=== PATIENT | female | born 1955 | race Caucasian/White ===

== ENCOUNTER 2018-11-22 10:45 | Inpatient (IN) ==
[2018-11-22] MEDS ORDERED: ZOFRAN IV ONE (11:03)
[2018-11-22] MEDS ORDERED: NS 1,000 ML IV ONE (11:03)
--- NOTE | 2018-11-22 11:22 | PROVIDER DOCUMENTATION ---
This chart was entered by Shante Damon Scribe, acting as scribe for Sam Grimm CRNP. HPI-Abdominal Pain/GI Problem - General Stated Complaint: ABD PAIN, AMS Time Seen by Provider: 11/22/18 10:47 Source: family, EMS Allergies/Adverse Reactions: Patient Allergies Allergy/AdvReac Type Severity Reaction Status Date / Time No Known Allergies Allergy Verified 01/17/14 09:11 Home Medications: Home Medication List Medication Instructions Recorded Confirmed Last Taken Type Amitriptyline [Elavil] 50 mg PO HS 01/17/14 10/01/18 10/01/18 History Duloxetine [Cymbalta] 60 mg PO DAILY 01/17/14 10/01/18 10/01/18 History Gabapentin 300 mg PO TID 01/17/14 10/01/18 10/01/18 History Hydrocodone/Acetaminophen [Lortab 7.5 each PO TID PRN 01/17/14 10/01/18 10/01/18 History 7.5-325 mg Tablet] Insulin Glargine [Lantus] 45 unit SUBQ BID 01/17/14 10/01/18 10/01/18 History Insulin Humulin 70/30 [Humulin 55 unit SUBQ QHS 01/17/14 09/30/18 09/30/18 History 70/30] Insulin Humulin 70/30 [Humulin 65 unit SUBQ QAM 01/17/14 10/01/18 10/01/18 History 70/30] Ipratropium/Albuterol INH 1 puff INH RTQ6H 01/17/14 10/01/18 10/01/18 History [Combivent Respimat Inhaler] LISINOpril [Prinivil] 10 mg PO DAILY 01/17/14 10/01/18 10/01/18 History Montelukast [Singulair] 10 mg PO DAILY 01/17/14 10/01/18 10/01/18 History Nitroglycerin [Nitroquick] 0.4 mg SL PRN PRN 01/17/14 10/01/18 10/01/18 History Pentoxifylline E.r. [Trental] 400 mg PO BID 01/17/14 10/01/18 10/01/18 History SIMVAstatin [Zocor] 80 mg PO QHS 01/17/14 09/30/18 09/30/18 History Sitagliptin Phosphate [Januvia] 100 mg PO DAILY 01/17/14 10/01/18 10/01/18 History Metformin [Glucophage] 2,000 mg PO QHS #0 01/18/14 09/30/18 09/30/18 Rx Aspirin [Adult Aspirin] 81 mg PO DAILY 08/25/18 10/01/18 10/01/18 History Furosemide 20 mg PO DAILY 08/25/18 10/01/18 10/01/18 History Lubiprostone [Amitiza] 24 mg PO BID 08/25/18 10/01/18 10/01/18 History Metoprolol Villatoro/Hydrochlorothiaz 50 mg PO DAILY 08/25/18 10/01/18 10/01/18 History [Metoprolol ER-Hctz 50-12.5 mg] - History of Present Illness-ABD Nature of Presenting Problems: 63 y/o female presents to ED with generalized abdominal pain and N/V onset 2 days ago. Family of pt is at bedside and reports she has hx of "stomach problems," but cannot specify further. Family states they spoke to her last night and she disclosed that she has been sick since the night before. Family reports a friend called this morning after checking on her, said she was minimally responsive and called EMS. EMS states she vomited coffee-ground emesis with fecal odor en route to ED. Abdominal Pain Onset Location: reports: generalized abdomen Pain Radiation: reports: no radiation Quality of Pain: reports: aching Severity in ED: reports: moderate Onset/Duration: reports: 2 days ago Timing: reports: still present Activities at Onset: reports: none Exposure to sick contacts?: No Modifying Factors: worse with: palpation Associated Symptoms: reports: nausea, vomiting, other (generalized abdominal pain; AMS; hematemesis) Last BM: unsure Dark Stools Present?: reports: none noticed Rectal Bleeding: reports: none Rectal Pain: reports: none Emesis Description: reports: coffee grounds Similar Symptoms Previously?: No Recently seen or treated by another doctor?: No Review of Systems - Adult - REVIEW OF SYSTEMS - ADULT Constitutional: reports: other (AMS). denies: chills, fever Eyes: reports: no symptoms reported Ears, Nose, Mouth & Throat: reports: no symptoms reported Cardiovascular: denies: chest pain, palpitations Respiratory: denies: cough, shortness of breath Gastrointestinal: reports: abdominal pain, hematemesis, nausea, vomiting. denies: diarrhea Genitourinary: reports: no symptoms reported Musculoskeletal: denies: back pain, joint pain Integumentary: reports: no symptoms reported Neurological: reports: other (AMS). denies: dizziness/vertigo, seizure Psychiatric: reports: no symptoms reported Endocrine: reports: no symptoms reported Hematologic/Lymphatic: reports: no symptoms reported Allergic/Immunologic: reports: no symptoms reported All Other Systems: Reviewed and Negative Past History - Adult - PAST MEDICAL HISTORY-ADULT Review of Records: reports: Old Records Reviewed, Nursing Assessment Review, Medications Reviewed Major Childhood Illnesses: reports: denies history Cardiovascular: reports: HTN, hyperlipidemia Respiratory: reports: COPD Gastrointestinal: reports: denies history Obstetrical/Gynecological: reports: uterine/ovarian cancer Genitourinary: reports: denies history Musculoskeletal: reports: denies history Neurological: reports: denies history Psychiatric: reports: anxiety Endocrine/Immune: reports: Diabetes Other Conditions: reports: denies history - PRIOR SURGERIES/PROCEDURES Surgical/Procedure History: reports: cholecystectomy, hysterectomy, , hernia repair - IMMUNIZATION STATUS Childhood Immunizations: See Nurse Assessment Flu Vaccine: See Nurse Assessment - FAMILY HISTORY Family History: reviewed, not pertinent - SOCIAL HISTORY Smoking: greater than 1 pack/day Provider spent 3-5 mins advising pt. on dangers of tobacco.: Discussed manners to quit use, and f/u contacts for add'l counseling. Substance Use: none/never Alcohol Use Frequency: never Living Situation: family Physical Exam-General - PHYSICAL EXAM-ADULT Initial Vital Signs Reviewed: Yes - CONSTITUTIONAL General Appearance: no apparent distress, other (does not answer questions or follow commands; will open eyes; responsive to sternal rub) - EYES Eyes: PERRL/EOMI, pink conjunctivae - HEAD, EARS, NOSE, MOUTH & THROAT HENMT: normocephalic/atraumatic, moist mucous membranes, normal ENT inspection - NECK Neck: non-tender, full range of motion - RESPIRATORY Respiratory: chest non-tender, rhonchi (bilateral) - CARDIOVASCULAR Cardiovascular: normal peripheral pulses, regular rate, rhythm - GASTROINTESTINAL (ABDOMEN) Abdominal Exam: soft, abnormal bowel sounds (absent), tenderness (diffuse). negative: normal bowel sounds - MUSCULOSKELETAL Back Exam: normal inspection, no CVA tenderness, no vertebral tenderness Extremity: normal range of motion, non-tender - SKIN Integumentary: normal color, warm/dry - NEUROLOGIC Neurologic: other (does not answer questions or follow commands; will open eyes; responsive to sternal rub) - PSYCHIATRIC Psych/Mental Status: other (does not answer questions or follow commands; will open eyes; responsive to sternal rub) Progress - PLAN OF CARE/RESULTS Progress/Plan/Lab Results: Vital Signs - 24 hr 11/22/18 11:10 Temperature 98.4 F Pulse Rate 98 H Respiratory Rate 22 Blood Pressure 155/75 O2 Sat by Pulse Oximetry 89 L Orders Category Date Time Status FSBS [Finger Stick Blood Sugar (ED)] DIRECTED Care 11/22/18 11:01 Completed Chance Cath Insertion ORDERED Care 11/22/18 11:05 Active Saline Loc NOW Care 11/22/18 11:01 Active Take Temperature DIRECTED Care 11/22/18 11:03 Active CHEST-PORTABLE [RAD] Stat Exams 11/22/18 11:[address] HEAD W/O CONTRAST [CT] Stat Exams 11/22/18 11:[address] THORAX/ABD/PELVIS W/O CON [CT] Stat Exams 11/22/18 12:02 Ordered ABG [RESP] Routine Lab 11/22/18 11:10 Completed BLOOD CULTURE [BLDCUL] Stat Lab 11/22/18 11:06 Ordered CBC WITH ELECTRONIC DIFF [HEME] Stat Lab 11/22/18 11:06 Completed CK PROFILE [SP CHEM] Stat Lab 11/22/18 11:06 Completed COMPREHENSIVE METABOLIC PANEL [CHEM] Stat Lab 11/22/18 11:06 Completed LACTATE, PLASMA [CHEM] Stat Lab 11/22/18 11:06 Completed OCCULT BLOOD SCREENING [STOOL] Stat Lab 11/22/18 11:20 Completed PRO B-NATRIURETIC PEPTIDE Stat Lab 11/22/18 11:06 Completed TROPONIN T Stat Lab 11/22/18 11:06 Completed TYPE & SCREEN [BBK] Stat Lab 11/22/18 12:01 Uncollected URINALYSIS W/POSS RFLX CULT [URINALYSIS] Stat Lab 11/22/18 11:20 Completed URINE DRUG SCREEN Stat Lab 11/22/18 11:20 Received 0.9% Sodium Chloride Inj [Ns] 1,000 ml Med 11/22/18 11:03 Active IV 125 mls/hr Ondansetron [Zofran] Med 11/22/18 11:03 Discontinued 4 mg IV NOW ONE EKG [EKG] Stat Ther 11/22/18 11:01 Ordered Laboratory Tests 11/22/18 11/22/18 11/22/18 11:04 11:06 11:06 WBC 11.19 H RBC 3.41 L Hgb 10.4 L Hct 31.9 L MCV 93.5 MCH 30.5 MCHC 32.6 L RDW Std Deviation 17.6 H Plt Count 86 L MPV 11.9 H Immature Gran % (Auto) 0.4 Neut % (Auto) 82.8 H Lymph % (Auto) 9.5 L [place] % (Auto) 7.2 Eos % (Auto) 0.1 Baso % (Auto) 0.0 Immature Gran # (Auto) 0.04 Neut # (Auto) 9.27 H Lymph # (Auto) 1.06 L [place] # (Auto) 0.81 H Eos # (Auto) 0.01 Baso # (Auto) 0.00 Specimen Type Sample Site pH pCO2 pO2 HCO3 Base Excess Oxyhemoglobin ABG O2 Sat (Calculated) ABG O2 Saturation ABG Carboxyhemoglobin ABG Methemoglobin Alfa Test A-a O2 Difference Total Hemoglobin Lactate Liter Flow Blood Gas Modality FiO2 % Sodium Potassium Chloride Carbon Dioxide Anion Gap BUN Creatinine Estimated GFR/1.73 m2 BUN/Creatinine Ratio Glucose POC Glucose 176 H D Calculated Osmolality Calcium Total Bilirubin AST ALT Alkaline Phosphatase Creatine Kinase Troponin T Coh-N-Yzdgwjxyaxr Pept 178 Total Protein Albumin Globulin Albumin/Globulin Ratio Plasma Lactate Urine Source Urine Color Urine Turbidity Urine pH Ur Specific Buhl Urine Protein Ur Glucose (Stick) Ur Ketones (Stick) Urine Blood Urine Nitrite Urine Bilirubin Urobilinogen Dipstick Urine Leukocytes Urine WBC (Auto) Urine RBC (Auto) U Epithel Cells (Auto) Urine Bacteria (Auto) 11/22/18 11/22/18 11/22/18 11:06 11:06 11:06 WBC RBC Hgb Hct MCV MCH MCHC RDW Std Deviation Plt Count MPV Immature Gran % (Auto) Neut % (Auto) Lymph % (Auto) [place] % (Auto) Eos % (Auto) Baso % (Auto) Immature Gran # (Auto) Neut # (Auto) Lymph # (Auto) [place] # (Auto) Eos # (Auto) Baso # (Auto) Specimen Type Sample Site pH pCO2 pO2 HCO3 Base Excess Oxyhemoglobin ABG O2 Sat (Calculated) ABG O2 Saturation ABG Carboxyhemoglobin ABG Methemoglobin Alfa Test A-a O2 Difference Total Hemoglobin Lactate Liter Flow Blood Gas Modality FiO2 % Sodium 143 Potassium 4.7 Chloride 102 Carbon Dioxide 19 L Anion Gap 22 BUN 53 H Creatinine 1.9 H Estimated GFR/1.73 m2 27 BUN/Creatinine Ratio 28 Glucose 179 H POC Glucose Calculated Osmolality 304 Calcium 9.3 Total Bilirubin 1.07 H AST 24 ALT 17 Alkaline Phosphatase 121 H Creatine Kinase 51 Troponin T < 0.010 Zjz-H-Cwzrweeurxr Pept Total Protein 7.0 Albumin 3.9 Globulin 3.1 Albumin/Globulin Ratio 1.3 Plasma Lactate 3.9 H Urine Source Urine Color Urine Turbidity Urine pH Ur Specific Buhl Urine Protein Ur Glucose (Stick) Ur Ketones (Stick) Urine Blood Urine Nitrite Urine Bilirubin Urobilinogen Dipstick Urine Leukocytes Urine WBC (Auto) Urine RBC (Auto) U Epithel Cells (Auto) Urine Bacteria (Auto) 11/22/18 11/22/18 11:10 11:20 WBC RBC Hgb Hct MCV MCH MCHC RDW Std Deviation Plt Count MPV Immature Gran % (Auto) Neut % (Auto) Lymph % (Auto) [place] % (Auto) Eos % (Auto) Baso % (Auto) Immature Gran # (Auto) Neut # (Auto) Lymph # (Auto) [place] # (Auto) Eos # (Auto) Baso # (Auto) Specimen Type ARTERIAL Sample Site R RADIAL pH 7.52 H pCO2 26 L pO2 62 HCO3 24.2 Base Excess -0.8 Oxyhemoglobin 91.8 L ABG O2 Sat (Calculated) 12.8 L ABG O2 Saturation 95.3 ABG Carboxyhemoglobin 3.60 H ABG Methemoglobin 0.1 Alfa Test YES A-a O2 Difference 105.0 Total Hemoglobin 9.9 L Lactate 3.70 H Liter Flow 2.0 Blood Gas Modality CANNULA FiO2 % 28.0 Sodium Potassium Chloride Carbon Dioxide Anion Gap BUN Creatinine Estimated GFR/1.73 m2 BUN/Creatinine Ratio Glucose POC Glucose Calculated Osmolality Calcium Total Bilirubin AST ALT Alkaline Phosphatase Creatine Kinase Troponin T Wiw-F-Tfzuhkftbps Pept Total Protein Albumin Globulin Albumin/Globulin Ratio Plasma Lactate Urine Source CATH Urine Color YELLOW Urine Turbidity CLEAR Urine pH 5.5 Ur Specific Buhl 1.020 Urine Protein TRACE A Ur Glucose (Stick) NEGATIVE Ur Ketones (Stick) TRACE A Urine Blood NEGATIVE Urine Nitrite NEGATIVE Urine Bilirubin NEGATIVE Urobilinogen Dipstick NORMAL Urine Leukocytes NEGATIVE Urine WBC (Auto) <10 Urine RBC (Auto) <10 U Epithel Cells (Auto) <10 Urine Bacteria (Auto) NEGATIVE Discussed results and plan of care with patient family. Family agrees with plan and verbalizes understanding. Result Diagrams: 11/22/18 11:06 11/22/18 11:06 - EKG 1 Time of EKG reading by physician:: 10:54 EKG Read and Signed by:: Elliott Garcia EKG Interpretation (*Must complete 3 of following elements*): Normal Rate: 97 Rhythm: NSR Plato: normal QRS: normal MD Interval: normal ST Wave: normal - XRAY 1 XRAY Study: Chest Impression: See EMR Report - CT/MRI 1 CT Study: Head Impression: See EMR Report 2 CT Study: Abdomen ([facility] - [address] [place] [address] [address], [place] [address] [facility] - [address] [place] [address] Department of Imaging Patient: YAEL ORTIZ Date: 11/22/18#: [id number] : 1955DM Status: REG ERAcct#: [id number] Age/Sex: 63/FRoom/Bed: Loc: ED Ordering Physician: Sam Grimm Family Physician: None,PCP Reason for Procedure: abd pain/SOB Signed EXAM: CT THORAX/ABD/PELVIS W/O CON INDICATION: abd pain/SOB TECHNIQUE: This exam was performed using automated exposure control, adjustment of mA or kV according to patient size, and/or use of iterative reconstruction technique. COMPARISON: None. FINDINGS: CHEST: There is a large right pleural effusion with associated near complete right lower lobe atelectasis and partial right upper lobe atelectasis. There is minimal subsegmental atelectasis at the left lung base. There are a few calcified mediastinal and hilar lymph nodes indicating prior granulomatous disease. There is no evidence of significan t mediastinal or hilar lymphadenopathy, otherwise. There is no cardiomegaly. There is no evidence of acute osseous abnormality involving the chest. ABDOMEN/PELVIS: There has been a prior cholecystectomy. The liver is grossly unremarkable. The spleen is somewhat enlarged measuring up to 15.7 cm in craniocaudal length. The pancreas and adrenal glands are unremarkable. There is trace free fluid tracking around the liver and spleen and layering in the pelvis. There are a few tiny low dense renal cortical foci bilaterally that probably represent small cysts. The kidneys are unremarkable, otherwise. There is a Chance catheter in the urinary bladder and the bladder is nondistended. There is uncomplicated diverticulosis coli. There is a lower ventral abdominal wall hernia on the left that contains a loop of small bowel proximal to this loop, the small bowel is distended and there are air-fluid levels. This indicates a high-grade obstruction. This appears to be a closed loop obstruction. There is fluid surrounding the incarcerated loop of small bowel. Distal to this, the small bowel is decompressed. The remainder of the GI tract is essentially unremarkable. There is advanced lumbar spondylosis and degenerative changes at the hips. There is no evidence of acute osseous abnormality. IMPRESSION: 1.Left lower quadrant ventral abdominal wall hernia containing an incarcerated loop of small bowel resulting in a high-grade bowel obstruction. 2.Large right pleural effusion with significant atelectasis on the right. 3.Mild splenomegaly. 4.Other incidental/nonacute findings detailed above. Electronically signed by Anatoliy Pepe 11/22/2018 1:14 PM 11/22/18 1314 Interpreting Physician: Anatoliy Pepe MD Dictated Date/Time: 11/22/18 1300 cc: Sam Grimm; None,PCP), Pelvis, Thorax Impression: See EMR Report CT Results: See note - CONSULTS/PCP/HOSPITALIST Notification #1 *Consult/PCP/Hospitalist*: Dr. Ryne Hook Discussed: 13:23 Reason/Comments: Consult Consult Disposition: Will see in ED #2 Consult: Jessika BARKLEY for Dr. Lamas Time Discussed: 13:24 Reason/Comments: Admission Consult Disposition: Will see in ED, Admit Departure - Departure Date of Disposition Decision: 11/22/18 Time of Disposition Decision: 11:22 DIAGNOSIS: Elevated serum lactate dehydrogenase, Ventral hernia with bowel obstruction Acute renal failure (ARF) Qualifiers: Acute renal failure type: unspecified Qualified Code(s): N17.9 - Acute kidney failure, unspecified GI bleed Qualifiers: GI bleed type/associated pathology: unspecified gastrointestinal hemorrhage type Qualified Code(s): K92.2 - Gastrointestinal hemorrhage, unspecified Disposition: ADMITTED INPATIENT 09 Certified Medical Emergency: Emergent Condition: Stable Referrals and Follow-Ups: None,PCP [Primary Care Provider] - Discharge Education: Steps to Quit Smoking, [id number] - Critical Care Note This patient required my direct & personal management of CC.: Yes Total Time (mins): 45 Critical Care Statement: This patient required my direct personal management to treat or rule out processes, the absence of which, could potentiallly result in sudden, clinically significant life or limb threatening deterioration. Attestation - Physician/ SKYLER Attestation Patient care was provided by Advanced Practice Provider:: Yes Advanced Practice Provider:: Sam Grimm Advanced Practice Provider documentation review:: The Mid-level provider documentation, treatment plan and medical decision making was reviewed by the physician who agrees with all treatment and medical decision making by the MLP. The physician spent face to face time with patient:: Yes Advanced Practice Provider documentation review:: Supervising physician onsite and consulted in the evaluation and care of this patient. The physician did have a face to face encounter with the patient. This chart was documented by the indicated scribe, (Shante Damon Scribe) and accurately reflects the services I performed and decisions made by me, Sam Grimm CRNP, as attested by the provider's signature.
[2018-11-22 11:23] LABS: ALLEN TEST YES; BE -0.8 mmoll (-3.0-3.0); BLOOD TYPE ARTERIAL; HCO3-(ACT) 24.2 mmoll (20.0-26.0); METHB 0.1 % (0.0-1.5); O2(CT) 12.8 mL/dL (15.0-23.0); O2HB 91.8 % (95.0-99.0); PCO2(98.6) 26 mmHg (35-45); PO2(98.6) 62 mmHg (60-100); SAMPLE BLOOD; SAO2 95.3 % (95.0-100.0); THB 9.9 g/dL (11.5-17.4); pH(98.6) 7.52 (7.35-7.45)
[2018-11-22 11:24] LABS: MODALITY CANNULA
[2018-11-22 11:30] LABS: EOS# 0.01 X1000 (0.0-0.7); EOS% 0.1 % (0.0-10.0); HEMATOCRIT 31.9 % (37.0-47.0); HEMOGLOBIN 10.4 g/dL (12.0-16.0); IMM GRAN# 0.04 X1000 (0.0-0.04); IMM GRAN% 0.4 % (0.0-0.5); LYMPH# 1.06 X1000 (1.2-3.4); LYMPH% 9.5 % (20.5-51.1); MCH 30.5 PG (27-31); MCHC 32.6 g/dL (33-37); MCV 93.5 FL (81-99); MONO# 0.81 X1000 (0.11-0.59); MONO% 7.2 % (1.7-9.3); MPV 11.9 FL (7.4-10.4); NEUT# 9.27 X1000 (1.4-6.5); NEUT% 82.8 % (42.2-75.2); PLT 86 X1000 (130-400); RBC 3.41 XMIL (4.2-5.4); RDW 17.6 % (11.5-14.5); WBC 11.19 X1000 (4.8-10.8)
[2018-11-22 11:39] LABS: URINE SOURCE CATH
[2018-11-22 11:51] LABS: BILIRUBIN URINE NEGATIVE (NEGATIVE); BLOOD URINE NEGATIVE (NEGATIVE); COLOR YELLOW; GLUCOSE URINE NEGATIVE (NEGATIVE); KETONE URINE TRACE mg/dL (NEGATIVE); LEUKOCYTES URINE NEGATIVE (NEGATIVE); NITRITE URINE NEGATIVE (NEGATIVE); PH URINE 5.5; PROTEIN URINE TRACE mg/dL (NEGATIVE); TURBIDITY URINE CLEAR (CLEAR); UROBILINOGEN URINE NORMAL (NORMAL)
[2018-11-22 11:53] LABS: UR EPITHELIAL CELLS <10 /HPF (<10); URINE BACTERIA NEGATIVE /HPF; URINE RBC <10 /HPF (<10); URINE WBC <10 /HPF (<10)
[2018-11-22 11:57] LABS: ALB/GLOB RATIO 1.3; ALBUMIN 3.9 g/dL (3.5-5.0); CALCIUM 9.3 mg/dL (8.8-10.2); CREATININE 1.9 mg/dL (0.5-0.9); POTASSIUM 4.7 mmol/L (3.5-5.1); TOTAL BILIRUBIN 1.07 mg/dL (0.20-1.00)
[2018-11-22] MEDS ORDERED: PROTONIX IV ONE (12:06)
[2018-11-22] MEDS ORDERED: SODIUM CHLORIDE 0.9% INJ ONE (12:06)
[2018-11-22 12:21] LABS: UR AMPHETAMINES QUAL NONE DETECTED (NONE DETECT); UR BARBITUATES QUAL NONE DETECTED (NONE DETECT); UR BENZODIAZEPIN QUAL NONE DETECTED (NONE DETECT); UR CANNABINOIDS QUAL NONE DETECTED (NONE DETECT); UR COCAINE QUAL NONE DETECTED (NONE DETECT); UR METHADONE QUAL NONE DETECTED (NONE DETECT); UR OPIATES QUAL NONE DETECTED (NONE DETECT); UR OXYCODONE QUAL NONE DETECTED (NONE DETECT); UR PCP QUAL NONE DETECTED (NONE DETECT)
[2018-11-22] MEDS ORDERED: NS 2,000 ML IV ONE (12:44)
--- NOTE | 2018-11-22 13:01 | Diag Imaging Result Doc PS360 ---
EXAM: CT HEAD W/O CONTRAST INDICATION: AMS TECHNIQUE: This exam was performed using automated exposure control, adjustment of mA or kV according to patient size, and/or use of iterative reconstruction technique. COMPARISON: None. FINDINGS: There is no definite acute infarct given the limited sensitivity of CT versus MRI. There is no discrete intracranial mass, mass effect, or intracranial hemorrhage. The surrounding soft tissues and bony structures are essentially unremarkable. IMPRESSION: No evidence of acute intracranial pathology. Electronically signed by Anatoliy Pepe 11/22/2018 12:59 PM
--- NOTE | 2018-11-22 13:17 | Diag Imaging Result Doc PS360 ---
EXAM: CT THORAX/ABD/PELVIS W/O CON INDICATION: abd pain/SOB TECHNIQUE: This exam was performed using automated exposure control, adjustment of mA or kV according to patient size, and/or use of iterative reconstruction technique. COMPARISON: None. FINDINGS: CHEST: There is a large right pleural effusion with associated near complete right lower lobe atelectasis and partial right upper lobe atelectasis. There is minimal subsegmental atelectasis at the left lung base. There are a few calcified mediastinal and hilar lymph nodes indicating prior granulomatous disease. There is no evidence of significant mediastinal or hilar lymphadenopathy, otherwise. There is no cardiomegaly. There is no evidence of acute osseous abnormality involving the chest. ABDOMEN/PELVIS: There has been a prior cholecystectomy. The liver is grossly unremarkable. The spleen is somewhat enlarged measuring up to 15.7 cm in craniocaudal length. The pancreas and adrenal glands are unremarkable. There is trace free fluid tracking around the liver and spleen and layering in the pelvis. There are a few tiny low dense renal cortical foci bilaterally that probably represent small cysts. The kidneys are unremarkable, otherwise. There is a Chance catheter in the urinary bladder and the bladder is nondistended. There is uncomplicated diverticulosis coli. There is a lower ventral abdominal wall hernia on the left that contains a loop of small bowel proximal to this loop, the small bowel is distended and there are air-fluid levels. This indicates a high-grade obstruction. This appears to be a closed loop obstruction. There is fluid surrounding the incarcerated loop of small bowel. Distal to this, the small bowel is decompressed. The remainder of the GI tract is essentially unremarkable. There is advanced lumbar spondylosis and degenerative changes at the hips. There is no evidence of acute osseous abnormality. IMPRESSION: 1.Left lower quadrant ventral abdominal wall hernia containing an incarcerated loop of small bowel resulting in a high-grade bowel obstruction. 2.Large right pleural effusion with significant atelectasis on the right. 3.Mild splenomegaly. 4.Other incidental/nonacute findings detailed above. Electronically signed by Anatoliy Pepe 11/22/2018 1:14 PM
[2018-11-22] MEDS ORDERED: ATIVAN IV ONE (13:27)
[2018-11-22] MEDS ORDERED: MORPHINE IV ONE (13:28)
[2018-11-22] MEDS ORDERED: FENTANYL ONE (13:48)
[2018-11-22] MEDS ORDERED: DIPRIVAN 1% ONE (13:48)
[2018-11-22] MEDS ORDERED: DUONEB (A & A) INH PRN (13:49)
[2018-11-22] MEDS ORDERED: ROBINUL ONE (13:49)
[2018-11-22] MEDS ORDERED: ZOFRAN IV PRN (13:49)
[2018-11-22] MEDS ORDERED: XYLOCAINE-MPF 2% ONE (13:49)
[2018-11-22] MEDS ORDERED: DECADRON ONE (13:49)
[2018-11-22] MEDS ORDERED: DILAUDID IV PRN ×2 (13:49→18:54)
[2018-11-22] MEDS ORDERED: QUELICIN (DOSE) ONE (13:49)
--- NOTE | 2018-11-22 13:57 | Diag Imaging Result Doc PS360 ---
EXAM: CHEST-PORTABLE INDICATION: AMS/SOB TECHNIQUE: One view COMPARISON: 07/17/2016 FINDINGS: There is a moderate to large sized pleural effusion on the right with adjacent atelectasis. The left lung is clear. There is no discrete pneumothorax. The cardiomediastinal silhouette and central vasculature are grossly unremarkable. IMPRESSION: Moderate to large size right pleural effusion with adjacent atelectasis. Electronically signed by Anatoliy Pepe 11/22/2018 1:55 PM
[2018-11-22] MEDS ORDERED: PROTONIX IV SCH (14:00)
[2018-11-22] MEDS: ZOSYN 3.375 GM in NS 50 ML IV SCH ×2 (14:15→20:39)
[2018-11-22] MEDS ORDERED: BRIDION ONE (15:49)
[2018-11-22] MEDS ORDERED: HUMALOG SUBQ SCH (16:00)
[2018-11-22] MEDS ORDERED: NEOSTIGMINE ONE (16:21)
[2018-11-22 16:52] LABS: ALLEN TEST YES; BE -3.3 mmoll (-3.0-3.0); BLOOD TYPE ARTERIAL; HCO3-(ACT) 22.3 mmoll (20.0-26.0); METHB 0.7 % (0.0-1.5); O2(CT) 11.9 mL/dL (15.0-23.0); O2HB 92.2 % (95.0-99.0); PCO2(98.6) 35 mmHg (35-45); PO2(98.6) 71 mmHg (60-100); SAMPLE BLOOD; SAO2 95.5 % (95.0-100.0); THB 9.1 g/dL (11.5-17.4); pH(98.6) 7.39 (7.35-7.45)
[2018-11-22 16:53] LABS: MODALITY COOL AEROSOL
[2018-11-22] MEDS ORDERED: NS 1,000 ML IV SCH (17:15)
[2018-11-22] MEDS: NEXIUM IV SCH (17:33)
[2018-11-22] MEDS: SODIUM CHLORIDE 0.9% INJ SCH (17:33)
--- NOTE | 2018-11-22 18:24 | HISTORY AND PHYSICAL ---
CHIEF COMPLAINT: Abdominal pain, altered mental status. HPI: This is a 63-year-old female with a history of gastroesophageal reflux disease, hypertension, diabetes mellitus, who presents to the emergency room via EMS after being called by her family. Evidently, the patient has complained of generalized abdominal pain with nausea and vomiting that started about 2 or 3 days ago. They did state that she has a history of constipation and felt that she needed to have a bowel movement over the last 2 to 3 days. The daughter stated she talked to her mom last night and that she stated that she needed to have a bowel movement but was unable. She stated that she seemed in her normal state of mind at that time. Daughter stated this morning a friend called her and said that she needed to check on her mom because she was not responding therefore EMS was called. According to the chart, on EMS arrival the patient responded only to pain and she vomited coffee-grounds emesis with a fecal odor. The daughter is at the bedside, although she is a poor historian and the patient continues to respond only to pain. She does moan and groan. PAST MEDICAL HISTORY: According to the chart, hypertension, diabetes mellitus, gastroesophageal reflux disease, maybe COPD. PAST SURGICAL HISTORY: Cholecystectomy, hysterectomy, and hernia repair. The patient does have mesh per the daughter and it was placed about 15 years ago. REVIEW OF SYSTEMS: Is unable to obtain due to the patient's mental status. ALLERGIES: No known drug allergies. HOME MEDICATIONS: A list will be obtained by the nursing staff and once verified will review and restart as appropriate. VITAL SIGNS: Blood pressure is 144/73 with a heart rate of 97, respirations are 20 to 22, temperature is 98.2 degrees with O2 saturations 94 to 96%. HEENT: Head is normocephalic, atraumatic. Mucous membranes are moist. Neck: Supple with trachea midline. Cardiovascular: Regular rate and rhythm. S1 and S2 are appreciated. Peripheral pulses are palpable x4 extremities. Pulmonary: Breath sounds with rhonchi scattered throughout. Chest rises and falls symmetric with respiration. Chest wall is nontender. Abdomen: Large with diffuse tenderness with no bowel sounds noted. She does have a firm area to her left lower quadrant that is tender to palpation. Skin: Pale and dry. Neurologic: The patient startles to a sternal rub or to pain. LABS: WBC is 11.1 with hemoglobin 10.4, hematocrit 31.9 and platelets of 86,000. Sodium 143, potassium 4.7, BUN 53, creatinine 1.9 with a glucose of 179. Lactate is 3.9. Urine drug screen reveals none detected. Blood cultures are pending. Stool for occult blood is positive. Chest x-ray reveals moderate to large size right pleural effusion with adjacent atelectasis. CT of the head reveals no evidence of acute intracranial pathology. CT of the abdomen and pelvis and chest reveals a left lower quadrant ventral abdominal wall hernia containing an incarcerated loop of small bowel resulting in a high-grade bowel obstruction, a large right pleural effusion with significant atelectasis on the right, mild splenomegaly. ASSESSMENT AND PLAN: 1. Incarcerated ventral hernia with high-grade bowel obstruction. 2. Gastrointestinal bleed, lower. 3. Acute kidney injury in the setting of chronic kidney disease. 4. Leukocytosis. 5. Hypertension. 6. Gastroesophageal reflux disease. 7. Diabetes mellitus type 2. 8. Chronic obstructive pulmonary disease. 9. Thrombocytopenia looks like chronic. 10. Right-sided pleural effusion, possible aspiration pneumonia. Will continue with antibiotic coverage of Zosyn. PLAN: 1. The patient has been evaluated by Dr. Glenroy Michele. She will go to surgery from the emergency room. NG tube has been placed. The patient does have noted fecal smelling matter returning. continue with IV hydration. CBC, CMP, mag and phosphorus in the morning. Dilaudid for pain. DuoNeb q.4 hours and q.2 hours p.r.n. pattern blood glucose with sliding scale insulin. Zosyn for antibiotic coverage and any further antibiotics will be culture driven. Dr. Mcdowell will be consulted. DVT prophylaxis will use SCDs and GI prophylaxis Nexium. Further treatments pending hospital course. Plan discussed with Dr Walker. Dictated by FILIPPO Freedman for Juan Carlos Thao MD cc: FILIPPO Freedman MD [facility]
[2018-11-22] MEDS ORDERED: DIPRIVAN 1% 1,000 MG/100 ML BOTTLE ONE (19:43)
[2018-11-22] MEDS: LEVOPHED 8 MG in D5 1/2 NS 250 ML IV SCH (19:59)
[2018-11-22] MEDS: DIPRIVAN 1% 1,000 MG/100 ML BOTTLE IV SCH ×2 (20:00→21:34)
[2018-11-22] MEDS ORDERED: SODIUM BICARBONATE 8.4% 100 MEQ in D5W 1,000 ML IV SCH (20:00)
[2018-11-22] MEDS: DUONEB (A & A) INH SCH ×2 (20:11→22:57)
--- NOTE | 2018-11-22 20:18 | Diag Imaging Result Doc PS360 ---
EXAM: CHEST-1 VIEW INDICATION: confirm ett placement TECHNIQUE: One view COMPARISON: 11/22/2018 FINDINGS: There is an ET tube in place with the tip projecting over the trachea and above the shellie at about the four level. There is also an NG tube projects below the diaphragm and is assumed to be in the lumen of the stomach in the expected position. The moderate to large size pleural effusion seen on the previous study appears to have increased somewhat in size. However, this may be due to differences in positioning with layering. No new consolidation is identified. Cardiac silhouette is stable. IMPRESSION: 1.Interval placement of ET tube and NG tube as described. 2.Likely mild increase in size of the right effusion. Electronically signed by Anatoliy Pepe 11/22/2018 8:16 PM
[2018-11-22] MEDS: SODIUM BICARBONATE 8.4% 100 MEQ in D5W 1,000 ML IV SCH (20:34)
--- NOTE | 2018-11-22 20:45 | GENERAL SURGERY CONSULTATION ---
DATE: 11/22/2018 HISTORY OF PRESENT ILLNESS: This is a 63-year-old female with multiple medical issues including diabetes, smoking, COPD, chronic pain, peripheral vascular disease, hypertension, hyperlipidemia and depression, who presents after family found her altered today from a mental status standpoint. She had some nausea, vomiting yesterday, abdominal discomfort. They thought she had a stomach virus. Today, they noted feculent emesis and she came to the ER. CT scan showed incarcerated ventral hernia left lower quadrant and she also has a right-sided effusion consistent with aspiration pneumonia. She is very altered and combative. Daughter is here with her, confirms this is not her usual state of health. She does seem to be moving all her extremities well. CT of the head did not show any acute abnormality. MEDICAL HISTORY: As noted in her HPI. SURGICAL HISTORY: She has had C-sections, hysterectomies, complications associated with this, including hernia. She had a ventral hernia repair around the umbilicus, appears to be a laparoscopic repair, but apparently no surgery on the left lower quadrant repairs. SOCIAL HISTORY: She does have a history of smoking, no alcohol. Attentive daughter is here with her. FAMILY HISTORY: Reviewed, noncontributory. REVIEW OF SYSTEMS: 10 point negative but difficult to obtain OBJECTIVE: General: She is afebrile. Pulse in the 90s. Blood pressure 137/82, oxygen 93%. She is on nasal cannula. General: She is obviously uncomfortable, thrashing in the bed. Not following commands. HEENT: No scleral icterus. No obvious cervical mass. Cardiovascular: Normal rate. Pulmonary: No increased work of breathing, but she does have some audible rhonchi, insulin, nasal cannula. Abdomen: Obese. It is distended. There is no matthew peritonitis. There is a mass in the left lower quadrant consistent with a hernia. It is lateral to her midline incision at this location. There are also scars of the periumbilical location consistent with previous umbilical hernia repair. It is nonreducible. There are no overlying skin changes and she is not especially tender at this location, either. Psychiatric: She is very agitated and delirious. Neurologic: She seems to be moving all her extremities equally with normal strength. Lymphatic: I do not feel any inguinal adenopathy on the left side. LABS: White count is 11, hematocrit 31, platelets 86,000. ABG 7.52, 26, 62, 24.2, lactate 3.7, creatinine is 1.9, glucose only in the 70s. Bilirubin is 1.07, AST, ALT and alkaline phosphatase. Alkaline phosphatase mildly elevated. Troponins normal, lactate 3.9. UDS negative. Urinalysis without leukocytes, nitrates. I reviewed her CT scan, CT of the head and chest x-ray. ASSESSMENT AND PLAN: This is a 63-year-old female with an incarcerated ventral hernia, left lower quadrant. I do not see signs of perforation. I suspect there is impending ischemia at this location given the dense incarceration. She also appears to have had an aspiration event causing most likely the right lower lobe pneumonia with a reactive effusion. We discussed risk of bleeding, prolonged intubation, cardiopulmonary complications, recurrence, the inability to use mesh in the setting, possible need of bowel resection. The daughter understands and consents. Will go to the operating room emergently for repair of this this afternoon. Ordered her Zosyn. Will place a nasogastric tube. Will place a Chance catheter. cc: Sima Michele MD MTD
[2018-11-22] MEDS: HUMALOG SUBQ SCH ×2 (20:46→23:45)
--- NOTE | 2018-11-22 21:27 | OPERATIVE NOTE ---
PROCEDURE DATE: 11/22/2018 POSTOPERATIVE DIAGNOSIS: Incarcerated left lower quadrant ventral hernia. POSTOPERATIVE DIAGNOSIS: Incarcerated left lower quadrant ventral hernia. PROCEDURE PERFORMED: Open repair of incarcerated left lower quadrant hernia. ANESTHESIA: General. ESTIMATED BLOOD LOSS: Fifty. SPECIMEN: Hernia sac. INDICATIONS: A 63-year-old female who has had a complicated surgical history including a previous ventral hernia repairs, who presents with 48 to 72 hours of nausea vomiting feculent with altered mental status and CT scan showed incarcerated loop of small bowel in the left lower quadrant that was not reducible operative. OPERATIVE FINDINGS: There was a left lower quadrant hernia at the junction of the oblique and the rectus muscles. There is an incarcerated, near strangulated, loop of small intestine that was initially dusky but pinked up with no evidence of perforation or full-thickness necrosis. OPERATIVE NOTE: Risks, benefits, and alternatives were discussed with the patient and her daughter and both consented to the procedure. She was seen preoperatively. Surgical site was confirmed. She was taken to the operating room and placed in the supine position. General anesthesia was induced. She had a nasogastric tube in place and a Chance catheter. Her abdomen is prepped widely with chlorhexidine and draped in usual fashion. After time-out, a left lower quadrant oblique incision was made over the area of the palpable hernia and the hernia was dissected out circumferentially down to the fascia. We then opened the hernia sac. There was a significant amount of edema in the soft tissues and reactive fluid within the hernia sac. The bowel was quite dusky, but there was no matthew necrosis and no perforation. We opened up the defect medially and dividing some the lateral aspect of the rectus muscle and fascia to reduce the strangulation and we noted proper pinking of the intestine. It was peristalsing and we observed this for several minutes after soaking in warm saline and it seemed to be viable. We reduced it back in the abdomen. At this point, we confirmed hemostasis from muscle edges. We did have to ligate some intramuscular arterial branches as well as a crossing vein and likely an epigastric vein with Vicryl suture. We then reapproximated the peritoneum with a running 0 Vicryl and then with interrupted #1 Prolene sutures we reapproximated the anterior fascia. There was good tension free closure here. A Jay drain was placed through a more cephalad and lateral stab incision above the muscle. This Charmaine layer was then reapproximated with a running 3-0 Vicryl suture. Skin closed surgical clips. A dressing was applied. She tolerated this well. Woken, transferred to the ICU for observation resuscitation. cc: Sima Michele MD
[2018-11-22 21:28] LABS: BLOOD TYPE ARTERIAL; SAMPLE BLOOD
[2018-11-22 21:29] LABS: ALLEN TEST YES; BE 1.5 mmoll (-3.0-3.0); HCO3-(ACT) 26.1 mmoll (20.0-26.0); METHB 0.8 % (0.0-1.5); O2(CT) 9.8 mL/dL (15.0-23.0); O2HB 96.7 % (95.0-99.0); PCO2(98.6) 29 mmHg (35-45); PO2(98.6) 114 mmHg (60-100); SAO2 100.6 % (95.0-100.0); SRATE 15 BPM; TVOL 650 mL; pH(98.6) 7.53 (7.35-7.45)
[2018-11-22 21:33] LABS: MODALITY VENTILATOR
--- NOTE | 2018-11-22 22:03 | PULMONOLOGY CONSULTATION ---
DATE: 11/22/2018 REQUESTING PHYSICIAN: Dr. Walker. REASON FOR CONSULTATION: Respiratory failure and pleural effusion. HISTORY OF PRESENT ILLNESS: Ms. Mancini is a 63-year-old white female with presumptive COPD, diabetes mellitus, hypertension, gastroesophageal reflux disease, coronary artery disease, who presented to the emergency room after family found her minimally responsive. The patient has had abdominal pain and nausea for 2 days. The patient had an episode of coffee- grounds emesis with an anaerobic smell en route to the emergency room. CT scan of the head was performed which revealed no evidence of acute intracranial pathology. CT scan of the chest, abdomen and pelvis was performed. There was a large right-sided pleural effusion with atelectasis of the right lower lobe. The patient had an enlarged spleen. She had fluid tracking around the liver. She had an incarcerated loop of small bowel and an abdominal wall hernia consistent with a high-grade obstruction. The patient was taken to the operating room by Dr. Glenroy Michele and this was reduced. She was extubated and is in the ICU. The patient does not follow commands. She responds to pain. She has moderate work of breathing using her abdominal muscles. PAST MEDICAL HISTORY: 1. Diabetes mellitus with unknown glucose control. 2. Coronary artery disease with prior stent placement. Cardiac catheterization 01/2014 revealed moderate disease in the right coronary artery with mild in-stent restenoses of the proximal circumflex. 3. Status post cholecystectomy. 4. Cellulitis of the tip of the index finger on the left hand with acute osteomyelitis involving the distal phalanx. This was noted 08/19/2018 on MRI. The patient was being followed by Dr. Victoriano Love. 5. Status post . 6. History of hernia repair with mesh. SOCIAL HISTORY: The patient has tobacco history. Current tobacco use or quantitation cannot be performed. Unknown alcohol use. FAMILY HISTORY: Not immediately available. REVIEW OF SYSTEMS: Cannot be obtained. PHYSICAL EXAMINATION: General: Reveals an obese white female who appears older than her stated age of 63 with moderate work of breathing as outlined above. She does not follow commands. She does respond to painful stimuli. Heart rate 105, respiratory rate 23 to 28, blood pressure 85/50, oxygen saturation 97%. HEENT: Pupils appear equal. Oropharynx is dry. Neck: Supple. Chest: Reveals diminished breath sounds right base. Cardiac: Regular rate, normal S1, normal S2. Abdomen: Obese and soft with surgical dressings in place. Extremities: Slightly cool to the touch. LABORATORY DATA: CT scan is as per HPI. Reintubation film performed upon my arrival, good endotracheal tube placement. Moderate veiling on the right consistent with effusion. White blood count 11.19, hemoglobin 10.4, platelet count 86,000. Arterial blood gas, pH 7.39, pCO2 of 35, PO2 of 71 with a carboxyhemoglobin of 2.7 and a lactate of 3.1. Sodium 143, potassium 4.7, chloride 102, bicarbonate 19, anion gap is elevated at 22, BUN 53, creatinine 1.9. IMPRESSION: A 63-year-old with 1. Acute hypoxemic respiratory failure with increased work of breathing. 2. Marginal blood pressure with lactic acidosis. 3. Right-sided pleural effusion. 4. Incarcerated hernia status post reduction. 5. Acute renal failure. 6. Increased anion gap acidosis related to the lactate. Cannot rule out ketones. 7. Altered mental status. RECOMMENDATIONS: 1. Reintubation. The patient needs airway control given altered mental status. She needs additional ventilatory support given increased work of breathing and lactic acidosis. 2. Additional volume resuscitation. Will initiate a bicarbonate solution given acute renal failure. 3. Agree with broad spectrum antibiotics. 4. Agree with gastric acid suppression. 5. Bronchodilators. 6. Sputum for C and S. TIME SPENT: In critical care management with intubation bundled into the procedure (I supervised respiratory therapy) 94 minutes. cc: Alexandr Mcdowell MD MTDD
[2018-11-23] MEDS: DIPRIVAN 1% 1,000 MG/100 ML BOTTLE IV SCH ×8 (00:55→21:45)
[2018-11-23] MEDS: SODIUM BICARBONATE 8.4% 100 MEQ in D5W 1,000 ML IV SCH ×6 (01:25→18:43)
[2018-11-23] MEDS: ZOSYN 3.375 GM in NS 50 ML IV SCH ×4 (02:00→20:33)
[2018-11-23] MEDS: TYLENOL PR PRN ×3 (03:00→21:27)
[2018-11-23] MEDS: DUONEB (A & A) INH SCH ×7 (03:33→22:57)
[2018-11-23] MEDS: HUMALOG SUBQ SCH ×5 (03:59→20:34)
[2018-11-23 04:32] LABS: ALLEN TEST YES; BE 0.5 mmoll (-3.0-3.0); BLOOD TYPE ARTERIAL; HCO3-(ACT) 25.3 mmoll (20.0-26.0); O2(CT) 10.7 mL/dL (15.0-23.0); O2HB 95.8 % (95.0-99.0); PCO2(98.6) 34 mmHg (35-45); PO2(98.6) 90 mmHg (60-100); SAMPLE BLOOD; SAO2 96.5 % (95.0-100.0); SRATE 10 BPM; THB 7.8 g/dL (11.5-17.4); TVOL 650 mL; pH(98.6) 7.46 (7.35-7.45)
[2018-11-23 04:33] LABS: MODALITY VENTILATOR
[2018-11-23 05:23] LABS: BASO# 0.02 X1000 (0.0-0.2); BASO% 0.1 % (0.0-0.8); EOS# 0.16 X1000 (0.0-0.7); EOS% 0.9 % (0.0-10.0); HEMATOCRIT 28.2 % (37.0-47.0); HEMOGLOBIN 9.1 g/dL (12.0-16.0); IMM GRAN# 0.08 X1000 (0.0-0.04); IMM GRAN% 0.4 % (0.0-0.5); LYMPH# 2.58 X1000 (1.2-3.4); LYMPH% 13.8 % (20.5-51.1); MCH 30.8 PG (27-31); MCHC 32.3 g/dL (33-37); MCV 95.6 FL (81-99); MONO# 1.93 X1000 (0.11-0.59); MONO% 10.3 % (1.7-9.3); MPV 11.3 FL (7.4-10.4); NEUT# 13.95 X1000 (1.4-6.5); NEUT% 74.5 % (42.2-75.2); PLT 145 X1000 (130-400); RBC 2.95 XMIL (4.2-5.4); RDW 17.9 % (11.5-14.5); WBC 18.72 X1000 (4.8-10.8)
[2018-11-23 05:43] LABS: POTASSIUM 3.7 mmol/L (3.5-5.1)
[2018-11-23 05:44] LABS: ALB/GLOB RATIO 1.2; ALBUMIN 3.1 g/dL (3.5-5.0); CALCIUM 7.3 mg/dL (8.8-10.2); CREATININE 1.9 mg/dL (0.5-0.9); PHOSPHORUS 3.6 mg/dL (2.7-4.5); TOTAL BILIRUBIN 0.85 mg/dL (0.20-1.00); TOTAL PROTEIN 5.6 g/dL (6.3-8.3)
[2018-11-23] MEDS: LEVOPHED 8 MG in D5 1/2 NS 250 ML IV SCH ×2 (06:33→15:43)
--- NOTE | 2018-11-23 07:24 | Diag Imaging Result Doc PS360 ---
EXAM: CHEST-PORTABLE 11/23/2018 HISTORY: vent TECHNIQUE: AP portable at 0531 COMMENT: There are bilateral pleural effusions. There is cardiomegaly. There is an NG tube with its tip below the diaphragm. There is an endotracheal tube with its tip at the thoracic inlet. There is some platelike atelectasis over the left lower lobe. This is worse than on the previous study of 11/22/2018. There is generalized hazy opacity over the right lung and to some extent over the left apex. IMPRESSION: Pulmonary edema plus minus pneumonia with left lower lobe atelectasis. Bilateral pleural effusions. Electronically signed by Carlos Trejo 11/23/2018 7:21 AM
--- NOTE | 2018-11-23 07:33 | PROGRESS NOTE ---
DATE: 11/23/2018 SUBJECTIVE: This patient has been reintubated after evaluation by the pulmonary department during the night due to increased work of breathing and acute hypoxemic respiratory failure. She has been placed on pressors due to low blood pressure, acute kidney injury, septic shock. Her prognosis is guarded. I discussed the case with the daughter and the son at the bedside yesterday in the afternoon. They know about her situation. They know that this patient is remarkably sick. She has been placed Full Code. OBJECTIVE: Vital Signs: Temperature at 4 a.m. was 102.1, pulse 135, respiratory rate 19, blood pressure 102/31, oxygen saturation 99 on mechanical ventilation. HEENT: Head normocephalic. No trauma. PERRLA. Neck: Supple. No JVD. No masses. Central trachea. Chest: Coarse breath sounds bilaterally, decreased mostly on the right side. Abdomen: Soft, obese. She does have a drain coming out from the left side of the abdomen with serosanguineous discharge. Extremities: There is 1+ pedal edema. No clubbing. No cyanosis. Slightly cool to touch. Neurological Examination: The patient is on mechanical ventilation and sedated. Laboratory: WBC 18.7, hemoglobin 9.1, hematocrit 28.2, and platelets 145,000. Sodium 142, potassium 3.7, chloride 104, bicarbonate 23, BUN 52, creatinine 1.9, glucose 199, calcium 7.3, albumin 3.1. ASSESSMENT AND PLAN: 1. Acute hypoxemic respiratory failure, likely secondary to aspiration pneumonia and right-sided pleural effusion. This patient has been placed on mechanical ventilation. Pulmonary department is following this patient closely. 2. Septic shock. Continue with pressors. Likely secondary to aspiration pneumonia. Also, she had an incarcerated hernia which has been repaired. 3. Right-sided pleural effusion. Probably, this has to be drained. 4. Aspiration pneumonia. Continue broad-spectrum antibiotics. 5. Acute kidney injury on chronic kidney disease. Her baseline creatinine is around 1.1 to 1.3. Today, it is 9.1. No big changes compared with yesterday. Continue with intravenous fluids. 6. Incarcerated left lower quadrant ventral hernia, status post open repair of incarcerated left lower quadrant hernia, postoperative day #1. 7. Anion gap acidosis with lactic acid elevation. Continue with the same management. Anion gap decreased from 22 to 15. 8. Type 2 diabetes. Continue with the same management, sliding scale insulin, and pattern of blood sugar. 9. Chronic obstructive pulmonary disease. Aware. I am not sure if this patient is still smoking. We will continue with breathing treatments, oxygen supplementation, mechanical ventilation. 10. Global encephalopathy. Aware. Likely due to septic shock. 11. Thrombocytopenia. This is chronic since 2018. Today, the platelet count looks better but it looks like her baseline is between 60,000s and 80,000s. 12. Resuscitation status. This patient is Full Code. 13. I had a conversation with the family yesterday. I told him that this patient is remarkably sick. They still want to continue full treatment. This patient is Full Code, but they are aware about the whole situation. CRITICAL CARE TIME: 45 minutes. cc: Juan Carlos Thao MD
--- NOTE | 2018-11-23 08:14 | EKG Report ---
Test Performed on : 11/22/2018 10:54:13 AM Test Reason : AMS Blood Pressure : / mmHG Vent. Rate : 097 BPM Atrial Rate : 097 BPM P-R Int : 172 ms QRS Dur : 076 ms QT Int : 362 ms P-R-T Axes : 036 -02 031 degrees QTc Int : 459 ms Normal sinus rhythm. Normal ECG When compared with ECG of 18-JAN-2014 08:07, No significant change was found Unconfirmed Result
[2018-11-23] MEDS ORDERED: LOPRESSOR IV ONE (09:50)
[2018-11-23] MEDS: REGLAN IV SCH ×3 (10:01→22:39)
--- NOTE | 2018-11-23 12:46 | GENERAL SURGERY PROGRESS NOTE ---
DATE: 11/23/2018 SUBJECTIVE: Was reintubated last night upon arrival to ICU, given mental status and increasing work of breathing and remained intubated overnight. She does have some fevers, tachycardia. OBJECTIVE: Blood pressures have been 127/43 this morning. She is saturating well on 50% FiO2 and PEEP of 8, I believe. General: She is sedated. Her abdomen is soft, nontender. Dressing is intact. TAWNYA drain serosanguineous. DIAGNOSTIC STUDIES: White count is 18, hematocrit is 28. ABG 7.46, 34, 90, her base excess is 0.5. Her lactate is 3.4. Creatinine is 1.9 and that is stable, glucose 190s to 200s. LFTs are normal. X-ray shows opacification of the right hemithorax. ASSESSMENT AND PLAN: 1. This is a 63-year-old female status post repair of incarcerated ventral hernia. 2. She unfortunately appears to have a worsening aspiration pneumonia on the right. She is being covered for this. She is endotracheally supported on the ventilator. 3. Very guarded prognosis at this point. 4. She is making urine. 5. She is on antibiotics to cover her pneumonia. Appreciate Dr. Mcdowell's help. We will follow along. cc: Sima Michele MD
[2018-11-23] MEDS: LOPRESSOR 10 MG in NS 50 ML IV SCH ×2 (15:31→21:27)
[2018-11-23] MEDS: SODIUM CHLORIDE 0.9% INJ SCH (15:44)
[2018-11-23] MEDS: NEXIUM IV SCH (15:44)
[2018-11-23] MEDS ORDERED: LOPRESSOR IV SCH (16:00)
--- NOTE | 2018-11-23 18:38 | PULMONOLOGY PROGRESS NOTE ---
DATE: 11/23/2018 SUBJECTIVE: The patient is receiving p.r.n. sedation. She is currently on Levophed for blood pressure support. OBJECTIVE: Vital signs: Maximum temperature in the last 24 hours 102.1 degrees. Blood pressure 114/41, heart rate 142, respiratory rate 23, oxygen saturation 99%. HEENT: Pupils are equal and reactive oropharynx appears clear. Neck: Is supple. Chest: Reveals diminished breath sounds right base. Cardiac exam: Increased rate, regular rhythm. Abdomen: Is soft. Extremities: Are slightly cool to the touch. LABORATORIES: White blood count 18.7, hemoglobin 9.1, platelet count 145,000. Arterial blood gas on 60% FiO2, pH 7.46, pCO2 of 34, PO2 of 90 with a lactate of 3.4. Sodium 142, potassium 3.7, chloride 104, bicarbonate 23, BUN 52, creatinine 1.9, glucose 190. Chest x-ray reveals endotracheal tube in good position. Significant posterior layering with availing of the right lung noted. One blood culture is growing a gram-negative chai. Sputum culture is pending. IMPRESSION: A 63-year-old with 1. Acute hypoxemic respiratory failure. 2. Chronic obstructive pulmonary disease. 3. Septic shock with lactic acidosis. 4. Right-sided pleural effusion. 5. Status post reduction of an incarcerated hernia. 6. Acute renal failure with stable renal numbers. 7. Altered mental status. DISCUSSION: This is a 63-year-old with problems outlined above. The patient has septic shock with gram-negative bacteremia. She remains hemodynamically unstable and has significant ventilatory requirements. PLAN: 1. Initiate metoprolol for tachycardia. She may be having beta rebecca withdrawal. 2. Continue fluid resuscitation. 3. Continue broad-spectrum antibiotics pending results of blood cultures and sputum cultures. 4. Overall prognosis is guarded. TIME SPENT IN CRITICAL CARE MANAGEMENT: Thirty plus minutes. cc: Alexandr Mcdowell MD
[2018-11-24] MEDS: DIPRIVAN 1% 1,000 MG/100 ML BOTTLE IV SCH ×6 (00:16→22:54)
[2018-11-24] MEDS: SODIUM BICARBONATE 8.4% 100 MEQ in D5W 1,000 ML IV SCH ×2 (00:30→06:08)
[2018-11-24] MEDS: HUMALOG SUBQ SCH ×6 (00:31→19:47)
[2018-11-24] MEDS: ZOSYN 3.375 GM in NS 50 ML IV SCH ×4 (01:26→22:28)
[2018-11-24] MEDS: DUONEB (A & A) INH SCH ×6 (03:08→23:09)
[2018-11-24] MEDS: TYLENOL PR PRN (03:45)
[2018-11-24] MEDS: LOPRESSOR 10 MG in NS 50 ML IV SCH ×4 (03:45→22:28)
[2018-11-24] MEDS: REGLAN IV SCH ×4 (03:50→22:28)
[2018-11-24] MEDS: LEVOPHED 8 MG in D5 1/2 NS 250 ML IV SCH ×2 (03:54→22:56)
[2018-11-24 04:25] LABS: ALLEN TEST YES; BE 8.5 mmoll (-3.0-3.0); BLOOD TYPE ARTERIAL; HCO3-(ACT) 31.5 mmoll (20.0-26.0); METHB 1.2 % (0.0-1.5); O2(CT) 11.6 mL/dL (15.0-23.0); O2HB 93.1 % (95.0-99.0); PCO2(98.6) 36 mmHg (35-45); PO2(98.6) 67 mmHg (60-100); SAMPLE BLOOD; SAO2 96.3 % (95.0-100.0); SRATE 10 BPM; THB 8.8 g/dL (11.5-17.4); TVOL 650 mL; pH(98.6) 7.55 (7.35-7.45)
[2018-11-24 04:26] LABS: MODALITY VENTILATOR
[2018-11-24 06:22] LABS: BASO# 0.01 X1000 (0.0-0.2); BASO% 0.1 % (0.0-0.8); EOS# 0.05 X1000 (0.0-0.7); EOS% 0.7 % (0.0-10.0); HEMATOCRIT 26.6 % (37.0-47.0); HEMOGLOBIN 8.4 g/dL (12.0-16.0); IMM GRAN# 0.03 X1000 (0.0-0.04); IMM GRAN% 0.4 % (0.0-0.5); LYMPH# 1.36 X1000 (1.2-3.4); LYMPH% 18.2 % (20.5-51.1); MCH 30.2 PG (27-31); MCHC 31.6 g/dL (33-37); MCV 95.7 FL (81-99); MONO# 0.74 X1000 (0.11-0.59); MONO% 9.9 % (1.7-9.3); NEUT# 5.29 X1000 (1.4-6.5); NEUT% 70.7 % (42.2-75.2); PLT 61 X1000 (130-400); RBC 2.78 XMIL (4.2-5.4); RDW 17.6 % (11.5-14.5); WBC 7.48 X1000 (4.8-10.8)
[2018-11-24 06:42] LABS: ALB/GLOB RATIO 1.2; ALBUMIN 2.9 g/dL (3.5-5.0); CALCIUM 7.3 mg/dL (8.8-10.2); CREATININE 1.8 mg/dL (0.5-0.9); PHOSPHORUS 3.1 mg/dL (2.7-4.5); POTASSIUM 2.8 mmol/L (3.5-5.1); TOTAL BILIRUBIN 0.59 mg/dL (0.20-1.00); TOTAL PROTEIN 5.4 g/dL (6.3-8.3)
[2018-11-24] MEDS ORDERED: NS 1,000 ML IV SCH (07:30)
--- NOTE | 2018-11-24 07:59 | Diag Imaging Result Doc PS360 ---
EXAM: CHEST-PORTABLE INDICATION: dyspnea TECHNIQUE: One view COMPARISON: 11/23/2018 FINDINGS: Support tubes and lines are in stable positions. Left basilar platelike atelectasis is stable. Bilateral effusions are again noted. There is slight decrease in opacity at the right upper lung zone as compared to previous study, possibly due to differences in exposure. No new consolidation is identified, otherwise. Cardiac silhouette is stable. IMPRESSION: Minimal decrease in groundglass opacity in the right upper lobe. Stable chest, otherwise. Electronically signed by Anatoliy Pepe 11/24/2018 7:56 AM
[2018-11-24] MEDS ORDERED: NS 250 ML ONE (08:14)
[2018-11-24 08:47] LABS: INR 1.32; PROTIME 17.5 Seconds (11.0-16.0)
[2018-11-24] MEDS: POTASSIUM CHLORIDE 20 MEQ/SWI 20 MEQ/100 ML IVPB IV SCH ×2 (08:49→10:50)
[2018-11-24] MEDS: LANTUS INSULIN SUBQ SCH (08:50)
[2018-11-24] MEDS: CLINIMIX E 4.25%-5% SOLUTION 1,000 ML IV SCH (09:56)
--- NOTE | 2018-11-24 11:22 | PROGRESS NOTE ---
DATE: 11/24/2018 SUBJECTIVE: This patient is still on mechanical ventilation and sedated. No acute events overnight. The patient is hypokalemic. I will replace the potassium. Also, I will stop the fluid with bicarbonate because the bicarbonate level increased. We will start her on Clinimix and normal saline. I will ask for a hemoglobin A1c, and I will give her 15 units of Lantus. OBJECTIVE: Vital Signs: Temperature 100 degrees, pulse 90, respiratory rate 18, blood pressure 128/57, and oxygen saturation 100% on mechanical ventilation. HEENT: Head normocephalic. No trauma. PERRLA. Neck: Supple. No JVD. No masses. Central trachea. Chest: Coarse breath sounds bilaterally, decreased mostly on the right side. Abdomen: Soft, obese. She does have a drain coming out from the left side of the abdomen. Extremities: 1+ pedal edema. No clubbing. No cyanosis. Neurological: The patient is on mechanical ventilation and sedated. LABORATORY: WBC 7.4, hemoglobin 8.4, hematocrit 26.6, and platelets 61,000. Sodium 141, potassium 2.8, chloride 99, bicarbonate 29, BUN 39, creatinine 1.8, glucose 258, calcium 7.3 and magnesium 2. ASSESSMENT AND PLAN: 1. Acute respiratory failure likely secondary to aspiration pneumonia and right-sided pleural effusion. Continue mechanical ventilation. Pulmonary Department on board. Continue with broad spectrum antibiotics and breathing treatment. 2. Septic shock due to aspiration pneumonia. Continue with pressors. Also, she has an incarcerated hernia which has been repaired. 3. Large right-sided pleural effusion, probably this has to be drained. We will continue with the same management for now. 4. Aspiration pneumonia. Continue broad-spectrum antibiotics. 5. Acute kidney injury on chronic kidney disease. Her baseline is around 1.1 to 1.3, today is 1.8. She is making good amount of urine and creatinine is a little bit better compared with yesterday as well as the BUN. 6. Incarcerated left lower quadrant ventral hernia status post repair, postoperative day #2. Continue to monitor. Surgery on board. 7. Anion gap acidosis with lactic acid elevation. Aware. She is no longer acidotic. Anion gap closed. 8. Type 2 diabetes. I will continue sliding scale insulin and pattern of blood sugar. I will give her a dose of Lantus, 15 units to see how she does, and I will monitor this patient closely. 9. COPD, aware. I am not quite sure if he is still smoking. Continue breathing treatment, oxygen supplementation, and mechanical ventilation. 10. Global encephalopathy. She is on mechanical ventilation. 11. Thrombocytopenia, chronic. We will monitor. 12. Resuscitation status. Patient is full code. CRITICAL CARE TIME: 35 minutes. cc: Juan Carlos Thao MD
[2018-11-24] MEDS: POTASSIUM CHLORIDE 20 MEQ in NS 1,000 ML IV SCH (12:09)
--- NOTE | 2018-11-24 15:25 | Diag Imaging Result Doc PS360 ---
EXAM: CT HEAD W/O CONTRAST 11/24/2018 HISTORY: AMS TECHNIQUE: This exam was performed using automated exposure control, adjustment of mA or kV according to patient size, and/or use of iterative reconstruction technique. COMMENT: There is no evidence of mass effect, bleed, or abnormal extra-axial fluid collection. There is hyperostosis of the calvarium. The visualized paranasal sinuses are clear. There is no evidence of acute bony abnormality. There is an NG tube in the right nasopharynx and apparent endotracheal tube. Compared to 11/22/2018 the appearance of the brain has not changed significantly. IMPRESSION: No evidence of acute intracranial disease. Electronically signed by Carlos Trejo 11/24/2018 3:22 PM
[2018-11-24] MEDS: NEXIUM IV SCH (16:52)
[2018-11-24] MEDS: SODIUM CHLORIDE 0.9% INJ SCH (16:52)
[2018-11-24] MEDS ORDERED: LASIX IV ONE (21:31)
--- NOTE | 2018-11-24 21:36 | GENERAL SURGERY PROGRESS NOTE ---
DATE: 11/24/2018 SUBJECTIVE: Remains on the ventilator, low-dose Levophed. She is sedated, but this is improving. She continues to have some fevers. Occasionally is tachycardic, but overall her heart rate has been downtrending. OBJECTIVE: Vital Signs: Blood pressure has been 120s to 140s but occasional dip in the 90s. General: She is sedated. Abdomen: Soft. Lower incision intact. TAWNYA drain serosanguineous. White count 10.7, hematocrit is 26. AB.55, 36, 67. Creatinine is down to 1.8, potassium is low at 3.5. Her lactate on her ABG was down to 2.7. She is growing gram-negative rods out of her sputum and her blood. ASSESSMENT AND PLAN: This is a 63-year-old female who presented with a left lower quadrant incarcerated hernia status post repair as well as an aspiration pneumonia on the right. She remains critically ill on ventilator support as well as vasopressor support intermittently. She is from a surgical standpoint I think doing okay. She has not had any return of bowel function yet. Would recommend continued NG tube decompression, peripheral nutrition. I have spoken with Nutrition about this. Appreciate avian keeper and hospitalist's help. We will continue to follow along. cc: Sima Michele MD
[2018-11-25] MEDS: HUMALOG SUBQ SCH ×7 (00:15→21:08)
[2018-11-25] MEDS: DUONEB (A & A) INH SCH ×6 (03:19→23:25)
--- NOTE | 2018-11-25 03:20 | PULMONOLOGY PROGRESS NOTE ---
DATE: 11/24/2018 SUBJECTIVE: The patient does not respond to pain. Maximum temperature in the last 24 hours is 100.6 degrees, but she is afebrile this morning. OBJECTIVE: Vital signs: Blood pressure 155/67, heart rate 104, respiratory rate 31. Oxygen saturation 98%. HEENT: Pupils are midpoint and react to light. Oropharynx appears dry but clear. Neck: Supple. Chest: Reveals effusion on the right side with generous cardiac silhouette, and increased vascular markings on the left. LABS: White blood count 7.48, hemoglobin 8.4, platelet count 61,000. Arterial blood gas reveals a pH 7.55, pCO2 of 36, PO2 of 67. Sodium 141, potassium 2.8, chloride 99, bicarbonate 29, BUN 39, creatinine 1.8. IMPRESSION: 1. A 63-year-old with acute hypoxemic respiratory failure. 2. Chronic obstructive pulmonary disease. 3. Septic shock on presentation with resolution. 4. Right-sided pleural effusion. 5. Status post reduction of an incarcerated hernia. 6. Acute renal failure. 7. Ongoing altered mental status despite sedation vacation. PLAN: 1. We will repeat CT scan of the head to ensure she has not had an infarction which was not identified on first CT scan. 2. Agree with initiation of Clinimix and discontinuing additional IV fluids. 3. Daily weaning trials. 4. Consider a EEG tomorrow with a Neurology evaluation if she does not have clinical improvement in her neurologic status. Time spent in critical care management: 30+ minutes cc: Alexandr Mcdowell MD MTDBin
[2018-11-25] MEDS: CLINIMIX E 4.25%-5% SOLUTION 1,000 ML IV SCH ×2 (03:30→15:08)
[2018-11-25] MEDS: POTASSIUM CHLORIDE 20 MEQ in NS 1,000 ML IV SCH (03:34)
[2018-11-25] MEDS: ZOSYN 3.375 GM in NS 50 ML IV SCH ×3 (03:35→15:07)
[2018-11-25] MEDS: REGLAN IV SCH ×4 (03:36→21:47)
[2018-11-25] MEDS: DIPRIVAN 1% 1,000 MG/100 ML BOTTLE IV SCH ×2 (03:36→09:11)
[2018-11-25] MEDS: TYLENOL PR PRN ×2 (03:36→15:08)
[2018-11-25] MEDS: LOPRESSOR 10 MG in NS 50 ML IV SCH ×4 (04:00→22:25)
[2018-11-25 04:46] LABS: ALLEN TEST YES; BE 7.3 mmoll (-3.0-3.0); BLOOD TYPE ARTERIAL; HCO3-(ACT) 30.6 mmoll (20.0-26.0); PCO2(98.6) 34 mmHg (35-45); PO2(98.6) 76 mmHg (60-100); SAMPLE BLOOD; SRATE 8 BPM; TVOL 650 mL; pH(98.6) 7.55 (7.35-7.45)
[2018-11-25 04:47] LABS: MODALITY VENTILATOR
[2018-11-25 05:35] LABS: BASO# 0.01 X1000 (0.0-0.2); BASO% 0.1 % (0.0-0.8); EOS# 0.28 X1000 (0.0-0.7); EOS% 2.8 % (0.0-10.0); HEMATOCRIT 28.4 % (37.0-47.0); IMM GRAN# 0.05 X1000 (0.0-0.04); IMM GRAN% 0.5 % (0.0-0.5); LYMPH# 1.52 X1000 (1.2-3.4); LYMPH% 14.9 % (20.5-51.1); MCH 30.8 PG (27-31); MCHC 31.7 g/dL (33-37); MCV 97.3 FL (81-99); MONO% 8.8 % (1.7-9.3); MPV 10.8 FL (7.4-10.4); NEUT# 7.42 X1000 (1.4-6.5); NEUT% 72.9 % (42.2-75.2); PLT 56 X1000 (130-400); RBC 2.92 XMIL (4.2-5.4); RDW 17.4 % (11.5-14.5); WBC 10.18 X1000 (4.8-10.8)
[2018-11-25] MEDS ORDERED: NS + KCL 20 MEQ 1,000 ML IV SCH (05:45)
[2018-11-25 05:59] LABS: CALCIUM 7.7 mg/dL (8.8-10.2); CREATININE 1.7 mg/dL (0.5-0.9); MAGNESIUM 1.9 mg/dL (1.5-2.7); PHOSPHORUS 3.8 mg/dL (2.7-4.5); POTASSIUM 3.5 mmol/L (3.5-5.1)
[2018-11-25 06:01] LABS: HEMOGLOBIN A1C 4.9 % (4.8-6.0)
--- NOTE | 2018-11-25 07:03 | Diag Imaging Result Doc PS360 ---
EXAM: CHEST-PORTABLE 11/25/2018 HISTORY: dyspnea TECHNIQUE: AP portable at 0526 COMMENT: There are bilateral pleural effusions. There is opacification of the left lower lobe and the entire right lung. This is not changed appreciably since 11/24/2018. The endotracheal tube and NG tube remain in place. IMPRESSION: Right-sided pneumonia, left lower lobe atelectasis versus pneumonia and bilateral pleural effusions. Electronically signed by Carlos Trejo 11/25/2018 7:01 AM
[2018-11-25] MEDS: LANTUS INSULIN SUBQ SCH (09:02)
--- NOTE | 2018-11-25 10:08 | PROGRESS NOTE ---
DATE: 11/25/2018 SUBJECTIVE: The patient is still on mechanical ventilation and sedated at this moment, but apparently yesterday after stopping sedation the patient was not responding. It looks like she was able to open her eyes just a little bit as per the nurse. A new CT scan of the head has been done and did not show any acute abnormalities. We have requested an evaluation by neurology department. This patient is bacteremic and also she has a UTI due to Escherichia coli, so I will continue with the Zosyn. OBJECTIVE: Vital Signs: Temperature 100 degrees, pulse 93, respiratory rate 17, blood pressure 135/58, oxygen saturation 100% on mechanical ventilation. HEENT: Head normocephalic, no trauma. PERRLA. Neck: Supple. No JVD. No masses. Central trachea. Chest: Coarse breath sounds bilaterally. Decreased mostly on the right with some crackles as well. Abdomen: Soft obese, decreased bowel sounds. Drain on the left side. Extremities: No edema, no clubbing, no cyanosis. Neurological: This patient is on mechanical ventilation and sedated. LABORATORY: WBC 18.1, hemoglobin 9, hematocrit 28.4, platelets 56,000. Sodium 142, potassium 3.5, chloride 101, bicarbonate 28, BUN 37, creatinine 1.7, glucose 161, calcium 7.7, magnesium 1.9, phosphorus 3.8. ASSESSMENT AND PLAN: 1. Acute respiratory failure secondary to aspiration pneumonia and right-sided pleural effusion, continue with mechanical ventilation. Pulmonary department on board. Continue with broad spectrum antibiotics and breathing treatment. 2. Septic shock due to aspiration pneumonia. She also has a positive urine culture that showed Escherichia coli and she is also bacteremic with Escherichia coli as well, sensitive to Zosyn. We will continue with the same management. She is still on pressors. 3. Escherichia coli bacteremia, as above continue with antibiotics. 4. Escherichia coli urinary tract infection as above. 5. Large right-sided pleural effusion, probably this has to be drained in the future if the patient gets better. For now we will continue with same management. I will let the recreation therapist to evaluate these. 6. Aspiration pneumonia. Continue broad-spectrum antibiotics. 7. Acute kidney injury on chronic kidney disease. It looks like her baseline is around 1.1 to 1.3, she is making good urine. Her BUN and creatinine decreasing slowly. 8. Incarcerated left lower quadrant ventral hernia status post repair, postoperative day #3. We will need to continue to monitor. Surgery on board. 9. Anion gap acidosis with lactic acid elevation, aware, resolved. 10. Type 2 diabetes continue with same management. I gave her a dose of Lantus 15 yesterday and it seems to be working fine, so I will continue with that. 11. Chronic obstructive pulmonary disease, aware. Continue breathing treatment, mechanical ventilation, oxygen supplementation. 12. Global encephalopathy, she is on mechanical ventilation, but during medication/sedation vacation, this patient was not responding well. Apparently as per the nurse, she was able to open her eyes minimally, but she was not able to focus. She was not able to see the practitioner or the nurse or move the head to look for them. 13. Thrombocytopenia this is chronic. We will monitor. She is having a little bit of pink urine. She is sequential compression devices, no anticoagulation. 14. Resuscitation status, this patient is full code. 15. Overall, this patient's prognosis is poor. She is remarkably sick. Family aware of that. We will continue to monitor. Neurology department has been consulted. CRITICAL CARE TIME: 35 minutes. cc: Juan Carlos Thao MD
[2018-11-25] MEDS: LASIX IV SCH ×2 (11:28→22:25)
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
[2018-11-25] MEDS: MORPHINE IV PRN ×3 (14:37→21:14)
--- NOTE | 2018-11-25 14:44 | PULMONOLOGY PROGRESS NOTE ---
DATE: 11/25/2018 SUBJECTIVE: The patient's sedation has been held. She has some limited movement in her lower extremities, but does not respond to painful stimuli. OBJECTIVE: Vital Signs: Maximum temperature in the last 24 hours 100 degrees, BP 119/50, heart rate 99,respiratory rate 22, oxygen saturation 100%. HEENT: Pupils are midpoint and reactive. Oropharynx appears clear. Neck: Supple. Chest: Reveals decreased breath sounds right base but otherwise clear. Abdomen: Soft with positive bowel sounds. Extremities: Reveal trace edema. LABORATORY DATA: CT scan of the brain yesterday afternoon revealed no evidence of acute disease. Chest x-ray today reveals retrocardiac opacification of the lung on the left with pleural effusions right greater than the left. Sputum culture and blood culture for growing Escherichia coli which is ESBL negative. Chemistries: Sodium 142, potassium 3.5, chloride 101 bicarbonate 28, BUN 37, creatinine 1.7. White blood count 10.18, hemoglobin 9.0 platelet count low stable at 56. IMPRESSION: A 63-year-old with: 1. Acute hypoxemic respiratory failure. 2. Chronic obstructive pulmonary disease. 3. Altered mental status. 4. Gram-negative pneumonia and pleural effusions. 5. Status post reduction of incarcerated hernia. 6. Acute renal failure with improvement. PLAN: 1. Agree with neurology evaluation to evaluate her ongoing mental status changes. 2. Continue Clinimix. We will attempt additional diuresis. 3. Continue antibiotics for bacteremia and pneumonia. 4. Delay weaning pending improvement in mental status. TIME SPENT: Critical care management 30+ minutes. cc: Alexandr Mcdowell MD
[2018-11-25] MEDS: SODIUM CHLORIDE 0.9% INJ SCH (16:43)
[2018-11-25] MEDS: NEXIUM IV SCH (16:43)
[2018-11-25] MEDS: LEVOPHED 8 MG in D5 1/2 NS 250 ML IV SCH (18:07)
--- NOTE | 2018-11-25 20:02 | EEG REPORT ---
DATE: 11/25/2018 COMMENT: This is a digitally recorded EEG on a 63-year-old patient with poor responsiveness following surgery. Propofol was discontinued prior to EEG. FINDINGS: This is a monotonous record, composed of mostly polymorphic theta and delta symmetrically across the hemispheres. No posterior dominant rhythm was identified. There was no variation to correlate with spontaneous drowsing or sleep. No epileptiform discharge was identified. INTERPRETATION: Abnormal EEG because of generalized slowing. CORRELATION: This is indicative of a diffuse encephalopathy and is nonspecific. There is nothing on this record to suggest subclinical seizure as an explanation for her poor responsiveness. cc: Omer Willett III, MD
[2018-11-25] MEDS ORDERED: HEPARIN SUBQ SCH (21:00)
--- NOTE | 2018-11-25 21:09 | GENERAL SURGERY PROGRESS NOTE ---
DATE: 11/25/2018 SUBJECTIVE: She is starting to move all of her extremities. Remains quite sedated. Still requiring some vasopressor support. She is on ventilator. Low-grade fevers. General: She is nonresponsive, sedated. Abdomen: Is soft. TAWNYA drain serosanguineous. Dressing intact. LABORATORIES: White count 10, hematocrit 28. I have reviewed her ABG. Creatinine is down to 1.7. Her chest x-ray from today showed right-sided pneumonia with atelectasis and bilateral effusion. Endotracheal tube is in place. Microbiology shows E coli in her blood and sputum. ASSESSMENT AND PLAN: This is a 62-year-old female status post repair of incarcerated ventral hernia with aspiration pneumonia. She remains on the ventilator, critically ill. May be a small bowel movement yesterday, but otherwise awaiting return of bowel function. Still on peripheral nutrition. I have looked at her medications. She is on Zosyn, Lasix, Nexium. She has got sequential compression devices, but I am going to order Lovenox for her now as well. cc: Sima Michele MD
[2018-11-26] MEDS: MORPHINE IV PRN ×5 (01:01→22:40)
[2018-11-26] MEDS: ZOSYN 3.375 GM in NS 50 ML IV SCH ×4 (01:03→18:14)
[2018-11-26] MEDS: DUONEB (A & A) INH SCH ×6 (03:05→23:15)
[2018-11-26] MEDS: HUMALOG SUBQ SCH ×6 (03:14→20:00)
[2018-11-26] MEDS: LOPRESSOR 10 MG in NS 50 ML IV SCH ×4 (03:35→22:43)
[2018-11-26] MEDS: REGLAN IV SCH ×4 (03:36→22:41)
[2018-11-26 04:37] LABS: BASO# 0.01 X1000 (0.0-0.2); BASO% 0.2 % (0.0-0.8); EOS# 0.21 X1000 (0.0-0.7); EOS% 3.3 % (0.0-10.0); HEMATOCRIT 25.2 % (37.0-47.0); HEMOGLOBIN 7.7 g/dL (12.0-16.0); IMM GRAN# 0.04 X1000 (0.0-0.04); IMM GRAN% 0.6 % (0.0-0.5); LYMPH# 1.31 X1000 (1.2-3.4); LYMPH% 20.5 % (20.5-51.1); MCH 30.2 PG (27-31); MCHC 30.6 g/dL (33-37); MCV 98.8 FL (81-99); MONO% 9.4 % (1.7-9.3); MPV 11.1 FL (7.4-10.4); NEUT# 4.22 X1000 (1.4-6.5); PLT 54 X1000 (130-400); RBC 2.55 XMIL (4.2-5.4); WBC 6.39 X1000 (4.8-10.8)
[2018-11-26 04:47] LABS: ALLEN TEST YES; BE 7.4 mmoll (-3.0-3.0); BLOOD TYPE ARTERIAL; HCO3-(ACT) 30.7 mmoll (20.0-26.0); METHB 1.1 % (0.0-1.5); O2(CT) 11.2 mL/dL (15.0-23.0); O2HB 96.4 % (95.0-99.0); PCO2(98.6) 40 mmHg (35-45); PO2(98.6) 155 mmHg (60-100); SAMPLE BLOOD; SAO2 99.7 % (95.0-100.0); SRATE 8 BPM; TVOL 650 mL
[2018-11-26 05:03] LABS: MODALITY VENTILATOR
[2018-11-26 05:14] LABS: ALB/GLOB RATIO 0.8; ALBUMIN 2.3 g/dL (3.5-5.0); CALCIUM 7.8 mg/dL (8.8-10.2); POTASSIUM 3.8 mmol/L (3.5-5.1); TOTAL BILIRUBIN 1.21 mg/dL (0.20-1.00); TOTAL PROTEIN 5.3 g/dL (6.3-8.3)
[2018-11-26] MEDS: CLINIMIX E 4.25%-5% SOLUTION 1,000 ML IV SCH (06:36)
--- NOTE | 2018-11-26 07:22 | Diag Imaging Result Doc PS360 ---
EXAM: CHEST-PORTABLE INDICATION: vent TECHNIQUE: One view COMPARISON: 11/25/2018 FINDINGS: Support tubes and lines appear to be in stable positions. There has been slight improvement of consolidation on the right. No new consolidation is identified. Cardiac silhouette is stable. IMPRESSION: Interval slight improvement. Electronically signed by Anatoliy Pepe 11/26/2018 7:20 AM
[2018-11-26] MEDS ORDERED: DULCOLAX PR ONE (07:50)
--- NOTE | 2018-11-26 08:20 | PROGRESS NOTE ---
DATE: 11/26/2018 SUBJECTIVE: This patient is still on mechanical ventilation. She is opening her eyes spontaneously and she moved her head when I talked to her but she is not localizing or following the practitioner. She is not following commands. She is moving a little bit her extremities spontaneously except the left upper arm. She is still on pressors. We had a good urine output after using Lasix. BUN and creatinine increased a little bit, likely because of that. Hemoglobin dropped to 7.7 and she is thrombocytopenic. The thrombocytopenia is not new so I will hold for now the heparin and I will continue with the SCDs. I will monitor the hemoglobin and hematocrit every 6 hours. OBJECTIVE: Vital Signs: Temperature 98.3 degrees, pulse 84, respiratory rate 11, blood pressure 114/52, oxygen saturation 100% on mechanical ventilation. HEENT: Head normocephalic. No trauma. PERRLA. Neck: Supple. No JVD. Central trachea. Chest: Coarse breath sounds bilaterally. Decreased breath sounds, mostly at the bases, with mild crackles. Abdomen: Soft, obese, distended. Decreased bowel sounds. She has a drain on the left side. Extremities: No edema, no clubbing, no cyanosis. Neurological Examination: The patient is on mechanical ventilation. She is able to open her eyes spontaneously. It looks like she tried to move her head when I talked to her but she is not localizing or following the practitioner. She is not following commands. She is moving a little bit her extremities except the left upper extremity. She grimaces with pain stimulation. Laboratory: WBC 6.3, hemoglobin 7.7, hematocrit 25.2, platelets 54,000. Sodium 144, potassium 3.8, chloride 103, bicarbonate 24, BUN 46, creatinine 2, glucose 126, calcium 7.8. ASSESSMENT AND PLAN: 1. Acute respiratory failure secondary to aspiration pneumonia and right-sided pleural effusion. Continue with mechanical ventilation. Pulmonary department on board. We have a negative balance of 4.8 L after giving some Lasix. Continue broad-spectrum antibiotics and breathing treatments. 2. Septic shock due to aspiration pneumonia. She also has a positive culture that showed Escherichia coli bacteremia and Escherichia coli urinary tract infection, sensitive to Zosyn. We will continue with the same management. WBC is normal. She is still on pressors. 3. Escherichia coli bacteremia, as above. Continue with antibiotics. 4. Escherichia coli urinary tract infection, as above. 5. Large right-sided pleural effusion. We have been giving her some Lasix. For now, we will continue with the same management. Pulmonary department on board. 6. Aspiration pneumonia. Continue with antibiotics. 7. Acute kidney injury on chronic kidney disease. BUN and creatinine increased a little bit compared with yesterday, probably because of the furosemide treatment but the urine output has been good. 8. Anion gap acidosis with lactic acid elevation, better. 9. Type 2 diabetes. Continue with the same management. Continue with Lantus. 10. Chronic obstructive pulmonary disease, aware. Continue breathing treatments, mechanical ventilation, oxygen supplementation. 11. Global encephalopathy. She is still on mechanical ventilation. She is better compared with yesterday. For me now, she is opening her eyes. She is grimacing, moving a little bit her extremities but not following commands. We will continue to monitor. Neurology department on board. 12. Thrombocytopenia. This is chronic. We will monitor. Around the same compared with yesterday. 13. Anemia. Her hemoglobin dropped from 9 to 7.7. I will hold the heparin and I will continue with sequential compression devices. I will check the hemoglobin every 6 hours and I will transfuse as needed. 14. Overall, this patient's prognosis is poor. She is remarkably sick and the family is aware of that. We will continue to monitor. For now, she is Full Code. CRITICAL CARE TIME: 35 minutes. cc: Juan Carlos Thao MD
[2018-11-26] MEDS: HEPARIN SUBQ SCH (09:36)
[2018-11-26] MEDS: LANTUS INSULIN SUBQ SCH (09:46)
--- NOTE | 2018-11-26 12:08 | PROGRESS NOTE ---
DATE: 11/26/2018 Ms. Mancini continues intubated. She is mechanically ventilated. During my time at the bedside, she was moving all limbs, turning her head left and right with conjugate roving eye movements left, right, up and down. She did not appear to regard me. She did not fix her gaze on me. She did not follow commands. She did not communicate otherwise. Head and neck are unremarkable. There is no meningismus. Her EEG yesterday showed generalized slowing, but no evidence of tendency to seizure and no focal features. CT scan of the head on 11/22/2018, repeated 11/24/2018, both without contrast, showed nothing remarkable. She is afebrile now. WBC is normal. TSH is normal. I believe she is approximately 24 hours since last propofol. She has received morphine 4 mg 6 doses in the last 24 hours. Hydromorphone is ordered p.r.n., but I do not think she has had a dose of that in the last few days. I do not see anything else on the medicine list that likely would have significant sedating effect. IMPRESSION: Persistent global encephalopathy. Etiology is not certain. BUN continues elevated above baseline, but likely not sufficient to produce this level of encephalopathy. She has had some mild to moderate blood sugar elevations, but not likely sufficient to produce this level of encephalopathy. I do not see anything else on the chemistry profile that likely would be associated with significant encephalopathy. I do not have any urgent suggestion. I hope she will improve with time. Eventually, we might need a contrast CT or MRI, and we might consider repeating her EEG. Thanks for asking Neurology to see Ms. Mancini. cc: MD DAVEY Goldman III
[2018-11-26 12:49] LABS: HEMATOCRIT 25.6 % (37.0-47.0); HEMOGLOBIN 7.7 g/dL (12.0-16.0)
[2018-11-26 14:19] LABS: ALLEN TEST YES; BE 4.9 mmoll (-3.0-3.0); BLOOD TYPE ARTERIAL; HCO3-(ACT) 28.7 mmoll (20.0-26.0); METHB 1.4 % (0.0-1.5); O2(CT) 11.1 mL/dL (15.0-23.0); O2HB 94.2 % (95.0-99.0); PCO2(98.6) 49 mmHg (35-45); PO2(98.6) 82 mmHg (60-100); SAMPLE BLOOD; THB 8.3 g/dL (11.5-17.4)
[2018-11-26 14:20] LABS: MODALITY VENTILATOR
[2018-11-26] MEDS: NEXIUM IV SCH (15:44)
[2018-11-26 18:45] LABS: HEMATOCRIT 24.4 % (37.0-47.0); HEMOGLOBIN 7.3 g/dL (12.0-16.0)
--- NOTE | 2018-11-26 19:27 | GENERAL SURGERY PROGRESS NOTE ---
DATE: 11/26/2018 SUBJECTIVE: She remains in ICU on the ventilator. She is undergoing a weaning trial with low- dose Levophed. She is thrashing in the bed and not quite following commands. Temperature curve is improving, only low grade overnight, nothing as high as it has been. Heart rates in the 80s and 90s for the most part. MAPs are in the 60s, supported by Levophed low dose. OBJECTIVE: General: She is sedated. Endotracheal tube is in place. Her abdomen is soft. Incision intact. TAWNYA drain is serosanguineous. LABORATORY DATA: White count is 26, hematocrit is 25. ABG was removed. Creatinine is 2.0, up slightly. Glucose has been okay. DIAGNOSTIC DATA: I have reviewed her chest x-ray as well as her other vp medical notes. ASSESSMENT AND PLAN: A 63-year-old female status post repair of incarcerated ventral hernia. She has aspiration pneumonia and complications associated with this. Her mental status has failed to improve significantly, which is hindering her ventilator wean, but otherwise from a pulmonary and abdominal standpoint she does seem to be gradually improving. Neurology is following. We will follow her from a surgical standpoint. Until she has reliable return of bowel function, I would continue nasogastric tube decompression. cc: Sima Michele MD
[2018-11-26] MEDS ORDERED: NS 250 ML ONE (21:16)
--- NOTE | 2018-11-26 23:51 | PULMONOLOGY PROGRESS NOTE ---
DATE: 11/26/2018 SUBJECTIVE: The patient was evaluated earlier this morning. She is more awake. She does not follow commands. She was placed on a breathing trial for several hours. She tolerated this without difficulty and was extubated. This evening, she is slightly agitated and did receive some morphine, but has no increased work of breathing. OBJECTIVE: Vital signs: BP 103/52, heart rate 90, respiratory rate 22, oxygen saturation 96% on supplemental face mask. HEENT: Pupils are equal and reactive. Oropharynx appears clear. Neck: Supple. Chest: Reveals decreased breath sounds right base. Cardiac: S1, S2. Abdomen: Soft. Extremities: Without edema. LABORATORIES: Arterial blood gas #1, pH 7.50, pCO2 of 40, PO2 of 155. Second arterial blood gas after a long weaning trial, pH 7.40, pCO2 of 49, PO2 of 82. Chemistry: Sodium 144, potassium 3.8, chloride 103, bicarbonate 27, BUN 46, creatinine 2.0. White blood count 6.39, hemoglobin 7.7, platelet count 54,000. Chest x-ray reveals slight decreased infiltrates/effusion on the right. IMPRESSION: A 63-year-old with 1. Acute hypoxemic respiratory failure. 2. Chronic obstructive pulmonary disease. 3. Altered mental status. 4. Gram-negative pneumonia and a right pleural effusion. 5. Status post reduction of incarcerated hernia. 6. Acute renal failure. PLAN: 1. Extubation today. This has been completed and she is tolerating without difficulty. 2. BiPAP at bedtime and p.r.n. 3. Continue current antibiotics for bacteremia and pneumonia. 4. Consider thoracentesis tomorrow pending results of platelet counts. Time spent in critical care management: 30+ minutes cc: Alexandr Mcdowell MD [facility]
[2018-11-27] MEDS: ZOSYN 3.375 GM in NS 50 ML IV SCH ×4 (00:37→19:58)
[2018-11-27] MEDS: HUMALOG SUBQ SCH ×6 (00:41→19:59)
[2018-11-27 00:54] LABS: HEMATOCRIT 25.5 % (37.0-47.0); HEMOGLOBIN 8.3 g/dL (12.0-16.0)
[2018-11-27] MEDS: DUONEB (A & A) INH SCH ×6 (03:22→23:33)
[2018-11-27] MEDS: CLINIMIX E 4.25%-5% SOLUTION 1,000 ML IV SCH ×2 (04:28→08:16)
[2018-11-27] MEDS: MORPHINE IV PRN ×4 (04:28→19:57)
[2018-11-27] MEDS: REGLAN IV SCH ×4 (04:28→22:20)
[2018-11-27 04:40] LABS: ALLEN TEST YES; BE 5.6 mmoll (-3.0-3.0); BLOOD TYPE ARTERIAL; HCO3-(ACT) 29.3 mmoll (20.0-26.0); METHB 1.5 % (0.0-1.5); O2(CT) 9.5 mL/dL (15.0-23.0); O2HB 95.7 % (95.0-99.0); PCO2(98.6) 41 mmHg (35-45); PO2(98.6) 116 mmHg (60-100); SAMPLE BLOOD; SAO2 99.4 % (95.0-100.0); THB 6.9 g/dL (11.5-17.4); pH(98.6) 7.47 (7.35-7.45)
[2018-11-27 04:50] LABS: MODALITY BI PAP
[2018-11-27 05:45] LABS: BASO# 0.01 X1000 (0.0-0.2); BASO% 0.2 % (0.0-0.8); EOS# 0.15 X1000 (0.0-0.7); EOS% 2.9 % (0.0-10.0); HEMATOCRIT 26.4 % (37.0-47.0); HEMOGLOBIN 8.2 g/dL (12.0-16.0); IMM GRAN# 0.02 X1000 (0.0-0.04); IMM GRAN% 0.4 % (0.0-0.5); LYMPH# 0.93 X1000 (1.2-3.4); LYMPH% 18.1 % (20.5-51.1); MCH 30.3 PG (27-31); MCHC 31.1 g/dL (33-37); MCV 97.4 FL (81-99); MONO# 0.48 X1000 (0.11-0.59); MONO% 9.3 % (1.7-9.3); NEUT# 3.56 X1000 (1.4-6.5); NEUT% 69.1 % (42.2-75.2); PLT 58 X1000 (130-400); RBC 2.71 XMIL (4.2-5.4); RDW 16.6 % (11.5-14.5); WBC 5.15 X1000 (4.8-10.8)
[2018-11-27 05:59] LABS: ALB/GLOB RATIO 0.9; ALBUMIN 2.5 g/dL (3.5-5.0); CALCIUM 8.1 mg/dL (8.8-10.2); TOTAL BILIRUBIN 1.17 mg/dL (0.20-1.00); TOTAL PROTEIN 5.4 g/dL (6.3-8.3)
[2018-11-27] MEDS: LOPRESSOR 10 MG in NS 50 ML IV SCH ×4 (07:40→22:21)
--- NOTE | 2018-11-27 07:58 | PROGRESS NOTE ---
DATE: 11/27/2018 SUBJECTIVE: This patient has been extubated yesterday. She seems to be more awake. She is following commands on and off. She is not able to talk, she moves all 4 extremities spontaneously, she is status post 1 PRBC. Her hemoglobin dropped to 7.3 and now is 8.2. I will continue monitoring her hemoglobin and hematocrit. Pulmonary Department and Neurology Department on board. She seems to be better compared with yesterday. OBJECTIVE: Vital Signs: Temperature 97.5 degrees, pulse 87, respiratory rate 14, blood pressure 120/61, oxygen saturation 94 on the monitor on nasal cannula. HEENT: Head normocephalic. No trauma. PERRLA. Neck: Supple. No JVD. No masses. Central trachea. Chest: Decreased breath sounds mostly at the bases with coarse breath sounds bilaterally. Mild crackles at the bases and rhonchi. Abdomen: Soft, obese, protuberant, slightly distended. She has a drain on the left side. Extremities: No edema. No clubbing. No cyanosis. Neurological: This patient is awake. She is alert but she is following commands on and off. She is not able to talk, even though she is trying, she has generalized weakness. She is moving all 4 extremities spontaneously. LABORATORY DATA: WBC 5.1, hemoglobin 8.2, hematocrit 26.4, platelets 58,000. Sodium 144, potassium chloride 104, bicarbonate 27, BUN 55, creatinine 2, glucose 133, calcium 8.1, albumin 2.5. ASSESSMENT AND PLAN: 1. Acute respiratory failure secondary to aspiration pneumonia, right-sided pleural effusion. Continue with mechanical ventilation, Pulmonary Department on board. We have a positive balance of 838 mL with a urine output of 1440, which is adequate, but we need to keep an eye on that. It is around 60 mL/hour. She has been extubated yesterday. She is on a nasal cannula at this moment. Again, this patient has aspiration pneumonia and right-sided pleural effusion and because of that, acute hypoxemic respiratory failure. 2. Septic shock due to aspiration pneumonia. She also has a positive culture that showed Escherichia coli in blood and urine, this is sensitive to Zosyn. We will continue with same management. WBC is normal. She is still on pressors. Probably in the future, we will need to ask Infectious Disease Department to evaluate this patient, but I repeated the blood culture yesterday and so far has been negative. We will continue with same management. 3. Escherichia coli bacteremia, as above. 4. Escherichia coli urinary tract infection, as above. 5. Large right-sided pleural effusion. We will continue to monitor. She has been extubated yesterday. She is tolerating nasal cannula. 6. Aspiration pneumonia. Continue with antibiotics. 7. Acute kidney injury on chronic kidney disease. The urine output has been adequate. BUN and creatinine are about the same compared with yesterday. We will continue with same management. 8. Anion gap acidosis with lactic acid elevation, better. 9. Type 2 diabetes. Continue with same management. Continue with Lantus. 10. Chronic obstructive pulmonary disease, aware. Continue breathing treatment, oxygen supplementation, antibiotics. 11. Global encephalopathy. She is getting better. She is weak. She is following commands on and off. She is moving all 4 extremities. She seems to be much better compared with yesterday. 12. Thrombocytopenia, this is chronic. We will monitor. 13. Anemia, hemoglobin dropped to 7.3, so I gave her 1 unit of PRBC and I will monitor this patient closely. I will check the hemoglobin every 6 hours and I will transfuse as needed. 14. Overall, this patient's prognosis is poor but she is she is getting better, hopefully she will recover, but we need to continue treatment in the ICU. She is bacteremic with Escherichia coli which is sensitive to Zosyn. I repeated the blood cultures yesterday and so far has been negative. Probably we need to consult the Infectious Disease Department doctor in the future to set up the medications that she needs to use at home. For now, we will continue with same treatment. She seems to be getting better. CRITICAL CARE TIME: 40 minutes. cc: Juan Carlos Thao MD
[2018-11-27] MEDS: LANTUS INSULIN SUBQ SCH (08:17)
[2018-11-27 12:29] LABS: HEMATOCRIT 25.8 % (37.0-47.0)
[2018-11-27] MEDS: SODIUM CHLORIDE 0.9% INJ SCH (15:57)
[2018-11-27] MEDS: NEXIUM IV SCH (15:57)
--- NOTE | 2018-11-27 16:21 | GENERAL SURGERY PROGRESS NOTE ---
DATE: 11/27/2018 SUBJECTIVE: She is doing well. She has been extubated. OBJECTIVE: She is a little confused but more alert. The abdomen is soft. No bowel function yet. Urine output has been okay. No fever. No tachycardia. LABORATORY DATA: White count is 5. Hematocrit is 25. ABG was removed. Creatinine is 2. ASSESSMENT AND PLAN: A 63-year-old female status post repair of incarcerated hernia. Her incision is healing well. There is no evidence of recurrence. TAWNYA drainage is serosanguineous. She also has aspiration pneumonia that seems to be slowly improving. She is now extubated. We will continue to follow her closely going forward. Dr. Mchugh is following the patient. After she has return of bowel function we can discontinue her gastric tube. cc: Sima Michele MD
--- NOTE | 2018-11-27 16:23 | PROGRESS NOTE ---
DATE: 11/27/2018 Ms. Mancini is extubated, awake, alert, and intermittently attentive. She followed some simple commands including holding up fingers and touching her nose. She spoke her name. Speech is dysarthric, but I could understand her. She consistently used her right arm purposefully, but I did not see her use her left arm spontaneously. She did not use her left arm to my command. She moved both legs spontaneously. Limb tone is slightly diminished in the arms, but symmetric. There is full lateral eye movement. Facial motility is symmetric. Neck is supple. IMPRESSION: Global encephalopathy, significantly improved. There is no evidence of increased intracranial pressure, acute infarction, significant new metabolic problem. This may be very slowly resolving toxic encephalopathy. I do not have any urgent suggestion. Her improvement is encouraging. Depending on her clinical course, we might repeat EEG and brain imaging later. Thanks for asking Neurology to see Ms. Mancini. cc: MD DAVEY Goldman III
[2018-11-27 18:05] LABS: HEMATOCRIT 27.2 % (37.0-47.0); HEMOGLOBIN 8.3 g/dL (12.0-16.0)
[2018-11-28] MEDS: CLINIMIX E 4.25%-5% SOLUTION 1,000 ML IV SCH ×4 (00:41→20:38)
[2018-11-28] MEDS: HUMALOG SUBQ SCH ×6 (00:42→20:35)
[2018-11-28] MEDS: ZOSYN 3.375 GM in NS 50 ML IV SCH ×4 (02:00→20:36)
[2018-11-28 02:22] LABS: HEMATOCRIT 25.9 % (37.0-47.0); HEMOGLOBIN 7.9 g/dL (12.0-16.0)
[2018-11-28] MEDS: DUONEB (A & A) INH SCH ×6 (03:18→23:34)
[2018-11-28 04:13] LABS: ALLEN TEST YES; BE 3.2 mmoll (-3.0-3.0); BLOOD TYPE ARTERIAL; HCO3-(ACT) 27.4 mmoll (20.0-26.0); METHB 1.5 % (0.0-1.5); O2(CT) 13.2 mL/dL (15.0-23.0); O2HB 93.5 % (95.0-99.0); PCO2(98.6) 42 mmHg (35-45); PO2(98.6) 78 mmHg (60-100); SAMPLE BLOOD; SAO2 97.5 % (95.0-100.0); pH(98.6) 7.43 (7.35-7.45)
[2018-11-28 04:14] LABS: MODALITY CANNULA
[2018-11-28] MEDS: LOPRESSOR 10 MG in NS 50 ML IV SCH ×2 (04:17→09:27)
[2018-11-28] MEDS: REGLAN IV SCH ×4 (04:19→20:37)
[2018-11-28 06:36] LABS: BASO# 0.01 X1000 (0.0-0.2); BASO% 0.2 % (0.0-0.8); EOS# 0.12 X1000 (0.0-0.7); EOS% 2.9 % (0.0-10.0); HEMATOCRIT 25.9 % (37.0-47.0); IMM GRAN# 0.02 X1000 (0.0-0.04); IMM GRAN% 0.5 % (0.0-0.5); LYMPH# 0.68 X1000 (1.2-3.4); LYMPH% 16.6 % (20.5-51.1); MCH 30.3 PG (27-31); MCHC 30.9 g/dL (33-37); MCV 98.1 FL (81-99); MONO# 0.39 X1000 (0.11-0.59); MONO% 9.5 % (1.7-9.3); MPV 11.9 FL (7.4-10.4); NEUT# 2.88 X1000 (1.4-6.5); NEUT% 70.3 % (42.2-75.2); PLT 57 X1000 (130-400); RBC 2.64 XMIL (4.2-5.4); RDW 16.2 % (11.5-14.5)
--- NOTE | 2018-11-28 06:48 | Diag Imaging Result Doc PS360 ---
CHEST-PORTABLE - 11/28/2018 INDICATION: dyspnea COMPARISON: 11/26/2018 FINDINGS: The endotracheal tube is no longer visible. Stable nasogastric tube in the stomach. Stable left PICC line in good position. Lung volumes are severely low. Grossly stable infiltrate and effusion throughout the right lung. Stable linear atelectasis at the left lung base. Stable cardiomegaly and pulmonary vascular congestion. IMPRESSION: Endotracheal tube removed. Otherwise no change from prior. Electronically signed by Nathanael Vela 11/28/2018 6:46 AM
[2018-11-28 06:56] LABS: ALB/GLOB RATIO 0.9; ALBUMIN 2.7 g/dL (3.5-5.0); CALCIUM 8.5 mg/dL (8.8-10.2); CREATININE 1.8 mg/dL (0.5-0.9); MAGNESIUM 2.1 mg/dL (1.5-2.7); PHOSPHORUS 4.1 mg/dL (2.7-4.5); TOTAL BILIRUBIN 0.97 mg/dL (0.20-1.00); TOTAL PROTEIN 5.7 g/dL (6.3-8.3)
[2018-11-28] MEDS: MORPHINE IV PRN ×3 (07:43→20:37)
[2018-11-28] MEDS: LANTUS INSULIN SUBQ SCH (09:23)
[2018-11-28] MEDS: LOPRESSOR IV SCH ×2 (11:29→17:23)
[2018-11-28] MEDS: SODIUM CHLORIDE 0.9% INJ SCH (15:36)
[2018-11-28] MEDS: NEXIUM IV SCH (15:36)
--- NOTE | 2018-11-28 19:15 | GENERAL SURGERY PROGRESS NOTE ---
DATE: 11/28/2018 SUBJECTIVE: The patient seems to be doing okay. Nursing staff reports no major changes. OBJECTIVE: Vital signs: The patient is currently afebrile. Her vital signs are stable. On general exam, somewhat confused female. Cardiovascular: Regular rate and rhythm. Lungs: Some coarse sounds noted. Abdomen is soft. No return of bowel function yet. TAWNYA drain in place. LABORATORY DATA: White blood cell count 4, hematocrit 25, platelet count 57,000. Remainder of labs reviewed. ASSESSMENT AND PLAN: A 63-year-old female status post repair of incarcerated hernia. Postoperative state: At this time she has been extubated, seems to be doing a little bit better and her mental status seems to be improving. From a surgical point of view, I would like to continue nasogastric tube decompression until we get some more return of bowel function. Otherwise, continue supportive care. cc: Ike Mchugh MD
[2018-11-29] MEDS: REGLAN IV SCH ×6 (00:52→21:27)
[2018-11-29] MEDS: LOPRESSOR IV SCH ×2 (00:53→05:08)
[2018-11-29] MEDS: HUMALOG SUBQ SCH ×6 (00:54→20:36)
[2018-11-29] MEDS: CLINIMIX E 4.25%-5% SOLUTION 1,000 ML IV SCH ×2 (00:54→11:29)
[2018-11-29] MEDS: ZOSYN 3.375 GM in NS 50 ML IV SCH ×4 (02:30→20:35)
[2018-11-29] MEDS: DUONEB (A & A) INH SCH ×6 (03:26→23:30)
[2018-11-29 04:29] LABS: ALLEN TEST YES; BE 3.3 mmoll (-3.0-3.0); BLOOD TYPE ARTERIAL; HCO3-(ACT) 27.5 mmoll (20.0-26.0); METHB 1.7 % (0.0-1.5); O2(CT) 10.9 mL/dL (15.0-23.0); O2HB 93.7 % (95.0-99.0); PCO2(98.6) 41 mmHg (35-45); PO2(98.6) 79 mmHg (60-100); SAMPLE BLOOD; SAO2 97.7 % (95.0-100.0); THB 8.2 g/dL (11.5-17.4); pH(98.6) 7.44 (7.35-7.45)
[2018-11-29 04:31] LABS: MODALITY CANNULA
[2018-11-29 06:37] LABS: BASO# 0.01 X1000 (0.0-0.2); BASO% 0.2 % (0.0-0.8); EOS# 0.12 X1000 (0.0-0.7); EOS% 2.9 % (0.0-10.0); HEMATOCRIT 26.2 % (37.0-47.0); IMM GRAN# 0.04 X1000 (0.0-0.04); LYMPH# 0.75 X1000 (1.2-3.4); LYMPH% 18.2 % (20.5-51.1); MCH 30.4 PG (27-31); MCHC 30.5 g/dL (33-37); MCV 99.6 FL (81-99); MONO# 0.43 X1000 (0.11-0.59); MONO% 10.4 % (1.7-9.3); MPV 11.7 FL (7.4-10.4); NEUT# 2.77 X1000 (1.4-6.5); NEUT% 67.3 % (42.2-75.2); PLT 58 X1000 (130-400); RBC 2.63 XMIL (4.2-5.4); RDW 15.6 % (11.5-14.5); WBC 4.12 X1000 (4.8-10.8)
--- NOTE | 2018-11-29 07:14 | PROGRESS NOTE ---
DATE: 11/28/2018 SUBJECTIVE: The patient is more awake and alert today. She has no complaints. OBJECTIVE: Vital signs: Temperature 96 degrees, blood pressure 151/55, heart rate 89, respirations 18, O2 saturation 98% on 4 L nasal cannula. Intake 2 L. Output 1.7 L. General: This is a chronically ill-appearing, elderly female lying in bed, in no acute distress. Heart: S1, S2 normal. Regular rate and rhythm. Lungs: Equal air entry bilaterally. No wheezing. No rales. No rhonchi. Abdomen: Positive bowel sounds. Soft, nontender, nondistended. Extremities: No edema. No cyanosis. Neuro: The patient is oriented to self. She is able to move all 4 extremities. LABS: White blood cell count 4.1, hemoglobin 7.9, hematocrit 25, platelets 57,000. Sodium 145, potassium 4, chloride 106, CO2 of 26, BUN 59, creatinine 1.8. Glucose 154, calcium 8.5, AST 16, ALT 10, alkaline phosphatase 118. ProBNP 1044. Albumin 2.7. ASSESSMENT AND PLAN: 1. Acute hypoxemic respiratory failure. Continue with supplemental oxygen and bronchodilator therapy. 2. Pneumonia secondary to E.coli. Continue on Zosyn. 3. Bacteremia secondary to E.coli. Continue on Zosyn. Repeat blood cultures are pending. 4. Chronic obstructive pulmonary disease. Aware. Continue on the current treatment regimen. 5. Septic shock. Resolved. 6. Status post open repair of an incarcerated left lower quadrant hernia. Aware. Management as per the general surgeon. 7. Metabolic encephalopathy. Slowly improving. The patient is more awake and alert today. 8. Anemia. Will monitor the hemoglobin and hematocrit closely. 9. Acute kidney injury on chronic kidney disease. Continue to monitor closely. 10 Nutrition. The patient is currently on Clinimix. 11. Chronic thrombocytopenia. Stable. 12. Hyperglycemia. The patient is on sliding scale insulin. cc: Brisa Hylton MD MTDD
--- NOTE | 2018-11-29 07:21 | Diag Imaging Result Doc PS360 ---
CHEST-PORTABLE - 11/29/2018 INDICATION: dyspnea COMPARISON: 11/28/2018 FINDINGS: Stable nasogastric tube and left central line in good position. Lung volumes remain severely low. There is worsening ill-defined infiltrate throughout the left midlung and left lung base. Stable dense infiltrate throughout the right lung. Stable moderate right neural effusion. Stable cardiomegaly and pulmonary vascular congestion. IMPRESSION: Slight worsening in the infiltrate throughout the left lung base. Electronically signed by Nathanael Vela 11/29/2018 7:19 AM
[2018-11-29] MEDS ORDERED: LOPRESSOR IV PRN (08:22)
[2018-11-29 09:17] LABS: ALB/GLOB RATIO 0.8; ALBUMIN 2.6 g/dL (3.5-5.0); CALCIUM 8.4 mg/dL (8.8-10.2); CREATININE 1.6 mg/dL (0.5-0.9); POTASSIUM 4.6 mmol/L (3.5-5.1); TOTAL BILIRUBIN 1.02 mg/dL (0.20-1.00); TOTAL PROTEIN 5.9 g/dL (6.3-8.3)
[2018-11-29] MEDS: LANTUS INSULIN SUBQ SCH (09:27)
--- NOTE | 2018-11-29 10:48 | GENERAL SURGERY PROGRESS NOTE ---
DATE: 11/29/2018 SUBJECTIVE: The patient seems to be doing okay. Nursing staff reports no issues. She seems to be more alert. OBJECTIVE: Vital Signs: The patient is currently afebrile. Her vital signs have been stable. General: No acute distress. Cardiovascular: Regular rate and rhythm. Lungs: Grossly clear. Abdomen: Soft. Some bowel sounds. TAWNYA drain in place with minimal output. LABORATORY DATA: White blood cell count 4, hematocrit 26, platelet count 58,000. ABG reviewed. ASSESSMENT AND PLAN: A 63-year-old female status post repair of incarcerated ventral hernia. Postoperative state. At this time, she has been extubated. She is tolerating fine. She has had minimal output out of her nasogastric tube in the last 24 hours. Will clamp it. Given the fact that she was intubated for a while and she has had some altered mental status, will get a bedside swallow evaluation by the nurses to see if she actually has any underlying issues with the mechanism of swallowing. Otherwise, may consider starting to feed her with clear liquids. cc: Ike Mchugh MD
[2018-11-29] MEDS: MORPHINE IV PRN ×2 (13:42→20:38)
[2018-11-29] MEDS: NEXIUM IV SCH (15:59)
[2018-11-29] MEDS ORDERED: LASIX IV ONE (16:18)
--- NOTE | 2018-11-29 16:39 | PROGRESS NOTE ---
DATE: 11/29/2018 SUBJECTIVE: The patient is resting comfortably in bed. She is more awake and alert. However, she remains somewhat confused. OBJECTIVE: Vital Signs: Temperature 97.8 degrees, blood pressure 148/69, heart rate 95, respirations 30, O2 saturation 96% on 2 L nasal cannula. General: This is a chronically ill- appearing elderly female lying in bed in no acute distress. Head: Normocephalic, atraumatic. Heart: S1, S2 normal. Lungs: Equal air entry bilaterally. No wheezing. No rales. Abdomen: Positive bowel sounds. Soft, nontender, nondistended. Extremities: No edema, no cyanosis. Neurologic: The patient is oriented to self. She is able to move all 4 extremities. LABS: White blood cell count 4.1, hemoglobin 8, hematocrit 26, platelets 58,000. Sodium 144, potassium 4.6, chloride 107, CO2 23, BUN 54, creatinine 1.6, glucose 159. AST 19, ALT 11, alkaline phosphatase 132. Albumin 2.6. ASSESSMENT AND PLAN: 1. Acute hypoxemic respiratory failure. Continue to treat the underlying pneumonia. 2. Pneumonia secondary to Escherichia coli. Continue on Zosyn and bronchodilator therapy. 3. Bacteremia secondary to Escherichia coli. So far the repeat blood cultures remain negative. We will continue on Zosyn. 4. Septic shock. Resolved. 5. Chronic obstructive pulmonary disease. Aware. 6. Moderate right pleural effusion. Stable. 7. Status post open repair of an incarcerated left lower quadrant hernia. Management as per the general surgeon. 8. Metabolic encephalopathy. Slowly improving. 9. Acute kidney injury on chronic kidney disease. Slowly improving. 10. Nutrition. Continue on Clinimix. 11. Chronic thrombocytopenia. Stable. 12. Hyperglycemia. Continue on sliding scale insulin. 13. Hypertension. Continue on Lopressor. cc: Brisa Hylton MD MTDBin
[2018-11-30] MEDS: CLINIMIX E 4.25%-5% SOLUTION 1,000 ML IV SCH ×4 (00:07→15:02)
[2018-11-30] MEDS: HUMALOG SUBQ SCH ×6 (00:08→20:26)
[2018-11-30] MEDS: ZOSYN 3.375 GM in NS 50 ML IV SCH ×4 (02:23→20:26)
[2018-11-30] MEDS: DUONEB (A & A) INH SCH ×6 (03:26→23:40)
[2018-11-30 04:26] LABS: BLOOD TYPE ARTERIAL; SAMPLE BLOOD
[2018-11-30 04:27] LABS: ALLEN TEST YES; BE 1.5 mmoll (-3.0-3.0); METHB 1.2 % (0.0-1.5); O2HB 92.9 % (95.0-99.0); PCO2(98.6) 43 mmHg (35-45); PO2(98.6) 76 mmHg (60-100); SAO2 96.7 % (95.0-100.0); THB 12.2 g/dL (11.5-17.4)
[2018-11-30 04:28] LABS: MODALITY CANNULA
[2018-11-30] MEDS: REGLAN IV SCH ×4 (04:28→20:26)
[2018-11-30 06:26] LABS: BASO# 0.01 X1000 (0.0-0.2); BASO% 0.2 % (0.0-0.8); EOS# 0.15 X1000 (0.0-0.7); EOS% 3.2 % (0.0-10.0); HEMATOCRIT 26.3 % (37.0-47.0); HEMOGLOBIN 8.1 g/dL (12.0-16.0); IMM GRAN# 0.03 X1000 (0.0-0.04); IMM GRAN% 0.6 % (0.0-0.5); LYMPH# 0.84 X1000 (1.2-3.4); LYMPH% 18.2 % (20.5-51.1); MCH 30.1 PG (27-31); MCHC 30.8 g/dL (33-37); MCV 97.8 FL (81-99); MONO# 0.52 X1000 (0.11-0.59); MONO% 11.3 % (1.7-9.3); NEUT# 3.07 X1000 (1.4-6.5); NEUT% 66.5 % (42.2-75.2); PLT 64 X1000 (130-400); RBC 2.69 XMIL (4.2-5.4); RDW 15.4 % (11.5-14.5); WBC 4.62 X1000 (4.8-10.8)
[2018-11-30 06:34] LABS: CALCIUM 8.6 mg/dL (8.8-10.2); CREATININE 1.5 mg/dL (0.5-0.9); POTASSIUM 4.3 mmol/L (3.5-5.1); TOTAL BILIRUBIN 0.99 mg/dL (0.20-1.00); TOTAL PROTEIN 6.1 g/dL (6.3-8.3)
[2018-11-30 06:35] LABS: ALB/GLOB RATIO 0.7; ALBUMIN 2.6 g/dL (3.5-5.0)
--- NOTE | 2018-11-30 07:00 | Diag Imaging Result Doc PS360 ---
EXAM: CHEST-PORTABLE 11/30/2018 HISTORY: pneumonia/pleural effusion TECHNIQUE: AP portable at 0526 COMMENT: There are platelike opacities bilaterally. There is pleural fluid on the right and generalized interstitial opacity. The right hemithorax is nearly completely opacified. IMPRESSION: Subsegmental atelectasis bilaterally. Right pleural effusion. Right-sided pneumonia. Electronically signed by Carlos Trejo 11/30/2018 6:58 AM
[2018-11-30] MEDS: LANTUS INSULIN SUBQ SCH (08:34)
--- NOTE | 2018-11-30 13:16 | PROGRESS NOTE ---
DATE: 11/30/2018 SUBJECTIVE: Ms. Mancini has been noted to be slowly improved, more alert and attentive through the weekend. Family at the bedside reports significant improvement today compared to yesterday. They confirmed history that she has always been very slow to recover after anesthesia. BUN was 21 on admission, and is in the 50s now. Blood sugars have been stable 100s to 200s. Chest x-ray shows pneumonia. Noncontrast CT of the head on 11/22/2018 and 11/24/2018 were unremarkable. OBJECTIVE: Today, she is awake and alert. She reports she remembers me examining her a few days ago, and specifically remembers some of my requests that she use her limbs and she remembers me passively raising her arms. She did not identify the hospital by name. Otherwise, her conversation was appropriate today. I do not find a definite language error. Speech is not significantly dysarthric. She used each arm purposefully and well. ASSESSMENT AND PLAN: No new thoughts or new suggestions from Neurology standpoint today. This is likely multifactorial encephalopathy with contributions from her metabolic problems, and her baseline tendency to be slow to recover from anesthesia. Thanks for asking Neurology to see Ms. Mancini. cc: MD DAVEY Goldman III
[2018-11-30] MEDS: MORPHINE IV PRN ×2 (13:39→20:26)
--- NOTE | 2018-11-30 13:55 | PROGRESS NOTE ---
DATE: 11/30/2018 SUBJECTIVE: The patient is resting comfortably in bed. She is more awake and alert today. No acute events noted overnight. OBJECTIVE: Vital Signs: Temperature 98.6 degrees, blood pressure 138/65, heart rate 98, respirations 22, O2 saturation 96% on 3 L nasal cannula, intake 2 L and output 2.7 L. General: This is a morbidly obese female lying in bed in no acute distress. Heart: S1, S2 normal. Tachycardic. Lungs: Equal air entry bilaterally. Mild expiratory wheezing. No rales. No rhonchi. Abdomen:Positive bowel sounds. Soft, nontender, nondistended. There is a drain in place. Extremities: No edema. No cyanosis. Neurologic: The patient is oriented to self. She is able to move all 4 extremities, and answer questions. LABORATORY: White blood cell count 4.6, hemoglobin 8.1, hematocrit 26, and platelets 64,000. ABG pH of 7.4, pCO2 43, PO2 76, bicarb 26, sodium 142, potassium 4.3, chloride 104, CO2 24, BUN 51, creatinine 1.5, and glucose 126. AST 21, ALT 11, alkaline phosphatase 139, and albumin 2.6. Chest x-ray shows right-sided pneumonia. ASSESSMENT AND PLAN: 1. Acute hypoxemic respiratory failure. Continue with pulmonary toiletry. 2. Pneumonia secondary to Escherichia coli. Continue with antibiotic therapy. 3. Bacteremia secondary to Escherichia coli. The repeat blood cultures are negative. The patient is currently on Zosyn. 4. Septic shock. Resolved. 5. Chronic obstructive pulmonary disease. Aware. Continue with bronchodilator therapy. 6. Right pleural effusion. Stable. 7. Metabolic encephalopathy, improved. 8. Status post open repair of an incarcerated left lower quadrant hernia. Management as per the general surgeon. 9. Chronic thrombocytopenia, improved. 10. Hypertension. Continue on Lopressor. 11. Hyperglycemia. Continue on sliding scale insulin. cc: MD DAVEY Mabry
[2018-11-30] MEDS: NEXIUM IV SCH (15:01)
[2018-11-30] MEDS: SODIUM CHLORIDE 0.9% INJ SCH (15:02)
--- NOTE | 2018-11-30 16:07 | Diag Imaging Result Doc PS360 ---
EXAM: CHEST-2 VIEWS INDICATION: POST US THORACENTESIS TECHNIQUE: 2 views COMPARISON: 11/30/2018 FINDINGS: The right pleural effusion has decreased as result of the recent right thoracentesis. There is better aeration of the right lung. There is residual right basilar atelectasis. There is no evidence of pneumothorax status post right thoracentesis. The atelectasis at the left lung base is approximately stable. No new consolidation is identified. Cardiac silhouette is stable. IMPRESSION: Interval improvement of right pleural effusion status post thoracentesis with no evidence of postprocedural pneumothorax. Electronically signed by Anatoliy Pepe 11/30/2018 4:05 PM
[2018-11-30 17:54] LABS: AMYLASE BODY FLUID 62 U/L; GLUCOSE BODY FLUID 166 mg/dL; LDH BODY FLUID 133 U/L; TOTAL PROT BODY FLUID 2.1 g/dL
[2018-11-30 18:31] LABS: BODY FLUID SOURCE PLEURAL FLUID; SPECIMEN PLEURAL FLUID
[2018-11-30 18:32] LABS: MONOS 79 %; PH BODY FLUID 7.5; POLYS 21 %; WBC BF 438 /cumm
--- NOTE | 2018-11-30 20:07 | GENERAL SURGERY PROGRESS NOTE ---
DATE: 11/30/2018 SUBJECTIVE: She remains extubated and having some return of bowel function. No fevers. Occasional low-grade tachycardia. Blood pressure has been okay. OBJECTIVE: General: She is alert, is still somewhat disoriented. Productive cough. Abdomen is soft. Lower midline incision is intact, draining serosanguineous. LABORATORY DATA: White count 4, hematocrit 26. Creatinine is 1.5. ASSESSMENT AND PLAN: This is a 63-year-old female with aspiration pneumonia related to incarcerated ventral hernia, now status post repair. Function has returned. Pulmonology service is following. We will advance her diet per the speech therapist's recommendations. cc: Sima Michele MD
[2018-12-01] MEDS: HUMALOG SUBQ SCH ×6 (00:21→20:22)
[2018-12-01] MEDS: ZOSYN 3.375 GM in NS 50 ML IV SCH ×4 (02:55→20:23)
[2018-12-01] MEDS: REGLAN IV SCH ×4 (02:55→20:22)
[2018-12-01] MEDS: DUONEB (A & A) INH SCH ×6 (03:36→23:13)
[2018-12-01] MEDS: CLINIMIX E 4.25%-5% SOLUTION 1,000 ML IV SCH ×3 (04:30→19:03)
[2018-12-01 05:45] LABS: BASO# 0.02 X1000 (0.0-0.2); BASO% 0.5 % (0.0-0.8); EOS# 0.12 X1000 (0.0-0.7); EOS% 3.2 % (0.0-10.0); HEMATOCRIT 24.5 % (37.0-47.0); HEMOGLOBIN 7.5 g/dL (12.0-16.0); IMM GRAN# 0.02 X1000 (0.0-0.04); IMM GRAN% 0.5 % (0.0-0.5); LYMPH# 0.69 X1000 (1.2-3.4); LYMPH% 18.2 % (20.5-51.1); MCHC 30.6 g/dL (33-37); MONO# 0.41 X1000 (0.11-0.59); MONO% 10.8 % (1.7-9.3); MPV 11.4 FL (7.4-10.4); NEUT# 2.53 X1000 (1.4-6.5); NEUT% 66.8 % (42.2-75.2); PLT 67 X1000 (130-400); RDW 15.4 % (11.5-14.5); WBC 3.79 X1000 (4.8-10.8)
[2018-12-01 06:19] LABS: ALB/GLOB RATIO 0.9; ALBUMIN 2.7 g/dL (3.5-5.0); CALCIUM 7.4 mg/dL (8.8-10.2); CREATININE 1.7 mg/dL (0.5-0.9); POTASSIUM 4.6 mmol/L (3.5-5.1); TOTAL BILIRUBIN 0.74 mg/dL (0.20-1.00); TOTAL PROTEIN 5.6 g/dL (6.3-8.3)
[2018-12-01] MEDS: MORPHINE IV PRN (06:40)
--- NOTE | 2018-12-01 07:28 | PULMONOLOGY PROGRESS NOTE ---
DATE: 11/30/2018 SUBJECTIVE: The patient is awake, alert, and conversant. She has had some periods of confusion but mental status has markedly improved over the last several days. OBJECTIVE: Vital Signs: The patient has been afebrile for the last 24 hours. Blood pressure 129/59, heart rate 90, respiratory rate 24, oxygen saturation 95% on nasal cannula. She has no increased work of breathing. HEENT: Pupils are equal and reactive. Oropharynx appears clear. Neck is supple. Chest reveals occasional rhonchi bilaterally with decreased breath sounds at the right base. Cardiac Examination: S1, S2. Abdomen is obese and soft with good bowel sounds. Extremities: Reveal trace edema. Laboratories: White blood count 4.62, hemoglobin 8.1, platelet count 64,000. Sodium 142, potassium 4.3, chloride 104, bicarbonate 24, BUN 51, creatinine 1.5. Arterial blood gas, pH 7.40, pCO2 of 43, PO2 of 76 on 4 L per nasal cannula. Chest x-ray reveals right-sided effusion and pneumonia with atelectasis bilaterally. IMPRESSION: A 63-year-old with: 1. Acute hypoxemic respiratory failure. 2. Altered mental status with improvement. 3. Gram-negative pneumonia with right-sided pleural effusion. 4. Status post surgical reduction of an incarcerated hernia. 5. Acute renal failure with continued improvement. RECOMMENDATIONS: 1. Proceed with thoracentesis to ensure she does not have empyema and to rule out a malignant pleural effusion. 2. Continue oxygen for hypoxemic respiratory failure. 3. Continue antibiotic regimen. 4. Follow up hemoglobin and platelet counts. cc: Alexandr Mcdowell MD
--- NOTE | 2018-12-01 07:32 | Diag Imaging Result Doc PS360 ---
EXAM: CHEST-PORTABLE INDICATION: abnormal exam TECHNIQUE: One view COMPARISON: 11/30/2018 FINDINGS: The left central line is in stable position. The small right pleural effusion is approximately stable as is the adjacent right basilar atelectasis. The trace left basilar atelectasis is unchanged. No new consolidation is identified. Cardiac silhouette is stable. IMPRESSION: Essentially stable chest. Electronically signed by Anatoliy Pepe 12/01/2018 7:29 AM
--- NOTE | 2018-12-01 07:47 | Diag Imaging Result Doc PS360 ---
EXAM: US THORACENTESIS W/IMAGE GUIDE 11/30/2018 HISTORY: large Right Pleural Effusion TECHNIQUE: Ultrasound-guided thoracentesis on the right COMMENT: The risks and benefits of the procedure including the possibility of bleeding infection or reaction to lidocaine and pneumothorax were discussed with the patient and she agreed to the procedure. Following sterile preparation the skin posteriorly and administration 1% lidocaine to the skin and deeper soft tissues the thoracentesis catheter was placed posteriorly and subsequently 1100 mL of bloody fluid was drained. This was sent to the laboratory in its entirety. There are no immediate complications. IMPRESSION: Successful ultrasound-guided thoracentesis. Electronically signed by Carlos Trejo 12/01/2018 7:44 AM
[2018-12-01] MEDS: LANTUS INSULIN SUBQ SCH (07:59)
--- NOTE | 2018-12-01 10:37 | PROGRESS NOTE ---
DATE: 12/01/2018 Ms. Mancini was napping as I approached the bedside. I waked her very easily. She had some appropriate conversation with me. She was not able to name the hospital. She moved arms and legs symmetrically to command. Facial motility is symmetric. Head and neck are unremarkable. She reports no headache. She reports breathing comfortably now. I do not have any new thoughts or new suggestions from a neurology standpoint today. She seems to be recovering. cc: Omer Willett III, MD
--- NOTE | 2018-12-01 13:17 | PROGRESS NOTE ---
DATE: 12/01/2018 SUBJECTIVE: The patient is resting comfortably in bed. She had a thoracentesis yesterday. She is a little sleepy with mild confusion this morning. OBJECTIVE: Vital Signs: Temperature 97 degrees, blood pressure 115/50, heart rate 91, respirations 18, O2 saturations 100% on 3 L nasal cannula. General: This is a morbidly obese, elderly female, lying in bed in no acute distress. Head: Normocephalic, atraumatic. Heart: S1, S2 normal. Regular rate and rhythm. Lungs: Mild expiratory wheezes bilaterally. Abdomen: Positive bowel sounds. Soft, nontender, nondistended. Extremities: No edema. No cyanosis. Neurologic: The patient is oriented to self. She is able to move all 4 extremities. LABORATORY DATA: White blood cell count 3.7, hemoglobin 7.5, hematocrit 24, platelets 67,000. Sodium 142, potassium 4.6, chloride 106, CO2 26, BUN 46, creatinine 1.7, glucose 144. AST 21, ALT 11, alkaline phosphatase 132. IMAGING: Chest x-ray shows a small right pleural effusion. Trace left basilar atelectasis. ASSESSMENT AND PLAN: 1. Acute hypoxemic respiratory failure. Continue with pulmonary toiletry. 2. Pneumonia secondary to Escherichia coli. Continue with the current antibiotic regimen. 3. Bacteremia secondary to Escherichia coli. The repeat blood cultures remain negative. Continue on Zosyn. 4. Status post ultrasound-guided right thoracentesis. The pleural effusion has improved. 5. Septic shock. Resolved. 6. Chronic obstructive pulmonary disease. Continue supplemental oxygen and bronchodilator therapy. 7. Metabolic encephalopathy. Slowly improving. We will transfer the patient out of the ICU. 8. Status post open repair of an incarcerated left lower quadrant hernia. Management as per the general surgeon. 9. Chronic thrombocytopenia. Stable. 10. Acute kidney injury on chronic kidney disease. Stable. The patient has adequate urine output. We will avoid nephrotoxic agents. 11. Hypertension. Controlled. 12. Severe protein calorie malnutrition. The patient is currently on a clear liquid diet and Clinimix. We will continue to monitor. 13. Deep vein thrombosis prophylaxis. Continue with SCDs. 14. Disposition. We will transfer the patient to CICU. We will also get Occupational Therapy as well as Physical Therapy to work with the patient. cc: Brisa Hylton MD
[2018-12-01] MEDS: NEXIUM IV SCH (14:30)
--- NOTE | 2018-12-01 15:15 | GENERAL SURGERY PROGRESS NOTE ---
DATE: 12/01/2018 She has moved to the step-down unit. No fevers, no tachycardia. She has bowel function, tolerating a diet. She still is quite agitated and delirious. white count is 3, hematocrit 24, creatinine is 1.7 this around her baseline. Her abdomen is soft. Incision intact. No recurrent hernia. Drain serosanguineous is removed. ASSESSMENT AND PLAN: This is a 63-year-old female with aspiration pneumonia, status post incarcerated hernia repair. Slowly improving. Appreciate the Pulmonology Hospitalist service. We will follow her along. She is on peripheral nutrition and her diet is being advanced. She is on appropriate antibiotics. We will continue to follow along but surgically she seems to be doing okay. cc: Sima Michele MD MTDD
--- NOTE | 2018-12-01 20:34 | PULMONOLOGY PROGRESS NOTE ---
DATE: 12/01/2018 SUBJECTIVE: Patient was sleeping upon arrival. She is arousable to alert. She is without specific complaints. OBJECTIVE: Vital Signs: The patient has been afebrile for the last 24 hours. Blood pressure 115/51, heart rate 94, respiratory rate 18, oxygen saturation 100% on 3 L per nasal cannula. HEENT: Pupils are equal and reactive. Oropharynx appears clear. Neck: Supple. Chest: Decreased breath sounds in right base, but otherwise clear. Cardiac: S1, S2. Abdomen: Soft. Extremities: Trace edema. LABORATORIES: Sodium 142, potassium 4.6, chloride 106, bicarbonate 26, BUN 46, creatinine 1.7. Pleural fluid cultures are negative. Pleural fluid chemistries have a low total protein with slight increase in LDH at 133. Cytology is pending. IMPRESSION: A 63-year-old with: 1. Acute hypoxemic respiratory failure. 2. Encephalopathy with continued improvement. 3. Gram-negative pneumonia with parapneumonic effusion. Cytology is pending. 4. Acute renal failure with stable renal function. 5. Status post surgical reduction of an incarcerated hernia. PLAN: 1. Continue bronchial hygiene. 2. Continue current antibiotic regimen. 3. Follow up cytology report. 4. Continue physical therapy and advance as tolerated. cc: Alexandr Mcdowell MD
[2018-12-02] MEDS: HUMALOG SUBQ SCH ×6 (00:44→21:04)
[2018-12-02] MEDS: ZOSYN 3.375 GM in NS 50 ML IV SCH ×4 (01:22→21:04)
[2018-12-02] MEDS: REGLAN IV SCH ×4 (02:04→21:05)
[2018-12-02] MEDS: DUONEB (A & A) INH SCH ×6 (03:23→23:38)
[2018-12-02 05:59] LABS: BASO# 0.02 X1000 (0.0-0.2); BASO% 0.4 % (0.0-0.8); EOS# 0.09 X1000 (0.0-0.7); HEMATOCRIT 26.9 % (37.0-47.0); HEMOGLOBIN 8.3 g/dL (12.0-16.0); IMM GRAN# 0.02 X1000 (0.0-0.04); IMM GRAN% 0.4 % (0.0-0.5); LYMPH# 0.67 X1000 (1.2-3.4); LYMPH% 14.9 % (20.5-51.1); MCH 30.1 PG (27-31); MCHC 30.9 g/dL (33-37); MCV 97.5 FL (81-99); MONO# 0.31 X1000 (0.11-0.59); MONO% 6.9 % (1.7-9.3); MPV 11.8 FL (7.4-10.4); NEUT% 75.4 % (42.2-75.2); PLT 75 X1000 (130-400); RBC 2.76 XMIL (4.2-5.4); RDW 15.2 % (11.5-14.5); WBC 4.51 X1000 (4.8-10.8)
[2018-12-02 06:06] LABS: ALB/GLOB RATIO 0.9; CALCIUM 8.8 mg/dL (8.8-10.2); CREATININE 1.6 mg/dL (0.5-0.9); POTASSIUM 4.3 mmol/L (3.5-5.1); TOTAL BILIRUBIN 0.82 mg/dL (0.20-1.00); TOTAL PROTEIN 6.3 g/dL (6.3-8.3)
--- NOTE | 2018-12-02 09:09 | Diag Imaging Result Doc PS360 ---
CT HEAD W/O CONTRAST - 12/02/2018 INDICATION: patient fell COMPARISON: 11/24/2018 FINDINGS: The ventricles and sulci are normal in size and contour. No intracranial mass or hemorrhage. The skull is intact. The sinuses mastoids and middle ears are clear. IMPRESSION: Negative exam. This exam was performed using automated exposure control, adjustment of mA or kV according to patient size, and/or use of iterative reconstruction technique Electronically signed by Nathanael Vela 12/02/2018 9:06 AM
--- NOTE | 2018-12-02 09:10 | Diag Imaging Result Doc PS360 ---
CT MAXILLOFACIAL(SINUS) W/O CO - 12/02/2018 INDICATION: patient fell TECHNIQUE: COMPARISON: None FINDINGS: The facial bones are normal. There is mild focal soft tissue swelling at the right side of the forehead. No fractures. The sinuses are clear. IMPRESSION: Soft tissue swelling/contusion of the right side of the forehead. Electronically signed by Nathanael Vela 12/02/2018 9:08 AM
--- NOTE | 2018-12-02 09:26 | Diag Imaging Result Doc PS360 ---
EXAM: PELVIS 12/02/2018 HISTORY: patient fell TECHNIQUE: AP pelvis COMMENT: There is degenerative arthritis in both hips. There is no evidence of acute fracture or dislocation. Compared to 05/21/2018 the appearance of the right hip has not changed significantly. IMPRESSION: Osteoarthritis. Electronically signed by Carlos Trejo 12/02/2018 9:24 AM
--- NOTE | 2018-12-02 09:27 | Diag Imaging Result Doc PS360 ---
EXAM: LUMBAR SPINE 2-VIEWS 12/02/2018 HISTORY: patient fell TECHNIQUE: Lumbosacral spine AP and lateral COMMENT: There is disc space narrowing and osteophyte formation from the L2 level caudally. There is also some curvature of the lower lumbar spine with convexity to the left. There is vacuum disc phenomenon from the L1 level caudally and there is posterior osteophyte formation at L1-2, L2-3, and apparently L4-5 and L5-S1. Compared to the previous study of 05/21/2018 these findings were present previously. IMPRESSION: Degenerative disc disease. No evidence of acute bony abnormality. Electronically signed by Carlos Trejo 12/02/2018 9:25 AM
--- NOTE | 2018-12-02 09:28 | Diag Imaging Result Doc PS360 ---
EXAM: SHOULDER 1 VIEW RIGHT 12/02/2018 HISTORY: patient fell TECHNIQUE: Right shoulder one view COMMENT: There is deformity of the humeral head which may be due to previous trauma. There is no evidence of acute fracture or dislocation. No previous shoulder radiographs are available for comparison however compared to the previous chest radiograph of 12/01/2018 the appearance of the shoulder has not changed significantly. IMPRESSION: No acute bony abnormality. Electronically signed by Carlos Trejo 12/02/2018 9:26 AM
[2018-12-02] MEDS: LANTUS INSULIN SUBQ SCH (09:33)
[2018-12-02] MEDS: CLINIMIX E 4.25%-5% SOLUTION 1,000 ML IV SCH (09:35)
[2018-12-02] MEDS: HEPARIN SUBQ SCH ×2 (09:50→16:08)
[2018-12-02] MEDS: MORPHINE IV PRN ×4 (10:47→23:55)
--- NOTE | 2018-12-02 10:54 | Diag Imaging Result Doc PS360 ---
EXAM: CHEST-PORTABLE 12/02/2018 HISTORY: pneumonia TECHNIQUE: AP portable at 1037 COMMENT: Compared to 12/01/2018 there has been some improvement in the opacification of the right base with some visualization of the hemidiaphragm at this time. There is also improvement in platelike atelectasis in the left base. The inspiration is actually slightly less optimal than on the previous study. IMPRESSION: Improved pulmonary edema and/or pneumonia. Improved left lower lobe atelectasis. Electronically signed by Carlos Trejo 12/02/2018 10:52 AM
--- NOTE | 2018-12-02 12:21 | GENERAL SURGERY PROGRESS NOTE ---
DATE: 12/02/2018 SUBJECTIVE: She got out of bed unassisted this morning, went to the bathroom, and fell. She did have a bowel movement. OBJECTIVE: She has been transferred to CT scan where a CT of the head was negative. Maxillofacial CT showed a contusion to the right forehead but no bony injury. Lumbar spine showed degenerative changes. Hip and pelvis showed arthritis. Shoulder x-ray shows no bony abnormality. Abdomen is soft. She is tolerating some p.o. She seemed more alert but she is still very confused and agitated at times. No fevers. Low-grade tachycardia. Abdomen is soft. Incision intact. White count is 4, hematocrit is 26. Creatinine is 1.6. ASSESSMENT/PLAN: A 36-year-old female status post incarcerated ventral hernia repair, who also presented with an aspiration pneumonia on the right. Seemed to be improving slowly. Mental status continues to be an issue. I do not see that she had any significant injury from her fall. The nurses placed her with a bed alarm and close observation. We will continue going forward, advance her diet as tolerated. cc: Sima Michele MD
[2018-12-02] MEDS: NEXIUM IV SCH (13:59)
--- NOTE | 2018-12-02 18:29 | PROGRESS NOTE ---
DATE: 12/02/2018 SUBJECTIVE: The patient fell while trying to walk to the bathroom this morning. She got out of bed without alerting the nursing staff. OBJECTIVE: Vital Signs: Temperature 98.4 degrees, blood pressure 146/58, heart rate 100, respirations 19, O2 saturation is 98% on 2 L nasal cannula. Intake 1.6 L, output 900. General: This is a chronically ill-appearing, elderly female, lying in bed in no acute distress. Head: Normocephalic, atraumatic. Heart: S1, S2 normal. Tachycardic. Lungs: Equal air entry bilaterally. Mild expiratory wheezes. Abdomen: Positive bowel sounds. Soft, nontender, nondistended. Extremities: No edema. No cyanosis. Neurologic: The patient is oriented to self. She is able to move all 4 extremities. LABORATORY: White blood cell count 4.5, hemoglobin 8.3, hematocrit 26, platelets 75,000. Sodium 135, potassium 4.3, chloride 100, CO2 of 24, BUN 44, creatinine 1.6, glucose 172. IMAGIN. Chest x-ray shows improved pulmonary edema. Improved left lower lobe atelectasis. 2. Head CT shows no acute disease. 3. Lumbar spine x-ray shows degenerative disk disease. No acute abnormality. 4. The hip and pelvis x-ray shows osteoarthritis. ASSESSMENT AND PLAN: 1. Acute hypoxemic respiratory failure. Continue with pulmonary toiletry. 2. Pneumonia secondary to Escherichia coli. Continue with antibiotic therapy. 3. Bacteremia secondary to Escherichia coli. The blood cultures are negative. 4. Status post ultrasound-guided right thoracentesis. Stable. 5. Septic shock. Resolved. 6. Status post open repair of an incarcerated left lower quadrant hernia. Management as per the general surgeon. 7. Metabolic encephalopathy. This is slow to improve. The patient still has periods of confusion. 8. Chronic obstructive pulmonary disease. Continue with supplemental oxygen and bronchodilator therapy. 9. Chronic thrombocytopenia. Stable. 10. Acute kidney injury on chronic kidney disease. Stable. 11. Hypertension. Controlled. 12. Constipation. Will start the patient on laxative therapy. 13. Gastrointestinal prophylaxis. Continue on Nexium. 14. Deep vein thrombosis prophylaxis. Continue on heparin. 15. Continue with physical therapy. 16. Disposition. Will consult with Occupational Medicine Officer for inpatient rehab placement. cc: Brisa Hylton MD [facility]
[2018-12-02] MEDS: LACTULOSE PO SCH (21:05)
[2018-12-02] MEDS: COLACE PO SCH (21:05)
--- NOTE | 2018-12-02 22:55 | PULMONOLOGY PROGRESS NOTE ---
DATE: 12/02/2018 SUBJECTIVE: The patient is awake, alert, and conversant. The patient tried to get out of bed and go to the bathroom earlier today and fell. She currently is without specific complaints. OBJECTIVE: Vital Signs: The patient has been afebrile for the last 24 hours. Blood pressure 148/51, heart rate 48, respiratory rate 20, oxygen saturation 98% on 2 L per nasal cannula. HEENT: Pupils are equal and reactive. Oropharynx appears clear. Neck: Supple. Chest: Reveals good air entry bilaterally. Cardiac exam: S1, S2. Abdomen: Soft with good bowel sounds. Extremities: Without edema. LABORATORIES: Chest x-ray reveals decreased fluid/pneumonia at the right base with visualization of both the right and the left diaphragm now seen. White blood count 4.51, hemoglobin 8.3, platelet count 75,000. IMPRESSION: A 63-year-old with: 1. Hypoxemic respiratory failure. 2. Encephalopathy. 3. Gram-negative pneumonia with parapneumonic effusion. 4. Acute renal failure. 5. Status post surgical reduction of an incarcerated hernia. PLAN: 1. Continue bronchial hygiene. 2. Consider discontinuing antibiotics soon. She is completing 10 days of antibiotics, and radiographically, she continues to improve. 3. Wean oxygen as tolerated. 4. Continue physical therapy. cc: Alexandr Mcdowell MD
[2018-12-03] MEDS: HUMALOG SUBQ SCH ×5 (00:13→20:43)
[2018-12-03] MEDS: HEPARIN SUBQ SCH ×3 (00:21→17:16)
[2018-12-03] MEDS: ZOSYN 3.375 GM in NS 50 ML IV SCH ×3 (01:08→13:44)
[2018-12-03] MEDS: REGLAN IV SCH ×4 (02:08→20:37)
[2018-12-03] MEDS: DUONEB (A & A) INH SCH ×6 (03:33→23:17)
[2018-12-03 05:36] LABS: MCH 30.8 PG (27-31); MCHC 30.8 g/dL (33-37); RBC 2.6 XMIL (4.2-5.4); RDW 15.8 % (11.5-14.5); WBC 4.07 X1000 (4.8-10.8)
[2018-12-03 05:55] LABS: ALB/GLOB RATIO 0.9; CALCIUM 8.5 mg/dL (8.8-10.2); CREATININE 1.7 mg/dL (0.5-0.9); POTASSIUM 4.2 mmol/L (3.5-5.1); TOTAL BILIRUBIN 0.88 mg/dL (0.20-1.00); TOTAL PROTEIN 6.3 g/dL (6.3-8.3)
[2018-12-03] MEDS: LACTULOSE PO SCH ×2 (08:51→20:37)
[2018-12-03] MEDS: COLACE PO SCH ×2 (08:51→20:37)
[2018-12-03] MEDS: LANTUS INSULIN SUBQ SCH (08:51)
--- NOTE | 2018-12-03 12:38 | PROGRESS NOTE ---
DATE: 12/03/2018 SUBJECTIVE: Ms. Mancini fell early yesterday. That was not associated with altered awareness or altered consciousness. There was no evidence of significant injury. Repeat head CT was again negative. She has not had any further falls. She has continued to seem confused, but family believes that is improved today. OBJECTIVE: On my exam, she is awake, alert, attentive. She called me by name. She identified each of the three family members present easily. She told me that she is in [place] but she would never identify this as a hospital or name the hospital. She followed simple commands. She did well on bedside language testing. Speech is not dysarthric. She used her limbs appropriately and symmetrically. I did not test her gait. Visual pandey are full. IMPRESSION AND PLAN: Persistent encephalopathy. She continues to be slowly improved day by day. There is likely a component of toxic and metabolic encephalopathy. With stable course, negative CT, slight improvement day by day, I do not have any new suggestion from Neurology standpoint. I discussed my thoughts with family at the bedside. Thanks for asking Neurology to see Ms. Mancini. cc: MD DAVEY Goldman III
[2018-12-03] MEDS: ULTRAM PO PRN ×2 (13:43→20:38)
[2018-12-03] MEDS ORDERED: STERILE WATER INJ. INJ ONE (14:00)
[2018-12-03] MEDS ORDERED: CATHFLO IV ONE (14:00)
--- NOTE | 2018-12-03 17:04 | PROGRESS NOTE ---
DATE: 12/03/2018 SUBJECTIVE: The patient is sitting up in bed. Her son is present at the bedside. She is a little more awake and alert today. OBJECTIVE: Vital Signs: Temperature 98.9 degrees, blood pressure 151/63, heart rate 96, respirations 18, O2 saturation is 97% on 2 L nasal cannula. General: This is a morbidly obese female, lying in bed in no acute distress. Heart: S1, S2 normal. Regular rate and rhythm. Lungs: Equal air entry bilaterally. No wheezing. No rales. No rhonchi. Abdomen: Positive bowel sounds. Soft, nontender, nondistended. Extremities: No edema, no cyanosis. Neurologic: The patient is oriented to person and place. She is able to move all 4 extremities. LABORATORY DATA: White blood cell count 4, hemoglobin 8, hematocrit 26, platelets 68,000. Sodium 140, potassium 4.2, chloride 105, CO2 of 24, BUN 40, creatinine 1.7, glucose 174, AST 23, ALT 13, alkaline phosphatase 154. ASSESSMENT AND PLAN: 1. Acute hypoxemic respiratory failure. Slowly improving. 2. Pneumonia secondary to Escherichia coli. The patient has completed 12 days of antibiotic therapy. We will discontinue the Zosyn today. The blood cultures are negative. 3. Status post ultrasound-guided right thoracentesis. Stable. 4. Bacteremia secondary to Escherichia coli. Resolved. 5. Septic shock. Resolved. 6. Metabolic encephalopathy. Slowly improving. Continue to monitor closely. 7. Status post open repair of an incarcerated left lower quadrant hernia. Management as per the general surgeon. 8. Chronic obstructive pulmonary disease. Stable continue with bronchodilator therapy and supplemental oxygen. 9. Chronic thrombocytopenia. Stable. 10. Chronic kidney disease, stage 3. Stable. 11. Hypertension. Controlled. DISPOSITION: Continue with physical therapy. Final Operations Technician has been consulted for assistance with inpatient rehabilitation placement. The patient's son was updated on the patient's medical condition this morning. cc: Brisa Hylton MD MTDBin
[2018-12-03] MEDS: NEXIUM IV SCH (17:17)
--- NOTE | 2018-12-03 22:54 | PULMONOLOGY PROGRESS NOTE ---
DATE: 12/03/2018 SUBJECTIVE: The patient is awake, alert, and conversant. She is without specific complaints. OBJECTIVE: Vital Signs: The patient has been afebrile for the last 24 hours. Blood pressure 133/53, heart rate 100, respiratory rate 20, oxygen saturation 96% on 2 L per nasal cannula. HEENT: Pupils are equal and reactive. Oropharynx appears clear. Neck: Is supple. Chest: Reveals shallow breath sounds bilaterally without wheezing or rhonchi. Cardiac exam: S1-S2. Abdomen: Is soft and without hepatosplenomegaly. Extremities: Reveal decreasing edema. IMPRESSION: A 63-year-old with 1. Hypoxemic respiratory failure. 2. Encephalopathy with slow improvement. 3. Gram-negative pneumonia with parapneumonic effusion. 4. Status post reduction of an incarcerated hernia. 5. Acute renal failure with stabilization/improvement. PLAN: 1. Continue bronchial hygiene. 2. Complete antibiotics as discussed by Dr. Hylton. 3. Wean oxygen as tolerated. 4. Follow up chest x-ray tomorrow morning. cc: Alexandr Mcdowell MD
[2018-12-04] MEDS: HEPARIN SUBQ SCH ×3 (03:22→17:28)
[2018-12-04] MEDS: REGLAN IV SCH ×4 (03:22→21:40)
[2018-12-04] MEDS: HUMALOG SUBQ SCH ×8 (03:26→21:39)
[2018-12-04] MEDS: DUONEB (A & A) INH SCH ×6 (03:34→22:58)
--- NOTE | 2018-12-04 06:32 | Diag Imaging Result Doc PS360 ---
CHEST-PORTABLE - 12/04/2018 INDICATION: abnormal exam COMPARISON: 12/02/2018 FINDINGS: Stable left PICC line. There is slightly worsening opacification of the right lower lobe with loss of the hemidiaphragm. There is diffusely layering hazy opacity on the right side which may indicate pleural effusion and/or infiltrate. Stable pulmonary vascular congestion. Stable borderline cardiomegaly. IMPRESSION: Worsening opacification of the right lower lobe. Electronically signed by Nathanael Vela 12/04/2018 6:30 AM
[2018-12-04 07:08] LABS: HEMATOCRIT 26.2 % (37.0-47.0); HEMOGLOBIN 8.2 g/dL (12.0-16.0); LYMPH% 18.9 % (20.5-51.1); MCH 30.6 PG (27-31); MCHC 31.3 g/dL (33-37); MCV 97.8 FL (81-99); MPV 12.3 FL (7.4-10.4); NEUT% 66.7 % (42.2-75.2); PLT 71 X1000 (130-400); RBC 2.68 XMIL (4.2-5.4); RDW 16.2 % (11.5-14.5); WBC 3.07 X1000 (4.8-10.8)
[2018-12-04 07:09] LABS: BASO# 0.04 X1000 (0.0-0.2); BASO% 1.3 % (0.0-0.8); EOS# 0.07 X1000 (0.0-0.7); EOS% 2.3 % (0.0-10.0); IMM GRAN# 0.02 X1000 (0.0-0.04); IMM GRAN% 0.7 % (0.0-0.5); LYMPH# 0.58 X1000 (1.2-3.4); MONO# 0.31 X1000 (0.11-0.59); MONO% 10.1 % (1.7-9.3); NEUT# 2.05 X1000 (1.4-6.5)
--- NOTE | 2018-12-04 07:21 | GENERAL SURGERY PROGRESS NOTE ---
DATE: 12/04/2018 Discussed the patient with nursing staff. She has been somewhat altered through the evening, but no acute issues. Patient is reporting mostly pain in her leg after her fall, but no real other changes. From a surgical point of view, She seems to be slowly improving. I would recommend continuing to monitor her neurologic status. cc: Ike Mchugh MD
[2018-12-04 07:35] LABS: CALCIUM 8.6 mg/dL (8.8-10.2); CREATININE 1.3 mg/dL (0.5-0.9); POTASSIUM 3.8 mmol/L (3.5-5.1)
[2018-12-04] MEDS: LACTULOSE PO SCH ×2 (08:54→21:40)
[2018-12-04] MEDS: COLACE PO SCH ×2 (08:55→21:40)
[2018-12-04] MEDS: LANTUS INSULIN SUBQ SCH (09:03)
--- NOTE | 2018-12-04 12:50 | PROGRESS NOTE ---
DATE: 12/04/2018 OBJECTIVE: Ms. Mancini is sitting up feeding herself some lunch, appears to be liquids. She did not have trouble swallowing. Voice is stronger and speech is not dysarthric. She continues to be improved day by day with better attention and more brisk answers today. I do not see anything new neurologically on limited bedside exam. Review of her chart shows blood sugars 120s-180s. BUN was in the 50s earlier this admission, down to the 30s now. She has had a few doses of tramadol in the last few days. She believes she had taken tramadol in the past and does not recall intolerance. She has had metoclopramide here and that was on her pre admission medication list, but she is not able today to tell me details about that. She seems uncertain that she did take metoclopramide regularly prior to admission. Somnolence and encephalopathy with metoclopramide have been reported, typically in patients with less than normal dopamine function, mostly parkinsonism. She does not appear to have that sort of syndrome. I do not have any new suggestions from Neurology standpoint. Thanks for asking us to see Ms. Mancini. cc: Omer Willett III, MD MTDBin
[2018-12-04] MEDS: SODIUM CHLORIDE 0.9% INJ SCH (14:04)
[2018-12-04] MEDS: NEXIUM IV SCH (14:05)
--- NOTE | 2018-12-04 14:55 | Diag Imaging Result Doc PS360 ---
EXAM: KNEE 3 VIEWS LEFT 12/04/2018 HISTORY: pain TECHNIQUE: Left knee three views COMMENT: There is Mendez-Stieda calcification. The joint spaces are fairly well-maintained. There is some apparent fluid in the suprapatellar bursa. Some patellofemoral osteophyte is present. IMPRESSION: Degenerative changes. Questionable effusion, otherwise no evidence of acute bony disease. Electronically signed by Carlos Trejo 12/04/2018 2:53 PM
--- NOTE | 2018-12-04 15:00 | PROGRESS NOTE ---
DATE: 12/04/2018 SUBJECTIVE: The patient is sitting on the bedside commode. No acute events noted overnight. OBJECTIVE: Vital Signs: Temperature 98.1 degrees, blood pressure 120/78, heart rate 126, respirations 20, O2 saturations 100% on 2 L nasal cannula. General: This is a morbidly obese female, sitting on the bedside commode in no acute distress. Heart: S1, S2 normal. Tachycardic. Lungs: Clear to auscultation bilaterally. No wheezing. No rales. No rhonchi. Abdomen: Positive bowel sounds. Soft, nontender, nondistended. Extremities: No edema, no cyanosis. Neurologic: The patient is oriented to self although she is able to move all 4 extremities. LABORATORY DATA: White blood cell count 3, hemoglobin 8.2, hematocrit 26, platelets 71,000. Sodium 141, potassium 3.8, chloride 104, CO2 22, BUN 33, creatinine 1.3, glucose 164, calcium 8.6. ASSESSMENT AND PLAN: 1. Acute hypoxemic respiratory failure. Continue with pulmonary toiletry. 2. Pneumonia secondary to Escherichia coli. Resolved. The patient completed 12 days of antibiotic therapy. 3. Bacteremia secondary to Escherichia coli. Resolved. 4. Status post ultrasound-guided right thoracentesis. Stable. 5. Acute kidney injury on chronic kidney disease. Improved. 6. Metabolic encephalopathy. Slowly improving. The patient is very impulsive. Continue to monitor the patient closely with fall precautions. 7. Septic shock. Resolved. 8. Status post open repair of an incarcerated left lower quadrant hernia. Stable. 9. Chronic obstructive pulmonary disease. Stable. 10. Chronic thrombocytopenia. Stable. 11. Hypertension. Controlled. 12. Disposition. Continue with physical therapy. The patient will be discharged to inpatient rehab once a bed is available. cc: Brisa Hylton MD MTDD
[2018-12-04] MEDS: ULTRAM PO PRN ×2 (15:27→21:43)
[2018-12-05] MEDS: HEPARIN SUBQ SCH ×3 (00:34→16:00)
[2018-12-05] MEDS: HUMALOG SUBQ SCH ×6 (00:37→21:30)
[2018-12-05] MEDS: REGLAN IV SCH ×4 (03:43→21:29)
[2018-12-05] MEDS: DUONEB (A & A) INH SCH ×6 (03:50→23:42)
[2018-12-05 07:09] LABS: BASO# 0.02 X1000 (0.0-0.2); BASO% 0.6 % (0.0-0.8); EOS% 3.1 % (0.0-10.0); HEMATOCRIT 25.4 % (37.0-47.0); HEMOGLOBIN 8.1 g/dL (12.0-16.0); IMM GRAN# 0.02 X1000 (0.0-0.04); IMM GRAN% 0.6 % (0.0-0.5); LYMPH# 0.79 X1000 (1.2-3.4); LYMPH% 24.5 % (20.5-51.1); MCH 30.5 PG (27-31); MCHC 31.9 g/dL (33-37); MCV 95.5 FL (81-99); MONO# 0.37 X1000 (0.11-0.59); MONO% 11.5 % (1.7-9.3); MPV 11.6 FL (7.4-10.4); NEUT# 1.92 X1000 (1.4-6.5); NEUT% 59.7 % (42.2-75.2); PLT 84 X1000 (130-400); RBC 2.66 XMIL (4.2-5.4); WBC 3.22 X1000 (4.8-10.8)
[2018-12-05 07:29] LABS: CALCIUM 8.7 mg/dL (8.8-10.2); CREATININE 1.3 mg/dL (0.5-0.9); POTASSIUM 3.7 mmol/L (3.5-5.1)
--- NOTE | 2018-12-05 07:32 | Diag Imaging Result Doc PS360 ---
CHEST-1 VIEW - 12/05/2018 INDICATION: SOB COMPARISON: 12/04/2018 FINDINGS: Stable left PICC line. There has been significant improvement in aeration of the right lung with decrease in the layering hazy opacity/pleural effusion. There has also been decrease in the bilateral central pulmonary edema. Stable cardiomegaly and pulmonary vascular congestion. IMPRESSION: Significant improvement from prior. Electronically signed by Nathanael Vela 12/05/2018 7:30 AM
[2018-12-05] MEDS: TYLENOL PO PRN ×2 (08:34→16:10)
[2018-12-05] MEDS: COLACE PO SCH ×2 (08:35→21:29)
[2018-12-05] MEDS: LANTUS INSULIN SUBQ SCH (08:35)
[2018-12-05] MEDS: LACTULOSE PO SCH ×2 (08:35→21:30)
--- NOTE | 2018-12-05 13:16 | PROGRESS NOTE ---
DATE: 12/05/2018 SUBJECTIVE: The patient is resting comfortably in bed. No acute events noted overnight. One of her family members is present at the bedside. OBJECTIVE: Vital Signs: Temperature 98, blood pressure 150/62, heart rate 103, respirations 18, O2 saturations 98% on room air. General: This is a chronically ill-appearing elderly female sitting at the edge of bed in no acute distress. Heart: S1, S2 normal. Tachycardic. Lungs: Equal air entry bilaterally. No wheezing. No rales. No rhonchi. Abdomen: Positive bowel sounds, soft, nontender, nondistended. Extremities: No edema, no cyanosis. Neurologic: The patient is alert and oriented to person and place. LABORATORY: Hemoglobin 8.1, hematocrit 25, platelets 84. Sodium 139, potassium 3.7, chloride 104, CO2 21, BUN 31, creatinine 1.3, glucose 168, calcium 8.7. Chest x-ray shows significant improvement in the pulmonary vascular congestion. ASSESSMENT AND PLAN: 1. Acute hypoxemic respiratory failure. Resolved. 2. Pneumonia secondary to Escherichia coli. Resolved. 3. Bacteremia secondary to Escherichia coli. Resolved. 4. Status post ultrasound-guided right thoracentesis. Stable. 5. Acute kidney injury on chronic kidney disease. Improved. 6. Metabolic encephalopathy. Slowly improving. Continue to monitor the patient closely with fall precautions as well. 7. Septic shock. Resolved. 8. Status post open repair of an incarcerated left lower quadrant hernia. Stable. 9. Chronic thrombocytopenia. Stable. 10.Hypertension. Controlled. 11.Morbid obesity. Aware. 12.Disposition. [facility] Operator is working on inpatient rehab placement for the patient. The patient is stable for discharge to inpatient rehab once a bed is available. cc: Brisa Hylton MD
--- NOTE | 2018-12-05 13:29 | GENERAL SURGERY PROGRESS NOTE ---
DATE: 12/05/2018 SUBJECTIVE: The patient denies significant pain. No nausea or vomiting. She is eating. OBJECTIVE: She is afebrile. Pulse is 104, respirations 16, blood pressure 150/62, O2 saturation 98%.General: She is awake and alert. No acute distress. GI: Soft, nondistended. Mildly tender. Incision is clean, dry, and intact. She does have bowel sounds. LABORATORY: White blood cell count 3, hemoglobin 8, hematocrit 25. Electrolytes reviewed and are stable. IMAGING: Chest x-ray today shows improving aeration of the right lung and decreased central pulmonary edema. ASSESSMENT AND PLAN: A 63-year-old female status post incarcerated ventral hernia repair with perioperative pneumonia and bacteremia that have both resolved. She still has some ongoing respiratory failure and some recent metabolic encephalopathy at this point. Her surgical wound appears to be healing well and I would advance her diet as tolerated. No further surgical interventions at this time. cc: Elliott Mtz MD
[2018-12-05] MEDS: NEXIUM IV SCH (16:00)
[2018-12-05] MEDS: ULTRAM PO PRN (23:51)
[2018-12-06] MEDS: HUMALOG SUBQ SCH ×5 (02:00→20:47)
[2018-12-06] MEDS: DUONEB (A & A) INH SCH ×6 (03:03→23:38)
[2018-12-06] MEDS: REGLAN IV SCH ×4 (04:05→20:47)
[2018-12-06] MEDS: HEPARIN SUBQ SCH ×3 (04:05→20:47)
[2018-12-06 07:18] LABS: HEMATOCRIT 25.4 % (37.0-47.0); HEMOGLOBIN 8.1 g/dL (12.0-16.0); MCH 31.2 PG (27-31); MCHC 31.9 g/dL (33-37); MCV 97.7 FL (81-99); MPV 12.5 FL (7.4-10.4); RBC 2.6 XMIL (4.2-5.4); RDW 16.3 % (11.5-14.5); WBC 3.41 X1000 (4.8-10.8)
[2018-12-06 07:53] LABS: CALCIUM 8.7 mg/dL (8.8-10.2); CREATININE 1.5 mg/dL (0.5-0.9); POTASSIUM 3.9 mmol/L (3.5-5.1)
[2018-12-06] MEDS: TYLENOL PO PRN (09:23)
[2018-12-06] MEDS: COLACE PO SCH ×2 (09:25→20:52)
[2018-12-06] MEDS: LANTUS INSULIN SUBQ SCH (09:26)
[2018-12-06] MEDS: LACTULOSE PO SCH ×2 (09:26→20:52)
--- NOTE | 2018-12-06 13:05 | GENERAL SURGERY PROGRESS NOTE ---
DATE: 12/06/2018 SUBJECTIVE: The patient denies abdominal pain, nausea, or vomiting. OBJECTIVE: She is afebrile. Vital signs are stable.General: She is awake, alert, and oriented x3. No acute distress. GI: Soft, nontender, nondistended. Incisions clean, dry, and intact. ASSESSMENT AND PLAN: 63-year-old female status post incarcerated ventral hernia repair. She is healing well from a surgical standpoint. We will continue to follow along. cc: Elliott Mtz MD
[2018-12-06] MEDS: NEXIUM IV SCH (15:54)
--- NOTE | 2018-12-06 16:23 | PROGRESS NOTE ---
DATE: 12/06/2018 SUBJECTIVE: The patient is resting comfortably. She has a lot of confusion at night. OBJECTIVE: Vital Signs: Temperature 97.6 degrees, blood pressure 140/48, heart rate 102, respirations 18, O2 saturation is 100% on room air. General: This is a morbidly obese female, sitting in a chair in no acute distress. Heart: S1, S2 normal. Tachycardic. Lungs: Equal air entry bilaterally. No wheezing. No rales. No rhonchi. Abdomen: Positive bowel sounds. Soft, nontender, nondistended. Extremities: No edema, no cyanosis. Neurologic: The patient is alert and oriented to person. She is able to ambulate but is very unsteady on her feet. LABORATORY DATA: White blood cell count 3.4, hemoglobin 8.1, hematocrit 25, platelets 79,000. Sodium 141, potassium 3.9, chloride 106, CO2 of 20, BUN 27, creatinine 1.5, glucose 78. ASSESSMENT AND PLAN: 1. Acute hypoxemic respiratory failure. Resolved. 2. Pneumonia secondary to Escherichia coli. Resolved. 3. Bacteremia secondary to Escherichia coli. Resolved. 4. Status post ultrasound-guided right thoracentesis. Stable. 5. Chronic kidney disease. Stable. 6. Metabolic encephalopathy. We will continue to monitor the patient closely for improvement. 7. Status post open repair of an incarcerated left lower quadrant hernia. Stable. 8. Septic shock. Resolved. 9. Chronic thrombocytopenia. Stable. 10. Morbid obesity. Aware. 11. Hypertension. Controlled. 12. Pancytopenia. Will consult Hematology. DISPOSITION: Once a rehabilitation bed is available, the patient will be discharged to inpatient rehabilitation. cc: Brisa Hylton MD [facility]
[2018-12-06] MEDS ORDERED: HALDOL IV ONE (20:21)
[2018-12-06] MEDS ORDERED: HALDOL IM ONE (20:48)
[2018-12-06] MEDS: ULTRAM PO PRN (21:06)
[2018-12-07] MEDS: HUMALOG SUBQ SCH ×5 (01:42→11:00)
[2018-12-07] MEDS: REGLAN IV SCH ×2 (02:37→08:57)
[2018-12-07] MEDS: HEPARIN SUBQ SCH (04:14)
[2018-12-07] MEDS: DUONEB (A & A) INH SCH ×3 (04:32→12:04)
[2018-12-07 07:21] LABS: BASO# 0.01 X1000 (0.0-0.2); BASO% 0.3 % (0.0-0.8); EOS# 0.13 X1000 (0.0-0.7); EOS% 4.2 % (0.0-10.0); HEMATOCRIT 26.6 % (37.0-47.0); HEMOGLOBIN 8.3 g/dL (12.0-16.0); LYMPH# 0.88 X1000 (1.2-3.4); LYMPH% 28.1 % (20.5-51.1); MCH 30.2 PG (27-31); MCHC 31.2 g/dL (33-37); MCV 96.7 FL (81-99); MONO# 0.33 X1000 (0.11-0.59); MONO% 10.5 % (1.7-9.3); MPV 11.4 FL (7.4-10.4); NEUT# 1.78 X1000 (1.4-6.5); NEUT% 56.9 % (42.2-75.2); PLT 92 X1000 (130-400); RBC 2.75 XMIL (4.2-5.4); RDW 16.4 % (11.5-14.5); WBC 3.13 X1000 (4.8-10.8)
[2018-12-07 07:28] LABS: CALCIUM 8.4 mg/dL (8.8-10.2); CREATININE 1.6 mg/dL (0.5-0.9); POTASSIUM 4.5 mmol/L (3.5-5.1)
[2018-12-07] MEDS: COLACE PO SCH (08:57)
[2018-12-07] MEDS: LACTULOSE PO SCH (08:57)
[2018-12-07] MEDS: LANTUS INSULIN SUBQ SCH (08:57)
[2018-12-07] MEDS: ULTRAM PO PRN (12:08)
--- NOTE | 2018-12-07 12:45 | DISCHARGE SUMMARY ---
ADMISSION DATE: 11/22/2018 DISCHARGE DATE: 12/07/2018 FINAL DISCHARGE DIAGNOSES: 1. Acute hypoxemic respiratory failure status post extubation. 2. Chronic obstructive pulmonary disease exacerbation. 3. Status post open repair of an incarcerated left lower quadrant hernia. 4. Aspiration pneumonia secondary to Escherichia coli. 5. Bacteremia secondary to Escherichia coli. 6. Chronic kidney disease. 7. Status post ultrasound guided right thoracentesis. 8. Metabolic encephalopathy. 9. Septic shock. 10. Chronic thrombocytopenia. 11. Pancytopenia. 12. Morbid obesity. 13. Hypertension. 14. Diabetes mellitus type 2. 15. Chronic constipation. CONSULTATIONS: 1. General surgery consultation with Dr. Michele. 2. Pulmonary consultation with Dr. Mcdowell. 3. Neurology consultation with Dr. Willett. PROCEDURES: 1. Open repair of an incarcerated left lower quadrant hernia performed on 11/22/2018. 2. Ultrasound-guided right-sided thoracentesis at which time 1.1 L of pleural fluid was removed. HOSPITAL COURSE: Ms. Mancini is a 63-year-old female with a history of multiple medical problems who was brought to the ER with a chief complaint of abdominal pain and confusion. In the ER, CT of the chest, abdomen, and pelvis was done which revealed a left lower quadrant ventral abdominal wall hernia containing an incarcerated loop of small bowel resulting in a high- grade bowel obstruction, as well as a large right pleural effusion. In light of these findings, the patient was admitted to the hospitalist service. General surgery was consulted and the patient was taken to the operating room. The patient then underwent open repair of an incarcerated left lower quadrant hernia. Following the surgery, the patient was extubated and transferred to the medical ICU. However, the patient was noted to be very confused and unable to protect her airway so the patient was reintubated. Blood, sputum, and urine cultures were obtained. The patient was started on broad-spectrum antibiotics. An x-ray was done that revealed pneumonia. Ultimately, the blood and sputum cultures grew out Escherichia coli. The patient's antibiotics were switched to Zosyn. The patient had a prolonged hospitalization. Eventually, the patient's respiratory status improved and she was extubated to BiPAP. Due to the patient's confusion even after extubation, neurology was consulted for further recommendations. A head CT was done that was noted to be negative. Slowly, over the course of the hospitalization, the patient's mental status improved and her respiratory status stabilized, and she was transferred to CICU. The patient was noted to have a large right pleural effusion so an ultrasound-guided , thoracentesis was done at which time 1.1 L of pleural fluid was removed. The patient was noted to be pancytopenic. However, this appears to date back all the way to last year. The patient's counts remain stable. The patient continued to improve clinically and was ultimately transferred to the medical floor. Physical therapy and occupational therapy were consulted. The patient completed a total of 12 days of IV Zosyn. Repeat blood cultures were noted to be negative. The patient's mental status at this time continues to improve. She is able to ambulate; however, she requires assistance. At this time, the patient is medically stable for discharge to inpatient rehab. DISCHARGE MEDICATIONS: 1. Coreg 6.25 mg oral every 12 hours. 2. Lantus 15 units subcutaneous daily. 3. Tramadol 50 mg p.o. every 6 hours p.r.n. for pain. 4. DuoNebs 3 mL inhaled every 6 hours p.r.n. 5. Combivent inhaler 1 puff inhaled every 6 hours. 6. Januvia 100 mg p.o. daily. 7. Singulair 10 mg p.o. daily. 8. Trental 400 mg oral twice a day. 9. Aspirin 81 mg p.o. daily. 10. Cymbalta 60 mg p.o. at bedtime. 11. NitroQuick 0.4 mg sublingual every 5 minutes p.r.n. x3 for chest pain. DISCHARGE DIET: An 1800, ADA diet. ACTIVITY: As tolerated. FOLLOWUP INSTRUCTIONS: The patient will need to follow up with Dr. Michele upon discharge from inpatient rehab. The patient will need to follow up with Dr. Hewitt in 2 weeks. The patient will need to follow up with Dr. Mcdowell in 2 weeks. The patient will need to follow up with Dr. Swan as a new patient to further investigate the pancytopenia upon discharge from rehab. cc: MD Charles [facility]Mbry [facility]
[2018-12-07 15:41] VITALS: BP 174/64
--- NOTE | 2018-12-07 21:41 | GENERAL SURGERY PROGRESS NOTE ---
DATE: 12/07/2018 SUBJECTIVE: She has been discharged to rehab. She is doing well. No abdominal pain. She is ambulating and status much improved. OBJECTIVE: She is on room air. No fevers. Abdomen is soft. Incision is intact. I reviewed her labs. ASSESSMENT AND PLAN: This is a 63-year-old female status post repair of a ventral hernia that was incarcerated, which resulted in an aspiration pneumonia at home. She is doing well. She is going to rehab. We will see her in a week and take her luis out. cc: Sima Michele MD
== END 2018-12-07 16:59 | DRG 853 ==
LOC: SUPCPDRO → ED 10:45 → SUATTDRO 14:15 → 4N 14:15 → ICU 15:01 → 3S 12-01 10:00 → 3N 12-03 13:27
PROVIDERS: ATTEND Internal Medicine
CPT/HCPCS: 31500; 32421; 32555; 36415; 36430; 36569; 51702; 70450; 70486; 71010; 71020; 71045; 71046; 71250; 72100; 72170; 73020; 73562; 74176; 80048; 80053; 80101; 80301; 80307; 80324; 80345; 80346; 80353; 80358; 80361; 80365; 81001; 82140; 82150; 82270; 82550; 82805; 82945; 82948; 83036; 83605; 83615; 83735; 83880; 83986; 83992; 84100; 84145; 84157; 84443; 84484; 85014; 85018; 85025; 85027; 85610; 86850; 86900; 86901; 86920; 87015; 87040; 87070; 87077; 87102; 87116; 87147; 87186; 87205; 87206; 88112; 88302; 89051; 89220; 93005; 93010; 94002; 94003; 94640; 94660; 94761; 95816; 96361; 96374; 96375; 97110; 97116; 97162; 97166; 97530; 97535; 99285; 99291; A9270; C9113; G0431; G0434; G0479; G0480; J0330; J1100; J1170; J1630; J1644; J1815; J1940; J2270; J2405; J2543; J2765; J2997; J3010; J3480; J7030; J7050; J7070; P9016; S0164; XXXXX

== ENCOUNTER 2019-03-12 10:36 | Inpatient (IN) ==
--- NOTE | 2019-03-12 13:22 | Diag Imaging Result Doc PS360 ---
CHEST-2 VIEWS - 03/12/2019 INDICATION: s/p thoracetesis COMPARISON: 03/09/2019 FINDINGS: There has been drainage of the large right pleural effusion. The right lung is not completely reexpanded. The left lung is clear. Heart size is normal. IMPRESSION: Significant drainage of the large right pleural effusion. The right lung is not completely reexpanded at this time. Electronically signed by Nathanael Vela 03/12/2019 1:19 PM
[2019-03-12 14:14] LABS: AMYLASE BODY FLUID 44 U/L; GLUCOSE BODY FLUID 135 mg/dL; LDH BODY FLUID 70 U/L; TOTAL PROT BODY FLUID 1.9 g/dL
[2019-03-12 14:34] LABS: BODY FLUID SOURCE PLEURAL FLUID; PH BODY FLUID 7.5; SPECIMEN PLEURAL FLUID; WBC BF 508 /cumm
[2019-03-12 14:35] LABS: MONOS 81 %; POLYS 19 %
--- NOTE | 2019-03-12 15:49 | Diag Imaging Result Doc PS360 ---
CHEST-2 VIEWS - 03/12/2019 3:42 PM INDICATION: abnormal exam COMPARISON: 1:09 PM FINDINGS: There is worsening infiltrate throughout the right lung. The right lung is still not reexpanded. Stable small right basilar pleural effusion. The left lung remains normally expanded and clear. IMPRESSION: Worsening infiltrate throughout the right lung. The right lung is still not reexpanded. Electronically signed by Nathanael Vela 03/12/2019 3:47 PM
--- NOTE | 2019-03-12 17:50 | OPERATIVE NOTE ---
PROCEDURE DATE: 03/12/2019 PROCEDURE PERFORMED: Therapeutic and diagnostic thoracentesis from the right hemithorax. CLINICAL INDICATIONS: A 63-year-old with large right-sided pleural effusion and shortness of breath at rest. PROCEDURE IN DETAIL: The patient was brought to the ultrasound area where the thoracentesis was performed. A large area of fluid was identified at the right base. The site was prepped and draped in the usual sterile fashion. A plastic catheter was introduced into the right hemithorax with the aid of a stainless steel trocar. When pleural fluid was identified, the catheter was advanced and the trocar was retracted. Yellow to slightly yellow-green fluid, which was clear, was aspirated from the right hemithorax. A total of 2400 mL was removed. The patient began coughing, and the procedure was terminated. Postprocedure chest x-ray has been ordered. Pleural fluid will be sent for white blood count and differential, chemistries, cultures, and cytology. cc: Alexandr Mcdowell MD
--- NOTE | 2019-03-12 18:28 | HISTORY AND PHYSICAL ---
REASON FOR ADMISSION: Pneumothorax and hypoxemic respiratory failure. HISTORY OF PRESENT ILLNESS: Ms. Mancini is a 63-year-old white female who was evaluated by this practitioner in November when she presented with respiratory failure and pleural effusion. She had a prolonged encephalopathy during that hospitalization. The patient had an incarcerated loop of small bowel during that admission, which required surgical reduction. She was successfully discharged and followed up in my clinic with a worsening right-sided pleural effusion. The patient was referred to the GI, to Dr. Trino Caballero, and CT scan was performed which revealed a large right-sided pleural effusion, ascites and a nodular liver suspicious for cirrhosis. The patient was short of breath at rest in my office and was scheduled for an outpatient thoracentesis. Following thoracentesis, she was noted to have a pneumothorax. Follow-up scan revealed increasing infiltrates in the right lung, and so she will be admitted to the hospital for observation and possible chest tube placement. PAST MEDICAL HISTORY: 1. Diabetes mellitus. 2. Coronary artery disease with prior stent placement. 3. Cirrhosis of the liver with prior encephalopathy. 4. History of cellulitis of the left hand involving the distal phalanx. 5. Status post . 6. History of hernia repair with mesh. SOCIAL HISTORY: 1. Prior tobacco use, not quantitated at this juncture. 2. Alcohol use, never by patient's report. FAMILY HISTORY: Noncontributory. REVIEW OF SYSTEMS: Notable for decreased shortness of breath after thoracentesis was performed. PHYSICAL EXAMINATION: GENERAL: An obese white female who is awake and alert. She has no increased work of breathing. She reports she feels comfortable. VITAL SIGNS: Blood pressure 108/59, heart rate 72, respiratory rate 18, oxygen saturation 95% on 2 L per nasal cannula. HEENT: Pupils are equal and reactive. Oropharynx is clear. NECK: Supple. CHEST: Decreased breath sounds at the right base. CARDIAC EXAM: S1, S2. ABDOMEN: Soft. EXTREMITIES: Without edema. IMPRESSION: 1. Oxygenic pneumothorax. 2. Hepatic hydrothorax. 3. Chronic liver disease with ascites. 4. Hypoxemic respiratory failure. PLAN: 1. Admit to the hospital floor. 2. Continue oxygen per protocol. 3. Continue observation of the pneumothorax. She may require chest tube placement. cc: Alexandr Mcdowell MD
[2019-03-12] MEDS ORDERED: COMBIVENT RESPIMAT INHALER INH SCH (19:58)
[2019-03-12] MEDS: NORCO-7.5 PO SCH (21:27)
[2019-03-12] MEDS: CYMBALTA PO SCH (21:27)
[2019-03-12] MEDS: NEURONTIN PO SCH (21:27)
[2019-03-12] MEDS: HUMULIN R SUBQ SCH (21:28)
[2019-03-12] MEDS: TRENTAL PO SCH (21:28)
[2019-03-12] MEDS: ZOCOR PO SCH (21:28)
[2019-03-12] MEDS: DUONEB (A & A) INH SCH (23:24)
[2019-03-13] MEDS: DUONEB (A & A) INH SCH ×4 (03:10→22:50)
[2019-03-13 06:16] LABS: HEMATOCRIT 27.8 % (37.0-47.0); HEMOGLOBIN 8.5 g/dL (12.0-16.0); MCHC 30.6 g/dL (33-37); MCV 101.5 FL (81-99); MPV 12.5 FL (7.4-10.4); RBC 2.74 XMIL (4.2-5.4); RDW 18.5 % (11.5-14.5); WBC 4.57 X1000 (4.8-10.8)
[2019-03-13 06:21] LABS: ALBUMIN 3.2 g/dL (3.5-5.0); CALCIUM 8.1 mg/dL (8.8-10.2); CREATININE 1.2 mg/dL (0.5-0.9); MAGNESIUM 2.2 mg/dL (1.5-2.7); PHOSPHORUS 4.6 mg/dL (2.7-4.5); POTASSIUM 4.4 mmol/L (3.5-5.1); TOTAL BILIRUBIN 0.81 mg/dL (0.20-1.00); TOTAL PROTEIN 6.3 g/dL (6.3-8.3)
[2019-03-13] MEDS: HUMULIN R SUBQ SCH ×4 (06:27→21:11)
--- NOTE | 2019-03-13 08:55 | Diag Imaging Result Doc PS360 ---
EXAM: CHEST-2 VIEWS - 03/13/2019 HISTORY: abnormal exam TECHNIQUE: Chest two views COMPARISON: 03/12/2019 FINDINGS: There is a large right hydropneumothorax similar to prior. The left lung appears clear except for mild prominence of basilar interstitial markings. IMPRESSION: Large right hydropneumothorax similar to prior. Electronically signed by Pedro Bearden 03/13/2019 8:53 AM
[2019-03-13] MEDS: JANUVIA PO SCH (10:23)
[2019-03-13] MEDS: SINGULAIR PO SCH (10:23)
[2019-03-13] MEDS: NEURONTIN PO SCH ×2 (10:23→21:10)
[2019-03-13] MEDS: NORCO-7.5 PO SCH (10:24)
[2019-03-13] MEDS: TRENTAL PO SCH ×2 (10:24→21:10)
[2019-03-13] MEDS: ASPIRIN EC PO SCH (10:24)
[2019-03-13] MEDS: LANTUS INSULIN SUBQ SCH (10:28)
--- NOTE | 2019-03-13 15:47 | Diag Imaging Result Doc PS360 ---
EXAM: CHEST-PORTABLE - 03/13/2019 HISTORY: s/p chest tube placement TECHNIQUE: Portable chest COMPARISON: Prior chest two views of 03/13/2019 FINDINGS: There has been interval placement of a right chest tube with its tip at the superior lateral right thorax. There has been associated interval decrease in the right hydropneumothorax with associated reexpansion of the right lung. There is a residual small right apical pneumothorax. There is a residual medium right pleural effusion. There is ill-defined infiltrate or edema in the reexpanded right lung. The left lung appears essentially clear. Heart size is normal. IMPRESSION: Interval placement of right chest catheter with its tip at the superior lateral right thorax. Associated decrease in right hydropneumothorax, particularly the pneumothorax component. Electronically signed by Pedro Bearden 03/13/2019 3:45 PM
--- NOTE | 2019-03-13 17:49 | OPERATIVE NOTE ---
PROCEDURE DATE: PROCEDURE PERFORMED: Small-bore chest tube placement. INDICATIONS: Right-sided hydropneumothorax. DESCRIPTION OF PROCEDURE: After informed consent was obtained, the patient was placed supine. She raised her arm over her head to the best of her ability due to prior shoulder/arm fracture. Her breast was tensioned inferiorly to aid in chest tube placement. The site was prepped and draped in the usual sterile fashion. Pleural fluid was identified with the anesthetic needle. A small stab incision was made. A catheter was advanced into the right chest with the aid of a trocar. The catheter was sutured into position and connected to a Pleur-Evac set on -10 cm of water. The patient drained approximately 1500 mL of fluid along with intermittent air. Postprocedure chest x-ray is pending. cc: Alexandr Mcdowell MD
[2019-03-13] MEDS: LOPRESSOR PO SCH (17:54)
[2019-03-13] MEDS: PRINIVIL PO SCH (17:55)
[2019-03-13] MEDS: ZOCOR PO SCH (21:10)
[2019-03-13] MEDS: CYMBALTA PO SCH (21:11)
[2019-03-14] MEDS: DUONEB (A & A) INH SCH ×4 (05:27→22:55)
[2019-03-14] MEDS: HUMULIN R SUBQ SCH ×4 (07:01→22:08)
[2019-03-14] MEDS: LOPRESSOR PO SCH (09:32)
[2019-03-14] MEDS: SINGULAIR PO SCH (09:32)
[2019-03-14] MEDS: NORCO-7.5 PO SCH ×3 (09:32→22:08)
[2019-03-14] MEDS: ASPIRIN EC PO SCH (09:34)
[2019-03-14] MEDS: JANUVIA PO SCH (09:34)
[2019-03-14] MEDS: NEURONTIN PO SCH ×2 (09:34→22:08)
[2019-03-14] MEDS: PRINIVIL PO SCH (09:34)
[2019-03-14] MEDS: TRENTAL PO SCH ×2 (09:41→22:08)
[2019-03-14] MEDS: LANTUS INSULIN SUBQ SCH (09:42)
--- NOTE | 2019-03-14 10:19 | Diag Imaging Result Doc PS360 ---
EXAM: CHEST-PORTABLE 03/14/2019 HISTORY: pneumothorax TECHNIQUE: Portable upright chest at 0958 COMMENT: The small bore catheter which was previously in the right pleural space has apparently been withdrawn. The pneumothorax has increased in volume markedly. It now measures almost 3 cm at the apex. There is also pleural fluid on the right. The left lung has remained stable. There is increasing atelectasis of the right lung. IMPRESSION: Increased right pneumothorax. The findings were discussed with Alexandr Mcdowell MD at 03/14/2019 10:16 AM. Electronically signed by aCrlos Trejo 03/14/2019 10:17 AM
[2019-03-14] MEDS ORDERED: NITROGLYCERIN PRN (12:41)
[2019-03-14] MEDS: LASIX PO SCH (13:38)
[2019-03-14] MEDS: ZOCOR PO SCH (22:07)
[2019-03-14] MEDS: CYMBALTA PO SCH (22:07)
[2019-03-14] MEDS: ELAVIL PO SCH (22:08)
--- NOTE | 2019-03-14 22:23 | PULMONOLOGY PROGRESS NOTE ---
DATE: 03/14/2019 SUBJECTIVE: The patient is awake, alert, and conversant. She reports her breathing has significantly improved following thoracentesis. OBJECTIVE: Vital Signs: The patient has been afebrile for the last 24 hours. Blood pressure 138/72, heart rate 110, respiratory rate 14, oxygen saturation 94% on nasal cannula. HEENT: Pupils are equal and reactive. Oropharynx appears clear. Neck: Supple. Chest: Reveals diminished breath sounds right base. Cardiac: S1, S2. Abdomen: Soft. Extremities: Are without edema. LABORATORIES: Chest x-ray is reviewed. The chest tube catheter has been retracted and is now not in the hemithorax. There is a small to moderate right-sided pleural effusion. IMPRESSION: A 63-year-old with 1. Iatrogenic pneumothorax. 2. Large right-sided pleural effusion status post thoracentesis. 3. Recurrent pneumothorax following dislodgement of chest tube. PLAN: 1. Remove chest tube because it is no longer in the hemithorax. 2. Follow through the day and repeat chest x-ray tomorrow. If pneumothorax gets better, she may require replacement of the chest tube. cc: Alexandr Mcdowell MD
[2019-03-15] MEDS: DUONEB (A & A) INH SCH ×4 (04:15→21:39)
[2019-03-15] MEDS: HUMULIN R SUBQ SCH ×4 (06:04→20:42)
[2019-03-15] MEDS: NORCO-7.5 PO SCH ×3 (09:09→21:57)
[2019-03-15] MEDS: LANTUS INSULIN SUBQ SCH ×2 (09:12→09:20)
[2019-03-15] MEDS: LOPRESSOR PO SCH (09:12)
[2019-03-15] MEDS: JANUVIA PO SCH (09:12)
--- NOTE | 2019-03-15 09:12 | Diag Imaging Result Doc PS360 ---
EXAM: CHEST-PORTABLE HISTORY: pneumothorax TECHNIQUE: Single view COMPARISON: 02/11/2011 FINDINGS: Moderate-sized right-sided hydropneumothorax remains. This may be slightly larger. There is atelectasis and infiltrates in the right lung. The left lung remains well expanded and clear. IMPRESSION: No interval improvement. Electronically signed by Favian Casillas 03/15/2019 9:10 AM
[2019-03-15] MEDS: SINGULAIR PO SCH (09:13)
[2019-03-15] MEDS: PRINIVIL PO SCH (09:13)
[2019-03-15] MEDS: LASIX PO SCH (09:13)
[2019-03-15] MEDS: NEURONTIN PO SCH ×2 (09:13→21:57)
[2019-03-15] MEDS: TRENTAL PO SCH ×2 (09:13→21:57)
[2019-03-15] MEDS: ASPIRIN EC PO SCH (09:13)
[2019-03-15 12:24] LABS: BASO# 0.01 X1000 (0.0-0.2); BASO% 0.3 % (0.0-0.8); EOS# 0.08 X1000 (0.0-0.7); EOS% 2.7 % (0.0-10.0); HEMATOCRIT 26.5 % (37.0-47.0); HEMOGLOBIN 7.8 g/dL (12.0-16.0); LYMPH# 0.62 X1000 (1.2-3.4); LYMPH% 20.6 % (20.5-51.1); MCHC 29.4 g/dL (33-37); MCV 101.9 FL (81-99); MONO# 0.32 X1000 (0.11-0.59); MONO% 10.6 % (1.7-9.3); MPV 11.5 FL (7.4-10.4); NEUT# 1.98 X1000 (1.4-6.5); NEUT% 65.8 % (42.2-75.2); PLT 57 X1000 (130-400); RDW 17.7 % (11.5-14.5); WBC 3.01 X1000 (4.8-10.8)
[2019-03-15 12:41] LABS: CALCIUM 8.4 mg/dL (8.8-10.2); CREATININE 1.6 mg/dL (0.5-0.9); POTASSIUM 4.4 mmol/L (3.5-5.1)
--- NOTE | 2019-03-15 13:47 | GENERAL SURGERY CONSULTATION ---
DATE: 03/15/2019 REASON FOR CONSULTATION: Right hydropneumothorax. HISTORY OF PRESENT ILLNESS: This is a 63-year-old female who has had recurrent pleural effusions on the right side with respiratory failure, shortness of breath and chest discomfort. This was felt to be due to sympathetic effusion and underlying cirrhosis of the liver. She has undergone thoracentesis on several occasions, most recently a few days ago. She suffered iatrogenic right pneumothorax. It was partially improved with a chest tube placement. However, that became dislodged and she has had recurrent right hydropneumothorax. She remains somewhat short of breath and we were consulted for chest tube placement. PAST MEDICAL HISTORY: Diabetes, coronary artery disease, liver cirrhosis. PAST SURGICAL HISTORY: , left lower quadrant ventral hernia repair. SOCIAL HISTORY: She denies alcohol use. She used to smoke but not currently. No illicit drug use. FAMILY HISTORY: Reviewed and noncontributory. CURRENT MEDICATIONS: [place], DuoNeb, Elavil, aspirin, Cymbalta, Lasix, Neurontin, Lantus, Humulin, Prinivil, Lopressor, Singulair, nitroglycerin, Trental, Zocor, Januvia. ALLERGIES: Morphine. REVIEW OF SYSTEMS: Ten systems reviewed and negative except as noted above. PHYSICAL EXAMINATION: Vital Signs: Temperature 97.1 degrees, pulse 76, blood pressure 101/52, O2 saturation 98%. General: An elderly female who looks a little older than her stated age but in no acute distress. HEENT: Normocephalic, atraumatic. Extraocular muscles intact. Pupils equal, round, reactive to light. Sclerae anicteric. Moist mucous membranes. No oral lesions. Neck: Supple. No thyromegaly. Lymph. No cervical, supraclavicular or periumbilical lymph nodes appreciated. CV: Regular rate and rhythm. Respiratory: She has clear breath sounds on the left but decreased breath sounds on the right. No increased work of breathing. GI: Soft, nontender, nondistended. No organomegaly or mass. No appreciable hernias. Extremities: No clubbing, cyanosis, or edema. Skin: Warm and dry. No rash. Musculoskeletal: Moves all extremities equally. LABORATORY: White blood cell count 4.5, hemoglobin 8.5, hematocrit 27.8, platelet count 65,000. Electrolyte panel was reviewed and unremarkable. Her pleural fluid is negative for bacteria or fungi. Analysis of the pleural fluid reveals a likely transudative effusion. IMAGING: Chest x-ray this morning shows moderate-sized right hydropneumothorax, which may be slightly larger than previous. There are infiltrates and atelectasis of the right lung. The left lung remains well expanded and clear. ASSESSMENT AND PLAN: A 63-year-old female with recurrent symptomatic right hydropneumothorax. We will place a right chest tube. I discussed the risks and benefits with her including bleeding, infection, tube dislodgement or malfunction, injury to the lung, and other imponderables. She understands and agrees to proceed. cc: MD Alexandr Singleton MD
[2019-03-15] MEDS ORDERED: XYLOCAINE 1%/EPI 1:100,000 ONE (15:42)
[2019-03-15] MEDS ORDERED: VERSED ONE (15:58)
[2019-03-15] MEDS ORDERED: ROBINUL ONE (15:58)
[2019-03-15] MEDS ORDERED: XYLOCAINE-MPF 2% ONE (16:00)
[2019-03-15] MEDS ORDERED: DIPRIVAN 1% ONE (16:00)
--- NOTE | 2019-03-15 17:07 | Diag Imaging Result Doc PS360 ---
CHEST-PORTABLE - 03/15/2019 INDICATION: s/p chest tube COMPARISON: 03/15/2019 FINDINGS: There has been placement of a right basilar chest tube in good position. There has been substantial reexpansion of the right lung. There is still a small component at the base that is not expanded, about 20%. No significant pleural effusion. No significant infiltrates. IMPRESSION: Good right chest tube placement. Significant improved expansion of the right lung. Electronically signed by Nathanael Vela 03/15/2019 5:05 PM
--- NOTE | 2019-03-15 19:38 | OPERATIVE NOTE ---
PROCEDURE DATE: 03/15/2019 PREOPERATIVE DIAGNOSIS: Right hydropneumothorax. POSTOPERATIVE DIAGNOSIS: Right hydropneumothorax. PROCEDURE: Insertion of right chest tube. SURGEON: Elliott Mtz MD. ANESTHESIA: Local MAC. ESTIMATED BLOOD LOSS: 3 mL. COMPLICATIONS: None apparent. SPECIMENS: None. FINDINGS: Straw colored fluid in the right chest, 2 L were drained. TECHNIQUE: The patient was brought to our operating room. IV sedation was induced. Her right lateral chest was prepped and draped in usual sterile fashion. Then, 1% lidocaine was used to anesthetize the skin and subcutaneous tissue down to the intercostal space at the 5th intercostal space in the anterior axillary line. The incision was made with 11 blade. The pleural space was then accessed with a Ketty clamp. Straw colored fluid was obtained. A finger sweep was performed. There were no adhesions. A 24-[place] chest tube was then directed into a posterior superior fashion and secured to the skin with silk suture and an occlusive dressing. There were no apparent complications. cc: MD Alexandr Singleton MD
--- NOTE | 2019-03-15 20:51 | PULMONOLOGY PROGRESS NOTE ---
DATE: 03/15/2019 SUBJECTIVE: Patient is awake, alert, and conversant. She is without specific complaints. She does have some dyspnea when she gets up and moves around. OBJECTIVE: The patient has been afebrile for the last 24 hours. Blood pressure 101/52, heart rate 76, respiratory rate 14, oxygen saturation 94% on 2 L via nasal cannula.HEENT: Pupils are equal and reactive. Oropharynx appears clear. Neck: Supple. Chest: Reveals diminished breath sounds right base. Cardiac Exam: S1, S2. Abdomen: Soft. Extremities: Without edema. IMAGING: Chest x-ray this morning revealed large effusion with increase in pneumothorax. Chest x- ray this evening following chest tube placement by DR. Elliott Mtz reveals significant re- expansion of the right lung with a component of a basilar pneumothorax. Pleural effusion has been drained. IMPRESSION: 63-year-old with 1. Hepatic pleural effusion. 2. Iatrogenic hydropneumothorax. 3. Recurrent pneumothorax following dislodgement of chest tube placement. 4. Good drainage of chest with larger catheter placed by Dr. Elliott Mtz. PLAN: 1. Continue draining right hemithorax until lung expands. 2. Follow up chest x-ray tomorrow. 3. Assistance by Dr. Mtz was greatly appreciated. cc: Alexandr Mcdowell MD
[2019-03-15] MEDS: CYMBALTA PO SCH (21:56)
[2019-03-15] MEDS: ZOCOR PO SCH (21:57)
[2019-03-15] MEDS: ELAVIL PO SCH (21:57)
[2019-03-16] MEDS: DUONEB (A & A) INH SCH ×4 (03:20→22:30)
[2019-03-16] MEDS: HUMULIN R SUBQ SCH ×4 (06:27→21:24)
[2019-03-16] MEDS: NORCO-7.5 PO SCH ×2 (09:06→21:23)
[2019-03-16] MEDS: LANTUS INSULIN SUBQ SCH (09:07)
[2019-03-16] MEDS: JANUVIA PO SCH (09:08)
[2019-03-16] MEDS: NEURONTIN PO SCH ×2 (09:08→21:23)
[2019-03-16] MEDS: LASIX PO SCH (09:09)
[2019-03-16] MEDS: LOPRESSOR PO SCH (09:09)
[2019-03-16] MEDS: SINGULAIR PO SCH (09:10)
[2019-03-16] MEDS: TRENTAL PO SCH ×2 (09:10→21:23)
[2019-03-16] MEDS: PRINIVIL PO SCH (09:10)
[2019-03-16] MEDS: ASPIRIN EC PO SCH (09:10)
[2019-03-16] MEDS: ZOCOR PO SCH (21:23)
[2019-03-16] MEDS: CYMBALTA PO SCH (21:23)
[2019-03-16] MEDS: ELAVIL PO SCH (21:23)
--- NOTE | 2019-03-16 22:35 | PULMONOLOGY PROGRESS NOTE ---
DATE: 03/16/2019 SUBJECTIVE: The patient is awake and alert. She reports she has had a good day. She reports her shortness of breath has diminished. She has had approximately 550 mL from her chest tube today from 6 a.m. to 6 p.m. She continues to have an air leak noted on exam. OBJECTIVE: Vital Signs: Blood pressure 140/92, heart rate 108, respiratory rate 16, oxygen saturation 92% on 2 L per nasal cannula. HEENT: Pupils are equal and reactive. Oropharynx appears clear. Neck: Supple. Chest: Reveals chest tube in good position. There is some leakage around the chest tube site. She does have an air leak noted with cough. Cardiac: S1, S2. Abdomen: Soft without appreciable fluid wave. Extremities: Reveal trace edema. LABS: Microbiology reveals no new data. IMPRESSION: A 63-year-old with 1. Ascites with hepatic pleural effusion. 2. Iatrogenic hydropneumothorax with ongoing air leak. 3. Cirrhosis of the liver. PLAN: 1. Continue chest tube drainage with ongoing air leak noted. 2. Followup chest x-ray tomorrow. 3. Follow-up labs tomorrow. cc: Alexandr Mcdowell MD
[2019-03-17] MEDS: DUONEB (A & A) INH SCH ×4 (03:49→21:25)
[2019-03-17 05:48] LABS: BASO# 0.02 X1000 (0.0-0.2); BASO% 0.4 % (0.0-0.8); EOS# 0.14 X1000 (0.0-0.7); EOS% 2.9 % (0.0-10.0); HEMATOCRIT 28.8 % (37.0-47.0); HEMOGLOBIN 8.6 g/dL (12.0-16.0); LYMPH# 1.19 X1000 (1.2-3.4); LYMPH% 24.9 % (20.5-51.1); MCH 29.8 PG (27-31); MCHC 29.9 g/dL (33-37); MCV 99.7 FL (81-99); MONO# 0.44 X1000 (0.11-0.59); MONO% 9.2 % (1.7-9.3); MPV 12.2 FL (7.4-10.4); NEUT# 2.99 X1000 (1.4-6.5); NEUT% 62.6 % (42.2-75.2); PLT 72 X1000 (130-400); RBC 2.89 XMIL (4.2-5.4); RDW 18.1 % (11.5-14.5); WBC 4.78 X1000 (4.8-10.8)
[2019-03-17 06:07] LABS: ALB/GLOB RATIO 0.9; ALBUMIN 2.8 g/dL (3.5-5.0); CALCIUM 8.2 mg/dL (8.8-10.2); CREATININE 2.3 mg/dL (0.5-0.9); MAGNESIUM 2.2 mg/dL (1.5-2.7); PHOSPHORUS 4.6 mg/dL (2.7-4.5); POTASSIUM 4.5 mmol/L (3.5-5.1); TOTAL BILIRUBIN 0.36 mg/dL (0.20-1.00); TOTAL PROTEIN 5.9 g/dL (6.3-8.3)
--- NOTE | 2019-03-17 07:25 | Diag Imaging Result Doc PS360 ---
EXAM: CHEST-PORTABLE INDICATION: hydropneumothorax TECHNIQUE: One view COMPARISON: 03/15/2019 FINDINGS: The right chest tube appears to have been retracted somewhat. The tip projects over the periphery of the right midlung zone. However, the pneumothorax seen previously has decreased in size. There is only trace pleural gas seen at the right lung apex. There is opacity at the right lung base similar to the previous study suggesting atelectasis +/- pneumonia. No new consolidation is identified. Cardiac silhouette is stable. IMPRESSION: Interval retraction of the chest tube but decrease in size of the pneumothorax. Essentially stable chest, otherwise. Electronically signed by Anatoliy Pepe 03/17/2019 7:23 AM
[2019-03-17] MEDS: LANTUS INSULIN SUBQ SCH (09:53)
[2019-03-17] MEDS: NEURONTIN PO SCH ×2 (09:54→20:19)
[2019-03-17] MEDS: NORCO-7.5 PO SCH ×2 (09:54→20:18)
[2019-03-17] MEDS: PRINIVIL PO SCH (09:55)
[2019-03-17] MEDS: LASIX PO SCH (09:55)
[2019-03-17] MEDS: ASPIRIN EC PO SCH (09:55)
[2019-03-17] MEDS: JANUVIA PO SCH (09:55)
[2019-03-17] MEDS: SINGULAIR PO SCH (09:55)
[2019-03-17] MEDS: LOPRESSOR PO SCH (09:55)
[2019-03-17] MEDS: TRENTAL PO SCH ×2 (09:55→20:18)
[2019-03-17] MEDS: HUMULIN R SUBQ SCH ×4 (12:11→22:34)
--- NOTE | 2019-03-17 14:05 | GENERAL SURGERY PROGRESS NOTE ---
DATE: 03/17/2019 SUBJECTIVE: She has no acute events or complaints overnight. OBJECTIVE: Vital signs: She is afebrile. Vital signs are stable. General: She is awake, alert, oriented x3. No acute distress. Respiratory: Bilateral equal breath sounds. No increased work of breathing. The chest tube does not appear to show any significant air leak. There was 1300 mL drained out yesterday. IMAGING: Chest x-ray shows retraction of the right chest tube, is partially out of the pleural space. There is decrease in the pneumothorax with trace pneumothorax seen in the right apex. ASSESSMENT AND PLAN: A 63-year-old female with right hydropneumothorax status post chest tube placement, is much improved. Unfortunately, the chest tube has been retracted quite a bit. I think this is due to her very loose skin causing a lot of laxity between the anchor point at the skin and the insertion point in the pleural space. I will try to reposition the tube and repeat a chest x-ray tomorrow. She still is having quite a bit of drainage. We will also place the chest tube to water seal. cc: MD Alexandr Singleton MD MTDD
[2019-03-17] MEDS ORDERED: NS 1,000 ML IV ONE (18:59)
[2019-03-17] MEDS ORDERED: ALBUMIN 25% IV ONE (20:00)
[2019-03-17] MEDS: ZOCOR PO SCH (20:18)
[2019-03-17] MEDS: CYMBALTA PO SCH (20:18)
[2019-03-17] MEDS: ELAVIL PO SCH (20:19)
[2019-03-18] MEDS: ZOSYN 2.25 GM in NS 50 ML IV SCH ×4 (01:55→19:12)
[2019-03-18] MEDS: ZYVOX 600 MG/D5W 600 MG/300 ML IVPB IV SCH ×2 (01:55→14:00)
[2019-03-18] MEDS: NS 1,000 ML IV SCH ×3 (01:56→21:10)
[2019-03-18 02:30] LABS: BILIRUBIN URINE NEGATIVE (NEGATIVE); BLOOD URINE NEGATIVE (NEGATIVE); COLOR YELLOW; GLUCOSE URINE NEGATIVE (NEGATIVE); KETONE URINE NEGATIVE (NEGATIVE); LEUKOCYTES URINE NEGATIVE (NEGATIVE); NITRITE URINE NEGATIVE (NEGATIVE); PH URINE 6.5; PROTEIN URINE NEGATIVE (NEGATIVE); SP GRAVITY URINE 1.013; TURBIDITY URINE CLEAR (CLEAR); URINE SOURCE CATH; UROBILINOGEN URINE NORMAL (NORMAL)
[2019-03-18 02:31] LABS: UR EPITHELIAL CELLS <10 /HPF (<10); URINE BACTERIA NEGATIVE /HPF; URINE RBC <10 /HPF (<10); URINE WBC <10 /HPF (<10)
[2019-03-18] MEDS: DUONEB (A & A) INH SCH ×4 (03:30→21:21)
[2019-03-18 05:44] LABS: ALB/GLOB RATIO 1.1; ALBUMIN 2.8 g/dL (3.5-5.0); CALCIUM 7.9 mg/dL (8.8-10.2); CREATININE 2.6 mg/dL (0.5-0.9); POTASSIUM 4.6 mmol/L (3.5-5.1); TOTAL BILIRUBIN 0.58 mg/dL (0.20-1.00); TOTAL PROTEIN 5.3 g/dL (6.3-8.3)
--- NOTE | 2019-03-18 06:46 | PULMONOLOGY PROGRESS NOTE ---
DATE: 03/17/2019 SUBJECTIVE: The patient is awake and alert. Her chest tube had to be repositioned today, and she did report some pain with chest tube placement. She is tolerating p.o. intake. OBJECTIVE: Vital Signs: The patient has been afebrile for the last 24 hours. She has had a couple of episodes of hypotension with systolic blood pressures in the 70s. Current BP 91/50, heart rate 80, respiratory rate 12, and oxygen saturation 96% on 2 L per nasal cannula. HEENT: Pupils are equal and reactive. Oropharynx appears clear. Neck: Supple. Lungs: Chest reveals good air entry bilaterally with no evidence of air leak with cough on the Pleur-Evac leak chamber. Abdomen: Soft without definite ascites. Extremities: Without edema. LABORATORIES: Chest x-ray reveals near resolution of the right-sided pneumothorax. Minimal fluid at the right base. Microbiology reveals no new data. Cytology from pleural fluid is negative for malignancy. White blood count 170, sodium 136, potassium 4.5, chloride 100, bicarbonate 32, BUN 44, creatinine 2.3, and total albumin 2.8. IMPRESSION: A 63-year-old with: 1. Pleural effusion. 2. Iatrogenic pneumothorax. 3. Ascites. 4. Marginal blood pressure with acute renal insufficiency. DISCUSSION: A 63-year-old with problems outlined above. She is otherwise doing well, but does have slight bump in her BUN and creatinine. This may be due to volume shift associated with fluid removal. PLAN: 1. Fluid bolus. 2. Administer albumin. 3. Continue chest tube per Dr. Mtz. cc: Alexandr Mcdowell MD
[2019-03-18] MEDS: HUMULIN R SUBQ SCH ×5 (06:49→21:09)
--- NOTE | 2019-03-18 07:25 | Diag Imaging Result Doc PS360 ---
EXAM: CHEST-PORTABLE INDICATION: hydroptx follow up TECHNIQUE: One view COMPARISON: 03/17/2019 FINDINGS: The right chest tube has been advanced somewhat. The trace right apical pneumothorax is approximately stable. However, there has been an increase in pleural fluid on the right and there is worsening right basilar atelectasis and/or infiltrate. No other new consolidations are identified. Cardiac silhouette is stable. IMPRESSION: Increase in pleural fluid with worsening adjacent right basilar atelectasis and/or infiltrate but essentially stable pleural gas at the right lung apex. Electronically signed by Anatoliy Pepe 03/18/2019 7:23 AM
--- NOTE | 2019-03-18 08:17 | EKG Report ---
Test Performed on : 03/18/2019 07:55:57 AM Test Reason : CAT CALL Blood Pressure : / mmHG Vent. Rate : 084 BPM Atrial Rate : 084 BPM P-R Int : 188 ms QRS Dur : 088 ms QT Int : 366 ms P-R-T Axes : 040 023 066 degrees QTc Int : 432 ms Normal sinus rhythm. Low voltage QRS Cannot rule out Anterior infarct (cited on or before 23-NOV-2018) Abnormal ECG When compared with ECG of 23-NOV-2018 23:09, Sinus rhythm. has replaced Atrial flutter. Criteria for Inferior infarct are no longer present Non-specific change in ST segment in Inferior leads Unconfirmed Result
[2019-03-18] MEDS ORDERED: SOLU-CORTEF IV ONE (08:37)
[2019-03-18] MEDS ORDERED: NS 1,000 ML IV ONE ×2 (08:40→09:03)
[2019-03-18] MEDS ORDERED: LEVOPHED 8 MG in D5 1/2 NS 250 ML IV SCH (08:45)
[2019-03-18] MEDS: ASPIRIN EC PO SCH (08:56)
[2019-03-18] MEDS: SINGULAIR PO SCH (08:56)
[2019-03-18] MEDS: JANUVIA PO SCH (08:57)
[2019-03-18] MEDS: LOPRESSOR PO SCH (08:57)
[2019-03-18] MEDS: LASIX PO SCH (08:57)
[2019-03-18] MEDS: TRENTAL PO SCH ×2 (08:57→21:13)
[2019-03-18] MEDS: NORCO-7.5 PO SCH ×2 (08:58→21:12)
[2019-03-18] MEDS: NEURONTIN PO SCH ×2 (08:58→21:12)
[2019-03-18] MEDS: LANTUS INSULIN SUBQ SCH (09:12)
[2019-03-18 09:18] LABS: BASO# 0.02 X1000 (0.0-0.2); BASO% 0.3 % (0.0-0.8); EOS# 0.12 X1000 (0.0-0.7); EOS% 1.6 % (0.0-10.0); HEMATOCRIT 24.8 % (37.0-47.0); HEMOGLOBIN 7.6 g/dL (12.0-16.0); LYMPH# 0.67 X1000 (1.2-3.4); LYMPH% 9.2 % (20.5-51.1); MCHC 30.6 g/dL (33-37); MONO# 0.78 X1000 (0.11-0.59); MONO% 10.7 % (1.7-9.3); MPV 12.7 FL (7.4-10.4); NEUT# 5.73 X1000 (1.4-6.5); NEUT% 78.2 % (42.2-75.2); PLT 63 X1000 (130-400); RBC 2.53 XMIL (4.2-5.4); WBC 7.32 X1000 (4.8-10.8)
[2019-03-18 09:22] LABS: ALLEN TEST NO; BE -2.4 mmoll (-3.0-3.0); BLOOD TYPE ARTERIAL; HCO3-(ACT) 23.1 mmoll (20.0-26.0); METHB 1.1 % (0.0-1.5); MODALITY VENTIMASK; O2(CT) 10.4 mL/dL (15.0-23.0); O2HB 95.1 % (95.0-99.0); PCO2(98.6) 43 mmHg (35-45); PO2(98.6) 85 mmHg (60-100); SAMPLE BLOOD; THB 7.7 g/dL (11.5-17.4); pH(98.6) 7.34 (7.35-7.45)
--- NOTE | 2019-03-18 09:46 | Diag Imaging Result Doc PS360 ---
EXAM: CHEST-PORTABLE 03/18/2019 HISTORY: change in condition TECHNIQUE: AP portable upright at 0907 COMMENT: There is a chest tube on the right. There is soft tissue emphysema in the right chest wall. There is ill-defined opacity over the right base which may be due to atelectasis or pneumonia with possible pleural effusion. This appearance has not changed significantly since 03/18/2019 at 0551. The small apical pneumothorax which was present previously has actually diminished slightly. IMPRESSION: Right basilar atelectasis versus pneumonia plus minus pleural effusion. Right chest wall soft tissue emphysema. Electronically signed by Carlos Trejo 03/18/2019 9:43 AM
[2019-03-18 10:16] LABS: INR 1.34; PROTIME 16.8 Seconds (11.0-16.0)
--- NOTE | 2019-03-18 16:34 | Diag Imaging Result Doc PS360 ---
EXAM: US ABDOMEN-COMPLETE 03/18/2019 HISTORY: evaluate for ascites TECHNIQUE: Abdominal ultrasound COMMENT: the liver is heterogeneous and hyperechoic with a nodular contour consistent with cirrhosis. The visualized portions of the pancreas are unremarkable. The aorta and inferior vena cava are normal in appearance where they are visible. There is antegrade flow in the portal vein. The common bile duct is measured at is much as 10 mm. The gallbladder is surgically absent however. There is an apparent 1.9 cm parapelvic cyst in the right kidney. Otherwise there is no evidence of hydronephrosis or mass. There is a small amount of free fluid. There is splenomegaly the spleen measuring in excess of 14 cm. IMPRESSION: Cirrhosis and splenomegaly. Minimal ascites. Electronically signed by Carlos Trejo 03/18/2019 4:32 PM
[2019-03-18] MEDS: SOLU-CORTEF IV SCH (21:10)
[2019-03-18] MEDS: ELAVIL PO SCH (21:12)
[2019-03-18] MEDS: CYMBALTA PO SCH (21:12)
[2019-03-18] MEDS: ZOCOR PO SCH (21:14)
--- NOTE | 2019-03-18 21:15 | GENERAL SURGERY PROGRESS NOTE ---
DATE: 03/18/2019 SUBJECTIVE: The patient had hypotension overnight and was transferred to the ICU. She has been given some fluids as well as Levophed. Her blood pressure has improved a little today. OBJECTIVE: Vital Signs: T-max 100.8 degrees, current temperature 99.2 degrees, pulse 70s, blood pressure 111/48, O2 saturation 99%. General: Elderly female, in no acute distress. Respiratory: Coarse breath sounds. She has a deep cough. Chest tube is in place, 500 mL out yesterday, so far only 65 mL out today. No obvious air leak. IMAGING: Chest x-ray shows right basilar atelectasis versus pneumonia, plus or minus pleural effusion. The pneumothorax on the right apex has diminished. LABORATORY: White blood cell count 7.3, hemoglobin 7.6, hematocrit 24.8. Electrolytes reviewed and notable for BUN 57, creatinine 2.6. ASSESSMENT AND PLAN: A 63-year-old female with right pleural effusion, status post chest tube drainage. She has right pneumothorax which is improving. She also has acute kidney injury. She has hypotension of unclear etiology, possibly from developing pneumonia. We will continue the chest tube for now. She ultimately may need another one to replace if she has worsening pleural fluid. cc: MD Alexandr Singleton MD
--- NOTE | 2019-03-18 22:24 | PULMONOLOGY PROGRESS NOTE ---
DATE: 03/18/2019 INTERIM COURSE: The patient developed hypotension and fevers earlier this morning. She was cultured, received antibiotics earlier in the morning and subsequently transferred to the ICU when she became hypotensive with decline in mental status. She received a fluid boluses through the day along with vasopressin. Her cortisol level was checked and was marginal at 20. She received a course of steroids. Ultrasound of the abdomen revealed no significant ascites and therefore no paracentesis was performed. By the afternoon, patient's mental status had improved and she was answering questions. OBJECTIVE: Blood pressure 120/44, heart rate 87, respiratory rate 19, oxygen saturation 97%.HEENT: Pupils are equal and reactive. Oropharynx appears clear. Neck: Supple. Chest: Reveals crackles in the right chest associated with the chest tube and decreased breath sounds at the right base. Cardiac Exam: S1-S2. Abdomen: Soft with positive bowel sounds. Extremities: Reveal trace edema. LABORATORIES: Ultrasound of the abdomen reveals cirrhosis, splenomegaly, with minimal ascites. Chest x-ray reveals right basilar atelectasis with small effusion and right chest wall emphysema. White blood count 7.32, hemoglobin 7.6, platelet count 63,000. IMPRESSION: A 63-year-old with 1. Pleural effusion. 2. Cirrhosis of the liver with minimal ascites. 3. Iatrogenic pneumothorax. 4. Hypotension without evidence of lactic acidosis or documented infection. 5. Acute renal insufficiency. PLAN: 1. Continue volume resuscitation. 2. Continue current antibiotics pending results of cultures. 3. We will continue low-dose steroids. 4. Continue chest tube management per Dr. Mtz. TIME SPENT IN CRITICAL CARE MANAGEMENT: 45 minutes. cc: Alexandr Mcdowell MD
[2019-03-19] MEDS: ZOSYN 2.25 GM in NS 50 ML IV SCH ×4 (01:23→18:03)
[2019-03-19] MEDS: ZYVOX 600 MG/D5W 600 MG/300 ML IVPB IV SCH ×2 (01:55→12:23)
[2019-03-19] MEDS: DUONEB (A & A) INH SCH ×4 (03:31→22:47)
[2019-03-19 05:42] LABS: HEMATOCRIT 26.5 % (37.0-47.0); HEMOGLOBIN 8.4 g/dL (12.0-16.0); MCH 31.1 PG (27-31); MCHC 31.7 g/dL (33-37); MCV 98.1 FL (81-99); RBC 2.7 XMIL (4.2-5.4); RDW 17.5 % (11.5-14.5); WBC 7.96 X1000 (4.8-10.8)
[2019-03-19] MEDS: SOLU-CORTEF IV SCH ×3 (06:23→20:33)
[2019-03-19] MEDS: HUMULIN R SUBQ SCH ×4 (06:24→20:40)
[2019-03-19 06:28] LABS: ALB/GLOB RATIO 0.9; ALBUMIN 2.7 g/dL (3.5-5.0); CALCIUM 8.3 mg/dL (8.8-10.2); MAGNESIUM 2.1 mg/dL (1.5-2.7); POTASSIUM 4.2 mmol/L (3.5-5.1); TOTAL BILIRUBIN 0.5 mg/dL (0.20-1.00); TOTAL PROTEIN 5.8 g/dL (6.3-8.3)
--- NOTE | 2019-03-19 07:10 | Diag Imaging Result Doc PS360 ---
EXAM: CHEST-PORTABLE 03/19/2019 HISTORY: abnormal exam TECHNIQUE: AP portable at 0515 COMMENT: There is a chest tube on the right. There is a small apical pneumothorax. This is almost imperceptible and is not significantly changed since 03/18/2019. There is less soft tissue emphysema in the right chest wall. There is right lower lobe ill-defined opacity. There may be pleural fluid on the right if not the left. There is basilar atelectasis in the left lower lobe. IMPRESSION: Improved soft tissue emphysema. Bibasilar atelectasis plus minus pneumonia in the right lower lobe. Right pleural effusion. Electronically signed by Carlos Trejo 03/19/2019 7:08 AM
[2019-03-19] MEDS: NORCO-7.5 PO SCH ×2 (08:41→20:32)
[2019-03-19] MEDS: LOPRESSOR PO SCH (08:41)
[2019-03-19] MEDS: JANUVIA PO SCH (08:41)
[2019-03-19] MEDS: NEURONTIN PO SCH ×2 (08:41→20:33)
[2019-03-19] MEDS: TRENTAL PO SCH ×2 (08:41→20:33)
[2019-03-19] MEDS: SINGULAIR PO SCH (08:41)
[2019-03-19] MEDS: ASPIRIN EC PO SCH (08:41)
[2019-03-19] MEDS: NS 1,000 ML IV SCH ×2 (08:42→16:32)
[2019-03-19] MEDS: LANTUS INSULIN SUBQ SCH (08:42)
--- NOTE | 2019-03-19 14:37 | GENERAL SURGERY PROGRESS NOTE ---
DATE: 03/19/2019 SUBJECTIVE: The patient has had no new events overnight. She is sitting up, eating breakfast this morning. OBJECTIVE: She is afebrile. Pulse 90s to low 100s. Blood pressure 114 to 131 systolic this morning. O2 saturation 96 to 100 percent. Chest tube output only 35 mL. DIAGNOSTIC DATA: Chest x-ray shows a small apical pneumothorax which is almost imperceptible and not changed since yesterday. There is less soft tissue emphysema. ASSESSMENT AND PLAN: A 63-year-old female with right pleural effusion secondary to cirrhosis. It is improved since the chest tube was placed, but some has reaccumulated in the right base, and does not appear to be being drained by the chest tube anymore. We will continue to monitor for another 24 hours. If there is no change, then I would have the tube removed tomorrow. cc: MD Alexandr Singleton MD
[2019-03-19] MEDS ORDERED: SALINE LOCK IV FLUID XX ONE (19:10)
[2019-03-19] MEDS: LACTULOSE PO SCH (20:32)
[2019-03-19] MEDS: ZOCOR PO SCH (20:32)
[2019-03-19] MEDS: ELAVIL PO SCH (20:33)
[2019-03-19] MEDS: CYMBALTA PO SCH (20:36)
--- NOTE | 2019-03-19 23:32 | PULMONOLOGY PROGRESS NOTE ---
DATE: 03/19/2019 SUBJECTIVE: The patient is awake, alert, and conversant. She reports she has some difficulty with intermittent confusion and thinking "straight." OBJECTIVE: The patient has been afebrile for the last 24 hours. BP 126/52, heart rate 77, respiratory rate 18, oxygen saturation 100%. HEENT: Pupils are equal and reactive. Oropharynx appears clear. Neck: Supple. Chest: Reveals some subcutaneous air on the right with decreased breath sounds in the right base. Cardiac: S1, S2. Abdomen: Obese and soft. Extremities: Without edema. LABORATORIES: Sodium 141, potassium 4.2, chloride 107, bicarbonate 20, BUN 51, creatinine 2.0. Ammonia level is normal. White blood count 7.96, hemoglobin 8.4, platelet count 54,000. Chest x- ray reveals decreased soft tissue emphysema with stable basilar atelectasis and right lower lobe effusion. IMPRESSION: A 63-year-old with 1. Pleural effusion. 2. Cirrhosis of the liver. 3. Iatrogenic pneumothorax. 4. Hypotension with improvement in hemodynamic function. 5. Acute renal insufficiency with improvement in BUN and creatinine. PLAN: 1. Continue p.o. intake. 2. Hold antihypertensive agents. 3. Discontinue IV fluids. 4. Continue current antibiotic regimen. 5. Continue low-dose steroid replacement. 6. Chest tube management per Dr. Mtz and associates. cc: Alexandr Mcdowell MD
[2019-03-20] MEDS: ZOSYN 2.25 GM in NS 50 ML IV SCH ×4 (01:05→18:46)
[2019-03-20] MEDS: ZYVOX 600 MG/D5W 600 MG/300 ML IVPB IV SCH ×2 (01:17→12:15)
[2019-03-20] MEDS: DUONEB (A & A) INH SCH ×4 (03:28→22:59)
[2019-03-20 05:09] LABS: EOS# 0.02 X1000 (0.0-0.7); EOS% 0.6 % (0.0-10.0); HEMOGLOBIN 7.4 g/dL (12.0-16.0); LYMPH% 12.8 % (20.5-51.1); MCHC 30.8 g/dL (33-37); MCV 97.2 FL (81-99); MONO% 6.4 % (1.7-9.3); MPV 11.8 FL (7.4-10.4); NEUT# 2.51 X1000 (1.4-6.5); NEUT% 80.2 % (42.2-75.2); PLT 51 X1000 (130-400); RBC 2.47 XMIL (4.2-5.4); RDW 17.5 % (11.5-14.5); WBC 3.13 X1000 (4.8-10.8)
[2019-03-20 05:41] LABS: ALB/GLOB RATIO 0.9; ALBUMIN 2.4 g/dL (3.5-5.0); CREATININE 1.8 mg/dL (0.5-0.9); MAGNESIUM 2.3 mg/dL (1.5-2.7); PHOSPHORUS 4.9 mg/dL (2.7-4.5); POTASSIUM 4.6 mmol/L (3.5-5.1); TOTAL BILIRUBIN 0.26 mg/dL (0.20-1.00); TOTAL PROTEIN 5.2 g/dL (6.3-8.3)
[2019-03-20] MEDS: HUMULIN R SUBQ SCH ×4 (06:09→21:05)
--- NOTE | 2019-03-20 06:17 | Diag Imaging Result Doc PS360 ---
EXAM: CHEST-PORTABLE HISTORY: abnormal exam TECHNIQUE: Single view COMPARISON: 03/19/2019 FINDINGS: Poor inspiratory effort. The right chest tube has been pulled back slightly. Small hydropneumothorax. No cardiomegaly. Left lung remains clear. Atelectasis and/or infiltrates in the right base. IMPRESSION: There has been very little change compared to prior exam. Electronically signed by Favian Casillas 03/20/2019 6:14 AM
[2019-03-20] MEDS: LOPRESSOR PO SCH (08:51)
[2019-03-20] MEDS: SOLU-CORTEF IV SCH ×2 (08:51→18:45)
[2019-03-20] MEDS: LACTULOSE PO SCH ×2 (08:51→20:59)
[2019-03-20] MEDS: NEURONTIN PO SCH ×2 (08:51→20:57)
[2019-03-20] MEDS: NORCO-7.5 PO SCH ×2 (08:51→20:56)
[2019-03-20] MEDS: ASPIRIN EC PO SCH (08:52)
[2019-03-20] MEDS: SINGULAIR PO SCH (08:52)
[2019-03-20] MEDS: LANTUS INSULIN SUBQ SCH (08:52)
[2019-03-20] MEDS: TRENTAL PO SCH ×2 (08:52→20:58)
[2019-03-20] MEDS: JANUVIA PO SCH (08:52)
--- NOTE | 2019-03-20 14:34 | PROGRESS NOTE ---
DATE: 03/20/2019 SUBJECTIVE: Ms. Rosetta Mancini has a right-sided chest tube for pleural effusion per Dr. Mtz. Today's chest x-ray still shows some fluid in the right chest. The sentinel hole is outside her chest from this chest tube. However, on exam of the chest tube there is no air leak, and there has been not a significant amount of fluid coming out of this chest tube. She is eating breakfast at this time. The chest tube probably needs to be removed. We will plan to do that later today or tomorrow. cc: MD Alexandr Bush MD
--- NOTE | 2019-03-20 20:56 | PULMONOLOGY PROGRESS NOTE ---
DATE: 03/20/2019 SUBJECTIVE: The patient is awake, alert and conversant. OBJECTIVE: She has been afebrile for the last 24 hours. Blood pressure 105/56, heart rate 64, respiratory rate 19, oxygen saturation 97%. HEENT: Pupils are equal and reactive. Oropharynx is clear. Neck is supple. Chest reveals decreased breath sounds left base cardiac exam sounds are right base. Cardiac exam: S1, S2. Abdomen is obese and soft. Extremities without edema. DIAGNOSTIC DATA: Chest x-ray reveals small effusion and infiltrate at the right base. Chest tube drain port is in the chest wall. IMPRESSION: A 63-year-old with: 1. Pleural effusion. 2. Cirrhosis of the liver. 3. Pneumothorax. 4. Acute renal insufficiency with slow improvement. 5. Hypotension, with improvement in hemodynamic function. 6. Borderline adrenal insufficiency. PLAN: 1. Continue to hold antihypertensive medications. 2. Continue p.o. intake. 3. Continue current antibiotic regimen. 4. Chest tube management per [facility]. Her chest tube output appears to be decreasing. cc: Alexandr Mcdowell MD
[2019-03-20] MEDS: ZOCOR PO SCH (20:57)
[2019-03-20] MEDS: CYMBALTA PO SCH (20:58)
[2019-03-20] MEDS: ELAVIL PO SCH (20:58)
[2019-03-21] MEDS: ZOSYN 2.25 GM in NS 50 ML IV SCH ×4 (00:53→21:16)
[2019-03-21] MEDS: ZYVOX 600 MG/D5W 600 MG/300 ML IVPB IV SCH ×2 (00:53→13:57)
[2019-03-21] MEDS: DUONEB (A & A) INH SCH ×4 (02:58→23:56)
--- NOTE | 2019-03-21 06:21 | Diag Imaging Result Doc PS360 ---
EXAM: CHEST-PORTABLE HISTORY: abnormal exam TECHNIQUE: Single view COMPARISON: 03/20/2019 FINDINGS: Improved inspiratory effort. No change in the right-sided chest tube. There is only a tiny right pneumothorax. There is basilar atelectasis. Heart is mildly enlarged. IMPRESSION: Mild interval improvement Electronically signed by Favian Casillas 03/21/2019 6:18 AM
[2019-03-21] MEDS: HUMULIN R SUBQ SCH ×4 (06:29→21:09)
[2019-03-21 06:40] LABS: CREATININE 1.6 mg/dL (0.5-0.9)
[2019-03-21] MEDS: SOLU-CORTEF IV SCH ×2 (06:41→21:07)
[2019-03-21] MEDS: JANUVIA PO SCH (08:14)
[2019-03-21] MEDS: LANTUS INSULIN SUBQ SCH (08:14)
[2019-03-21] MEDS: LOPRESSOR PO SCH (08:14)
[2019-03-21] MEDS: ASPIRIN EC PO SCH (08:14)
[2019-03-21] MEDS: SINGULAIR PO SCH (08:14)
[2019-03-21] MEDS: NEURONTIN PO SCH ×2 (08:14→21:08)
[2019-03-21] MEDS: TRENTAL PO SCH ×2 (08:14→21:08)
[2019-03-21] MEDS: NORCO-7.5 PO SCH ×2 (08:14→21:08)
[2019-03-21] MEDS: LACTULOSE PO SCH (08:49)
[2019-03-21 10:08] LABS: CALCIUM 8.3 mg/dL (8.8-10.2)
--- NOTE | 2019-03-21 10:17 | GENERAL SURGERY PROGRESS NOTE ---
DATE: 03/21/2019 SUBJECTIVE: No fevers. OBJECTIVE: Vital Signs: Pulse 76, blood pressure 114/57. Chest: Right chest tube is in place. I do not see any air leak. There is some serosanguineous drainage. LABORATORY DATA: Creatinine is 1.6. IMAGING: I reviewed her chest x-ray this morning that shows stable right-sided chest tube, tiny right pneumothorax. ASSESSMENT AND PLAN: This is a 63-year-old female with right-sided chest tube for pleural effusion. [place] hole of tube approximates her rib margin, however, there is no air leak and it continues to drain and function. We will continue it for now. Aggressive pulmonary toileting, medical management. cc: MD Alexandr Anaya MD MTDD
--- NOTE | 2019-03-21 13:37 | PULMONOLOGY PROGRESS NOTE ---
DATE: 03/21/2019 SUBJECTIVE: The patient is awake, alert, and conversant. She is tolerating p.o. intake. OBJECTIVE: The patient was moved in the bed when she needed to have a bowel movement. She subsequently had approximately 3500 mL drained out of her chest tube over the next 8 hours. The patient has been afebrile for the last 24 hours. Blood pressure 95/57, heart rate 68, respiratory rate 19, oxygen saturation 100%.HEENT: Pupils are equal and reactive. Oropharynx appears clear. Neck: Supple. Chest: Reveals good air entry bilaterally. Cardiac exam: S1-S2. Abdomen: Soft. Extremities: Without edema. LABORATORIES: Chest x-ray reveals decreased infiltrate/effusion at the right base. Microbiology reveals no new culture data. Sodium 142, potassium 4.0, chloride 111, bicarbonate 20, BUN 52, creatinine 1.6. IMPRESSION: A 63-year-old with 1. Pleural effusion. 2. Cirrhosis of the liver. 3. Pneumothorax. 4. Acute renal insufficiency with continued improvement. 5. Hypotension with continued improvement. 6. Borderline adrenal insufficiency. PLAN: 1. Continue [facility]. She has had a marked increase in output over the last 24 hours. 2. Continue p.o. intake. 3. Continue current antibiotic regimen. We will consider discontinuing if she remains stable. 4. Okay with transfer to the floor. cc: Alexandr Mcdowell MD
[2019-03-21] MEDS: ELAVIL PO SCH (21:07)
[2019-03-21] MEDS: CYMBALTA PO SCH (21:08)
[2019-03-21] MEDS: ZOCOR PO SCH (21:09)
[2019-03-22] MEDS: LACTULOSE PO SCH ×2 (00:38→08:06)
[2019-03-22] MEDS: ZYVOX 600 MG/D5W 600 MG/300 ML IVPB IV SCH ×2 (01:09→13:24)
[2019-03-22] MEDS: ZOSYN 2.25 GM in NS 50 ML IV SCH ×4 (03:45→23:11)
[2019-03-22] MEDS: DUONEB (A & A) INH SCH ×4 (03:48→23:00)
--- NOTE | 2019-03-22 06:38 | Diag Imaging Result Doc PS360 ---
CHEST-PORTABLE - 03/22/2019 INDICATION: abnormal exam COMPARISON: 03/21/2019 FINDINGS: Lung volumes are improved. Stable right chest tube in good position. Stable mild infiltrate or atelectasis at the right lung base. No visible pneumothorax. Stable cardiomegaly and pulmonary vascular congestion. No pulmonary edema. IMPRESSION: Improved lung volumes, otherwise little change from prior. Electronically signed by Nathanael Vela 03/22/2019 6:36 AM
[2019-03-22] MEDS: HUMULIN R SUBQ SCH ×4 (06:45→23:19)
[2019-03-22 06:58] LABS: EOS# 0.02 X1000 (0.0-0.7); EOS% 0.8 % (0.0-10.0); HEMATOCRIT 26.8 % (37.0-47.0); HEMOGLOBIN 8.2 g/dL (12.0-16.0); LYMPH# 0.48 X1000 (1.2-3.4); LYMPH% 18.3 % (20.5-51.1); MCH 29.6 PG (27-31); MCHC 30.6 g/dL (33-37); MCV 96.8 FL (81-99); MONO# 0.16 X1000 (0.11-0.59); MONO% 6.1 % (1.7-9.3); MPV 10.9 FL (7.4-10.4); NEUT# 1.96 X1000 (1.4-6.5); NEUT% 74.8 % (42.2-75.2); PLT 65 X1000 (130-400); RBC 2.77 XMIL (4.2-5.4); RDW 16.4 % (11.5-14.5); WBC 2.62 X1000 (4.8-10.8)
[2019-03-22 07:19] LABS: ALBUMIN 2.7 g/dL (3.5-5.0); CALCIUM 7.7 mg/dL (8.8-10.2); CREATININE 1.7 mg/dL (0.5-0.9); MAGNESIUM 2.3 mg/dL (1.5-2.7); PHOSPHORUS 3.9 mg/dL (2.7-4.5); POTASSIUM 4.6 mmol/L (3.5-5.1); TOTAL BILIRUBIN 0.34 mg/dL (0.20-1.00); TOTAL PROTEIN 5.4 g/dL (6.3-8.3)
[2019-03-22] MEDS: SOLU-CORTEF IV SCH ×2 (08:10→23:12)
[2019-03-22] MEDS: LOPRESSOR PO SCH (08:11)
[2019-03-22] MEDS: ASPIRIN EC PO SCH (08:11)
[2019-03-22] MEDS: TRENTAL PO SCH ×2 (08:11→23:13)
[2019-03-22] MEDS: NEURONTIN PO SCH ×2 (08:11→23:12)
[2019-03-22] MEDS: JANUVIA PO SCH (08:11)
[2019-03-22] MEDS: SINGULAIR PO SCH (08:11)
[2019-03-22] MEDS: NORCO-7.5 PO SCH ×2 (08:16→23:40)
[2019-03-22] MEDS: LANTUS INSULIN SUBQ SCH (08:31)
[2019-03-22] MEDS ORDERED: NS 1,000 ML IV ONE (08:45)
--- NOTE | 2019-03-22 19:24 | GENERAL SURGERY PROGRESS NOTE ---
DATE: 03/22/2019 SUBJECTIVE: She is eating dinner this evening. Chest tube output remains high, 2565 recorded in the last 24 hours. There is no air leak to water seal on exam. I reviewed her labs, vital signs and her chest x-ray shows stable findings. ASSESSMENT AND PLAN: A 63-year-old female with right-sided effusion. She continues to have high output. We will keep it in place for now. She may ultimately need a pleurodesis or a tunneled pleural catheter. We will follow along with aggressive pulmonary toileting. cc: MD Alexandr Anaya MD
--- NOTE | 2019-03-22 22:58 | PULMONOLOGY PROGRESS NOTE ---
DATE: 03/22/2019 OBJECTIVE: The patient is awake, alert, and conversant. Patient's blood pressure is borderline but otherwise the exam is unchanged. LABS: Platelet Count 65,000. Sodium 139, potassium 4.6, bicarbonate 21, BUN 51, creatinine 1.7. Chest x-ray reveals good inspiration with mild changes at the right base. Microbiology reveals no new information. IMPRESSION: A 63-year-old with: 1. Cirrhosis of the liver. 2. 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 3. Minimal pneumothorax. 4. Acute renal insufficiency. This was stable over the last 24 hours. 5. Borderline blood pressure. 6. Adrenal insufficiency, which is borderline. PLAN: 1. We will give a 1 L saline bolus today given borderline blood pressure. 2. Continue chest tube management per [facility]. 3. Limit salt intake. We will initiate spironolactone. 4. If this remains an ongoing issue, current literature suggests either a TIPS procedure or a tunneled pleural catheter. cc: Alexandr Mcdowell MD MTDD
[2019-03-22] MEDS: ELAVIL PO SCH (23:12)
[2019-03-22] MEDS: CYMBALTA PO SCH (23:12)
[2019-03-22] MEDS: ZOCOR PO SCH (23:12)
[2019-03-23] MEDS: DUONEB (A & A) INH SCH ×4 (03:30→22:13)
[2019-03-23] MEDS: HUMULIN R SUBQ SCH ×4 (06:48→21:34)
[2019-03-23 07:21] LABS: ALB/GLOB RATIO 0.9; ALBUMIN 2.7 g/dL (3.5-5.0); CALCIUM 8.2 mg/dL (8.8-10.2); CREATININE 1.8 mg/dL (0.5-0.9); MAGNESIUM 2.5 mg/dL (1.5-2.7); PHOSPHORUS 3.9 mg/dL (2.7-4.5); TOTAL BILIRUBIN 0.33 mg/dL (0.20-1.00); TOTAL PROTEIN 5.6 g/dL (6.3-8.3)
[2019-03-23] MEDS: ALDACTONE PO SCH (08:06)
[2019-03-23] MEDS: SOLU-CORTEF IV SCH ×2 (08:06→21:40)
[2019-03-23] MEDS: JANUVIA PO SCH (08:08)
[2019-03-23] MEDS: NEURONTIN PO SCH ×2 (08:09→21:39)
[2019-03-23] MEDS: TRENTAL PO SCH ×2 (08:09→21:39)
[2019-03-23] MEDS: SINGULAIR PO SCH (08:09)
[2019-03-23] MEDS: ASPIRIN EC PO SCH (08:09)
[2019-03-23] MEDS: NORCO-7.5 PO SCH ×2 (08:09→21:39)
[2019-03-23] MEDS: LOPRESSOR PO SCH (08:10)
[2019-03-23] MEDS: LACTULOSE PO SCH (08:10)
[2019-03-23] MEDS: LANTUS INSULIN SUBQ SCH (08:10)
[2019-03-23] MEDS ORDERED: 1/2 NS 1,000 ML IV ONE (12:39)
--- NOTE | 2019-03-23 14:31 | GENERAL SURGERY PROGRESS NOTE ---
DATE: 03/23/2019 SUBJECTIVE: The patient denies any acute changes or complaints overnight. OBJECTIVE: Vital Signs: She is afebrile. Vital signs are stable. General: She is awake, alert, oriented x3. No acute distress. Respiratory: She has bilateral breath sounds. The chest tube shows no air leak. There has been 3900 mL of serous fluid drained over the last 24 hours. IMAGING: A chest x-ray yesterday morning showed improved lung volumes and no visible pneumothorax. ASSESSMENT AND PLAN: A 63-year-old female with recurrent right pleural effusion felt to be hepatic hydrothorax. She also had a pneumothorax after thoracentesis when she presented. Therefore, a chest tube was placed. The output seemed to be negligible last week. However, over the weekend with different positioning, she has had several L per day drained. At this point, Dr. Mcdowell and I discussed and we will get a gastroenterology consult. She has apparently only mild to moderate abdominal ascites due to her cirrhosis, but she has significant recurrent right pleural effusions that were felt to be secondary to her cirrhosis. Long-term chest tube placement is not in her best interest. Pleurodesis is unlikely to be successful given the high volumes of fluid. My thoughts are that in addition to medical treatment such as limiting dietary sodium and diuretics. She needs to be evaluated for possible liver transplant and/or a TIPS procedure in the meantime. Future referral to a tertiary referral center such as [facility] may be needed. I hope to remove the chest tube before the end of the week and she may require repeat thoracentesis, although she has already had a complication of a pneumothorax once. cc: MD Alexandr Singleton MD
[2019-03-23] MEDS ORDERED: BLISTEX MEDICATED BERRY LIP BALM TOP PRN (14:56)
[2019-03-23] MEDS: ZOCOR PO SCH (21:39)
[2019-03-23] MEDS: CYMBALTA PO SCH (21:39)
[2019-03-23] MEDS: ELAVIL PO SCH (21:39)
--- NOTE | 2019-03-24 02:28 | PULMONOLOGY PROGRESS NOTE ---
DATE: 03/23/2019 SUBJECTIVE: The patient is awake, alert, and conversant. She is without specific complaints. She continues to have a large volume output from her chest tube, approximately 3900 mL over the last 24 hours. She received an additional bolus of saline this morning. OBJECTIVE: Vital signs: Blood pressure 112/52, heart rate 66, respiratory rate 16, oxygen saturation 100%. HEENT: Pupils are equal and reactive. Oropharynx appears clear. Neck: Supple. Chest: Reveals good air entry bilaterally without wheezing or rhonchi. Cardiac: S1, S2. Abdomen: Soft. Extremities: Without edema. LABORATORIES: All microbiology data has been negative. Sodium 151, potassium 5.0, chloride 106, bicarbonate 23, BUN 54, creatinine 1.8. Glucose 179, albumin 2.7. IMPRESSION: A 63-year-old with 1. Cirrhosis of the liver. 2. 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 3. Resolution of pneumothorax. 4. Acute renal insufficiency. 5. Borderline blood pressure with improvement today. 6. Mild adrenal insufficiency. DISCUSSION: A 63-year-old with problems outlined above. I have discussed the case with Dr. Mtz. The patient may require a TIPS procedure and a PleurX catheter is less desirable, as mentioned in his notes. She might actually need a surgical intervention or perhaps transplantation down the road. After discussion with Dr. Mtz, my plan was to ask the Gastroenterology service to evaluate Ms. Mancini. She has been seen once or twice by Dr. Caballero, but he does not come in to the hospital. Unfortunately, there is no Health Information Assistant available for unattached GI patient's for the next 4 days. I will discuss this with Dr. Mtz with the anticipation of removal of chest tube and following patient expectantly. PLAN: 1. Limit salt intake and continue spironolactone. 2. Anticipate removal of chest tube after discussion with Dr. Mtz. 3. We will plan follow up with Dr. Caballero as soon as possible. cc: Alexandr Mcdowell MD
[2019-03-24] MEDS: DUONEB (A & A) INH SCH ×4 (03:20→23:37)
[2019-03-24] MEDS: HUMULIN R SUBQ SCH ×4 (06:38→20:50)
--- NOTE | 2019-03-24 07:00 | Diag Imaging Result Doc PS360 ---
CHEST-PORTABLE - 03/24/2019 INDICATION: abnormal exam COMPARISON: 03/22/2019 FINDINGS: Stable right basilar chest tube. Stable trace right pleural effusion. No significant infiltrates or edema. Heart size remains normal. IMPRESSION: No change from prior. Electronically signed by Nathanael Vela 03/24/2019 6:58 AM
[2019-03-24 07:04] LABS: EOS# 0.16 X1000 (0.0-0.7); EOS% 2.6 % (0.0-10.0); HEMOGLOBIN 9.3 g/dL (12.0-16.0); IMM GRAN# 0.05 X1000 (0.0-0.04); IMM GRAN% 0.8 % (0.0-0.5); LYMPH# 0.91 X1000 (1.2-3.4); LYMPH% 14.9 % (20.5-51.1); MCH 29.2 PG (27-31); MONO# 0.46 X1000 (0.11-0.59); MONO% 7.5 % (1.7-9.3); MPV 10.9 FL (7.4-10.4); NEUT# 4.54 X1000 (1.4-6.5); NEUT% 74.2 % (42.2-75.2); PLT 80 X1000 (130-400); RBC 3.19 XMIL (4.2-5.4); RDW 16.2 % (11.5-14.5); WBC 6.12 X1000 (4.8-10.8)
[2019-03-24 07:15] LABS: ALBUMIN 2.7 g/dL (3.5-5.0); CALCIUM 7.9 mg/dL (8.8-10.2); CREATININE 1.5 mg/dL (0.5-0.9); MAGNESIUM 2.4 mg/dL (1.5-2.7); PHOSPHORUS 4.4 mg/dL (2.7-4.5); POTASSIUM 4.5 mmol/L (3.5-5.1); TOTAL BILIRUBIN 0.35 mg/dL (0.20-1.00); TOTAL PROTEIN 5.4 g/dL (6.3-8.3)
[2019-03-24] MEDS: SOLU-CORTEF IV SCH ×2 (08:46→20:46)
[2019-03-24] MEDS: LACTULOSE PO SCH (08:47)
[2019-03-24] MEDS: JANUVIA PO SCH (08:47)
[2019-03-24] MEDS: LANTUS INSULIN SUBQ SCH (08:47)
[2019-03-24] MEDS: TRENTAL PO SCH ×2 (08:47→20:49)
[2019-03-24] MEDS: NEURONTIN PO SCH ×2 (08:47→20:49)
[2019-03-24] MEDS: ASPIRIN EC PO SCH (08:47)
[2019-03-24] MEDS: SINGULAIR PO SCH (08:48)
[2019-03-24] MEDS: ALDACTONE PO SCH (08:48)
[2019-03-24] MEDS: LOPRESSOR PO SCH (08:48)
[2019-03-24] MEDS: NORCO-7.5 PO SCH ×2 (08:48→20:53)
[2019-03-24] MEDS ORDERED: CALMOSEPTINE OINTMENT TOP PRN (10:45)
[2019-03-24] MEDS: ELAVIL PO SCH (20:49)
[2019-03-24] MEDS: CYMBALTA PO SCH (20:49)
[2019-03-24] MEDS: ZOCOR PO SCH (20:49)
--- NOTE | 2019-03-24 21:35 | GENERAL SURGERY PROGRESS NOTE ---
DATE: 03/24/2019 SUBJECTIVE: She has had no new complaints. She continues to have drainage from her chest tube. OBJECTIVE: Vital signs: She is afebrile. Vital signs are stable. General: She is awake, alert, oriented x3. No acute distress. Respiratory: Bilateral breath sounds. No increased work of breathing. Chest tube output yesterday 1750 mL. So far today 290 mL have been emptied. IMAGING: Chest x-ray today shows no change from prior. There is a trace right pleural effusion. ASSESSMENT AND PLAN: A 63-year-old female with hepatic hydrothorax. We are planning to remove the chest tube tomorrow. She is on diuretics now and limiting salt intake. Plans are for her to follow up with Dr. Caballero and Dr. Mcdowell postoperatively. She eventually needs liver transplant and/or TIPS evaluation. cc: MD Alexandr Singleton MD
[2019-03-25] MEDS: DUONEB (A & A) INH SCH ×3 (04:10→15:48)
[2019-03-25] MEDS: HUMULIN R SUBQ SCH ×2 (06:55→11:48)
--- NOTE | 2019-03-25 07:59 | PULMONOLOGY PROGRESS NOTE ---
DATE: 03/24/2019 SUBJECTIVE: The patient is awake, alert, and conversant. She has a good appetite. She is without specific complaints today. OBJECTIVE: Vital Signs: Blood pressure 107/54, heart rate 73, respiratory rate 20, oxygen saturation 100% on room air. She has been afebrile for the last 24 hours. Chest tube output for the last 24 hours was approximately 3.5 L, but it appears to be decreasing. General: Mild temporal wasting. HEENT: Pupils are equal and reactive. Oropharynx appears clear. Neck: Supple. Chest: Good air entry bilaterally. Cardiac: S1, S2. Abdomen: Soft. Extremities: Without edema. IMAGING AND LABORATORY DATA: Chest x-ray reveals trace small effusion. No infiltrates. No edema. No evidence of pneumothorax. All cultures remain negative. Sodium 135, potassium 4.5, chloride 103, bicarbonate 18, BUN 53, creatinine 1.5. IMPRESSION: A 63-year-old with: 1. Cirrhosis of the liver. 2. Hepatic hydrothorax. 3. Resolution of pneumothorax. 4. Mild adrenal insufficiency. 5. Improved blood pressure. PLAN: 1. Limit salt intake, and continue spironolactone. 2. Anticipate removal of chest tube due to lack of GI evaluation during this hospitalization. 3. Follow up with Dr. Caballero after discharge. cc: Alexandr Mcdowell MD
[2019-03-25] MEDS: SOLU-CORTEF IV SCH (08:49)
[2019-03-25] MEDS: NORCO-7.5 PO SCH (08:50)
[2019-03-25] MEDS: NEURONTIN PO SCH (08:51)
[2019-03-25] MEDS: TRENTAL PO SCH (08:51)
[2019-03-25] MEDS: LACTULOSE PO SCH (08:51)
[2019-03-25] MEDS: JANUVIA PO SCH (08:51)
[2019-03-25] MEDS: ALDACTONE PO SCH (08:51)
[2019-03-25] MEDS: SINGULAIR PO SCH (08:51)
[2019-03-25] MEDS: LOPRESSOR PO SCH (08:52)
[2019-03-25] MEDS: ASPIRIN EC PO SCH (08:52)
[2019-03-25] MEDS: LANTUS INSULIN SUBQ SCH (08:53)
--- NOTE | 2019-03-25 15:06 | GENERAL SURGERY PROGRESS NOTE ---
DATE: 03/25/2019 SUBJECTIVE: There have been no acute events overnight. OBJECTIVE: Vital Signs: She is afebrile. Vital signs are stable. General: She is awake, alert, and oriented x3. No acute distress. CV: Regular rate and rhythm. Respiratory: Clear bilateral breath sounds. No work of breathing. The chest tube has no air leak. There was 1840 mL of serous fluid drained yesterday. ASSESSMENT AND PLAN: A 63-year-old female with right pleural effusion secondary to hepatic hydrothorax. We will remove the chest tube today. Her cirrhosis is being treated with limiting salt intake and spironolactone. She is going to be referred back to her Gastroenterology doctor, Dr. Caballero, and hopefully future liver transplant evaluation. Going forward, for recurrent pleural effusions, I would recommend repeat thoracentesis on an as-needed basis. cc: MD Alexandr Singleton MD
[2019-03-25 15:37] VITALS: BP 93/54
--- NOTE | 2019-03-26 15:56 | DISCHARGE SUMMARY ---
ADMISSION DATE: 03/13/2019 DISCHARGE DATE: 03/25/2019 DISCHARGE MEDICATIONS: Amitriptyline 50 mg at bedtime, 81 mg aspirin 1 daily, Cymbalta 60 mg 1 p.o. at bedtime, Lasix 20 mg 1 p.o. each day, gabapentin 300 mg 1 tablet 3 times a day, [place] 7.5 1 tablet b.i.d., insulin glargine human 20 units subcutaneous each day, Combivent Respimat inhaler 1 puff q.6 hours, lactulose 30 mL p.o. each day, metoprolol 50 mg 1 p.o. each day, Singulair 10 mg 1 p.o. each day, Trental 400 mg 1 p.o. twice a day, Zocor 80 mg p.o. at bedtime, Januvia 100 mg p.o. each day, spironolactone 50 mg 1 p.o. each day. ADMITTING DIAGNOSIS: Pneumothorax. DISCHARGE DIAGNOSIS: 1. Pneumothorax with resolution. 2. Intractable pleural fluid production. 3. Cirrhosis. 4. Acute renal failure, not requiring dialysis. HOSPITAL COURSE: The patient was admitted to the hospital after undergoing a thoracentesis and sustaining an iatrogenic pneumothorax. The patient was initially observed with followup x-rays but chest x-ray revealed increasing right-sided pneumothorax. A small-bore chest tube was placed by this practitioner the day after admission. There was additional pleural fluid drainage with near complete resolution of the pneumothorax. Unfortunately, the tube moved with patient movement and ended up in the subcutaneous tissues and outside the thorax. General Surgery was consulted and patient was taken to the operating room for placement of a 24 Romanian chest tube. The patient began draining large amounts of pleural fluid with this chest tube. The patient's mental status decreased and she became marginally hypotensive with increasing BUN and creatinine. The patient was transferred to the intensive care unit and evaluated for sepsis. No site for sepsis was identified and changes were most likely related due to volume shifts. The patient received additional volumes with continued improvement in renal function. She was transferred back to the floor. She continued to have high output from her chest tube (1.7-3.9 L per day). It was felt that this could be an ongoing issue. I discussed this with Surgery and the option included PleurX catheter placement, or TIPS procedure at a tertiary center. Initial plan was to ask GI Medicine to evaluate the patient and make recommendations. Unfortunately, GI was not available for consultation for the next 96 hours. With this information, we elected to remove the chest tube with anticipation that reaccumulation will be an issue. She will be discharged following chest tube removal and follow up in my office in 1 week. I will have her follow up with Dr. Gordon Caballero in the near future to see if he can help devise a plan for her intractable pleural effusion. cc: MD Charles Hernandez MD Thomas P. Short, MD Jason R. Seale, MD
== END 2019-03-25 16:25 | disposition home or self-care (01) | DRG 199 ==
LOC: DIRADM 10:36 → OPS 10:36 → 1N 19:47 → ICU 03-18 08:37 → 4N 03-21 15:03
PROVIDERS: ADMIT Internal Medicine Pulmonary Disease; ATTEND Internal Medicine Pulmonary Disease

== ENCOUNTER 2019-03-27 12:32 | Inpatient (IN) ==
--- NOTE | 2019-03-27 12:35 | PROVIDER DOCUMENTATION ---
HPI-General Adult - General Stated Complaint: FALLS-HIT HEAD/BLURRY VISION Time Seen by Provider: 03/27/19 12:35 Source: patient Allergies/Adverse Reactions: Patient Allergies Allergy/AdvReac Type Severity Reaction Status Date / Time morphine AdvReac ITCHING Verified 02/02/19 07:16 Home Medications: Home Medication List Medication Instructions Recorded Confirmed Last Taken Type Ipratropium/Albuterol INH 1 puff INH RTQ6H 01/17/14 03/27/19 02/01/19 History [Combivent Respimat Inhaler] Montelukast [Singulair] 10 mg PO DAILY 01/17/14 03/27/19 02/01/19 History Pentoxifylline E.r. [Trental] 800 mg PO DAILY 01/17/14 03/27/19 02/01/19 History Sitagliptin Phosphate [Januvia] 100 mg PO DAILY 01/17/14 03/27/19 02/01/19 History Aspirin [Adult Aspirin] 81 mg PO DAILY 08/25/18 03/27/19 02/01/19 History Duloxetine [Cymbalta] 60 mg PO QHS #15 cap 12/07/18 03/27/19 02/01/19 Rx Gabapentin 300 mg PO TID 02/02/19 03/27/19 02/01/19 History Hydrocodone/Acetaminophen [[place] 1 ea PO BID 02/02/19 03/27/19 02/01/19 History 7.5-325 Tablet] SIMVAstatin [Zocor] 80 mg PO QHS 02/02/19 03/27/19 02/01/19 History Amitriptyline HCl 50 mg PO QHS 03/14/19 03/27/19 Unknown History Furosemide [Lasix] 20 mg PO DAILY 03/14/19 03/27/19 Unknown History Insulin Glargine,Hum.rec.anlog 20 unit SQ DAILY 03/14/19 03/27/19 Unknown History [Lantus Solostar] Lactulose 30 ml PO DAILY #1000 ml 03/25/19 03/27/19 Unknown Rx Nitroglycerin Sl [Nitroglycerin] 0.4 mg .SEE ORDER DIRECTED PRN 03/25/19 03/27/19 Unknown Rx PRN tab Spironolactone [Aldactone] 50 mg PO DAILY #30 tab 03/25/19 03/27/19 Unknown Rx Alprazolam 1 tab PO BID PRN 03/27/19 03/27/19 Unknown History Clonazepam 1 tab PO BID PRN 03/27/19 03/27/19 Unknown History Metoprolol Succinate E.r. [Toprol 1 tab PO DAILY 03/27/19 03/27/19 Unknown History Xl] - History of Present Illness -Gen Adult Nature of Presenting Problems: Pt. is 63 yof that presents with c/o head pain, low back pain and pelvic pain after she fell last night. Pt. reports she just got weak and fell but did not pass out. She denies any other symptoms. Location of Pain/Injury: reports: head, back, pelvis. denies: none, face, mouth, neck, chest, upper extremity, hand(s), abdomen, genitalia, lower extremity, feet, upper body, lower body, generalized, other Pain Radiation: reports: no radiation. denies: arm(s), back, buttocks, chest, epigastric, feet, groin, jaw, flank (L), legs (lower), LLQ, LUQ, neck, periumbilical, flank (R), RLQ, RUQ, shoulder(s), scapula, scrotal, sternal notch, suprapubic, legs (upper), urethral, vaginal, other Quality of Pain: reports: aching. denies: burning, pressure, tightness Severity: reports: mild. denies: moderate, severe Onset/Duration: reports: abrupt, last night Timing: reports: still present. denies: improving, intermittent, getting worse Context/Activities at Onset: reports: light activity. denies: none, moderate activity, vigorous activity, recent emotional stress, recent physical stress, r ecent trauma history, possible bad food, cold exposure, eating, out of country travel, rest, sleep, sexual activity, other Modifying Factors: improves with: nothing Associated Symptoms: reports: headaches, weakness. denies: denies symptoms, anxiety, arm pain, back/neck pain, chest pain, constipation, cough, diaphoresis, diarrhea, dizziness, EENT symptoms, fatigue, fever/chills, genitourinary problems, heartburn, joint pain, loss of appetite, malaise, muscle aches, sinus congestion/drainage, nausea, rash, seizure, shortness of breath, sensory/motor loss, pain with inspiration, swelling/mass in abdomen, syncope, vomiting, trouble walking, other Similar Symptoms Previously?: Yes Recently seen or treated by another doctor?: No Review of Systems - Adult - REVIEW OF SYSTEMS - ADULT Constitutional: reports: no symptoms reported Eyes: reports: no symptoms reported Ears, Nose, Mouth & Throat: reports: no symptoms reported Cardiovascular: reports: no symptoms reported Respiratory: reports: no symptoms reported Gastrointestinal: reports: no symptoms reported Genitourinary: reports: no symptoms reported Musculoskeletal: reports: see HPI, back pain, joint pain. denies: joint s welling, muscle weakness, neck pain Integumentary: reports: no symptoms reported Neurological: reports: see HPI, headache/migraines. denies: dizziness/vertigo, paresthesia, tremors Psychiatric: reports: no symptoms reported Past History - Adult - PAST MEDICAL HISTORY-ADULT Review of Records: reports: Old Records Reviewed, Nursing Assessment Review, Medications Reviewed, Social history reviewed & non-contributory. Major Childhood Illnesses: reports: denies history Cardiovascular: reports: HTN, hyperlipidemia Respiratory: reports: COPD Gastrointestinal: reports: denies history Obstetrical/Gynecological: reports: uterine/ovarian cancer Genitourinary: reports: denies history Musculoskeletal: reports: denies history Neurological: reports: denies history Psychiatric: reports: anxiety Endocrine/Immune: reports: Diabetes Other Conditions: reports: denies history - PRIOR SURGERIES/PROCEDURES Surgical/Procedure History: reports: cholecystectomy, hysterectomy, , hernia repair - IMMUNIZATION STATUS Childhood Immunizations: See Nurse Assessment Flu Vaccine: See Nurse Assessment - FAMILY HISTORY Family History: reviewed, not pertinent - SOCIAL HISTORY Smoking: denies Physical Exam-General - PHYSICAL EXAM-ADULT Initial Vital Signs Reviewed: Yes - CONSTITUTIONAL General Appearance: alert, moderate distress. negative: anxious, slow to respond, obtunded - EYES Eyes: PERRL/EOMI, pink conjunctivae - HEAD, EARS, NOSE, MOUTH & THROAT HENMT: normocephalic/atraumatic, moist mucous membranes - NECK Neck: non-tender, full range of motion, supple, normal inspection - RESPIRATORY Respiratory: lungs clear, normal breath sounds - CARDIOVASCULAR Cardiovascular: normal peripheral pulses - GASTROINTESTINAL (ABDOMEN) Abdominal Exam: normal bowel sounds, non tender, soft - LYMPHATIC Lymphatic: no adenopathy - MUSCULOSKELETAL Back Exam: normal inspection, no CVA tenderness, muscle spasm. negative: ecch ymosis, swelling, vertebral tenderness Extremity: normal range of motion, non-tender, normal inspection. negative: deformity, inflammation, swelling, tenderness Peripheral Pulses: radial (R): 2+, radial (L): 2+ - SKIN Integumentary: pallor. negative: cyanosis, jaundice, tenderness - NEUROLOGIC Neurologic: grossly normal, no motor/sensory deficits - PSYCHIATRIC Psych/Mental Status: normal mood/affect, normal thought content, normal thought process, oriented x 3. negative: anxious, paranoid, tearful Progress - PLAN OF CARE/RESULTS Progress/Plan/Lab Results: Laboratory Tests 03/27/19 03/27/19 03/27/19 13:00 13:26 13:26 WBC 12.10 H RBC 2.59 L Hgb 7.6 L Hct 24.3 L MCV 93.8 MCH 29.3 MCHC 31.3 L RDW Std Deviation 16.2 H Plt Count 40 L MPV Not Reportable Immature Gran % (Auto) 0.7 H Neut % (Auto) 71.3 Lymph % (Auto) 13.7 L [place] % (Auto) 11.3 H Eos % (Auto) 2.8 Baso % (Auto) 0.2 Immature Gran # (Auto) 0.08 H Neut # (Auto) 8.63 H Lymph # (Auto) 1.66 [place] # (Auto) 1.37 H Eos # (Auto) 0.34 Baso # (Auto) 0.02 Sodium 133 L Potassium 4.6 Chloride 102 Carbon Dioxide 17 L Anion Gap 14 BUN 69 H Creatinine 2.8 H Estimated GFR/1.73 m2 17 BUN/Creatinine Ratio 25 Glucose 122 H POC Glucose 158 H Calculated Osmolality 288 Calcium 7.1 L Total Bilirubin 0.32 AST 49 H ALT 51 H Alkaline Phosphatase 175 H Ammonia Creatine Kinase 60 Troponin T Total Protein 4.4 L Albumin 2.5 L Globulin 1.9 Albumin/Globulin Ratio 1.3 Plasma Lactate 03/27/19 03/27/19 03/27/19 13:26 15:30 15:30 WBC RBC Hgb Hct MCV MCH MCHC RDW Std Deviation Plt Count MPV Immature Gran % (Auto) Neut % (Auto) Lymph % (Auto) [place] % (Auto) Eos % (Auto) Baso % (Auto) Immature Gran # (Auto) Neut # (Auto) Lymph # (Auto) [place] # (Auto) Eos # (Auto) Baso # (Auto) Sodium Potassium Chloride Carbon Dioxide Anion Gap BUN Creatinine Estimated GFR/1.73 m2 BUN/Creatinine Ratio Glucose POC Glucose Calculated Osmolality Calcium Total Bilirubin AST ALT Alkaline Phosphatase Ammonia 25 Creatine Kinase Troponin T 0.023 Total Protein Albumin Globulin Albumin/Globulin Ratio Plasma Lactate 1.6 Discussed results and plan of care with patient. Patient agrees with plan and verbalizes understanding. Result Diagrams: 03/27/19 13:26 03/27/19 13:26 - EKG 1 Time of EKG reading by physician:: 13:08 EKG Read and Signed by:: Otto Faustin EKG Interpretation (*Must complete 3 of following elements*): Abnormal Rate: 68 Rhythm: NSR [place]: normal QRS: poor R wave progression UT Interval: normal ST Wave: normal - XRAY 1 XRAY Study: Pelvis ([facility] - [address] [place], [place] [address] [place] [address] - [address] [place] [address] Department of Imaging Patient: YAEL ORTIZ Date: 03/27/19#: [id number] : 1955DM [id number] Age/Sex: 63/FRoom/Bed: Loc: ED Ordering Physician: Sam Grimm Family Physician: Charles Hewitt MD Reason for Procedure: FAll Signed PELVIS - 03/27/2019 INDICATION: FAll TECHNIQUE: One view COMPARISON: 12/02/2018 FINDINGS: Stable bilateral hip osteoarthritis. No fracture or dislocation visible. IMPRESSION: No acute injury. Electronically signed by Nathanael Vela 03/27/2019 2:09 PM 03/27/19 1409 Interpreting Physician: Nathanael Vela MD Dictated Date/Time: 03/27/19 1409 cc: Sam Grimm; Charles Hewitt MD) XRAY Interpretation: See note - CT/MRI 1 CT Study: Cervical Spine ([facility] - [address], [address], [place] [address] [facility] - [address] [place] [address] Department of Imaging Patient: YAEL ORTIZ Date: MR#: [id number] : 1955DM Status: [facility] ERAcct#: [id number] Age/Sex: 63/FRoom/Bed: Loc: ED Ordering Physician: Sam Grimm Family Physician: Charles Hewitt MD Reason for Procedure: head injry ___ Signed CT HEAD/C-SPINE W/O CONTRAST - 03/27/2019 INDICATION: head injry COMPARISON: 12/02/2018 FINDINGS: Head CT: The ventricles and sulci are normal in size and contour. No intracranial mass or hemorrhage. The skull is intact. The sinuses, mastoids, and middle ears are clear. Cervical spine: There is an anterior fusion plate at C4-C5-C6. There are disc spacers at these levels. No hardware fracture or loosening. Alignment is anatomic. No fracture or subluxation. IMPRESSION: No acute injury. This exam was performed using automated exposure control, adjustment of mA or kV according to patient size, and/or use of iterative reconstruction technique Electronically signed by Nathanael Vela 03/27/2019 3:41 PM 03/27/19 1541 Interpreting Physician: Nathanael Vela MD Dictated Date/Time: 03/27/19 1538 cc: Sam Grimm; Charles Hewitt MD), Head CT Results: See note 2 CT Study: Lumbar Spine ([facility] - [address] , [address], [place] [address] [facility] - [address] , [place] [address] Department of Imaging Patient: YAEL ORTIZ Date: 03/27/19#: [id number] : 1955DM Status: REG [facility]#: [id number] Age/Sex: 63/FRoom/Bed: Loc: ED Ordering Physician: Sam Grimm Family Physician: Charles Hewitt MD Reason for Procedure: Fall with injury Signed CT LUMBAR SPINE W/O CONTRAST - 03/27/2019 INDICATION: Fall with injury COMPARISON: None FINDINGS: Alignment is straightened. No fracture or subluxation. There is severe multilevel degenerative disc disease. There are large chronic central disc herniations at every level with calcified osteophytes. There is advanced degeneration of the sacroiliac joints. IMPRESSION: Severe degenerative changes. No acute injury. This exam was performed using automated exposure control, adjustment of mA or kV according to patient size, and/or use of iterative reconstruction technique Electronically signed by Nathanael Vela 03/27/2019 3:52 PM 03/27/19 1552 Interpreting Physician: Nathanael Vela MD Dictated Date/Time: 03/27/19 4091 cc: Sam Grimm; Charles Hewitt MD) CT Results: See note - CONSULTS/PCP/HOSPITALIST Notification #1 *Consult/PCP/Hospitalist*: Wen Walker Time Discussed: 16:11 Reason/Comments: Admission Consult Disposition: Will see in ED, Admit Departure - Departure Date of Disposition Decision: 03/27/19 Time of Disposition Decision: 15:00 DIAGNOSIS: Hyperglycemia, Hypocalcemia Anemia Qualifiers: Anemia type: unspecified type Qualified Code(s): D64.9 - Anemia, unspecified Acute on chronic renal failure Qualifiers: Acute renal failure type: unspecified Chronic kidney disease stage: unspecified stage Qualified Code(s): N17.9 - Acute kidney failure, unspecified; N18.9 - Chronic kidney disease, unspecified Disposition: ADMITTED INPATIENT 09 Certified Medical Emergency: Emergent Condition: Stable Referrals and Follow-Ups: Charles Hewitt MD [Primary Care Provider] - - Critical Care Note This patient required my direct & personal management of CC.: Yes Total Time (mins): 45 Critical Care Statement: This patient required my direct personal management to treat or rule out processes, the absence of which, could potentiallly result in sudden, clinically significant life or limb threatening deterioration. Attestation - Physician/ SKYLER Attestation Patient care was provided by Advanced Practice Provider:: Yes Advanced Practice Provider:: Sam Grimm Advanced Practice Provider documentation review:: The Mid-level provider documentation, treatment plan and medical decision making was reviewed by the fredrick vegas who agrees with all treatment and medical decision making by the MLP. The physician spent face to face time with patient:: Yes Advanced Practice Provider documentation review:: Supervising physician onsite and consulted in the evaluation and care of this patient. The physician did have a face to face encounter with the patient.
[2019-03-27] MEDS ORDERED: NS 1,000 ML IV ONE ×2 (12:44→13:46)
[2019-03-27 13:43] LABS: BASO# 0.02 X1000 (0.0-0.2); BASO% 0.2 % (0.0-0.8); EOS# 0.34 X1000 (0.0-0.7); EOS% 2.8 % (0.0-10.0); HEMATOCRIT 24.3 % (37.0-47.0); HEMOGLOBIN 7.6 g/dL (12.0-16.0); IMM GRAN# 0.08 X1000 (0.0-0.04); IMM GRAN% 0.7 % (0.0-0.5); LYMPH# 1.66 X1000 (1.2-3.4); LYMPH% 13.7 % (20.5-51.1); MCH 29.3 PG (27-31); MCHC 31.3 g/dL (33-37); MCV 93.8 FL (81-99); MONO# 1.37 X1000 (0.11-0.59); MONO% 11.3 % (1.7-9.3); NEUT# 8.63 X1000 (1.4-6.5); NEUT% 71.3 % (42.2-75.2); PLT 40 X1000 (130-400); RBC 2.59 XMIL (4.2-5.4); RDW 16.2 % (11.5-14.5)
[2019-03-27 14:09] LABS: ALB/GLOB RATIO 1.3; ALBUMIN 2.5 g/dL (3.5-5.0); CALCIUM 7.1 mg/dL (8.8-10.2); CREATININE 2.8 mg/dL (0.5-0.9); POTASSIUM 4.6 mmol/L (3.5-5.1); TOTAL BILIRUBIN 0.32 mg/dL (0.20-1.00); TOTAL PROTEIN 4.4 g/dL (6.3-8.3)
--- NOTE | 2019-03-27 14:09 | EKG Report ---
Test Performed on : 03/27/2019 1:06:10 PM Test Reason : CP Blood Pressure : / mmHG Vent. Rate : 068 BPM Atrial Rate : 068 BPM P-R Int : 182 ms QRS Dur : 076 ms QT Int : 410 ms P-R-T Axes : 119 003 034 degrees QTc Int : 435 ms Normal sinus rhythm. Cannot rule out Anterior infarct (cited on or before 23-NOV-2018) Abnormal ECG When compared with ECG of 18-MAR-2019 07:55, No significant change was found Unconfirmed Result
--- NOTE | 2019-03-27 14:11 | Diag Imaging Result Doc PS360 ---
PELVIS - 03/27/2019 INDICATION: FAll TECHNIQUE: One view COMPARISON: 12/02/2018 FINDINGS: Stable bilateral hip osteoarthritis. No fracture or dislocation visible. IMPRESSION: No acute injury. Electronically signed by Nathanael Vela 03/27/2019 2:09 PM
[2019-03-27] MEDS ORDERED: NS 500 ML IV ONE (14:31)
[2019-03-27] MEDS: LEVOPHED 8 MG in D5 1/2 NS 250 ML IV SCH (15:17)
--- NOTE | 2019-03-27 15:44 | Diag Imaging Result Doc PS360 ---
CT HEAD/C-SPINE W/O CONTRAST - 03/27/2019 INDICATION: head injry COMPARISON: 12/02/2018 FINDINGS: Head CT: The ventricles and sulci are normal in size and contour. No intracranial mass or hemorrhage. The skull is intact. The sinuses, mastoids, and middle ears are clear. Cervical spine: There is an anterior fusion plate at C4-C5-C6. There are disc spacers at these levels. No hardware fracture or loosening. Alignment is anatomic. No fracture or subluxation. IMPRESSION: No acute injury. This exam was performed using automated exposure control, adjustment of mA or kV according to patient size, and/or use of iterative reconstruction technique Electronically signed by Nathanael Vela 03/27/2019 3:41 PM
--- NOTE | 2019-03-27 15:54 | Diag Imaging Result Doc PS360 ---
CT LUMBAR SPINE W/O CONTRAST - 03/27/2019 INDICATION: Fall with injury COMPARISON: None FINDINGS: Alignment is straightened. No fracture or subluxation. There is severe multilevel degenerative disc disease. There are large chronic central disc herniations at every level with calcified osteophytes. There is advanced degeneration of the sacroiliac joints. IMPRESSION: Severe degenerative changes. No acute injury. This exam was performed using automated exposure control, adjustment of mA or kV according to patient size, and/or use of iterative reconstruction technique Electronically signed by Nathanael Vela 03/27/2019 3:52 PM
[2019-03-27 16:32] LABS: INR 1.38; PROTIME 17.2 Seconds (11.0-16.0)
--- NOTE | 2019-03-27 17:02 | Diag Imaging Result Doc PS360 ---
CHEST-PORTABLE - 03/27/2019 INDICATION: recurrent pl effussion recent PTX COMPARISON: 03/24/2019 FINDINGS: The right chest tube has been removed. There is a small right basilar pleural effusion slightly increased from prior. There is increasing right perihilar infiltrate or atelectasis. The left lung is clear. Heart size is normal. IMPRESSION: Increasing small right pleural effusion. New right perihilar infiltrate or atelectasis. Electronically signed by Nathanael Vela 03/27/2019 4:59 PM
[2019-03-27] MEDS ORDERED: ZOFRAN IV PRN (17:07)
[2019-03-27] MEDS ORDERED: NS 1,000 ML IV SCH (17:07)
[2019-03-27] MEDS: CYMBALTA PO SCH (20:39)
[2019-03-27] MEDS: ELAVIL PO SCH (20:39)
[2019-03-27] MEDS: NORCO-7.5 PO SCH (20:40)
[2019-03-27] MEDS: ZOCOR PO SCH (20:41)
[2019-03-27] MEDS: HUMALOG SUBQ SCH (20:41)
--- NOTE | 2019-03-27 20:42 | HISTORY AND PHYSICAL ---
PRIMARY CARE PROVIDER: Dr. Charles Hweitt. CHIEF COMPLAINT: Falls and dizziness, blurry vision. HISTORY OF PRESENT ILLNESS: Ms. Mancini is a 63-year-old female with a past medical history of GERD, hypertension, diabetes, liver cirrhosis with recurrent pleural effusions, with a recent thoracentesis and pneumothorax, status post chest tube placement, as well as recent repair of an incarcerated hernia by Dr. Glenroy Michele. The patient reported over the last few days she has had some blurry vision and dizziness when getting up from a lying, seated or bent-over position. She will have some dizziness, but the blurry vision started yesterday. She reported yesterday she got up out of her lift chair, was using her cane to turn off the TV and when she stood up, she got extremely dizzy and fell back. Her blurry vision continued today. She was brought into the ED where she was found to be hypotensive in the 80s. She was given 3 L fluid bolus, without any change in her blood pressure. She was started on a Levophed drip. Her hemoglobin and hematocrit are currently 7.6 and 24.3, not far off from her norm. She does report she does have occasional bright red blood from her rectum; however, she reports she also has hemorrhoids, so she does not think much of it, but does not report any dark tarry stools or any hematemesis. We are currently checking Hemoccult stool. We have typed and screened her. We are also following up with a chest x-ray to assess for any recurrent pleural effusion. Her hip and pelvis x-ray showed no acute injury. Head and cervical spine CT showed no injury. EKG showed normal sinus rhythm. PAST MEDICAL HISTORY: 1. Hypertension. 2. Diabetes mellitus. 3. Gastroesophageal reflux disease. 4. COPD. 5. Anemia. 6. GI bleed. 7. Hemorrhoids. 8. Recurrent pleural effusion secondary to liver cirrhosis. PAST SURGICAL HISTORY: 1. Cholecystectomy. 2. Hysterectomy. 3. section. 4. Hernia repair. 5. Recent thoracentesis with chest tube placement, status post pneumothorax. 6. Incarcerated hernia repair. REVIEW OF SYSTEMS: Completely negative except for those mentioned in HPI. ALLERGIES: Morphine. MEDICATIONS: Home medications per EMR, currently being held until we get her occult stool back. PHYSICAL EXAMINATION: VITAL SIGNS: Current temperature is 97.4 degrees, heart rate 71, respirations 19, blood pressure 98/49, O2 is 99% on room air. GENERAL: Ms. Mancini is a 63-year-old female who is lying flat in the bed and in no acute distress. She does keep her eyes closed, but she does answer questions appropriately. HEENT: Atraumatic, normocephalic. PERRL. NECK: Supple. Trachea midline. CARDIOVASCULAR: S1, S2 appreciated. No murmurs, gallops or rubs noted. RESPIRATORY: Lung sounds clear bilaterally. I did not appreciate any rales, rhonchi or wheezes. GASTROINTESTINAL: Soft. There was some diffuse tenderness with palpation throughout all quadrants. SKIN: Dry, warm and pale. NEUROLOGIC: She is awake, alert, oriented. Moving all extremities. DIAGNOSTIC DATA: Currently pending chest x-ray. Hip and pelvis x-ray: No acute injury. Lumbar spine: Severe degenerative changes; no acute injury. Head and cervical spine CT: No acute injury. LABORATORY DATA: White count 12, hemoglobin and hematocrit 7.6 and 24.3, platelet count is 40,000. Sodium 133, potassium 4.6, BUN 69, creatinine 2.8, blood glucose is 122, AST 49, ALT 51, alkaline phosphatase 175. Ammonia level is 25. ASSESSMENT AND PLAN: 1. Hypotension. Unsure if it is fluid volume depletion related or secondary to possible gastrointestinal bleed. We are currently awaiting stool studies. The patient was given a 2500 fluid bolus in the emergency department and was initiated on Levophed drip. Her lowest blood pressure I believe was in the 60s. She is currently up to the 90s. We have typed and screened her. Again, currently awaiting the Hemoccult stool. We will continue to check orthostatics. 2. Acute kidney injury. The patient does look clinically dehydrated. We will continue with intravenous hydration. 3. Anemia. She is slightly below her normal baseline. We have typed and screen her. We will give her 1 unit of blood. 4. Transaminitis secondary to liver cirrhosis. 5. Diabetes mellitus. We will place her on sliding scale with pattern blood sugars. 6. Hypertension. We will hold any antihypertensives secondary to hypotension, on Levophed drip. 7. Gastroesophageal reflux disease. 8. Recurrent pleural effusions. We are checking a chest x-ray at this time to reassess. 9. Thrombocytopenia. No obvious signs of bleeding. We are going to check a PT and INR. Dictated by FILIPPO Beltran for Juan Carlos Thao MD cc: MD Charles Ackerman MD
--- NOTE | 2019-03-27 21:11 | HISTORY AND PHYSICAL ---
ADDENDUM: Patient seen and examined by me [id number]. All the laboratory, vital signs and images were reviewed. The patient presented with to the emergency department with generalized weakness and multiple falls at home. She had multiple CT scan and x-rays, and all of them were within normal limits except the chest x-ray that showed some right pleural effusion. This patient has been recently discharged on 03/26/2019, due to pneumothorax with resolution, intractable pleural fluid production, liver cirrhosis and acute renal failure, not requiring dialysis. Also, this patient has a history of coronary artery disease with prior stent placement and history of hernia repair with mesh. She used to smoke before. She presented last time with shortness of breath at the promotions assistant's office. She was scheduled for an outpatient thoracentesis, and following the thoracentesis she had a pneumothorax. She was admitted in the hospital. A chest tube was inserted on the right side on 03/15/2019. Apparently she did well. She was not evaluated by the Gastroenterology Department during that hospitalization, and it was recommended to follow up with Dr. Caballero as an outpatient, who is her dry cleaning attendant, and also Dr. Mcdowell who is her promotions assistant. Since she was having multiple falls at home, the family decided to come to the emergency department. We found out that the hemoglobin is slightly elevated and the hemoglobin is low at 7.6. She will receive 1 unit of PRBC. Also, she has an [id number] kidney disease. In the emergency department she received 3 L of fluid, and since the blood pressure was still low in the 60s and 80s, they have decided to put this patient on pressors and transfer this patient to the ICU. Apparently she was not having any kind of fever or chills at home. She is not coughing, but she is a little bit short of breath. Oxygen saturation is stable at room air. On my physical exam, this patient has some crackles on the right side, but she is completely alert and oriented x3. She does not look to be in distress. We discussed her advanced directive with her and the family. We discussed all the possible scenarios. She has decided to be Full Code. We discussed this around 15 to 20 minutes. I agree with the rest of the nurse practitioner's assessment and plan. She already received 3 L of fluid in the emergency department. She is going to receive 1 unit of blood as well, so I will stop the fluids after the blood product. I will continue with pressors, which we will decrease slowly depending on her blood pressure. cc: Juan Carlos Thao MD
[2019-03-27 21:19] LABS: HEMATOCRIT 30.7 % (37.0-47.0); HEMOGLOBIN 9.8 g/dL (12.0-16.0)
[2019-03-28 01:42] LABS: URINE SOURCE CATH
[2019-03-28 01:47] LABS: BILIRUBIN URINE NEGATIVE (NEGATIVE); BLOOD URINE NEGATIVE (NEGATIVE); COLOR YELLOW; GLUCOSE URINE NEGATIVE (NEGATIVE); KETONE URINE NEGATIVE (NEGATIVE); LEUKOCYTES URINE NEGATIVE (NEGATIVE); NITRITE URINE NEGATIVE (NEGATIVE); PH URINE 5.5; PROTEIN URINE NEGATIVE (NEGATIVE); TURBIDITY URINE CLEAR (CLEAR); UR EPITHELIAL CELLS <10 /HPF (<10); URINE BACTERIA NEGATIVE /HPF; URINE RBC <10 /HPF (<10); URINE WBC <10 /HPF (<10); UROBILINOGEN URINE NORMAL (NORMAL)
[2019-03-28 05:07] LABS: BASO# 0.03 X1000 (0.0-0.2); BASO% 0.2 % (0.0-0.8); EOS# 0.49 X1000 (0.0-0.7); EOS% 3.6 % (0.0-10.0); HEMATOCRIT 30.9 % (37.0-47.0); HEMOGLOBIN 9.6 g/dL (12.0-16.0); IMM GRAN# 0.11 X1000 (0.0-0.04); IMM GRAN% 0.8 % (0.0-0.5); LYMPH# 2.23 X1000 (1.2-3.4); LYMPH% 16.4 % (20.5-51.1); MCHC 31.1 g/dL (33-37); MCV 93.4 FL (81-99); MONO# 1.88 X1000 (0.11-0.59); MONO% 13.8 % (1.7-9.3); MPV 11.4 FL (7.4-10.4); NEUT# 8.88 X1000 (1.4-6.5); NEUT% 65.2 % (42.2-75.2); PLT 107 X1000 (130-400); RBC 3.31 XMIL (4.2-5.4); WBC 13.62 X1000 (4.8-10.8)
[2019-03-28 05:10] LABS: ALB/GLOB RATIO 0.9; ALBUMIN 2.3 g/dL (3.5-5.0); CALCIUM 7.3 mg/dL (8.8-10.2); CREATININE 2.5 mg/dL (0.5-0.9); MAGNESIUM 2.4 mg/dL (1.5-2.7); POTASSIUM 4.7 mmol/L (3.5-5.1); TOTAL BILIRUBIN 0.66 mg/dL (0.20-1.00)
[2019-03-28] MEDS: HUMALOG SUBQ SCH ×4 (06:07→20:09)
[2019-03-28] MEDS ORDERED: ZOSYN 2.25 GM in NS 50 ML IV SCH (07:15)
--- NOTE | 2019-03-28 07:42 | Diag Imaging Result Doc PS360 ---
CHEST-PORTABLE - 03/28/2019 INDICATION: SOB COMPARISON: 03/27/2019 FINDINGS: There is increasing right pleural effusion. There is worsening infiltrate in the right midlung and base. The left lung remains clear. Heart size remains normal. IMPRESSION: Worsening from prior. Electronically signed by Nathanael Vela 03/28/2019 7:39 AM
[2019-03-28] MEDS ORDERED: NS 50 ML ONE (08:10)
[2019-03-28] MEDS: TRENTAL PO SCH (08:10)
[2019-03-28] MEDS: NORCO-7.5 PO SCH ×2 (08:10→20:14)
[2019-03-28] MEDS: LACTULOSE PO SCH (08:12)
[2019-03-28] MEDS: SINGULAIR PO SCH (08:13)
[2019-03-28] MEDS: ASPIRIN EC PO SCH (08:13)
--- NOTE | 2019-03-28 08:15 | PROVIDER PROGRESS NOTE ---
Progress Note Additional Pulmonary Note: See full consult by FORENSIC COMPUTER EXAMINER David. Pneumonia is possible Shock ARF GIB is possible P Pressors Antibiotics check S cortisol and if needed, replace Check probnp and ABG Treatment per admitting team
[2019-03-28] MEDS ORDERED: DUONEB (A & A) INH PRN (08:25)
[2019-03-28] MEDS: ZOSYN 2.25 GM in NS 50 ML IV SCH ×3 (08:29→20:09)
[2019-03-28] MEDS: LEVOPHED 8 MG in D5 1/2 NS 250 ML IV SCH (08:29)
[2019-03-28 08:43] LABS: BASO# 0.04 X1000 (0.0-0.2); BASO% 0.3 % (0.0-0.8); EOS% 4.1 % (0.0-10.0); HEMATOCRIT 30.5 % (37.0-47.0); HEMOGLOBIN 9.7 g/dL (12.0-16.0); IMM GRAN% 0.8 % (0.0-0.5); LYMPH# 2.11 X1000 (1.2-3.4); LYMPH% 17.2 % (20.5-51.1); MCH 29.4 PG (27-31); MCHC 31.8 g/dL (33-37); MCV 92.4 FL (81-99); MONO# 1.59 X1000 (0.11-0.59); MPV 11.3 FL (7.4-10.4); NEUT# 7.93 X1000 (1.4-6.5); NEUT% 64.6 % (42.2-75.2); PLT 124 X1000 (130-400); RDW 16.9 % (11.5-14.5); WBC 12.27 X1000 (4.8-10.8)
[2019-03-28 08:43] LABS: ALLEN TEST YES; BLOOD TYPE ARTERIAL; HCO3-(ACT) 18.7 mmoll (20.0-26.0); METHB 0.9 % (0.0-1.5); O2(CT) 13.3 mL/dL (15.0-23.0); O2HB 95.4 % (95.0-99.0); PCO2(98.6) 25 mmHg (35-45); PO2(98.6) 88 mmHg (60-100); SAMPLE BLOOD; SAO2 99.2 % (95.0-100.0); THB 9.8 g/dL (11.5-17.4)
--- NOTE | 2019-03-28 08:43 | PROGRESS NOTE ---
DATE: 03/28/2019 SUBJECTIVE: The patient seems to be feeling better today. She received 1 unit of PRBC and her hemoglobin improved from 7.6 to 9.6. Her kidney function also is getting a little bit better compared with yesterday. There is reported a urine output of 775 mm so far and she is having bowel movements. Given her leukocytosis and low blood pressure, I will put this patient on antibiotics. The urine seems to be normal. The blood cultures so far negative. She is still having some abdominal discomfort, but she does have a history of liver cirrhosis with ascites. I will cover for the possibility of SBP. OBJECTIVE: Vital Signs: Temperature 97.7 degrees, pulse 67, respiratory rate 20, blood pressure 110/47, oxygen saturation 99 on 2 L of nasal cannula. HEENT: Head normocephalic, no trauma. PERRLA. Neck: Supple. No JVD. Central trachea. Chest: Decreased breath sounds globally with some crepitus and crackles in the right base. Abdomen: Soft. Generalized tenderness to palpation especially the periumbilical area. Positive bowel sounds. Extremities: No edema, no clubbing, no cyanosis. Neurological: The patient is alert. She is oriented x3. No focal deficits. LABORATORY DATA: WBC 13.6, hemoglobin 9.6, hematocrit 30.9, platelets 107,000. Sodium 136, potassium 4.7, chloride 108, bicarbonate 14, BUN 65, creatinine 2.5, glucose 155, calcium 7.3, AST 48, ALT 57, alkaline phosphatase 208, albumin 2.3. ASSESSMENT AND PLAN: 1. Systemic inflammatory response syndrome. She is hypotensive and also she has leukocytosis. I do not really have a source of infection, but I think she may have SBP. I have placed this patient on Zosyn, renally dosed. I have requested an evaluation by Gastroenterology Department and Pulmonary Department as well. She recently has been discharged from this hospital, I think 3 to 4 days ago due to pleural effusion which likely is related to hepatic hydrothorax and following a thoracentesis, she had a pneumothorax. 2. Recurrent pleural effusion with a recent thoracentesis and iatrogenic pneumothorax, status post chest tube placement. She does have some right pleural effusion again. I have requested an evaluation by both Pulmonary Department and Gastroenterology Department since this pleural effusion likely is related to hepatic hydrothorax. 3. Acute kidney injury on chronic kidney disease. The patient looked clinically dehydrated. She received 3 L in the emergency department and we are completing 1 more L. Kidney function seems to be a little bit better. We will place a Chance catheter. We will continue to monitor. We will consult Nephrology Department if the kidney function does not get better. 4. Anemia. Her hemoglobin upon admission was 7.6 and she was having multiple falls and weakness. We gave her a unit of blood and the hemoglobin improved to 9.6. We will monitor. 5. Liver cirrhosis. At home, she is on furosemide and also spironolactone, lactulose as well. I held the diuretics due to her kidney dysfunction. I will wait and follow the recommendations of Dr. Gastroenterology Department. 6. Diabetes. Continue with same management. 7. Hypertension. Her blood pressure medication has been on hold. Actually, this patient is hypotensive, and she is on pressors. 8. Thrombocytopenia, likely due to liver cirrhosis. CRITICAL CARE TIME: 35 minutes. cc: Juan Carlos Thao MD
[2019-03-28 08:45] LABS: MODALITY ROOM AIR
[2019-03-28 09:09] LABS: ALB/GLOB RATIO 0.9; ALBUMIN 2.5 g/dL (3.5-5.0); CALCIUM 7.6 mg/dL (8.8-10.2); CREATININE 2.4 mg/dL (0.5-0.9); POTASSIUM 4.4 mmol/L (3.5-5.1); TOTAL BILIRUBIN 0.64 mg/dL (0.20-1.00); TOTAL PROTEIN 5.2 g/dL (6.3-8.3)
[2019-03-28] MEDS: PREPARATION H OINT TOP SCH ×2 (09:40→20:08)
[2019-03-28] MEDS: SOLU-CORTEF IV SCH ×2 (10:48→18:21)
--- NOTE | 2019-03-28 17:55 | Diag Imaging Result Doc PS360 ---
CT THORAX W/O CONTRAST - 03/28/2019 INDICATION: recurrent pleural effusion suspected RML RLL PNA COMPARISON: 01/27/2019 FINDINGS: There is a moderately large right pleural effusion worst at the lung base. There is moderate ascites. There is severe cirrhosis. IMPRESSION: Large recurrent hepatic effusions. There is no pneumonia. This exam was performed using automated exposure control, adjustment of mA or kV according to patient size, and/or use of iterative reconstruction technique Electronically signed by Nathanael Vela 03/28/2019 5:52 PM
--- NOTE | 2019-03-28 18:33 | CONSULTATION ---
DATE OF CONSULTATION: 03/28/2019 REQUESTING PROVIDER: Juan Carlos Thao MD REASON FOR CONSULTATION: Right pleural effusion. HISTORY OF PRESENT ILLNESS: This is a 63-year-old female with a past medical history of presumptive COPD, diabetes mellitus, recent iatrogenic pneumothorax, hepatic hydrothorax, liver cirrhosis with minimal ascites, diabetes mellitus type 2, hypertension, gastroesophageal reflux disease, and coronary artery disease. Her last admission to our facility was from 03/13/2019 to 03/25/2019 with iatrogenic pneumothorax after undergoing a right-sided thoracentesis and she required a chest tube placement with a large amount of pleural fluid drained. She was discharged home on 03/25/2019. She presented back to the ER yesterday morning with head pain, lower back pain and pelvic pain after she fell backward on the Friday evening. Initial workup in the ER revealed hypotension in the 80s, mild leukocytosis, acute on chronic renal failure, mild elevated liver function tests and increasing right pleural effusion with worsening infiltrates in the right mid lung and base. She has been admitted to the ICU for further evaluation and management. The patient currently is sitting on bed and eating her breakfast. She states she is feeling a lot better. She reports some mild productive cough, generalized weakness, blurred vision and dizziness with position change. She also has soft loose stool at times which per her is due to lactulose she has been taking. She has no fever, chills, chest pain, palpitation, constipation, diarrhea, nausea, vomiting, or urination discomfort. Per the eChart, the right-sided hydrothorax was first revealed by a CT thorax/abdomen/pelvic without contrast on 11/22/2018 when she was admitted with incarcerated left lower quadrant hernia. She underwent right-sided thoracenteses on 11/30/2018 with 1.1 L of bloody fluid aspirated, on 02/02/2019 with 1.5 L enmanuel serous fluid aspirated and on 03/12/2019 with 2.4 L of clear yellow to slightly yellow-green fluid aspirated. The last thoracentesis was complicated with a pneumothorax as mentioned above. She underwent a small-bore chest tube placement on 03/13/2019, which was removed on 03/14/2019 after dislodgement. Another right chest tube was placed on 03/15/2019 and removed on 03/25/2019. She apparently had high output from the chest tube per Dr. Mcdowell's discharge paperwork with about 1.7 to 3.[address] Mcdowell has been planning for the patient to follow up with Dr. Gordon Caballero as soon as possible. PAST MEDICAL AND SURGICAL HISTORY: 1. Presumptive COPD. She is on Combivent Respimat inhaler q.6 hours at home. 2. Recent iatrogenic pneumothorax, developed after a right-sided thoracentesis on 03/12/2019, which has been resolved before patient was discharged on 03/25/2019. 3. Hepatic hydrothorax, right-sided. The patient already underwent thoracentesis 3 times and chest tube placement twice since this November. 4. Liver cirrhosis with minimal ascites. 5. Diabetes mellitus type 2. 6. Coronary artery disease with previous stent placement. Cardiac catheterization on January 2014 revealed moderate disease in the right coronary artery with mild in- stent re-stenoses of the proximal circumflex. 7. Cellulitis of the tip of the index finger on the left hand with acute osteomyelitis involving the distal phalanx. 8. Chronic thrombocytopenia. 9. Anemia. 10. Chronic GI bleed. 11. Hemorrhoids. 12. Status post cholecystectomy. 13. Status post hysterectomy. 14. Cesarian section. 15. Status post ventral hernia repair with mesh. 16. Status post incarcerated left lower quadrant hernia repair on 11/22/[address] Michele. SOCIAL HISTORY: The patient used to smoke more than 1 pack a day for many years. She quit it since this November. She has no history of alcohol or illicit drug use. FAMILY HISTORY: Unknown. ALLERGIES: Morphine. REVIEW OF SYSTEMS: A 10-point review of systems was conducted and the pertinent is listed within the HPI, otherwise noncontributory. PHYSICAL EXAMINATION: Vital Signs: Temperature 97.7, blood pressure 110/47, pulse 67, respiratory rate 20, oxygen saturation 99% on room air. General: Chronically ill-appearing, sitting on bed with no acute distress noted. She appeared jaundiced and pale. HEENT: Atraumatic, normocephalic. Trachea midline. Mucosa pink and moist. Respiratory: Even and unlabored. Symmetrical excursion. Auscultation revealed diminished breathing sounds, otherwise clear bilaterally. Cardiovascular: Regular rate and rhythm. Gastrointestinal: Soft, nondistended, some diffuse tenderness throughout all quadrants. Normoactive bowel sounds in all 4 quadrants. Extremities: No pedal edema. No cyanosis. No clubbing. Dorsalis pedis diminished bilaterally. Neurologic: Alert and oriented x3. Speech fluent. Follows commands. LAB DATA: White blood cells 14.62, hemoglobin 9.6, hematocrit 30.9, platelet 107,000, chloride 136. Sodium 136, potassium 4.7, chloride 108, carbon dioxide 14, BUN 65, creatinine 2.5, glucose 155, AST 45, ALT 56, alkaline phosphatase 219. ABG: PH 7.40, pCO2 25, PO2 88, HCO3 18.7, base excess -8.0, oxyhemoglobin 95.4. IMAGING DATA: Chest x-ray this morning showed increasing right pleural effusion with worsening infiltrates in the right mid lung and base. ASSESSMENT: This is a 63-year-old female with a medical history of presumptive chronic obstructive pulmonary disease, recent iatrogenic pneumothorax, hepatic hydrothorax, liver cirrhosis with minimal ascites, diabetes mellitus type 2, hypertension, gastroesophageal reflux disease, and coronary artery disease. She has been admitted to the intensive care unit since yesterday with hypotension, acute kidney injury, transaminitis and recurrent pleural effusions. 1. Possible pneumonia. 2. Shock. 3. Acute on chronic kidney disease. 4. Gastrointestinal bleeding. 5. Hepatic hydrothorax. PLAN: 1. Pressor as needed. 2. Continue antibiotics. 3. Check serum cortisol and replace if needed. 4. Check proBNP and ABG. 5. Follow up chest CT without contrast. 6. Further recommendations pending hospital course. Thank you for the courtesy of this consult. Dictated by FILIPPO Serrano for Tripp Carlos MD cc: FILIPPO Serrano MD [facility]
[2019-03-28] MEDS: ZOCOR PO SCH (20:09)
[2019-03-28] MEDS: CYMBALTA PO SCH (20:09)
[2019-03-28] MEDS: ELAVIL PO SCH (20:09)
[2019-03-29] MEDS: SOLU-CORTEF IV SCH ×3 (01:09→17:47)
[2019-03-29] MEDS: ZOSYN 2.25 GM in NS 50 ML IV SCH ×4 (01:09→20:32)
[2019-03-29] MEDS: DUONEB (A & A) INH SCH ×4 (03:44→21:34)
[2019-03-29 04:56] LABS: ALLEN TEST YES; BE -9.5 mmoll (-3.0-3.0); BLOOD TYPE ARTERIAL; HCO3-(ACT) 17.5 mmoll (20.0-26.0); METHB 0.6 % (0.0-1.5); O2(CT) 12.1 mL/dL (15.0-23.0); O2HB 94.7 % (95.0-99.0); PCO2(98.6) 26 mmHg (35-45); PO2(98.6) 77 mmHg (60-100); SAMPLE BLOOD; SAO2 98.9 % (95.0-100.0); pH(98.6) 7.36 (7.35-7.45)
[2019-03-29 04:58] LABS: MODALITY ROOM AIR
[2019-03-29 05:54] LABS: MAGNESIUM 2.5 mg/dL (1.5-2.7); PHOSPHORUS 5.4 mg/dL (2.7-4.5)
[2019-03-29] MEDS: HUMALOG SUBQ SCH ×4 (06:05→20:32)
--- NOTE | 2019-03-29 07:03 | Diag Imaging Result Doc PS360 ---
EXAM: CHEST-PORTABLE 03/29/2019 HISTORY: dyspnea TECHNIQUE: AP portable upright at 0504 COMMENT: There is loculated pleural fluid on the right. This appears worse than on the previous study of 03/28/2019 and there is proportionately worsened atelectasis in the right base. Left lung remains essentially clear. IMPRESSION: Worsening pleural fluid collection on the right. Electronically signed by Carlos Trejo 03/29/2019 7:01 AM
--- NOTE | 2019-03-29 07:40 | PROGRESS NOTE ---
DATE: 03/29/2019 SUBJECTIVE: This patient seems to be feeling better. She is not complaining of chest pain or shortness of breath. No headaches. She is complaining of left shoulder pain. Apparently, when she fell she had a trauma of that area. I will get an x-ray to rule out any kind of abnormality. I do not see any deformity. Chest CT scan done yesterday showed large recurrent hepatic effusions, but there is no pneumonia. Pulmonary Department on board. Cortisol level 13.7, but it should be higher due to the stressful situation. She has been placed on hydrocortisone. OBJECTIVE: Vital Signs: Temperature 97.2 degrees, pulse 83, respiratory rate 20, blood pressure 83/44, and oxygen saturation 96 percent on room air. HEENT: Head normocephalic. No trauma. PERRLA. Neck: Supple. No JVD. No masses. Chest: Decreased breath sounds globally with crepitus and crackles mostly in the right base. Abdomen: Soft. Generalized tenderness to palpation posteriorly in the periumbilical area. Positive ascites. Positive bowel sounds. Extremities: No edema. No clubbing. No cyanosis. Neurological: The patient is completely alert. She is oriented x3. No focal deficits. LABORATORY: Pending CBC, CMP, glucose 249, phosphorus 5.4, and magnesium 2.5. ASSESSMENT AND PLAN: 1. Shock, I do not have any source of infection. She has been placed on pressors. This could be related to an infectious process and/or adrenal insufficiency on top of her low blood pressure due to her liver cirrhosis, and seems to be hydrated. She is tolerating p.o. Apparently, she had a bowel movement documented. 2. Recurrent pleural effusion with recent thoracentesis and iatrogenic pneumothorax, status post chest tube placement. She has some right pleural effusion. have requested an evaluation by Pulmonary Department, and they already evaluated this patient. Likely, this is hepatic hydrothorax. 3. Adrenal insufficiency. Continue with hydrocortisone. 4. Acute kidney injury on chronic kidney disease. Pending lab work today, but she seems to be improving her urine output. 5. Anemia. Hemoglobin upon admission was 7.6. She did receive 1 PRBC. She has been stable afterwards. Pending lab work today. 6. Liver cirrhosis. At home, she is on furosemide and also spironolactone. I will continue with lactulose. I have been holding her diuretics due to her kidney dysfunction. I will wait and follow the recommendations of Gastroenterology Department. 7. Diabetes. Continue with same management. 8. Diabetes. Continue with same management. Probably, I will give her a dose of Lantus. She has been placed on steroids, so I am expecting an increase of her blood sugar. Continue with sliding scale insulin as well. 9. Hypertension. We are holding her blood pressure medication due to hypotension. Actually, at this moment, she is on pressors. 10. Thrombocytopenia likely due to liver cirrhosis. CRITICAL CARE TIME: 35 minutes. cc: Juan Carlos Thao MD
[2019-03-29 08:34] LABS: HEMATOCRIT 26.9 % (37.0-47.0); HEMOGLOBIN 8.5 g/dL (12.0-16.0); IMM GRAN# 0.04 X1000 (0.0-0.04); IMM GRAN% 0.5 % (0.0-0.5); LYMPH# 0.67 X1000 (1.2-3.4); LYMPH% 7.7 % (20.5-51.1); MCH 29.1 PG (27-31); MCHC 31.6 g/dL (33-37); MCV 92.1 FL (81-99); MONO# 0.44 X1000 (0.11-0.59); MONO% 5.1 % (1.7-9.3); MPV 11.6 FL (7.4-10.4); NEUT# 7.53 X1000 (1.4-6.5); NEUT% 86.7 % (42.2-75.2); PLT 70 X1000 (130-400); RBC 2.92 XMIL (4.2-5.4); RDW 16.5 % (11.5-14.5); WBC 8.68 X1000 (4.8-10.8)
[2019-03-29 08:41] LABS: ALBUMIN 2.6 g/dL (3.5-5.0); CALCIUM 7.9 mg/dL (8.8-10.2); CREATININE 3.3 mg/dL (0.5-0.9); POTASSIUM 4.5 mmol/L (3.5-5.1); TOTAL BILIRUBIN 0.29 mg/dL (0.20-1.00); TOTAL PROTEIN 5.3 g/dL (6.3-8.3)
[2019-03-29 08:44] LABS: LYMPHS 8 % (21-51); SEGS 92 % (42-75)
[2019-03-29] MEDS: PREPARATION H OINT TOP SCH ×2 (08:52→20:30)
[2019-03-29] MEDS: LACTULOSE PO SCH (08:52)
[2019-03-29] MEDS: LANTUS INSULIN SUBQ SCH (08:53)
[2019-03-29] MEDS: NORCO-7.5 PO SCH ×2 (08:53→20:31)
[2019-03-29] MEDS: TRENTAL PO SCH (08:54)
[2019-03-29] MEDS: SINGULAIR PO SCH (08:54)
[2019-03-29] MEDS: ASPIRIN EC PO SCH (08:54)
--- NOTE | 2019-03-29 09:13 | Diag Imaging Result Doc PS360 ---
EXAM: ELBOW COMPLETE LEFT 03/29/2019 HISTORY: Pain, trauma TECHNIQUE: Left elbow three views COMMENT: There is no evidence of fracture or dislocation. No other definite bony abnormalities are present. IMPRESSION: No evidence of acute bony abnormality. Electronically signed by Carlos Trejo 03/29/2019 9:11 AM
[2019-03-29] MEDS ORDERED: ALBUMIN 25% IV ONE (09:14)
[2019-03-29] MEDS: PROTONIX IV SCH (14:11)
[2019-03-29] MEDS: SODIUM CHLORIDE 0.9% INJ SCH (14:11)
--- NOTE | 2019-03-29 15:16 | GASTROENTEROLOGY CONSULTATION ---
DATE: 03/28/2019 REASON FOR CONSULTATION: Liver cirrhosis. HISTORY OF PRESENT ILLNESS: Ms. Mancini is a 63-year-old female with past medical history of GERD, hypertension, diabetes, liver cirrhosis, and recurrent pleural effusions with recent thoracenteses and pneumothorax status post chest placement, as well as recent repair of incarcerated hernia done by Dr. Michele. The patient complained that she has been feeling sick and has blurred visions with dizziness, and she fell a few times at home. After her abdominal hernia surgery, she was in the ICU for 15 to 18 days and then was sent to the rehab for 21 days at [facility]. Last week she said she fell at home, and Friday she fell again on the floor backwards, hitting her head. She has denied any nausea, vomiting. She says some times she notices that she has blood in her stools, but has denied noticing any dark tarry stools or hematemesis. The patient's hemoglobin on admission was 7.6 and hematocrit was 24.3; today it is 9.7 and 30.5. The patient complained of feeling weak, and she does not know what the reason is for her recurrent falls. PAST MEDICAL HISTORY: Hypertension, diabetes type 2, GERD, COPD, anemia, GI bleed, hemorrhoids, pleural effusions secondary to liver cirrhosis, and recurrent falls. SURGICAL HISTORY: Cholecystectomy, hysterectomy, C-sections, hernia repair, thoracentesis with chest tube placement, status post pneumothorax, incarcerated hernia repair. ALLERGIES: Allergy to morphine. HOME MEDICATIONS: Ibuprofen/albuterol 1 puff every 6 hours, Januvia 100 mg daily, Singular 10 mg daily, Trental 800 mg daily, aspirin 81 mg daily, Cymbalta 60 mg at bedtime, gabapentin 300 mg three times a day. Zocor 80 mg at bedtime, Hydrocodone/acetaminophen 7.5/325 one tablet, amitriptyline 50 mg at bedtime, Lasix 20 mg daily, Lantus SoloSTAR 20 units daily, lactulose 30 mg p.o. daily, Aldactone 50 mg daily, nitroglycerin 0.4 mg as needed, alprazolam 1 mg p.o. twice a day as needed, clonazepam 1 mg tablet twice a day as needed, metoprolol 1 tablet p.o. daily. FAMILY HISTORY: Her dad had lung problems. Mom had kidney, diabetes and heart problems. SOCIAL HISTORY: She is a , has 2 kids. Past smoker. Denied any alcohol or drug use. REVIEW OF SYSTEMS: As per HPI. Otherwise, 12 point review of system is negative. PHYSICAL EXAMINATION: Vital Signs: Temperature 98.4 degrees, pulse 70, respirations 20, blood pressure 100/54, oxygen saturation 99% on room air. The patient's weight is 178 pounds. BMI is 28.7 kg/m2. General: She is alert, oriented x3, and in no acute distress. HEENT: Pale conjunctivae, no icterus. PERRL. Neck: Supple. Lungs: Wheezing heard in anterior pandey. Cardiovascular: Regular rate and rhythm. Abdomen: Soft, mildly distended. Active bowel sounds heard in all 4 quadrants. A surgical scars on the belly noted. Extremities: No clubbing, no cyanosis. Pedal pulses 2+ present bilaterally. Neurologic: Alert, oriented x3. Nonfocal. Cranial nerves 2-12 grossly intact. LABORATORY DATA: WBC is 12.27, RBC 3.30, hemoglobin 9.7, hematocrit 30.5, platelet count is [id number]. Sodium 137, potassium 4.4, chloride 105, carbon dioxide 17, anion gap 15. BUN 65, creatinine 2.4, glucose 180. total bilirubin 0.64 AST 45, ALT 56, alkaline phos 219, Urinalysis was negative, occult blood was positive, blood cultures no growth. Chest CT showed large recurrent hepatic effusion. There is no pneumonia. Chest x-ray on 03/28 showed worsening from the prior. Chest x-ray on 03/27 showed increased small right pleural effusions, new right peripheral perihilar infiltrate or atelectasis. Hip and pelvis x-ray showed stable bilateral hip osteoarthritis. No fracture or dislocation visible. Lumbar spine CT showed severe degenerative changes. No acute injury. Head and cervical spine CT showed no acute injury. IMPRESSION: 1. Gastrointestinal bleed. 2. Anemia. 3. Diabetes type 2. 4. Hypertension. 5. Gastroesophageal reflux disease. 6. Recurrent pleural effusions. 7. Acute kidney injury. 8. Thrombocytopenia. PLAN: Patient is currently on antibiotic Zosyn, lactulose, she is on humalog sliding scale and Lantus for her diabetes. We will wait for patient to stabilize with her pleural effusion. We will continue to monitor her LFT's, CBC and BMP and follow the plan of care per PCP. This plan was discussed with Dr. Vaughan. Thank you for your consult. Please call us for any further questions or concerns. Dictated by FILIPPO Morales for Marycruz Vaughan MD cc: Marycruz Vaughan MD [facility]
[2019-03-29] MEDS: ZOCOR PO SCH (20:31)
[2019-03-29] MEDS: ELAVIL PO SCH (20:31)
[2019-03-29] MEDS: CYMBALTA PO SCH (21:07)
[2019-03-30] MEDS: LEVOPHED 8 MG in D5 1/2 NS 250 ML IV SCH (02:18)
[2019-03-30] MEDS: ZOSYN 2.25 GM in NS 50 ML IV SCH ×4 (02:36→19:10)
[2019-03-30] MEDS: SOLU-CORTEF IV SCH ×3 (02:38→17:27)
[2019-03-30] MEDS: DUONEB (A & A) INH SCH ×4 (03:36→21:16)
[2019-03-30 05:53] LABS: HEMATOCRIT 22.3 % (37.0-47.0); HEMOGLOBIN 7.1 g/dL (12.0-16.0); IMM GRAN# 0.04 X1000 (0.0-0.04); IMM GRAN% 0.6 % (0.0-0.5); LYMPH% 8.6 % (20.5-51.1); MCH 29.2 PG (27-31); MCHC 31.8 g/dL (33-37); MCV 91.8 FL (81-99); MONO# 0.41 X1000 (0.11-0.59); MONO% 5.8 % (1.7-9.3); MPV 10.7 FL (7.4-10.4); NEUT# 5.96 X1000 (1.4-6.5); PLT 61 X1000 (130-400); RBC 2.43 XMIL (4.2-5.4); RDW 16.4 % (11.5-14.5); WBC 7.01 X1000 (4.8-10.8)
[2019-03-30 05:58] LABS: ALB/GLOB RATIO 1.2; ALBUMIN 2.6 g/dL (3.5-5.0); CALCIUM 7.8 mg/dL (8.8-10.2); CREATININE 2.8 mg/dL (0.5-0.9); MAGNESIUM 2.6 mg/dL (1.5-2.7); PHOSPHORUS 5.8 mg/dL (2.7-4.5); POTASSIUM 4.6 mmol/L (3.5-5.1); TOTAL BILIRUBIN 0.33 mg/dL (0.20-1.00); TOTAL PROTEIN 4.8 g/dL (6.3-8.3)
[2019-03-30] MEDS: HUMALOG SUBQ SCH ×4 (06:16→20:11)
[2019-03-30] MEDS ORDERED: NS 500 ML IV ONE (06:45)
--- NOTE | 2019-03-30 07:08 | Diag Imaging Result Doc PS360 ---
EXAM: CHEST-PORTABLE 03/30/2019 HISTORY: dyspnea TECHNIQUE: AP portable at 0500 COMMENT: There are loculated pleural fluid collections on the right. The left lung is clear. Compared to 03/29/2019, the volume of pleural fluid on the right may be slightly increased and the pneumatization of the right lung proportionately decreased. IMPRESSION: Worsening loculated pleural effusion on the right. Electronically signed by Carlos Trejo 03/30/2019 7:05 AM
--- NOTE | 2019-03-30 07:46 | GASTROENTEROLOGY PROGRESS NOTE ---
DATE: 03/29/2019 SUBJECTIVE: Ms. Mancini is a 63-year-old female resting in bed. She has denied any chest pain, shortness of breath or headache. She complained about shoulder pain from the fall that she had at home. The patient denied having any bowel movements today. OBJECTIVE: Vital Signs: Temperature 97.7 degrees, pulse 88, respirations 22, blood pressure 106/53, and oxygen saturation is 97%. She is on room air. The patient's weight is 178 pounds. BMI is 28.7 kg/m2. General: She is alert and oriented x3, and in no acute distress. HEENT: Pale conjunctivae. No icterus. PERRL. Neck: Supple. Lungs: Wheezing heard in the anterior pandey. Cardiovascular: Regular rate and rhythm. Abdomen: Soft. Mildly distended. Active bowel sounds heard in all 4 quadrants. Surgical scar on the abdomen noted. Extremities: No clubbing. No cyanosis. No edema. Pedal pulses 2+ present bilaterally. Neurologic: She is alert and oriented x3. LABORATORY DATA: WBCs 8.68, RBC 2.92, hemoglobin 8.5, hematocrit 26.9, and platelet count 70,000. PT 17.2. INR 1.38. Sodium 131, potassium 45. Chloride 101. Carbon dioxide 15. Anion gap 15, BUN 67, creatinine 3.3, glucose 211, calcium 7.9, total bilirubin 0.29. AST 34, ALT 49, and alkaline phos 221. Chest x-ray showed worsening pleural fluid collection on the right. Elbow x- ray showed no evidence of acute bony abnormality. IMPRESSION AND PLAN: GI bleed Anemia Diabetes type II Hypertension GERD Recurrent pleural effusions DEVEN Thrombocytopenia PLAN: We started the patient on Protonix IV 40 mg daily. The patient is receiving lactulose 30 mL p.o. daily. Her diabetes is managed by Humalog on a sliding scale, and she is receiving Lantus 20 units subcutaneous daily. The patient is also on antibiotic of Zosyn. We will continue to monitor her CBCs, BMP's, and follow the plan of care per PCP. This plan was discussed with Dr. Vaughan. Please call us for any further questions or concerns. Dictated by FILIPPO Morales for Marycruz Vaughan MD cc: Marycruz Vaughan MD [facility]
[2019-03-30] MEDS: NORCO-7.5 PO SCH ×3 (07:52→20:10)
[2019-03-30] MEDS: TRENTAL PO SCH ×2 (07:52→09:26)
[2019-03-30] MEDS: SINGULAIR PO SCH ×2 (07:52→09:26)
[2019-03-30] MEDS: LACTULOSE PO SCH ×2 (07:53→09:26)
[2019-03-30] MEDS: LANTUS INSULIN SUBQ SCH ×2 (07:53→09:26)
--- NOTE | 2019-03-30 08:42 | PROGRESS NOTE ---
DATE: 03/30/2019 SUBJECTIVE: This patient seems to be feeling better. She not complaining of chest pain. She is complaining of some shortness of breath. No headache. She is complaining of left shoulder and elbow pain. We did an x-ray yesterday that did not show any acute bony abnormality. Gastroenterology Department on board as well as Pulmonary Department. Her hemoglobin dropped to 7.1. She does have a positive Hemoccult. I will give her a unit of blood today, which is going to be the second one during this hospitalization. Gastroenterology Department already on board. I will stop the aspirin as well. OBJECTIVE: Vital Signs: Temperature 97.5 degrees, pulse 96, respiratory rate 26, blood pressure 127/54, oxygen saturation 99 at this moment on room air. HEENT: Head normocephalic. No trauma. PERRLA. Neck: Supple. No JVD. No masses. Central trachea. Chest: Decreased breath sounds globally, especially on the right side with crackles. Abdomen: Soft. Generalized tenderness to palpation mostly in the periumbilical area. Positive ascites. Positive bowel sounds. Extremities: No edema. No clubbing. No cyanosis. Neurological: The patient is alert and oriented x3. No focal deficits. LABORATORY: WBC 7, hemoglobin 7.1, hematocrit 22.3, and platelets 61,000. Sodium 135, potassium 4.6, chloride 105, bicarbonate 14, BUN 67, creatinine 2.8, glucose 182, calcium 7.8, AST 20, ALT 37, alkaline phosphatase 179, and albumin 2.6. ASSESSMENT AND PLAN: 1. Shock. I do not have any source of infection at this moment, but she has been placed on pressors. This could be related to an infectious process, adrenal insufficiency on top of her low blood pressure due to her liver cirrhosis. She seems to be hydrated. She is tolerating p.o. She was on pressors at some point during the night because it looks like her blood pressure dropped when she is sleeping, and the map goes to the 40s. Kidney function about the same compared with admission. Her urine output is more than 1 L. Actually, it is 1.1. For now, we will monitor. I will get Nephrology Department if this gets worse. 2. Recurrent pleural effusion with recent thoracentesis and iatrogenic pneumothorax, status post chest tube placement. She still has right pleural effusion. I have requested an evaluation by Pulmonary Department. They already evaluated this patient. Likely, she has she has hepatic hydrothorax. 3. Gastrointestinal bleed. I have stopped the aspirin, and I will transfuse this patient. Gastroenterology Department on board. 4. Adrenal insufficiency. Continue with hydrocortisone. 5. Acute kidney injury on chronic kidney disease. Her urine output seems to be stable. I will continue with same management for now. 6. Anemia. Hemoglobin dropped to 7.1. She already received a PRBC upon admission. I will give her a new PRBC today. Gastroenterology Department on board. She has a positive occult blood in the stool. 7. Liver cirrhosis. At home, she is on furosemide, and also spironolactone which has been on hold. I will continue with lactulose. I will resume this treatment once the kidney function is better. 8. Diabetes. Continue with same management. 9. Hypertension. We are holding her blood pressure medications due to hypotension. She had some pressors during the night. 10. Thrombocytopenia due to liver cirrhosis. CRITICAL CARE TIME: 35 minutes. cc: Juan Carlos Thao MD
[2019-03-30] MEDS: PREPARATION H OINT TOP SCH ×2 (09:26→20:10)
[2019-03-30] MEDS: PROTONIX IV SCH (12:38)
[2019-03-30] MEDS: SODIUM CHLORIDE 0.9% INJ SCH (12:38)
--- NOTE | 2019-03-30 15:57 | GASTROENTEROLOGY PROGRESS NOTE ---
DATE: 03/30/2019 SUBJECTIVE: Ms. Mancini is a 63-year-old female resting in bed. She was receiving a unit of blood. She has denied any nausea, vomiting or having any bowel movements today. OBJECTIVE: Vital Signs: Temperature 98.2 degrees, pulse 96, respirations 24, blood pressure 99/48, and oxygen saturation 98% on room air. The patient's weight is 173 pounds. BMI is 28.1 kg/m2. General: She is alert and oriented x3, and in no acute distress. HEENT: Pale conjunctivae. No icterus. CHICHI. Neck: Supple. Lungs: Wheezing heard in the anterior pandey. Cardiovascular: Regular rate and rhythm. Abdomen: Soft, mildly distended. Active bowel sounds heard in all 4 quadrants. Surgical scar on the abdomen noted. Extremities: No clubbing, no cyanosis, no edema. Pedal pulses 2+ present bilaterally. Neurologic: She is alert and oriented x3. LABORATORY: WBC 7.01, RBCs 2.43, hemoglobin 7.1, hematocrit 22.3, and platelet count 61,000. PT 17.2, INR 1.38, sodium 135, potassium 4.6, chloride 105, carbon dioxide 13, anion gap 16, BUN 67, creatinine 2.8, glucose 182, calcium 7.8, phosphorus 5.8, magnesium 2.6, total bilirubin 0.33, AST 20, ALT 37, alkaline phos 179, and albumin is 2.6. Chest x-ray showed worsening loculated pleural effusion on the right. IMPRESSION AND PLAN: GI bleed Anemia Diabetes Type II Hypertension GERD Recurrent pleural effusions DEVEN Thrombocytopenia PLAN: We plan to do an EGD tomorrow to rule out the cause of her anemia and GI bleed. We will continue with the current plan of care. The patient is on Protonix IV 40 mg daily. She is receiving lactulose 30 mL p.o. daily. The patient's hemoglobin is 7.1 and hematocrit is 23.3, and platelet count is 61,000. The patient has received total of 2 units of packed red blood cells. Her liver function tests are total bilirubin 0.33, AST 20, ALT 37, and alkaline phos 179. They have been trending downward. We will continue to monitor the patient's CBC, BMP and follow the plan of care per PCP. Further plan of care will be based on the EGD findings. We have discussed the risks, benefits, and alternatives of the procedure. The patient acknowledges understanding of the plan of care. This plan was discussed with Dr. Garza. Please call us for any further questions or concerns. Dictated by FILIPPO Morales for Westley Garza MD Physician Attestation I have seen and examined the patient. I have discussed and reviewed the the note by Jessica BARKLEY and agree with findings and plan as documented. In brief, Ms. Rosetta Mancini is a 63 year old woman with decompensated cirrhosis with ascites and hepatic hydrothorax who presented in hypovolemic shock requiring pressors in the setting of GI bleed +/- pneumonia with parapneumonic effusion. Fluid analysis on 03/12 showed transudative process consistent with cirrhosis; however, appears more loculated on recent CXR. Leukocytosis has resolved with antibiotics. I would consider repeat diagnostic and therapeutic thoracentesis if becomes symptomatic. DEVEN on CKD also noted. Off pressors. Transfuse prn goal hgb 7-8. She denies overt bleeding. We are holding blood thinners. Clears liquid diet. NPO after MN. Plan diagnostic EGD on Fri. MTDD
[2019-03-30] MEDS: CYMBALTA PO SCH (20:10)
[2019-03-30] MEDS: ELAVIL PO SCH (20:10)
[2019-03-30] MEDS: ZOCOR PO SCH (20:10)
--- NOTE | 2019-03-30 20:13 | PULMONOLOGY PROGRESS NOTE ---
DATE: 03/30/2019 SUBJECTIVE: The patient is awake, alert, and conversant. She is now off of vasopressors. Blood pressure is marginal with a MAP just into the 60s. She is tolerating p.o. intake. OBJECTIVE: HEENT: Pupils are equal and reactive. Oropharynx appears clear. Neck: Supple. Chest: Decreased breath sounds on the right without wheezing or rhonchi. Cardiac: S1, S2. Abdomen: Soft with fluid wave detected. Extremities: Without edema. DIAGNOSTIC DATA: Chest x-ray reveals increasing right-sided effusion. Sodium 135, potassium 4.6, chloride 105, bicarbonate 14, anion gap 16, BUN 67, creatinine 2.8. White blood count 7.01, hemoglobin 7.5, platelet count 61,000. IMPRESSION: 1. Hepatothorax. 2. Ascites. 3. Cirrhosis. 4. Borderline adrenal insufficiency. 5. Protein-calorie malnutrition. 6. Hypotension, with resolution. 7. Acute renal insufficiency. 8. Anemia. PLAN: 1. GI evaluation in progress. Would like them to comment on possible SPB and ascites with hydrothorax. 2. Continue antibiotics and steroids, but no infection has been identified. 3. Recommend placing patient on a low-sodium diet. 4. Initiate physical therapy. 5. EGD anticipated. cc: Alexandr Mcdowell MD
[2019-03-31] MEDS: SOLU-CORTEF IV SCH (01:21)
[2019-03-31] MEDS: ZOSYN 2.25 GM in NS 50 ML IV SCH ×4 (01:21→21:59)
[2019-03-31] MEDS: DUONEB (A & A) INH SCH ×4 (03:20→21:27)
[2019-03-31] MEDS: HUMALOG SUBQ SCH ×4 (06:13→20:17)
[2019-03-31 08:35] LABS: HEMATOCRIT 25.2 % (37.0-47.0); HEMOGLOBIN 8.1 g/dL (12.0-16.0); IMM GRAN# 0.03 X1000 (0.0-0.04); IMM GRAN% 0.5 % (0.0-0.5); LYMPH# 0.39 X1000 (1.2-3.4); MCH 28.7 PG (27-31); MCHC 32.1 g/dL (33-37); MCV 89.4 FL (81-99); MONO# 0.36 X1000 (0.11-0.59); MONO% 6.5 % (1.7-9.3); MPV 11.2 FL (7.4-10.4); PLT 66 X1000 (130-400); RBC 2.82 XMIL (4.2-5.4); RDW 18.7 % (11.5-14.5); WBC 5.58 X1000 (4.8-10.8)
[2019-03-31 08:40] LABS: INR 1.42; PROTIME 17.6 Seconds (11.0-16.0)
[2019-03-31 08:41] LABS: PTT 23.7 Seconds (22.3-41.8)
[2019-03-31] MEDS ORDERED: XYLOCAINE-MPF 2% ONE (08:42)
[2019-03-31] MEDS ORDERED: DIPRIVAN 1% ONE (08:42)
[2019-03-31 08:45] LABS: LYMPHS 8 % (21-51); MONO 6 % (1-9); SEGS 86 % (42-75)
[2019-03-31 09:10] LABS: ALB/GLOB RATIO 1.1; ALBUMIN 2.8 g/dL (3.5-5.0); CALCIUM 8.2 mg/dL (8.8-10.2); POTASSIUM 4.6 mmol/L (3.5-5.1); TOTAL BILIRUBIN 0.4 mg/dL (0.20-1.00); TOTAL PROTEIN 5.3 g/dL (6.3-8.3)
--- NOTE | 2019-03-31 09:27 | ENDOSCOPY OPERATIVE NOTE ---
[facility] ENDOSCOPY OPERATIVE NOTE , PATIENT: Rosetta Mancini ADMISSION DATE: 03/31/2019 [facility]#: [id number] [facility] 1955 [id number] EGD PROCEDURE REPORT PROCEDURE DATE: 03/31/2019 SURGEON: Westley Garza MD STATUS: inpatient ATTENDANT SALES: PREOPERATIVE DIAGNOSIS: The patient is a 63 yr old female here for an EGD due to cirrhosis, anemia, and melena. PROCEDURE PERFORMED: EGD w/ control of bleeding EGD w/ biopsy MEDICATIONS: Per Anesthesia TOPICAL ANESTHETIC: none CONSENT: The patient understands the risks and benefits of the procedure and understands that these r isks include, but are not limited to: sedation, allergic reaction, infection, perforation and/or bleeding. Alternative means of evaluation and treatment include, among others: physical exam, x-rays, and/or surgical intervention. The patient elects to proceed with this endoscopic procedure. HISORY AND PHYSICAL: 03/31/2019 DESCRIPTION OF PROCEDURE: During intra-op preparation period all mechanical and medical equipment was checked for proper function. Hand hygiene and appropriate measures for infection prevention was taken. After the risks, benefits and alternatives of the procedure were thoroughly explained, Informed consent was verified, confirmed and timeout was successfully executed by the treatment team. The patient was anesthetized with topical anesthesia and the [id number]-[id number] ([id number]) endoscope was introduced through the mouth and advanced to the second portion of the duoden um. Retroflexion was performed in the stomach and revealed no abnormalities. The gastroscope was then slowly withdraw n and removed. ESOPHAGUS: There was a single small Grade 1 varix in the distal esophagus without stigmata of recent bleeding. STOMACH: Linear erosion(s) were found in the gastric antrum. Cold forcep biopsies were taken at the antrum to evaluate for h. pylori. DUODENUM: Multiple superficial and irregular shaped ulcers with active oozing of blood were found in the 2nd part of the duodenum. Cautery was applied to multiple sites with incomplete hemostasis achieved; however, slower oozing. SPECIMENS REMOVED: Yes ADVERSE EVENTS: There were no complications. POSTOPERATIVE DIAGNOSIS: ESOPHAGUS: There was a single small Grade 1 varix in the distal esophagus without stigmata of recent bleeding. STOMACH: Linear erosion(s) were found in the gastric antrum. Cold forcep biopsies were taken at the antrum to evaluate for h. pylori. DUODENUM: Multiple superficial and irregular shaped ulcers with active oozing of blood were found in the 2nd part of the duodenum. Cautery was applied to multiple sites with incomplete hemostasis achieved; however, slower oozing. RECOMMENDATIONS: Continue PPI IV BID Clear liquid diet Trend CBC daily, transfuse prn for goal hgb 7-8 and platelets >=50K Avoid blood thinners including NSAIDs Continue antibiotics for SBP prophylaxis for total 5-7 days Follow-up gastric biopsies to evaluate for H pylori Will follow with you. Please call with questions REPEAT EXAM: Westley Garza MD eSigned: Westley Garza MD 03/31/2019 9:26 AM cc: PATIENT NAME: Rosetta Mancini MR#: [id number]
[2019-03-31] MEDS: LACTULOSE PO SCH (09:54)
[2019-03-31] MEDS: TRENTAL PO SCH (09:54)
[2019-03-31] MEDS: NORCO-7.5 PO SCH ×2 (09:55→20:16)
[2019-03-31] MEDS: SINGULAIR PO SCH (09:55)
[2019-03-31] MEDS: LANTUS INSULIN SUBQ SCH (09:57)
[2019-03-31] MEDS: PREPARATION H OINT TOP SCH ×2 (09:58→20:17)
--- NOTE | 2019-03-31 10:11 | PROGRESS NOTE ---
DATE: 03/31/2019 SUBJECTIVE: This patient is resting comfortably in bed. She does have generalized weakness. She is not complaining of chest pain. She is not complaining of shortness of breath. No headache. She is scheduled for an endoscopy today. I have requested physical therapy and occupational therapy evaluation. OBJECTIVE: Vital Signs: Temperature 98.6 degrees, pulse 97, respiratory rate 16, blood pressure 125/59 and oxygen saturation 97% on room air. HEENT: Head normocephalic. No trauma. PERRLA. Neck: Supple. No JVD. No masses. Central trachea. Chest: Decreased breath sounds globally with crackles especially on the right side. Abdomen: Soft. Generalized tenderness to palpation mostly in the periumbilical area but better. Positive ascites. Positive bowel sounds. Extremities: No edema. No clubbing. No cyanosis. Neurological: The patient is sleepy, but arousable. She is oriented x3. No focal deficits. She is answering all my questions. LABORATORY: Glucose 199. Pending lab work at this moment. ASSESSMENT AND PLAN: 1. Shock. I do not have a source of infection at this moment. She used to be on pressors, but not anymore. This could be related to an infectious process like SBP, also could be related to adrenal insufficiency on top of her low blood pressure that can be the result of her liver cirrhosis. She seems to be hydrated right now. She is NPO because she is going to have a procedure done today. Her urine output is good, is around 1.6 L. We will continue to monitor. 2. Recurrent pleural effusion with recent thoracentesis and iatrogenic pneumothorax, status post chest tube placement, which has been removed already during the previous hospitalization. She still has right pleural effusion. This is likely a hepatic hydrothorax, Pulmonary Department and Gastroenterology Department on board. 3. Gastrointestinal bleed. I have stopped the aspirin. Also, this patient received 2 units of PRBC already, her hemoglobin yesterday was 7.1 pending lab results today. 4. Adrenal insufficiency. Continue with hydrocortisone for now. 5. Acute kidney injury on chronic kidney disease. Urine output seems to be better. Pending results. 6. Anemia, hemoglobin dropped to 7.1 yesterday. She received 1 unit of PRBC. I will evaluate this hemoglobin and hematocrit once the results are back. 7. Liver cirrhosis. At home, she is on furosemide and spironolactone, which has been stopped due to her acute kidney injury. We will continue with lactulose for now. 8. Diabetes. Continue with same management. 9. Hypertension. We have been holding her blood pressure medications due to hypotension. She has been getting pressors, but not anymore. 10. Thrombocytopenia due to liver cirrhosis. CRITICAL CARE TIME: 35 minutes. cc: Juan Carlos Thao MD
[2019-03-31] MEDS: PREDNISONE PO SCH (10:21)
[2019-03-31] MEDS: SODIUM CHLORIDE 0.9% INJ SCH (11:31)
[2019-03-31] MEDS: PROTONIX IV SCH (11:31)
[2019-03-31] MEDS ORDERED: TYLENOL PO ONE (14:03)
[2019-03-31] MEDS: ELAVIL PO SCH (20:16)
[2019-03-31] MEDS: CYMBALTA PO SCH (20:16)
[2019-03-31] MEDS: ZOCOR PO SCH (20:16)
[2019-04-01] MEDS: DUONEB (A & A) INH SCH ×4 (03:22→21:02)
[2019-04-01] MEDS: ZOSYN 2.25 GM in NS 50 ML IV SCH ×4 (04:36→21:19)
[2019-04-01 05:36] LABS: EOS# 0.01 X1000 (0.0-0.7); EOS% 0.2 % (0.0-10.0); HEMATOCRIT 26.9 % (37.0-47.0); HEMOGLOBIN 8.5 g/dL (12.0-16.0); LYMPH% 10.8 % (20.5-51.1); MCH 28.8 PG (27-31); MCHC 31.6 g/dL (33-37); MCV 91.2 FL (81-99); MONO# 0.41 X1000 (0.11-0.59); MONO% 8.9 % (1.7-9.3); MPV 11.4 FL (7.4-10.4); NEUT% 80.1 % (42.2-75.2); PLT 71 X1000 (130-400); RBC 2.95 XMIL (4.2-5.4); RDW 19.2 % (11.5-14.5); WBC 4.62 X1000 (4.8-10.8)
[2019-04-01] MEDS: HUMALOG SUBQ SCH ×4 (06:09→21:14)
[2019-04-01 06:15] LABS: ALB/GLOB RATIO 1.2; CALCIUM 8.4 mg/dL (8.8-10.2); CREATININE 2.8 mg/dL (0.5-0.9); MAGNESIUM 2.5 mg/dL (1.5-2.7); PHOSPHORUS 4.9 mg/dL (2.7-4.5); POTASSIUM 5.8 mmol/L (3.5-5.1); TOTAL BILIRUBIN 0.59 mg/dL (0.20-1.00); TOTAL PROTEIN 5.6 g/dL (6.3-8.3)
[2019-04-01] MEDS ORDERED: ALBUTEROL 0.5% INH CONC FOR HYPERKALEMIA INH ONE (07:02)
[2019-04-01] MEDS ORDERED: D50W SYRINGE IV ONE (07:03)
[2019-04-01] MEDS ORDERED: HUMULIN R IV ONE (07:03)
--- NOTE | 2019-04-01 07:11 | Diag Imaging Result Doc PS360 ---
EXAM: CHEST-PORTABLE 04/01/2019 HISTORY: abnormal exam TECHNIQUE: AP portable upright at 0503 COMMENT: There is loculated pleural fluid on the right. This is slightly diminished since 03/30/2019. The left lung remains clear. IMPRESSION: Right pleural effusion. Electronically signed by Carlos Trejo 04/01/2019 7:08 AM
[2019-04-01] MEDS ORDERED: CALCIUM GLUCONATE 1 GM in NS 50 ML IV ONE (07:30)
--- NOTE | 2019-04-01 08:14 | PULMONOLOGY PROGRESS NOTE ---
DATE: 03/31/2019 SUBJECTIVE: The patient is awake, alert, and conversant. She has been eating. She is having no difficulty with her blood pressure. She is without specific complaints.HEENT: Pupils are equal and reactive. Oropharynx appears clear. Neck: Supple. Lungs: Chest reveals rhonchi bilaterally with decreased breath sounds at the right lung base. Cardiac: S1- S2. Abdomen: Soft. Extremities: Reveal trace to 1+ peripheral edema. LABORATORIES: White blood count 5.58, hemoglobin 8.1, and platelet count 66,000. Sodium 136, potassium 4.6, chloride 107, bicarbonate 16, BUN 69, creatinine is 3.0, and glucose 187. IMPRESSION: A 63-year-old with: 1. Pleural effusion 2. Ascites. 3. Cirrhosis. 4. Borderline adrenal insufficiency. 5. Protein calorie malnutrition. 6. Acute renal insufficiency. PLAN: 1. Complete GI workup. She is scheduled for an EGD today. 2. Continue antibiotics and steroids. 3. Initiate physical therapy. 4. Followup chest x-ray tomorrow. cc: Alexandr Mcdowell MD [facility]
[2019-04-01] MEDS: LACTULOSE PO SCH (08:48)
[2019-04-01] MEDS: NORCO-7.5 PO SCH ×2 (08:48→21:13)
[2019-04-01] MEDS: PREPARATION H OINT TOP SCH ×2 (08:48→22:48)
[2019-04-01] MEDS: SINGULAIR PO SCH (08:49)
[2019-04-01] MEDS: TRENTAL PO SCH (08:49)
[2019-04-01] MEDS: PREDNISONE PO SCH (08:49)
[2019-04-01] MEDS: LANTUS INSULIN SUBQ SCH (08:50)
--- NOTE | 2019-04-01 09:27 | EKG Report ---
Test Performed on : 04/01/2019 09:04:07 AM Test Reason : chest pain Blood Pressure : / mmHG Vent. Rate : 128 BPM Atrial Rate : 128 BPM P-R Int : 164 ms QRS Dur : 086 ms QT Int : 296 ms P-R-T Axes : 011 -16 059 degrees QTc Int : 432 ms Sinus tachycardia. Low voltage QRS Cannot rule out Anterior infarct (cited on or before 23-NOV-2018) Abnormal ECG When compared with ECG of 27-MAR-2019 13:06, (Unconfirmed) Vent. rate has increased BY 60 BPM Nonspecific T wave abnormality, worse in Lateral leads Confirmed by Armen CALZADA, P.J.M ([id number]) on 04/02/2019 5:38:08 PM
--- NOTE | 2019-04-01 11:04 | PROGRESS NOTE ---
DATE: 04/01/2019 SUBJECTIVE: The patient is resting comfortably in bed. She does have generalized weakness. She is not complaining of chest pain or shortness of breath. No headache. She had an upper endoscopy done yesterday. Physical therapy and occupational therapy evaluations have been requested. Her potassium level is high at 5.8. I will treat it and I will request a new potassium level in the afternoon. OBJECTIVE: Vital Signs: Temperature 98.3 degrees, pulse 106, respiratory rate 16, blood pressure 135/70, oxygen saturation 97% on 2 L of nasal cannula. HEENT: Head normocephalic. No trauma. PERRLA. Neck: Supple. No JVD. Central trachea. Chest: Decreased breath sounds globally with crackles, especially on the right side. Decreased breath sounds at the right base. Abdomen: Soft. Generalized tenderness to palpation, mostly at the level of the periumbilical area. Positive ascites. Positive bowel sounds. Extremities: No edema, no clubbing, no cyanosis. Neurological Examination: The patient is sleepy but arousable. She is oriented x3. No focal deficits but generalized weakness. She is answering all my questions. Laboratory: WBC 4.6, hemoglobin 8.5, hematocrit 26.9, platelets 71,000. Sodium 139, potassium 5.8, chloride 109, bicarbonate 16, BUN 70, creatinine 2.8, glucose 136, calcium 8.4, phosphorus 4.9, magnesium 2.5. AST 43, ALT 48, alkaline phosphatase 167, albumin 3. ASSESSMENT AND PLAN: 1. Shock. I do not have a documented source of infection. This could be multifactorial including the possibility of spontaneous bacterial peritonitis, adrenal insufficiency on top of low blood pressure that can be the result of her liver cirrhosis. She seems to be hydrated. Her urine output has been good, around 1425 mL. She used to be on pressors but not anymore. She seems to be stable in that regard. 2. Recurrent pleural effusion with recent thoracentesis and iatrogenic pneumothorax, status post chest tube placement which has been removed already during the previous hospitalization. This patient is still has right pleural effusion. 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 Pulmonary department and gastroenterology department following this patient. 3. Gastrointestinal bleed, status post endoscopy. Her esophagus has a single, small, grade 1 varix in the distal esophagus without stigmata of recent bleeding. Her stomach has linear erosions in the gastric antrum. Biopsies were taken to rule out Helicobacter pylori. Her duodenum, though, has multiple superficial and irregular-shaped ulcers with active oozing of blood that were found in the second part of the duodenum. The cautery was applied to multiple sites with incomplete hemostasis achieved; however, slower oozing. They have recommended to put this patient on a clear liquid diet, try to keep the hemoglobin at least between 7 and 8, and platelet count more than 50,000. Avoid nonsteroidal anti-inflammatory drugs. Continue antibiotics for the possible spontaneous bacterial peritonitis for a total of 5 to 7 days. Her hemoglobin today actually is a little bit better compared with yesterday. We will continue to monitor. We will transfuse as needed. 4. Adrenal insufficiency. She used to be on hydrocortisone but now it was switched to oral prednisone. 5. Acute kidney injury on chronic kidney disease. Urine output seems to be stable. We will continue to monitor. 6. Anemia, likely due to gastrointestinal bleed, status post 1 unit of packed red blood cells. We will continue to monitor. 7. Liver cirrhosis. At home, she is on furosemide and spironolactone which have been stopped due to her acute kidney injury. For now, we will continue with the same management and we will continue with lactulose as well. 8. Diabetes. Continue with the same treatment. 9. Hypertension. We have been holding her blood pressure medications due to hypotension. She used to be on pressors but not anymore. We will monitor. 10. Thrombocytopenia due to liver cirrhosis. Aware. 11. The patient seems to be doing better. She is Full Code. I believe she is stable enough to go to either a PVC unit or a private room. We will continue with telemetry. Right now, she seems to be stable and off pressors. cc: Juan Carlos Thao MD
[2019-04-01] MEDS: SODIUM CHLORIDE 0.9% INJ SCH (11:46)
[2019-04-01] MEDS: PROTONIX IV SCH (11:46)
--- NOTE | 2019-04-01 15:07 | Diag Imaging Result Doc PS360 ---
EXAM: CHEST-PORTABLE 04/01/2019 HISTORY: chest pain TECHNIQUE: AP portable upright at 1354 COMMENT: There is loculated fluid in the right pleural space. This has not changed appreciably since the previous study of this date at 0503. IMPRESSION: Stable chest. Electronically signed by Carlos Trejo 04/01/2019 3:05 PM
--- NOTE | 2019-04-01 15:25 | GASTROENTEROLOGY PROGRESS NOTE ---
DATE: 04/01/2019 SUBJECTIVE: Ms. Mancini is a 63-year-old female. She was resting in bed. She has denied any nausea or vomiting, but did complain of slight abdominal tenderness. The patient has denied any bowel movements today. OBJECTIVE: Vital Signs: Temperature 97.5 degrees, pulse 126, respirations 20, blood pressure 133/56, oxygen saturation 94% on 2 L nasal cannula. Her weight is 174 pounds. BMI is 28.1 kg/m2. General: She is alert and oriented x3, in no acute distress. HEENT: Pale conjunctivae. No icterus. PERRL. Neck: Supple. Lungs: Diminished breath sounds heard in the right anterior lobes. Cardiovascular: The patient is tachycardic. Abdomen: Soft, mildly distended and tender. Active bowel sounds heard in all 4 quadrants. Surgical scars noted on the abdomen. Extremities: No clubbing. No cyanosis. No edema. Pedal pulses 2+, present bilaterally. Neurologic: She is alert and oriented x3. LABS: WBCs are 4.62, RBC 2.95, hemoglobin 8.5, hematocrit 26.9, platelet count is 71,000. Sodium 139, potassium 5.8, chloride 109, carbon dioxide 16, anion gap 14, BUN 70, creatinine 2.8, glucose 136, calcium 8.4, phosphorus 4.9, magnesium 2.5, total bilirubin 0.59, AST 43, ALT 48, alkaline phosphatase is 167, albumin is 3.0. Chest x-ray showed right pleural effusions. IMPRESSIONS: 1. Gastrointestinal bleed. 2. Anemia. 3. Diabetes type 2. 4. Hypertension. 5. Gastroesophageal reflux disease. 6. Recurrent pleural effusions. 7. [id number]-[id number] amputation. 8. Thrombocytopenia. PLAN: Ms. Mancini is a 63 old female, GI is following her for anemia and GI bleed. Dr. Garza performed an EGD yesterday and it showed that she had a single small grade 1 varix in the distal esophagus without stigmata of recent bleeding. Stomach, linear erosions were found in the gastric antrum. Cold biopsies were taken at the antrum to evaluate for H. pylori. In the duodenum, there were multiple superficial and irregular-shaped ulcers with active oozing of blood found in the second part of the duodenum. It was cauterized. Awaiting the results of the biopsy. We will continue with GI prophylaxis, Protonix 40 mg daily for her GI bleed. The patient is also receiving lactulose 30 mL p.o. She is on antibiotics, Zosyn. We will continue to follow the plan of care per PCP and monitor the patient. This plan was discussed with Dr. Garza. Please call us for any further questions or concerns. Dictated by FILIPPO Morales for Westley Garza MD Physician Attestation I have seen and examined the patient. I have discussed and reviewed the note by Jessica BARKLEY and agree with findings and plan as documented. In brief, Ms. Rosetta Mancini is a 63 year old woman with decompensated cirrhosis with ascites and hepatic hydrothorax who presented in hypovolemic shock requiring pressors in the setting of GI bleed +/- pneumonia with parapneumonic effusion. EGD yesterday showed small non-bleeding esophageal varix and multiple superficial duodenal ulcerations with spontaneous using. Multiple ulcers were cauterized with incomplete hemostasis. Erosions in the stomach noted; gastric biopsies obtained .She has not had recurrent bleeding. No PSE. She reports bloating. On RA. Minimal ascites on recent imaging. Continue PPI. Trend H/H, transfuse prn goal hgb 7-8. MTDD
[2019-04-01 16:55] LABS: CALCIUM 8.3 mg/dL (8.8-10.2); CREATININE 2.6 mg/dL (0.5-0.9); POTASSIUM 4.9 mmol/L (3.5-5.1)
[2019-04-01] MEDS: ELAVIL PO SCH (21:13)
[2019-04-01] MEDS: ZOCOR PO SCH (21:13)
[2019-04-01] MEDS: CYMBALTA PO SCH (21:13)
[2019-04-01] MEDS ORDERED: BICITRA PO ONE (21:22)
--- NOTE | 2019-04-02 01:50 | PULMONOLOGY PROGRESS NOTE ---
DATE: 04/01/2019 SUBJECTIVE: The patient is awake and alert. She reports she is slightly more short of breath than yesterday. OBJECTIVE: Vital Signs: The patient has been afebrile the entire hospital stay. Blood pressure 120/76, heart rate 119, respiratory rate 19, oxygen saturation 100% on 3 L per nasal cannula. HEENT: Pupils are equal and reactive. Oropharynx is clear. Neck: Supple. Chest: Reveals decreased breath sounds right base. Cardiac: S1-S2. Abdomen: Mildly distended but soft. There is a positive fluid wave. Extremities: Reveal trace to 1+ peripheral edema. LABORATORIES: Chest x-ray reveals loculated pleural fluid on the right without change. Sodium 138, potassium 4.9, chloride 107, bicarbonate 14, BUN 68, creatinine 2.6, glucose 212. White blood count 4.62, hemoglobin 8.5, platelet count 71,000. IMPRESSION: 1. A 63-year-old with pleural effusion. There is some loculation now that patient has had a chest tube placed and with drainage of the right hemithorax. 2. Recurrent ascites. 3. Cirrhosis. 4. Acute renal insufficiency. 5. Borderline adrenal insufficiency, now on oral steroids. 6. Protein calorie malnutrition. 7. Varices. 8. Splenomegaly. 9. Thrombocytopenia. DISCUSSION: A 63-year-old with problems outlined above. Ascites continues to be an issue. PLAN: 1. Ask GI to help manage ascites. The patient is 63. Is she a candidate for a TIPS procedure or is she a candidate for transplantation? 2. Continue current antibiotic regimen. No source of infection has been identified. 3. Continue physical therapy. 4. Consider paracentesis if shortness of breath persists or worsens. cc: Alexandr Mcdowell MD
[2019-04-02] MEDS: DUONEB (A & A) INH SCH ×4 (03:11→21:17)
[2019-04-02] MEDS: ZOSYN 2.25 GM in NS 50 ML IV SCH ×4 (04:06→21:44)
[2019-04-02 05:46] LABS: EOS# 0.08 X1000 (0.0-0.7); EOS% 1.4 % (0.0-10.0); HEMATOCRIT 27.5 % (37.0-47.0); HEMOGLOBIN 8.6 g/dL (12.0-16.0); IMM GRAN# 0.02 X1000 (0.0-0.04); IMM GRAN% 0.3 % (0.0-0.5); LYMPH# 0.69 X1000 (1.2-3.4); LYMPH% 11.9 % (20.5-51.1); MCH 28.7 PG (27-31); MCHC 31.3 g/dL (33-37); MCV 91.7 FL (81-99); MONO# 0.46 X1000 (0.11-0.59); MONO% 7.9 % (1.7-9.3); MPV 11.5 FL (7.4-10.4); NEUT# 4.54 X1000 (1.4-6.5); NEUT% 78.5 % (42.2-75.2); PLT 76 X1000 (130-400); RDW 19.6 % (11.5-14.5); WBC 5.79 X1000 (4.8-10.8)
[2019-04-02] MEDS: HUMALOG SUBQ SCH ×4 (06:06→21:45)
[2019-04-02 06:55] LABS: ALB/GLOB RATIO 1.3; ALBUMIN 2.9 g/dL (3.5-5.0); CALCIUM 8.3 mg/dL (8.8-10.2); CREATININE 2.5 mg/dL (0.5-0.9); PHOSPHORUS 4.7 mg/dL (2.7-4.5); POTASSIUM 5.3 mmol/L (3.5-5.1); TOTAL BILIRUBIN 0.54 mg/dL (0.20-1.00); TOTAL PROTEIN 5.2 g/dL (6.3-8.3)
[2019-04-02] MEDS: LANTUS INSULIN SUBQ SCH (09:59)
[2019-04-02] MEDS: TRENTAL PO SCH (09:59)
[2019-04-02] MEDS: SINGULAIR PO SCH (09:59)
[2019-04-02] MEDS: PREDNISONE PO SCH (09:59)
[2019-04-02] MEDS: PREPARATION H OINT TOP SCH ×2 (10:00→21:46)
[2019-04-02] MEDS: NORCO-7.5 PO SCH ×2 (10:10→21:44)
[2019-04-02 11:11] LABS: HEPATITIS PROFILE ACUTE SEE COMMENTS
[2019-04-02] MEDS: PROTONIX IV SCH ×2 (15:25→22:21)
[2019-04-02] MEDS: SODIUM CHLORIDE 0.9% INJ SCH (15:25)
[2019-04-02] MEDS: LACTULOSE PO SCH ×2 (17:35→21:43)
--- NOTE | 2019-04-02 17:58 | GASTROENTEROLOGY PROGRESS NOTE ---
DATE: 04/02/2019 ADDENDUM: This is an addendum to the note that I dictated on 04/01/2019. One of the diagnoses on the impression and plan is above the knee amputation. That was wrongly documented. I just wanted to make that correction. The patient does not have any above the knee amputation. Dictated by FILIPPO Morales for Westley Garza MD
--- NOTE | 2019-04-02 18:06 | GASTROENTEROLOGY PROGRESS NOTE ---
DATE: 04/02/2019 SUBJECTIVE: Ms. Mancini is 63-year-old, female. She was resting in bed, and has denied any nausea, vomiting, or abdominal tenderness. The patient has denied any bowel movements today. She did complain that she does not like to have the clear liquids, we will advance her diet. OBJECTIVE: Vital Signs: Temperature 97.9, pulse 108, respirations 21, blood pressure 117/51, oxygen saturation 98% on room air. Her weight is 176 pounds. BMI is 28.5 kg/m2. General: She is alert and oriented x3, and in no acute distress. HEENT: Pale conjunctivae. No icterus PERRL. Neck: Supple. Diminished breath sounds heard in the anterior lobes. Cardiovascular: Tachycardic. Abdomen: Soft, mildly distended, nontender. Active bowel sounds heard in all 4 quadrants. The patient has some previous surgical scars on her abdomen. Extremities: No clubbing. No cyanosis. No edema. Pedal pulses 2+ present bilaterally. Neurologic: She is alert and oriented x3. LABORATORY AND DIAGNOSTIC DATA: WBC is 5.79, RBC 3.0, hemoglobin 8.6, hematocrit is 27.5, platelet count is 76,000. Sodium 140, potassium 5.3, chloride 109, carbon dioxide 17, anion gap 14, BUN 64, creatinine 2.4, glucose 106, calcium 8.3, phosphorus 4.7. Total bilirubin 0.54, AST 79, ALT 75, alkaline phosphatase 201. Chest x-ray showed stable chest. IMPRESSION: 1. Gastrointestinal bleed. 2. Anemia. 3. Diabetes type 2. 4. Hypertension. 5. Gastroesophageal reflux disease. 6. Recurrent pleural effusion. 7. Thrombocytopenia. 8. Acute kidney injury. PLAN: Ms. Mancini is a 63-year-old, female, GI is following her for anemia and her GI bleed. Her pathology report from the endoscopy that was done on 03/31/2019 revealed chronic inactive gastritis with edema, patchy fibrosis, erosion, neovascularization and congestion, and negative H-pylori. The patient's hemoglobin and hematocrit today was 8.6 and 27.5. It has started to trend upwards. The patient has denied any bleeding. She is on GI prophylaxis, Protonix 40 mg for her GI bleed. We will continue to monitor the patient and follow the plan of care per PCP. This plan was discussed with Dr. Garza. Please call us for any further questions or concerns. Dictated by FILIPPO Morales for Westley Garza MD Physician Attestation I have seen and examined the patient. I have discussed and reviewed the note by Jessica BARKLEY and agree with findings and plan as documented. In brief, Ms. Rosetta Mancini is a 63 year old woman with decompensated cirrhosis with ascites and hepatic hydrothorax c/b by recent PTX s/p chest tube who presented in hypovolemic shock requiring pressors in the setting of GI bleed +/- pneumonia with parapneumonic effusion. EGD showed small non-bleeding grade I esophageal varix and multiple superficial duodenal ulcerations with spontaneous oozing s/p cautery with incomplete hemostasis. Gastric erosions were also noted; biopsies pending. Hgb is stable. She is on empiric zosyn. She denies complaints. Continue PPI, increased to BID. Trend H/H, transfuse prn goal hgb 7-8. DEVEN on CKD improved. I would not recommend TIPS as this time; diuretics preferred, which we are holding in setting of recent shock, GI bleed, and DEVNE. Will obtain dedicated abdominal US. Will stop lactulose as patient does not have h/o PSE. She has a history of COPD. She may not be a good candidate for transplant given her underlying pulmonary disease and recent PTX/hepatic hydrothorax. Her MELD-Na is 21-22. We can refer liver transplant evaluation as outpatient. Will follow with you. Please call with questions. MTDD
--- NOTE | 2019-04-02 20:07 | PROGRESS NOTE ---
DATE: 04/02/2019 SUBJECTIVE: Patient is resting comfortably in bed. She is still complaining of shortness of breath. No headache. She had an upper endoscopy done 2 days ago. Physical therapy and occupational therapy on board. Gastroenterology Department and Pulmonary Department following this patient. I have requested a PA and lateral x-ray of the chest for tomorrow. OBJECTIVE: Vital Signs: Temperature 97.6 degrees, pulse 102, respiratory rate 22, blood pressure 136/65, oxygen saturation 99 on 2 L of nasal cannula. HEENT: Head normocephalic, no trauma. PERRLA. Neck: Supple. No JVD. No masses. Central trachea. Chest: Decreased breath sounds globally with crackles, especially on the right side. Decreased breath sounds on the right base mostly. Abdomen: Soft. Generalized tenderness to palpation, mostly at the level of the periumbilical area. Positive bowel sounds. Extremities: No edema, no clubbing, no cyanosis. Neurological: The patient is alert and oriented x3. No focal deficits. Some mild tremors. LABORATORY: WBC 5.7, hemoglobin 8.6, hematocrit 27.5, and platelets 76,000. Sodium 140, potassium 5.3, chloride 109, bicarbonate 17, BUN 64, creatinine 2.5, glucose 160, calcium 8.3, and albumin 2.9. ASSESSMENT AND PLAN: 1. Shock. I do not have any documented source of infection, but there is a possibility of spontaneous bacterial peritonitis. Also, that could be related to adrenal insufficiency on top of low blood pressure that can be the result of her liver cirrhosis. She seems to be hydrated. Her urine output is good, and actually it was 2.5 L today. I do not see any bowel movements documented since 03/30/2019. I do not see a stool softener listed. I will start this patient on lactulose to see how she does. 2. Recurrent pleural effusion, with recent thoracentesis and iatrogenic pneumothorax, status post chest tube placement, which has been removed already during the previous hospitalization. This patient still has right pleural effusion. I will check a new x-ray in the morning. Likely this is due to hepatic hydrothorax. Pulmonary Department and Gastroenterology Department following this patient. 3. Gastrointestinal bleed, status post endoscopy. Her esophagus has a single small grade 1 varix in the distal esophagus without stigmata of recent bleeding. Her stomach has linear erosions in the gastric antrum. Biopsies were taken to rule out Helicobacter pylori. Her duodenum though has multiple superficial and irregular shaped ulcers with active oozing of blood that were found in the second part of the duodenum. The cautery was applied to multiple sites with incomplete hemostasis achieved; however, it is slower oozing. They have recommended to put this patient on a clear liquid diet. I will keep monitoring the hemoglobin and hematocrit, avoid nonsteroidal anti-inflammatory medications, and continue with antibiotics for possible spontaneous bacterial peritonitis for a total of 5 to 7 days. Her hemoglobin actually is about the same compared with yesterday. 4. Adrenal insufficiency. She used to be on hydrocortisone, but now has been switched to oral prednisone. 5. Acute kidney injury on chronic kidney disease. Urine output seems to be stable. Aware. 6. Anemia, likely due to gastrointestinal bleed, status post 1 packed red blood cells. We will continue to monitor. 7. Liver cirrhosis. At home, she is on furosemide and spironolactone, which has been stopped due to her acute kidney injury. She is having good urine output. We will continue with same management for now. I will put this patient on lactulose as well. 8. Diabetes. Continue with same management. 9. Hypertension. We have been holding her blood pressure medication due to hypotension. 10. Thrombocytopenia, due to liver cirrhosis. 11. This patient seems to be feeling better. She is still complaining of shortness of breath. She is Full Code. Gastroenterology Department is on board. There is a question about if this patient is a good candidate for a transjugular intrahepatic portosystemic shunt procedure or liver transplant. For now, we will continue with same management. cc: Juan Carlos Thao MD
[2019-04-02] MEDS ORDERED: BICITRA PO ONE (21:16)
[2019-04-02] MEDS: ZOCOR PO SCH (21:44)
[2019-04-02] MEDS: CYMBALTA PO SCH (21:44)
[2019-04-02] MEDS: ELAVIL PO SCH (21:44)
[2019-04-02] MEDS ORDERED: SODIUM CHLORIDE 0.9% INJ SCH (22:00)
--- NOTE | 2019-04-03 00:46 | PULMONOLOGY PROGRESS NOTE ---
DATE: 04/02/2019 SUBJECTIVE: The patient is awake and alert. She reports her breathing is a little bit better today. OBJECTIVE: Vital Signs: The patient has been afebrile this entire hospital stay. Blood pressure 135/58, heart rate 98, respiratory rate 21, oxygen saturation 100% on 2 L per nasal cannula. HEENT: Pupils are equal and reactive. Oropharynx appears clear. Neck: Supple. Chest: Reveals decreased breath sounds right base. Cardiac: S1-S2. Abdomen: Soft. Extremities: Without edema. LABORATORIES: Sodium 140, potassium 5.3, chloride 109, bicarbonate 17, anion gap 14, BUN 64, creatinine 2.5. White blood count 5.79, hemoglobin 8.6, platelet count 76,000. No new microbiology data. No new x-rays today. IMPRESSION: A 63-year-old with: 1. Pleural effusion, most likely related to underlying ascites. Currently appears loculated. 2. Recurrent ascites. 3. Cirrhosis. 4. Acute renal insufficiency. 5. Adrenal insufficiency, on oral steroids. 6. Protein calorie malnutrition. 7. Splenomegaly related to portal hypertension. 8. Varices related to portal hypertension. 9. Thrombocytopenia, likely due to portal hypertension. PLAN: 1. Two-view chest x-ray tomorrow. 2. Continue lactulose. The patient previously had encephalopathy with prior hospitalizations. 3. Additional serum bicarbonate tonight. cc: Alexandr Mcdowell MD
[2019-04-03] MEDS: DUONEB (A & A) INH SCH ×4 (03:41→22:13)
[2019-04-03] MEDS: ZOSYN 2.25 GM in NS 50 ML IV SCH ×4 (04:32→21:07)
[2019-04-03] MEDS: HUMALOG SUBQ SCH ×4 (06:13→21:10)
[2019-04-03 07:44] LABS: EOS# 0.11 X1000 (0.0-0.7); EOS% 2.4 % (0.0-10.0); HEMATOCRIT 28.4 % (37.0-47.0); HEMOGLOBIN 8.7 g/dL (12.0-16.0); IMM GRAN# 0.02 X1000 (0.0-0.04); IMM GRAN% 0.4 % (0.0-0.5); LYMPH% 15.6 % (20.5-51.1); MCH 28.3 PG (27-31); MCHC 30.6 g/dL (33-37); MCV 92.5 FL (81-99); MONO# 0.37 X1000 (0.11-0.59); MONO% 8.2 % (1.7-9.3); MPV 11.6 FL (7.4-10.4); NEUT# 3.29 X1000 (1.4-6.5); NEUT% 73.4 % (42.2-75.2); PLT 79 X1000 (130-400); RBC 3.07 XMIL (4.2-5.4); RDW 19.4 % (11.5-14.5); WBC 4.49 X1000 (4.8-10.8)
[2019-04-03 07:56] LABS: ALB/GLOB RATIO 1.1; ALBUMIN 2.9 g/dL (3.5-5.0); CALCIUM 8.4 mg/dL (8.8-10.2); CREATININE 2.1 mg/dL (0.5-0.9); POTASSIUM 5.1 mmol/L (3.5-5.1); TOTAL BILIRUBIN 0.59 mg/dL (0.20-1.00); TOTAL PROTEIN 5.5 g/dL (6.3-8.3)
--- NOTE | 2019-04-03 10:06 | Diag Imaging Result Doc PS360 ---
EXAM: CHEST-2 VIEWS INDICATION: hypoxia TECHNIQUE: 2 views COMPARISON: 04/01/2019 FINDINGS: The large loculated pleural fluid collection on the right is essentially stable. Adjacent atelectasis is unchanged. The left lung remains clear. No new consolidation is identified. Cardiac silhouette is stable. IMPRESSION: Stable chest. Electronically signed by Anatoliy Pepe 04/03/2019 10:04 AM
[2019-04-03] MEDS: PREDNISONE PO SCH (10:09)
[2019-04-03] MEDS: PROTONIX IV SCH ×2 (10:10→21:07)
[2019-04-03] MEDS: SINGULAIR PO SCH (10:10)
[2019-04-03] MEDS: SODIUM CHLORIDE 0.9% INJ SCH (10:10)
[2019-04-03] MEDS: LACTULOSE PO SCH ×2 (10:10→21:07)
[2019-04-03] MEDS: NORCO-7.5 PO SCH ×2 (10:11→21:07)
[2019-04-03] MEDS: PREPARATION H OINT TOP SCH ×2 (10:15→21:11)
[2019-04-03] MEDS: LANTUS INSULIN SUBQ SCH (10:16)
--- NOTE | 2019-04-03 10:26 | Diag Imaging Result Doc PS360 ---
EXAM: US ABDOMEN-COMPLETE INDICATION: evaluate for ascites COMPARISON: 03/18/2019 FINDINGS: There has been a prior cholecystectomy. The common bile duct is normal in diameter. The liver contour is vaguely nodular suggesting cirrhosis. No discrete hepatic mass is identified. Portal venous flow is hepatopetal. The pancreas is partially obscured. The visualized portion is unremarkable. The proximal aorta and IVC are obscured by bowel gas. The visualized portions are unremarkable. The spleen is enlarged measuring up to 16.2 cm resolution. There is a 1.6 cm simple appearing right renal cyst. The kidneys are grossly unremarkable, otherwise. There is a large right pleural effusion and a moderate amount of ascites tracking around the liver and spleen. IMPRESSION: 1.Cirrhosis. 2.Splenomegaly. 3.Moderate ascites. 4.Large right pleural effusion. Electronically signed by Anatoliy Pepe 04/03/2019 10:24 AM
--- NOTE | 2019-04-03 15:11 | PROGRESS NOTE ---
DATE: 04/03/2019 SUBJECTIVE: This patient is resting comfortably in bed. She is still complaining of shortness of breath. She does have right pleural effusion moderate to large, Pulmonary Department and Gastroenterology Department on board, I will wait for recommendations. OBJECTIVE: Vital Signs: Temperature 98.2 degrees, pulse 104, respiratory rate 20, blood pressure 136/66, oxygen saturation 100% on 2 L of nasal cannula. HEENT: Head normocephalic, no trauma. PERRLA. Neck: Supple. No JVD. No masses. Central trachea. Chest: Decreased breath sounds globally with crackles especially on the right side. Decreased breath sounds on the right base mostly. Abdomen: Soft. Some tenderness to palpation at the level of the periumbilical area. Positive bowel sounds. Extremities: Trace edema, no clubbing, no cyanosis. Neurologic: The patient is alert she is oriented x3. No focal deficits. Some mild tremors. LABORATORY: WBC 4.4, hemoglobin 8.7, hematocrit 28.4, platelet 79,000. Sodium 140, potassium 5.1, chloride 110, bicarbonate 17, BUN 62, creatinine 2.1, glucose 133, calcium 8.4, AST 90, ALT 95, alkaline phosphatase 235, albumin 2.9. ASSESSMENT AND PLAN: 1. Shock, I do not have any documented source of infection. There is a possibility of spontaneous bacterial peritonitis, also this could be related to some adrenal insufficiency on top of a low blood pressure that can be the result of her liver cirrhosis, she seems to be hydrated. Urine output is good, she is having bowel movements. 2. Recurrent pleural effusion with recent thoracentesis and iatrogenic pneumothorax status post chest tube placement, which has been removed already during the previous hospitalization. This patient still has right pleural effusion moderate to large, new x-ray this morning corroborate this, I will wait for Pulmonary recommendations as well as GI recommendations. 3. Gastrointestinal bleed status post endoscopy. Her esophagus has a single small grade 1 Clark's in the distal esophagus without a stigmata of recent bleeding. Her stomach has a linear erosions in the gastric antrum, biopsies were taken to rule out Helicobacter pylori. Her duodenum though has multiple superficial and irregular shaped ulcers with active oozing of blood that were found in the second part of the duodenum. They were cauterized to multiple sides with incomplete hemostasis achieved, however it is a slower oozing. They have recommended to put this patient on clear liquid diet. I keep monitoring the hemoglobin and hematocrit. Avoid NSAIDs. Continue antibiotics for possible spontaneous bacterial peritonitis for a total of 5 to 7 days. 4. Atrial insufficiency, she used to be on hydrocortisone but now she has been switched to prednisone, she has been placed on 15 daily p.o. and has been that way since the . I will decrease it a little bit more today to 10 daily to see how she does. 5. Acute kidney injury on chronic kidney disease. Urine output seems to be stable, we have been holding the diuretics. 6. Anemia likely due to gastrointestinal bleed status post 1 packed red blood cell. We will continue to monitor. 7. Liver cirrhosis, at home she is on furosemide and spironolactone which has been stopped due to her acute kidney injury. She is having good urine output. We will continue to monitor for now. 8. Diabetes. Continue with same management. 9. Hypertension. We have been holding her blood pressure medication due to hypotension mostly during admission. 10. Thrombocytopenia due to liver cirrhosis. 11. This patient is feeling better. She is still complaining of shortness of breath. She is full code. Gastroenterology Department on board. There is a question about if this patient is a good candidate for transjugular intrahepatic portosystemic shunt procedure or liver transplant. For now will continue with same management, I will wait for more recommendations. Probably this patient needs a thoracentesis done again. cc: Juan Carlos Thao MD
[2019-04-03] MEDS: ZOCOR PO SCH (21:07)
[2019-04-03] MEDS: CYMBALTA PO SCH (21:07)
[2019-04-03] MEDS: ELAVIL PO SCH (21:07)
[2019-04-03] MEDS ORDERED: BICITRA PO ONE (22:25)
--- NOTE | 2019-04-04 01:28 | PULMONOLOGY PROGRESS NOTE ---
DATE: 04/03/2019 SUBJECTIVE: The patient is awake, alert, and conversant. She reports her appetite has improved. She continues to have shortness of breath. OBJECTIVE: Vital Signs: Blood pressure 124/60, heart rate 107, respiratory rate 18, oxygen saturation 98% on 2 L nasal cannula. HEENT: Pupils are equal and reactive. Oropharynx appears clear. Neck: Supple. Chest: Reveals diminished breath sounds right lung base. Cardiac: S1, S2. Abdomen: Soft with positive bowel sounds. She has central tympany consistent with ascites. Extremities: Reveal 1+ peripheral edema. LABORATORIES: Ultrasound reveals right-sided pleural effusion, moderate ascites, cirrhosis, and splenomegaly. Chest x-ray reveals stable loculated effusion. Sodium 140, potassium 5.1, chloride 110, bicarbonate 17, BUN 62, creatinine 2.1. IMPRESSION: A 63-year-old with cirrhosis of the liver, ascites, pleural effusion, acute renal insufficiency, adrenal insufficiency, varices, splenomegaly and thrombocytopenia related to portal hypertension. PLAN: 1. Continue lactulose. 2. Continue bronchial hygiene. 3. Limit sodium intake. 4. Await GI's recommendations on additional management of intractable ascites. cc: Alexandr Mcdowell MD
[2019-04-04] MEDS: DUONEB (A & A) INH SCH ×4 (03:50→19:42)
[2019-04-04] MEDS: ZOSYN 2.25 GM in NS 50 ML IV SCH ×2 (05:24→10:06)
[2019-04-04] MEDS: HUMALOG SUBQ SCH ×4 (06:25→21:19)
[2019-04-04 07:55] LABS: ALBUMIN 2.9 g/dL (3.5-5.0); CALCIUM 8.5 mg/dL (8.8-10.2); CREATININE 2.1 mg/dL (0.5-0.9); POTASSIUM 4.9 mmol/L (3.5-5.1); TOTAL BILIRUBIN 0.7 mg/dL (0.20-1.00); TOTAL PROTEIN 5.7 g/dL (6.3-8.3)
[2019-04-04] MEDS: NORCO-7.5 PO SCH ×2 (10:03→21:17)
[2019-04-04] MEDS: SINGULAIR PO SCH (10:06)
[2019-04-04] MEDS: PREDNISONE PO SCH (10:06)
[2019-04-04] MEDS: PROTONIX IV SCH ×2 (10:07→21:17)
[2019-04-04] MEDS: LACTULOSE PO SCH ×2 (10:13→21:17)
[2019-04-04] MEDS: LANTUS INSULIN SUBQ SCH (10:23)
--- NOTE | 2019-04-04 15:12 | PROGRESS NOTE ---
DATE: 04/04/2019 SUBJECTIVE: The patient is sitting at the bedside. She seems to be more stable. She is still complaining of some shortness of breath. She does have pleural effusion, [id number]. Pulmonary Department and Gastroenterology Department on board. I will wait for recommendations. OBJECTIVE: Vital Signs: Temperature 98.1 degrees, pulse 100, respiratory rate 18, blood pressure 116/68, oxygen saturation 98 on 2 L of nasal cannula. HEENT: Head normocephalic. No trauma. PERRLA. Neck: Supple. No JVD. No masses. Central trachea. Chest: Decreased breath sounds globally with crackles, especially on the right side. Decreased breath sounds at the right base mostly. Abdomen: Soft, protuberant. She has ascites. Some tenderness to palpation at the level of the periumbilical area. Positive bowel sounds. Extremities: Trace edema. No clubbing, no cyanosis. Neurological: The patient is alert. She is oriented x3. No focal deficits. Some mild tremors in the hands. LABORATORY DATA: Sodium 141, potassium 4.9, chloride 109, bicarbonate 18, BUN 60, creatinine 2.1, glucose 109, calcium 8.5. AST 75, ALT 97, alkaline phosphatase 247, albumin 2.9. ASSESSMENT AND PLAN: 1. Shock. I do not have any documented source of infection. There is a possibility of spontaneous bacterial peritonitis. Also, this could be related to some adrenal insufficiency on top of low blood pressure that can be the result of her liver cirrhosis. She seems to be hydrated. Her urine output has been good. She is having bowel movements. 2. Recurrent pleural effusion with recent thoracentesis and iatrogenic pneumothorax, status post chest tube placement, which has been removed already during the previous hospitalization. This patient still has some pleural effusion on the right side, [id number]. I will repeat the x-ray tomorrow. I will wait for Pulmonary Department recommendations as well as Gastroenterology recommendations since this seems to be hepatic hydrothorax. 3. Gastrointestinal bleed, status post endoscopy. Her esophagus has a single small grade 1 varix in the distal esophagus without a stigmata of recent bleeding. Her stomach has a linear lesion in the gastric antrum. Biopsies were taken to rule out Helicobacter pylori. Her duodenum has multiple superficial and irregular-shaped ulcers with active oozing of blood that were found in the second part of the duodenum. They were actually cauterized to multiple sites with incomplete hemostasis achieved. However, it is a slower oozing. They have recommended to put this patient on a clear liquid diet. I will keep monitoring this patient's hemoglobin and hematocrit. Avoid nonsteroidal anti-inflammatory drugs. Continue antibiotics for possible spontaneous bacterial peritonitis for a total of 7 days, which is going to be completed today, so I will stop it. She used to be on Zosyn, renally dosed. 4. Adrenal insufficiency. She used to be on hydrocortisone intravenously, but now she has been switched to prednisone. I decreased the dose from 15 to 10 mg yesterday, and we will reduce her dose slowly. 5. Acute kidney injury on chronic kidney disease. Her urine output seems to be stable. I have been holding his diuretics due to her kidney dysfunction. Hopefully, we can restart her treatment this week. 6. Anemia, likely due to gastrointestinal bleed, status post 1 packed red blood cell. Will continue to monitor. Hemoglobin has been stable. I will recheck that tomorrow. 7. Liver cirrhosis. At home, she is on furosemide and spironolactone. They have been stopped due to her acute kidney injury. She is having good urine output. Will continue to monitor for now. 8. Diabetes. Continue with the same management. 9. Hypertension. We have been holding her blood pressure medication due to hypotension. 10. Thrombocytopenia due to liver cirrhosis. This patient is feeling better. She is still complaining of some shortness of breath. She is full code. Gastroenterology Department on board. Hopefully, we can restart her diuretics soon. I have stopped the antibiotics today. I will wait for Gastroenterology Department's recommendation for her management of ascites. That is probably the cause of the right pleural effusion/hepatic hydrothorax. cc: Juan Carlos Thao MD
[2019-04-04] MEDS: PREPARATION H OINT TOP SCH ×2 (15:25→21:18)
[2019-04-04] MEDS: CYMBALTA PO SCH (21:17)
[2019-04-04] MEDS: ZOCOR PO SCH (21:17)
[2019-04-04] MEDS: ELAVIL PO SCH (21:17)
[2019-04-05] MEDS: DUONEB (A & A) INH SCH ×4 (03:42→21:36)
[2019-04-05] MEDS: HUMALOG SUBQ SCH ×4 (06:04→20:43)
[2019-04-05 07:30] LABS: EOS# 0.14 X1000 (0.0-0.7); EOS% 3.8 % (0.0-10.0); HEMATOCRIT 28.2 % (37.0-47.0); HEMOGLOBIN 8.7 g/dL (12.0-16.0); LYMPH# 0.64 X1000 (1.2-3.4); LYMPH% 17.5 % (20.5-51.1); MCH 28.8 PG (27-31); MCHC 30.9 g/dL (33-37); MCV 93.4 FL (81-99); MONO% 8.2 % (1.7-9.3); MPV 11.7 FL (7.4-10.4); NEUT# 2.58 X1000 (1.4-6.5); NEUT% 70.5 % (42.2-75.2); PLT 67 X1000 (130-400); RBC 3.02 XMIL (4.2-5.4); RDW 18.6 % (11.5-14.5); WBC 3.66 X1000 (4.8-10.8)
[2019-04-05 07:55] LABS: ALB/GLOB RATIO 1.1; CALCIUM 8.4 mg/dL (8.8-10.2); CREATININE 2.2 mg/dL (0.5-0.9); POTASSIUM 5.3 mmol/L (3.5-5.1); TOTAL BILIRUBIN 0.69 mg/dL (0.20-1.00); TOTAL PROTEIN 5.8 g/dL (6.3-8.3)
[2019-04-05] MEDS: PREDNISONE PO SCH (08:20)
[2019-04-05] MEDS: PREPARATION H OINT TOP SCH ×2 (08:20→20:55)
[2019-04-05] MEDS: SINGULAIR PO SCH (08:20)
[2019-04-05] MEDS: NORCO-7.5 PO SCH ×2 (08:20→20:56)
[2019-04-05] MEDS: LACTULOSE PO SCH ×2 (08:20→20:55)
[2019-04-05] MEDS: LANTUS INSULIN SUBQ SCH (08:20)
[2019-04-05] MEDS: PROTONIX IV SCH ×2 (11:25→20:56)
--- NOTE | 2019-04-05 13:02 | GASTROENTEROLOGY PROGRESS NOTE ---
DATE: 04/05/2019 SUBJECTIVE: Ms. Mancini is a 63-year-old female. She was resting in bed. She denied any nausea, vomiting, or abdominal pain. The patient denied any bowel movement this morning, but she did have one yesterday. OBJECTIVE: Vital Signs: Temperature 97.6 degrees, pulse 97, respirations 16, blood pressure 136/66, oxygen saturation 100%. She is on 2 L nasal cannula. Her weight is 182 pounds, BMI is 29.5 kg/m2. General: She is alert, oriented x3, and in no acute distress. HEENT: Pale conjunctivae. No icterus. PERRL. Neck: Supple. Lungs: Decreased breath sounds heard in the anterior pandey. Cardiovascular: The patient is tachycardic. Abdomen: Soft, mildly distended, nontender. Active bowel sounds heard in all 4 quadrants. The patient has some surgical scars from the previous surgeries on her abdomen. Extremities: No clubbing, no cyanosis, no edema. Pedal pulses 2+ present bilaterally. Neurologic: She is alert, oriented x3. IMAGING AND LABORATORY DATA: WBCs 3.66, RBC 3.02, hemoglobin 8.7, hematocrit 28.2, platelet count 67,000. Sodium 140, potassium 5.3, chloride 108, carbon dioxide 19, anion gap 13, BUN 57, creatinine 2.2, glucose 101, calcium 8.4. Total bilirubin is 0.69, AST 55, ALT 84, alkaline phosphatase 251, albumin 3.0. Her hepatitis profile on 04/01/2019 showed nonreactive. Chest x- ray on 04/03/2019 showed stable chest. Abdominal ultrasound on 04/03/2019 showed cirrhosis, splenomegaly, moderate ascites, and large right pleural effusion. IMPRESSION AND PLAN: GI Bleed Anemia Gastritis Diabetes type II Hypertension GERD Recurrent pleural effusion Thrombocytopenia DEVEN PLAN: Ms. Mancini is a 63-year-old female who has decompensated cirrhosis with ascites and hepatic hydrothorax. Gastroenterology is following her for her anemia and GI bleed. An endoscopy was done on 03/31/2019 that showed she had some single grade 1 varix in the distal esophagus, without stigmata of recent bleeding. The stomach showed some linear erosions in the gastric antrum. Biopsies were taken to evaluate for Helicobacter pylori. Duodenum showed multiple superficial and irregular-shaped ulcers with active oozing of blood in the second part of the duodenum. It was cauterized. Her pathology report showed she had chronic inactive gastritis with edema, patchy fibrosis erosion, and neovascularization and congestion, and it was negative for Helicobacter pylori. The patient is currently on GI prophylaxis Protonix 40 mg IV twice a day. Hemoglobin and hematocrit today are 8.7 and 28.2. Her platelet count is 67,000, it is trending upwards. We will continue to monitor her CBC and BMP, and transfuse packed red blood cells per protocol if her hemoglobin drops below 7. We will refer her for a liver transplant evaluation as an outpatient. We will continue to monitor the patient and follow the plan of care per PCP This plan was discussed with Dr. Vaughan. Please call us for any further questions or concerns. Dictated by FILIPPO Morales for Marycruz Vaughan MD cc: Marycruz Vaughan MD MTDD
--- NOTE | 2019-04-05 16:17 | PROGRESS NOTE ---
DATE: 04/05/2019 SUBJECTIVE: This morning Ms. Mancini refers to be doing a lot better. Still has some residual shortness of breath. OBJECTIVE: Vital signs: Blood pressure is 139/65, pulse of 93, respirations 16, temperature 97.7 degrees. General: Ms. Mancini is a 63-year-old female. She is in bed, no distress. HEENT: Mucosa is pink and moist. Anicteric. Acyanotic. Neck: Supple. Chest: Air entry is bilaterally reduced. There are some crackles in the posterior lung pandey. Cardiovascular: Regular rate and rhythm. Abdomen: Soft. It is distended. There is fluid shift dullness. Extremities: About 2+ pedal edema. TRIP RIDER: Patient is awake, alert, and oriented. LABORATORY DATA: CBC shows pancytopenia with WBC 3.66, hemoglobin of 8.7, platelet count of 67,000. Chemistry is also reviewed. Creatinine is 2.2. Rest of chemistry is unremarkable. AST and ALT are minimally elevated. Hepatitis panel is negative. CURRENT MEDICATIONS: Have all been reviewed. ASSESSMENT: 1. Cirrhosis of the liver, presumably due to fatty liver disease which is complicated with pancytopenia, ascites, portal hypertension with esophageal varix. 2. Recurrent pleural effusion due to hydrothorax. 3. Ascites due to cirrhosis of the liver. 4. Transient adrenal insufficiency. 5. Pancytopenic secondary to underlying cirrhosis of the liver. 6. Diabetes mellitus. 7. Hypertension. 8. Shock on presentation, most likely multifactorial including medication side effects, adrenal insufficiency, and presumed sepsis. Blood cultures have been negative. Antibiotics have been discontinued. The patient blood pressures have improved. 9. Acute on chronic renal failure, noted. 10. Non-anion gap metabolic acidosis secondary to kidney disease, noted. cc: Trell Rincon MD
[2019-04-05] MEDS: LASIX PO SCH (17:35)
[2019-04-05] MEDS: ALDACTONE PO SCH (17:35)
[2019-04-05] MEDS: ZOCOR PO SCH (20:55)
[2019-04-05] MEDS: ELAVIL PO SCH (20:55)
[2019-04-05] MEDS: CYMBALTA PO SCH (20:55)
[2019-04-06] MEDS: PROTONIX IV SCH ×3 (02:40→23:15)
[2019-04-06] MEDS: DUONEB (A & A) INH SCH ×4 (03:15→21:12)
[2019-04-06] MEDS: HUMALOG SUBQ SCH ×4 (06:13→20:17)
--- NOTE | 2019-04-06 06:34 | Diag Imaging Result Doc PS360 ---
CHEST-PORTABLE - 04/06/2019 INDICATION: abnormal exam COMPARISON: 04/03/2019 FINDINGS: There has been further increase in size of the large right pleural effusion. This now occupies 80% of the thorax. The left lung remains clear. No mediastinal shift. IMPRESSION: Further increase in size of the large right pleural effusion. Electronically signed by Nathanael Vela 04/06/2019 6:31 AM
[2019-04-06 07:58] LABS: HEMATOCRIT 27.1 % (37.0-47.0); HEMOGLOBIN 8.4 g/dL (12.0-16.0); MCH 29.3 PG (27-31); MCV 94.4 FL (81-99); MPV 12.1 FL (7.4-10.4); RBC 2.87 XMIL (4.2-5.4); RDW 18.8 % (11.5-14.5); WBC 3.8 X1000 (4.8-10.8)
[2019-04-06 08:21] LABS: ALBUMIN 3.1 g/dL (3.5-5.0); CALCIUM 8.4 mg/dL (8.8-10.2); CREATININE 2.1 mg/dL (0.5-0.9); PHOSPHORUS 3.9 mg/dL (2.7-4.5)
--- NOTE | 2019-04-06 08:58 | PULMONOLOGY PROGRESS NOTE ---
DATE: 04/05/2019 SUBJECTIVE: The patient is awake and alert. She reports her breathing is not as good today as it was yesterday. OBJECTIVE: Vital Signs: The patient has been afebrile for the last 24 hours. Blood pressure 136/64, heart rate 98, respiratory rate 17, oxygen saturation 100%. HEENT: Pupils are equal and reactive. Oropharynx is clear. Neck: Supple. Chest: Decreased breath sounds, right base. Cardiac: Increased rate. Regular rhythm. Abdomen: Mildly distended with central tympany. Extremities: Reveal 1+ peripheral edema. LABORATORY DATA: White blood count 3.66, hemoglobin 8.7, platelet count 67,000. Sodium 140, potassium 5.3, chloride 108, bicarbonate 19, BUN 57, creatinine 2.2. IMPRESSION: A 63-year-old with: 1. Cirrhosis of the liver. 2. Increasing ascites with abdominal distention. 3. Pleural effusion. 4. Acute renal insufficiency. 5. Adrenal insufficiency. 6. Splenomegaly and thrombocytopenia and varices associated with portal hypertensive. PLAN: 1. Lasix and spironolactone as ordered per Dr. Rincon. 2. Chest x-ray tomorrow. 3. The patient may need paracentesis before discharge. cc: Alexandr Mcdowell MD
[2019-04-06] MEDS: NORCO-7.5 PO SCH ×2 (09:15→20:16)
[2019-04-06] MEDS: LASIX PO SCH (09:15)
[2019-04-06] MEDS: SINGULAIR PO SCH (09:16)
[2019-04-06] MEDS: LACTULOSE PO SCH ×2 (09:16→20:17)
[2019-04-06] MEDS: ALDACTONE PO SCH (09:16)
[2019-04-06] MEDS: PREDNISONE PO SCH (09:16)
[2019-04-06] MEDS: SODIUM CHLORIDE 0.9% INJ SCH (09:16)
[2019-04-06] MEDS: LANTUS INSULIN SUBQ SCH (09:16)
[2019-04-06] MEDS: PREPARATION H OINT TOP SCH ×2 (09:17→20:28)
--- NOTE | 2019-04-06 14:37 | Diag Imaging Result Doc PS360 ---
CHEST-2 VIEWS - 04/06/2019 2:32 PM INDICATION: POST THORACENTESIS COMPARISON: 6:15 AM FINDINGS: There has been significant decrease in the large right pleural effusion. There is still some residual effusion, about 30% of the volume of the hemithorax. No pneumothorax. IMPRESSION: Significant decrease in the right pleural effusion. No complication. Electronically signed by Nathanael Vela 04/06/2019 2:35 PM
--- NOTE | 2019-04-06 14:37 | PROGRESS NOTE ---
DATE: 04/06/2019 SUBJECTIVE: This morning, Ms. Mancini refers to be doing fairly okay, but has some shortness of breath. She was sitting up in a chair at the time of the encounter. OBJECTIVE: Vital Signs: Blood pressure is 120/57, pulse of 93, respirations 18, temperature 97.6 degrees, the patient is saturating 100% on 2 L. General: Ms. Mancini is a 63-year-old female. She was sitting up in a chair. Seems to be in mild respiratory distress. HEENT: Mucosa is pink and moist. Anicteric. Acyanotic. Neck: Supple. Chest: Air entry is bilaterally reduced. Some crackles in the posterior lung pandey. Cardiovascular: Regular rate and rhythm. No murmurs, no rubs, no gallops. GI: Abdomen is soft. It is distended. Bowel sounds are present. There is fluid shift dullness. Extremities: About 1+ pedal edema. GRAIN CLEANER: The patient is awake, alert, and oriented. The patient's I's and O's show urine output is 1650, a negative balance of 1847 during the hospital course. LABORATORY DATA: WBC is 3.80, hemoglobin is 8.4, platelet count of 55,000. Chemistry is also reviewed. Creatinine is 2.1. ASSESSMENT: 1. Cirrhosis of the liver, presumably due to fatty liver disease complicated with pancytopenia, ascites, portal hypertension with esophageal varix. 2. Recurrent pleural effusion due to hepatic hydrothorax. Chest x-ray this morning shows worsening. The patient is currently needing oxygen. Seems to be in mild respiratory distress. We are going to get a thoracentesis for therapeutic purposes. 3. Ascites due to cirrhosis of the liver. 4. Transient adrenal insufficiency, resolved. 5. Pancytopenia secondary to underlying cirrhosis of the liver. 6. Diabetes mellitus, controlled. 7. Hypertension, stable. 8. Shock on presentation, resolved. 9. Acute on chronic renal failure. Creatinine continues to be fairly stable. 10. Mild non-anion gap metabolic acidosis, most likely due to renal failure. Noted. 11. Acute hypoxemic respiratory failure secondary to hepatic hydrothorax. The patient is currently on oxygen therapy. We are going to get a thoracentesis to improve on her symptoms. In general, I think Ms. Mancini is fairly stable, but still remarkably sick. She is currently needing oxygen to adequately saturate well. She seems symptomatic from a respiratory standpoint. We are going to get a thoracentesis, and send the fluid for analysis. I have discussed the plan with Dr. Garza, who is the GI on board. Ms. Mancini was also started on her diuretic therapy yesterday. Ms. Mancini is being seen by GI and Pulmonary Medicine, and we appreciate their input. cc: Trell Rincon MD MTDBin
--- NOTE | 2019-04-06 14:54 | Diag Imaging Result Doc PS360 ---
US ABD PARACENTESIS W S/I - 04/06/2019 INDICATION: Cirrhosis of the liver and ascites COMPARISON: None FINDINGS: The risks and benefits of the procedure were discussed with the patient. All questions were answered. Written and verbal consent was obtained. Ultrasound scanning demonstrated ascites. Overlying skin was prepped and draped in sterile fashion. Anesthesia was achieved with injection of 10 cc 1% lidocaine. The paracentesis catheter was advanced until the return of ascites fluid. 3.8 L was aspirated. The catheter was withdrawn intact. The patient reported no symptoms from the procedure. IMPRESSION: Successful and uncomplicated ultrasound-guided paracentesis. Electronically signed by Nathanael Vela 04/06/2019 2:52 PM
--- NOTE | 2019-04-06 14:55 | Diag Imaging Result Doc PS360 ---
US THORACENTESIS W/IMAGE GUIDE - 04/06/2019 INDICATION: symptomatic right hydrothorax TECHNIQUE: The risks and benefits of the procedure were discussed with the patient. All questions were answered. Written and verbal informed consent was obtained. Overlying skin was prepped and draped in sterile fashion. Anesthesia was achieved with injection of 10 cc of 1% lidocaine. COMPARISON: Chest x-ray from today FINDINGS: The right pleural space was successfully drained. 1.8 L was removed successfully. The patient reported no symptoms from the procedure. Follow-up chest x-rays demonstrated no pneumothorax. IMPRESSION: Successful and uncomplicated ultrasound-guided right thoracentesis. Electronically signed by Nathanael Vela 04/06/2019 2:53 PM
[2019-04-06] MEDS ORDERED: ALBUMIN 25% IV ONE (15:17)
[2019-04-06 15:28] LABS: AMYLASE BODY FLUID 30 U/L; BODY FLUID SOURCE PLEURAL FLUID; GLUCOSE BODY FLUID 164 mg/dL; LDH BODY FLUID 37 U/L; PH BODY FLUID 7; SPECIMEN PLEURAL FLUID; TOTAL PROT BODY FLUID 0.7 g/dL
[2019-04-06 15:30] LABS: WBC BF 97 /cumm
[2019-04-06 16:23] LABS: MONOS 69 %; POLYS 31 %
[2019-04-06 16:31] LABS: BODY FLUID SOURCE ASCETIC FLUID; MONOS 49 %; POLYS 51 %; WBC BF 144 /cumm
--- NOTE | 2019-04-06 18:05 | GASTROENTEROLOGY PROGRESS NOTE ---
DATE: 04/06/2019 SUBJECTIVE: Ms. Mancini is a 63-year-old female, sitting in the chair and having her breakfast. She has denied any nausea, vomiting, or abdominal pain, but she did mention that she feels like her stomach is bloated. The patient has denied any bowel movements today or yesterday. OBJECTIVE: Vital Signs: Temperature 97.6, pulse is 96, respirations 18, blood pressure 120/57, oxygen saturation 100% on 2 liters nasal cannula. Her weight is 208 pounds. BMI is 33.6 kg/m2. General: She is alert, oriented x3, and in no acute distress. HEENT: Pale conjunctivae. No icterus. PERRL. Neck: Supple. Lungs: Decreased breath sounds heard in the anterior pandey. Cardiovascular: Patient is tachycardic. Abdomen: Soft, distended, nontender. Hypoactive bowel sounds heard in all 4 quadrants. The patient has some surgical scars from the previous surgeries on her abdomen. Extremities: No clubbing, no cyanosis, no edema. Pedal pulses 2+ present bilaterally. She is alert, oriented x3. LABORATORY DATA: WBCs 3.8, RBC 2.87, hemoglobin 8.4, platelet count 55,000. Sodium 137, potassium 5, chloride 105, carbon dioxide 20, anion gap 12, BUN 53, creatinine 2.1, glucose 136, calcium is 8.4. Chest x-ray showed further increase in the size of the large right pleural effusion. IMPRESSION AND PLAN: 1. Gastrointestinal bleed. 2. Anemia. 3. Gastritis. 4. Esophagitis. 5. Cirrhosis of the liver with ascites 6. Gastroesophageal reflux disease. 7. Recurrent pleural effusion. 8. Thrombocytopenia. 9. Acute kidney injury. 10. Hypertension. 11. Diabetes type 2. PLAN: Ms. Mancini is a 63-year-old female who has decompensated cirrhosis with ascites GI is following her for anemia and GI bleed. The patient's endoscopy done on 03/31/2019 showed she had esophagitis in the stomach, had some erosions in the gastric antrum. Duodenum had some superficial and irregular-shaped ulcers with active oozing of the blood. The patient's stomach biopsy has showed she has gastritis and it was negative for Helicobacter bacteria. We have ordered an ultrasound guided paracentesis, awating the results of the asicitic fluid.. The patient is currently on Protonix 40 mg IV twice a day. She is also receiving lactulose. The patient is on Lasix 40 mg p.o. daily and Aldactone 100 mg p.o. daily. Her hemoglobin and hematocrit today are 8.4 and 27.1. We will continue to monitor the patient, follow the plan of care per PCP. We will refer the patient for liver transplant evaluation as an outpatient. This plan was discussed with Dr. Garza. Please call us for any further questions or concerns. Dictated by FILIPPO Morales for Westley Garza MD Physician Attestation I have seen and examined the patient. I have discussed and reviewed the note by Jessica BARKLEY and agree with findings and plan as documented. In brief, Ms. 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 EGD showed small non-bleeding grade I esophageal varix and multiple superficial duodenal ulcerations with spontaneous oozing s/p cautery with incomplete hemostasis. Non-H pylori gastric erosions were also noted. Hgb is stable. She denies complaints. Continue PPI BID. In regards to her ascites and hydrothorax, recommend therapeutic and diagnostic thoracentesis and paracentesis. I prefer diuresis and salt restriction over TIPS given underlying CKD and since she has not failed diuretics. She is currently tolerating lasix 40mg and aldactone 100mg PO daily. She will need referral to [facility] liver transplant clinic as outpatient. Encourage smoking cessation. Will follow with you. [facility]
[2019-04-06] MEDS: ELAVIL PO SCH (20:16)
[2019-04-06] MEDS: CYMBALTA PO SCH (20:16)
[2019-04-06] MEDS: ZOCOR PO SCH (20:16)
[2019-04-07] MEDS: DUONEB (A & A) INH SCH (03:35)
[2019-04-07] MEDS: HUMALOG SUBQ SCH ×2 (06:30→12:30)
[2019-04-07 07:14] VITALS: BP 121/49
--- NOTE | 2019-04-07 07:38 | Diag Imaging Result Doc PS360 ---
CHEST-PORTABLE - 04/07/2019 INDICATION: dyspnea COMPARISON: 04/06/2019 2:32 PM FINDINGS: There has been further decrease or redistribution in the small right pleural effusion. No significant infiltrates. Heart size is normal. IMPRESSION: Decrease or slight redistribution in the small right pleural effusion. Electronically signed by Nathanael Vela 04/07/2019 7:36 AM
[2019-04-07 07:39] LABS: ALBUMIN 3.7 g/dL (3.5-5.0); CALCIUM 8.8 mg/dL (8.8-10.2); CREATININE 1.8 mg/dL (0.5-0.9); MAGNESIUM 1.8 mg/dL (1.5-2.7); PHOSPHORUS 3.3 mg/dL (2.7-4.5); POTASSIUM 4.7 mmol/L (3.5-5.1)
[2019-04-07] MEDS: PREDNISONE PO SCH (08:44)
[2019-04-07] MEDS: NORCO-7.5 PO SCH (08:45)
[2019-04-07] MEDS: SINGULAIR PO SCH (08:45)
[2019-04-07] MEDS: LASIX PO SCH (08:45)
[2019-04-07] MEDS: LACTULOSE PO SCH (08:45)
[2019-04-07] MEDS: ALDACTONE PO SCH (08:45)
[2019-04-07] MEDS: PREPARATION H OINT TOP SCH (08:45)
[2019-04-07] MEDS: LANTUS INSULIN SUBQ SCH (08:46)
[2019-04-07] MEDS ORDERED: PROTONIX PO SCH (09:00)
--- NOTE | 2019-04-07 10:49 | DISCHARGE SUMMARY ---
ADMISSION DATE: 03/27/2019 DISCHARGE DATE: 04/07/2019 DISPOSITION: [facility]. CONSULTATIONS DURING THIS ADMISSION: 1. Pulmonary Medicine was consulted. The patient was seen by Dr. Carlos. 2. GI was consulted. The patient was seen by Dr. Vaughan, followed up by Dr. Garza. INVASIVE PROCEDURES DONE DURING THIS ADMISSION: Ultrasound-guided thoracentesis and paracentesis were done by IR. IMAGING STUDIES OF SIGNIFICANCE: 1. A CT scan of the head and cervical spine without contrast was done on admission that showed no acute injury. 2. Lumbar spine shows severe degenerative changes. No acute abnormality. 3. A CT scan, which was done on 03/28/2019 showed large recurrent hepatic effusions. There was no pneumonia. 4. Multiple x-rays were done subsequently. X-ray this morning showed decrease or slight redistribution in the small right pleural effusion. ADMISSION DIAGNOSES: 1. Hypertension. 2. Acute kidney injury. 3. Anemia. 4. Transaminitis. 5. Hypertension. DISCHARGE DIAGNOSES: 1. Cirrhosis of the liver, presumably due to fatty liver disease complicated with pancytopenia, ascites, portal hypertension esophageal with varix. 2. Recurrent right pleural effusion (hepatic hydrothorax). 3. Ascites due to cirrhosis of the liver. 4. Shock on presentation, presumably sepsis with transient adrenal insufficiency, improved. 5. Acute on chronic renal failure. 6. Acute on chronic hypoxemic respiratory failure. 7. Suspected spontaneous bacterial peritonitis on admission. However, current paracentesis is non diagnostic. But, Ms. Mancini had been on antibiotics many days before the paracentesis was done. DISCHARGE MEDICATIONS: 1. Inhalers. 2. Januvia 100 mg p.o. daily. 3. Montelukast 10 mg p.o. daily. 4. Pentoxifylline 800 p.o. daily. 5. Aspirin 81 mg p.o. daily. 6. Duloxetine 60 mg p.o. at bedtime. 7. Gabapentin 300 b.i.d. 8. Siletz 7.5 b.i.d. p.r.n. 9. Amitriptyline 500 p.o. at bedtime. 10. Furosemide 40 mg p.o. daily. 11. Spironolactone 100 mg p.o. daily. 12. Klonopin 1 mg b.i.d. p.r.n. 13. Metoprolol succinate 50 mg p.o. daily. PRESENTING COMPLAINT: Falls and dizziness. HISTORY OF PRESENTING COMPLAINT: Ms. Mancini is a 63-year-old female who has a history of cirrhosis of the liver and also hypertension, who presented to the emergency department because of dizziness and falls. Upon presentation, she was found to be very hypotensive with systolic blood pressures in the 80s. She was fluid resuscitated and admitted to the ICU. HOSPITAL COURSE: Ms. Mancini was initially admitted to the critical care unit, was started on Levophed, was found to be also in transient adrenal insufficiency, was started on steroids and broad-spectrum IV antibiotics. Blood cultures came back 5 days negative. Ms. Mancini's blood pressure continued to improve. She was subsequently weaned of the Levophed, and transferred to the medical floor. On the medical floor, her main issues were about her fluid, both the ascites and the hydrothorax, which continued to get worse, so a paracenteses was subsequently done by IR yesterday, where 3.8 L were removed. Thoracentesis was also done, where 1.8 L was also successfully removed. Postop x-rays of the lungs did not show any complications. Ms. Mancini's shortness of breath got significantly better. This morning, she refers to feel a whole lot better. Her vitals showed blood pressure is 121/49, pulse is 88, respirations 17, temperature is 97.9 degrees. Please refer to the details of the progress note today in the chart. We think Ms. Mancini is now clinically stable to be discharged. She is going to be following up with Dr. Caballero on an outpatient basis for referral to [facility] for cirrhosis and transplant evaluation She has also been advised on low-salt diet and limited water intake. All the discharge instructions have been discussed with her, and she voiced understanding. TIME SPENT: Time spent for discharge was 38 minutes. cc: MD Charles Mcknight MD Michael Kelso, MD Thomas P. Short, MD MTDD
--- NOTE | 2019-04-07 11:09 | GASTROENTEROLOGY PROGRESS NOTE ---
DATE: 04/07/2019 SUBJECTIVE: Ms. Mancini is a 63-year-old, female. She was sitting in the bed and having her breakfast. The patient denied any nausea, vomiting, or abdominal pain. She mentioned that her stomach was feeling much better after they did the paracentesis yesterday and also mentioned having 1 bowel movement this morning. OBJECTIVE: Vital Signs: Temperature 97.9 degrees, pulse is 88, respirations 17, blood pressure 121/49, oxygen saturation 100% on 2 L nasal cannula. The patient's weight is 208 pounds. BMI is 33.6 kg/m2. General: She is alert, oriented x3, and in no acute distress. HEENT: Pale conjunctivae. No icterus. PERRL. Neck: Supple. Lungs: Decreased breath sounds heard in the anterior pandey. Cardiovascular: Regular rate and rhythm. Abdomen: Soft, mildly distended, nontender. Active bowel sounds heard in all 4 quadrants. The patient has some surgical scars from her previous surgeries. Extremities: No clubbing, no cyanosis, no edema. Pedal pulses 2+ present bilaterally. Neurologic: She is alert and oriented x3. Labs: WBCs 3.80, RBCs 2.87, hemoglobin 8.4, hematocrit 27.1, platelet count is 65,000. Sodium 140, potassium 4.7, chloride 106, carbon dioxide 21, anion gap 13, BUN 53, creatinine 1.8, glucose 103, calcium 8.8, phosphorus 3.3, magnesium 1.8. Her ascitic fluids were negative. Chest x-ray today showed decrease of slight redistribution in the small right pleural effusion. IMPRESSION AND PLAN: 1. Gastrointestinal bleed. 2. Anemia. 3. Gastritis. 4. Esophagitis. 5. Cirrhosis of the liver with ascites. 6. Gastroesophageal reflux disease. 7. Recurrent pleural effusion. 8. Thrombocytopenia. 9. Acute kidney injury. 10. Hypertension. 11. Type 2 diabetes. PLAN: Ms. Mancini is a 63-year-old, female who has decompensated cirrhosis with ascites. GI is following her for anemia and GI bleed. Her EGD showed she had some esophagitis, superficial duodenal ulcerations, and negative H. pylori. Her hemoglobin and hematocrit are 8.4 and 27.1. The patient is currently on GI prophylaxis with Protonix twice a day. She is on diuretics, Lasix and Aldactone. The patient is getting discharged and going to the rehab today. We will continue to follow the plan of care per PCP and monitor the patient. We will follow her as an outpatient in our clinic and we will do a referral to [facility] for a liver transplant evaluation. This plan was discussed with Dr. Garza. Please call us for any further questions or concerns. Dictated by FILIPPO Morales for Westley Garza MD Physician Attestation I have seen and examined the patient. I have discussed and reviewed the note by Jessica BARKLEY and agree with findings and plan as documented. In brief, Ms. 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 EGD showed small non-bleeding grade I esophageal varix and multiple superficial duodenal ulcerations with spontaneous oozing s/p cautery with incomplete hemostasis. Non-H pylori gastric erosions were also noted. Hgb is stable. She denies complaints. She had therapeutic thoracentesis and LVP yesterday with removal of 1.8 and 3.8 liters, respectively. No SBP. Renal function actually improved today. Recommend discharge on lasix 40mg and aldactone 100mg PO daily. Continue lactulose prn for constipation. She has no history of hepatic encephalopathy. Continue PPI PO BID for 3 months. Follow-up with Dr. Caballero upon discharge. She will need referral to [facility] liver transplant clinic as outpatient. Encourage smoking cessation. Will sign off. Please call with questions. MTDD
== END 2019-04-07 13:58 | DRG 871 ==
LOC: ED 12:32 → ICU 16:32 → SUATTDRO 16:32 → 3N 04-01 17:24
PROVIDERS: ATTEND Internal Medicine
PROC: EN.HEAT (2019-03-31 09:00)